=== PATIENT | female | born 1945 | race Caucasian/White ===

== ENCOUNTER 2017-08-12 14:27 | Emergency (ER) | payer MEDICARE ==
--- OUTSIDE RECORDS SUMMARY | 2017-08-12 14:29 | XMS REPORT | Clinical Summary ---
:1945 Author Organization [facility] Address [address] [place] [address] Phone Care Team Providers Name Role Phone Unavailable Primary Care Provider Unavailable Allergies Active Allergy Reactions Severity Noted Date Comments Helio Carranza 09/29/2015 Current Medications Prescription Sig. Disp. Refills Start Date End Date Status ferrous sulfate 325 Take 650 mg by mouth Active (65 FE) MG tablet daily with breakfast. nitroglycerin Place 0.4 mg under Active (NITROSTAT) 0.4 MG the tongue every 5 SL tablet (five) minutes as needed for Chest pain Put 1 pill under tongue every 5min as needed for chest pain.No more than 3 doses in 15min.Call 911 if pain is unrelieved 5min after 1st dose . pantoprazole Take 40 mg by mouth Active (PROTONIX) 40 MG daily Once a day tablet before a meal . simvastatin (ZOCOR) Take 40 mg by mouth Active 40 MG tablet nightly. anastrozole Take 1 mg by mouth Active (ARIMIDEX) 1 mg daily. tablet latanoprost Place 1 drop into Active (XALATAN) 0.005 % both eyes nightly. ophthalmic solution brimonidine-timolol Place 1 drop into Active (COMBIGAN) 0.2-0.5 the right eye every % ophthalmic 12 (twelve) hours. solution brinzolamide Place 1 drop into Active (AZOPT) 1 % both eyes 2 (two) ophthalmic times daily. suspension insulin aspart Inject 2-16 Units Active (NOVOLOG) 100 subcutaneously 3 unit/mL injection (three) times daily as needed for High Blood Sugar before meals . metoprolol Take 1 tablet (25 mg 0 10/12/2015 Active (LOPRESSOR) 25 MG total) by mouth 3 tablet (three) times daily. insulin detemir Inject 10 Units 10 mL 0 10/12/2015 Active (LEVEMIR) 100 subcutaneously every unit/mL injection morning. insulin detemir Inject 10 Units 10 mL 0 10/12/2015 Active (LEVEMIR) 100 subcutaneously unit/mL injection nightly. aspirin 81 MG Take 1 tablet (81 mg 30 tablet 11 10/12/2015 chewable tablet total) by mouth 7 daily. furosemide (LASIX) Take 1 tablet (20 mg 30 tablet 10/12/2015 20 MG tablet total) by mouth 7 daily. 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) Anemia 09/30/2015 CAD (coronary artery disease), koi coronary artery 09/29/2015 Diabetes mellitus with diabetic retinopathy 09/29/2015 Hypercholesterolemia 09/29/2015 Colon cancer (HCC) 09/29/2015 Left breast mass 09/29/2015 Social History Tobacco Use Types Packs/Day Years Used Date Never Smoker Sex Assigned at Date Recorded Not on file Last Filed Vital Signs Not on file Plan of Treatment Not on file Implants Implanted Type Area Nursing Home Assistant Administrator Device Expiration Model / Identifier Date Serial / Lot [facility]ternal [facility]501.001.20[facility] - [id number] Cardiovascular N/A: SYNTHES:SYNTHES 01/25/2020 [id number] / Implanted: Qty: 1 on 10/01/2015 by Trevor Guerrero MD Chest [facility] / [place] [id number] Results Not on fileafter 08/11/2016
[2017-08-12 15:22] LABS: Absolute Lymphocytes (CBC) 4.2 K/uL (0.7-4.9); Absolute Monocytes 0.8 K/uL (0.1-1.3); Basophils % 0.4 % (0-1.3); Eosinophils % 1.2 % (0-4.4); Hematocrit 41.5 % (36.0-45.0); Lymphocytes % 41.2 % (15.3-44.8); MCH 30.1 pg (27.0-35.0); MCV 91.1 fL (80-100); MPV 9.2 fL (7.6-11.3); Monocytes % 7.7 % (3.3-12.3); RBC Red Blood Cell Count 4.56 M/uL (3.86-4.86)
[2017-08-12 15:33] LABS: Urine Blood NEGATIVE (NEG); Urine Glucose NEGATIVE (NEG); Urine Protein NEGATIVE (NEG); Urine pH 5.5 (5.0-7.0)
[2017-08-12 15:34] LABS: Potassium 3.9 mEq/L (3.6-5.0)
--- NOTE | 2017-08-12 15:53 | ER ---
Nurse's Notes [facility] Name: Caro Garner Age: 71 yrs Sex: Female : 1945 Arrival Date: 08/12/2017 Time: 14:30 Bed 5 Private MD: Diagnosis: Cellulitis of right toe Presentation: 08/12 14:33 Presenting complaint: Patient states: I have swelling to my right great toe, just la1 noticed it today, pt is diabetic. Transition of care: patient was not received from another setting of care. Onset of symptoms was August 12, 2017. Initial Sepsis Screen: Does the patient meet any 2 criteria? No. Patient's initial sepsis screen is negative. Does the patient have a suspected source of infection? No. Patient's initial sepsis screen is negative. Care prior to arrival: None. 14:33 Method Of Arrival: Ambulatory la1 14:33 Acuity: YOUSIF 3 la1 14:33 Acuity: YOUSIF 3 la1 Historical: - Allergies: 14:34 Codeine; la1 - PMHx: 14:34 Cancer; Diabetes - IDDM; Myocardial infarction; retinopathy; la1 - Immunization history:: Adult Immunizations up to date. - Social history:: Smoking status: Patient/guardian denies using tobacco. Screenin:03 Abuse screen: Denies threats or abuse. Denies injuries from another. Nutritional jl7 screening: No deficits noted. Tuberculosis screening: No symptoms or risk factors identified. Fall Risk None identified. Total [place] Fall Scale indicates No Risk (0-24 pts). Assessment: 15:00 General: Appears in no apparent distress. uncomfortable, Behavior is calm, cooperative, jl7 appropriate for age. Pain: Denies pain. Neuro: Level of Consciousness is awake, alert, obeys commands, Oriented to person, place, time, situation. Cardiovascular: Patient's skin is warm and dry. Respiratory: Airway is patent Respiratory effort is even, unlabored, Respiratory pattern is regular, symmetrical. Derm: Skin is pink, warm \T\ dry. Musculoskeletal: Swelling present in right first toe. Vital Signs: 14:34 BP 134 / 60; Pulse 85; Resp 16; Temp 97.6; Pulse Ox 100% on R/A; Weight 68.04 kg; la1 Height 5 ft. 7 in. (170.18 cm); 16:03 BP 162 / 75; Pulse 80; Resp 18; Pulse Ox 99% ; Pain 0/10; jl7 14:34 Body Mass Index 23.49 (68.04 kg, 170.18 cm) la1 ED Course: 14:30 Patient arrived in ED. sb2 14:34 Triage completed. la1 14:35 Arm band placed on left wrist. la1 14:36 Myles Abebe RN is Primary Nurse. jl7 14:42 Danielle Walsh FNP-C [facility]. kb 14:42 Darwin Avalos MD is Attending Physician. kb 15:00 Patient has correct armband on for positive identification. Bed in low position. Call jl7 light in reach. Side rails up X 1. Pulse ox on. NIBP on. 15:03 Initial lab(s) drawn, by me, sent to lab. First set of blood cultures drawn by me. jl7 15:16 Second set of blood cultures drawn Urine collected: clean catch specimen, clear. jl7 15:34 X-ray completed. Portable x-ray completed in exam room. Patient tolerated procedure bb2 well. 15:41 Foot Right 3 View XRAY In Process Unspecified. EDMS 15:52 Urine Dipstick--Ancillary (enter results) Sent. jl7 15:52 Blood Culture Adult (2) Sent. jl7 15:52 Basic Metabolic Panel Sent. jl7 15:52 CBC with Diff Sent. jl7 16:04 No provider procedures requiring assistance completed. Patient did not have IV access jl7 during this emergency room visit. Administered Medications: 16:01 Drug: Clindamycin 300 mg Route: PO; jl7 16:01 Follow up: Response: Medication administered at discharge. jl7 Outcome: 15:16 Discharged to home ambulatory. jl7 15:16 Condition: stable 15:16 Discharge instructions given to patient, Instructed on discharge instructions, follow up and referral plans. medication usage, Demonstrated understanding of instructions, follow-up care, medications, Prescriptions given X 1. 15:52 Discharge ordered by . kb 16:05 Patient left the ED. jl7 Signatures: Dispatcher [employer] EDMS Danielle Walsh FNP-C FNP-Ckb Attema, Lee, RN RN la1 Myles Abebe RN RN jl7 Unique Napoles bb2 Billeau, Mere sb2
--- NOTE | 2017-08-12 15:53 | EDPHYS ---
Physician Documentation [facility] Name: Caro Garner Age: 71 yrs Sex: Female : 1945 Arrival Date: 08/12/2017 Time: 14:30 Bed 5 Private MD: ED Physician Darwin Avalos HPI: 08/12 15:08 This 71 yrs old Female presents to ER via Ambulatory with complaints of Toe kb Injury. 15:08 The patient presents with pain, that is acute, swelling. The complaints affect the kb right foot. Context: The problem was sustained at an unknown location, resulted from an unknown cause, Mechanism of Injury: Unknown the patient can fully bear weight, the patient is able to ambulate. Onset: The symptoms/episode began/occurred "I don't know, but I just noticed it today". Modifying factors: The symptoms are alleviated by nothing, the symptoms are aggravated by nothing. Associated signs and symptoms: Pertinent positives: swelling, Pertinent negatives: calf tenderness, fever, nausea, numbness, rash, tingling, vomiting, warmth, weakness. Severity of symptoms: At their worst the symptoms were mild, moderate, in the emergency department the symptoms are unchanged. The patient has not experienced similar symptoms in the past. The patient has not recently seen a physician. Historical: - Allergies: 14:34 Codeine; la1 - PMHx: 14:34 Cancer; Diabetes - IDDM; Myocardial infarction; retinopathy; la1 - Immunization history:: Adult Immunizations up to date. - Social history:: Smoking status: Patient/guardian denies using tobacco. ROS: 15:06 Constitutional: Negative for fever, chills, and weight loss, Cardiovascular: Negative kb for chest pain, palpitations, and edema, Respiratory: Negative for shortness of breath, cough, wheezing, and pleuritic chest pain, Abdomen/GI: Negative for abdominal pain, nausea, vomiting, diarrhea, and constipation, Back: Negative for injury and pain, : Negative for injury, bleeding, discharge, and swelling, Neuro: Negative for headache, weakness, numbness, tingling, and seizure. 15:06 MS/extremity: Positive for erythema, swelling, of the right first toe. Exam: 15:06 Constitutional: This is a well developed, well nourished patient who is awake, alert, kb and in no acute distress. Head/Face: Normocephalic, atraumatic. Chest/axilla: Normal chest wall appearance and motion. Nontender with no deformity. No lesions are appreciated. Cardiovascular: Regular rate and rhythm with a normal S1 and S2. No gallops, murmurs, or rubs. Normal PMI, no JVD. No pulse deficits. Respiratory: Lungs have equal breath sounds bilaterally, clear to auscultation and percussion. No rales, rhonchi or wheezes noted. No increased work of breathing, no retractions or nasal flaring. Abdomen/GI: Soft, non-tender, with normal bowel sounds. No distension or tympany. No guarding or rebound. No evidence of tenderness throughout. MS/ Extremity: Pulses equal, no cyanosis. Neurovascular intact. Full, normal range of motion. Neuro: Awake and alert, GCS 15, oriented to person, place, time, and situation. Cranial nerves II-XII grossly intact. Motor strength 5/5 in all extremities. Sensory grossly intact. Cerebellar exam normal. Normal gait. 15:06 Skin: Appearance: normal except for affected area, Color: erythematous, swelling, noted on the right first toe, that are mild, that are moderate. Vital Signs: 14:34 BP 134 / 60; Pulse 85; Resp 16; Temp 97.6; Pulse Ox 100% on R/A; Weight 68.04 kg; la1 Height 5 ft. 7 in. (170.18 cm); 16:03 BP 162 / 75; Pulse 80; Resp 18; Pulse Ox 99% ; Pain 0/10; jl7 14:34 Body Mass Index 23.49 (68.04 kg, 170.18 cm) la1 MDM: 14:43 Patient medically screened. kb 15:07 Data reviewed: vital signs, nurses notes. Data interpreted: Pulse oximetry: on room air kb is 100 %. Interpretation: normal. Counseling: I had a detailed discussion with the patient and/or guardian regarding: the historical points, exam findings, and any diagnostic results supporting the discharge/admit diagnosis, lab results, radiology results, the need for outpatient follow up, a family practitioner, to return to the emergency department if symptoms worsen or persist or if there are any questions or concerns that arise at home. 08/12 14:50 Order name: CBC with Diff kb 08/12 14:50 Order name: Basic Metabolic Panel kb 08/12 14:50 Order name: Blood Culture Adult (2) kb 08/12 14:50 Order name: CBC with Automated Diff; Complete Time: 15:24 EDMS 08/12 14:50 Order name: Basic Metabolic Panel; Complete Time: 15:36 EDMS 08/12 14:50 Order name: Blood Culture EDMS 08/12 14:50 Order name: Foot Right 3 View XRAY kb 08/12 15:23 Order name: Urine Dipstick--Ancillary (enter results) ag 08/12 15:23 Order name: Urine Dipstick-Ancillary; Complete Time: 15:35 EDMS Administered Medications: 16:01 Drug: Clindamycin 300 mg Route: PO; jl7 16:01 Follow up: Response: Medication administered at discharge. jl7 Disposition: 18:54 Co-signature as Attending Physician, Darwin Avalos MD. Disposition: 08/12/17 15:52 Discharged to Home. Impression: Cellulitis of right toe. - Condition is Stable. - Discharge Instructions: Cellulitis, [id number]. - Prescriptions for Clindamycin HCl 300 mg Oral Capsule - take 1 capsule by ORAL route every 8 hours for 10 days; 30 capsule. - Medication Reconciliation Form, Thank You Letter, Antibiotic Education, Prescription Opioid Use form. - Follow up: Emergency Department; When: As needed; Reason: Worsening of condition. Follow up: Private Physician; When: 2 - 3 days; Reason: Recheck today's complaints, Continuance of care, Re-evaluation by your physician. Signatures: Dispatcher [employer] [facility] Danielle Walsh, BECKI-C PHYSICIAN CODING SPECIALIST-Ckb Eduardo Stein RN RN la1 Myles Abebe RN RN jl7 Darwin Avalos MD MD Corrections: (The following items were deleted from the chart) 16:05 15:52 08/12/2017 15:52 Discharged to Home. Impression: Cellulitis of right toe. jl7 Condition is Stable. Forms are Medication Reconciliation Form, Thank You Letter, Antibiotic Education, Prescription Opioid Use. Follow up: Emergency Department; When: As needed; Reason: Worsening of condition. Follow up: Private Physician; When: 2 - 3 days; Reason: Recheck today's complaints, Continuance of care, Re-evaluation by your physician. kb
[2017-08-12] MEDS ORDERED: CLINDAMYCIN HCL 150 MG CAP ONE (15:54)
[2017-08-12 16:09] VITALS: TEMP 97.6
[2017-08-12 16:10] VITALS: BP 162/75; O2SAT 99
--- NOTE | 2017-08-12 17:11 | RAD REPORT ---
EXAM DESCRIPTION: RAD - Foot Right 3 View - 08/12/2017 3:41 pm CLINICAL HISTORY: Diabetes, soft tissue swelling first toe COMPARISON: None. FINDINGS: No fractures identified and no bone destructive process identifiable. Osteomyelitis can be present prior to radiographic bone destruction. A small linear metallic foreign body is present in t he soft tissues along the dorsal margin of the fifth MTP joint. This is probably not acutely clinical ly significant. Patient has IP joint degenerative changes well as tarsal bones and tarsal- metatarsal articulation degenerative change. No pathologic bone process. No air or foreign body in the soft tissues. IMPRESSION: No acute or destructive bone process seen. Osteomyelitis can exist prior to radiographic bone destruction. Small metallic foreign body dorsal margin fifth MTP joint not believed to be acute.
== END 2017-08-12 16:05 | disposition home or self-care (01) ==
LOC: ER 14:27
DX: L03.031 Cellulitis of right toe (principal); Z88.5 Allergy status to narcotic agent
CPT/HCPCS: 36415; 80048; 81003; 85025; 87040; 99284

== ENCOUNTER 2017-08-18 14:31 | Emergency (ER) | payer MEDICARE ==
--- OUTSIDE RECORDS SUMMARY | 2017-08-18 14:33 | XMS REPORT | Clinical Summary ---
:1945 Author Organization [facility] Address [address] [place] [address] Phone Care Team Providers Name Role Phone [...] Take 1 tablet (81 mg 30 tablet 10/12/2015 chewable tablet total) by mouth 7 daily. furosemide (LASIX) Take 1 tablet (20 mg 30 tablet 10/12/2015 20 MG tablet total) by mouth 7 daily. 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 .501.001.20s - [id number] Cardiovascular N/A: SYNTHES:SYNTHES 01/25/2020 [id number] / Implanted: Qty: 1 on 10/01/2015 by Trevor Guerrero MD Chest [facility] / [place] [id number] Results Not on fileafter 08/17/2016
[2017-08-18 15:25] LABS: Absolute Lymphocytes (CBC) 4.2 K/uL (0.7-4.9); Absolute Monocytes 0.7 K/uL (0.1-1.3); Absolute Neutrophil 4.5 K/uL (1.8-8.0); Basophils % 0.5 % (0-1.3); Eosinophils % 1.3 % (0-4.4); Hematocrit 40.4 % (36.0-45.0); Lymphocytes % 44.1 % (15.3-44.8); MCH 29.6 pg (27.0-35.0); MCV 92.3 fL (80-100); MPV 9.1 fL (7.6-11.3); Monocytes % 7.1 % (3.3-12.3); RBC Red Blood Cell Count 4.38 M/uL (3.86-4.86)
[2017-08-18 15:43] LABS: Potassium 4.4 mEq/L (3.6-5.0)
--- NOTE | 2017-08-18 15:56 | RAD REPORT ---
EXAM DESCRIPTION: RAD - Foot Right 3 View - 08/18/2017 3:49 pm CLINICAL HISTORY: Great toe pain. COMPARISON: None. FINDINGS: Soft tissue swelling is seen about the great toe. Cortical irregularity an oblique lucency involving the distal aspect of the proximal phalanx of the great toe is noted, compatible with fract ure. Mild vascular calcification. IMPRESSION: Proximal phalanx great toe fracture as detailed.
--- NOTE | 2017-08-18 16:07 | ER ---
Nurse's Notes [facility] Name: Caro Garner Age: 71 yrs Sex: Female : 1945 Arrival Date: 08/18/2017 Time: 14:33 Bed 28 Private MD: Augustus Abebe Diagnosis: Displaced fracture of proximal phalanx of right great toe Presentation: 08/18 14:58 Presenting complaint: Patient states: " I was seen here for my toe on Monday and put on ph clindamycin, then I went to the foot doctor on Monday and he put me on Bactrim so I'm taking both and it's not getting any better." Swelling and redness noted to R great toe, pt denies fever N/V/D, hx of diabetes. Transition of care: patient was not received from another setting of care. Onset of symptoms was August 18, 2017. Risk Assessment: Do you want to hurt yourself or someone else? Patient reports no desire to harm self or others. Initial Sepsis Screen: Does the patient meet any 2 criteria? No. Patient's initial sepsis screen is negative. Does the patient have a suspected source of infection? Yes: Other: infected toe. Care prior to arrival: None. 14:58 Method Of Arrival: Ambulatory 14:58 Acuity: YOUSIF 3 ph Triage Assessment: 15:05 General: Appears in no apparent distress. comfortable, well groomed, well developed, kr2 well nourished, Behavior is calm, cooperative, appropriate for age. Pain: Complains of pain in right first toe Pain radiates to right foot Pain currently is 5 out of 10 on a pain scale. Quality of pain is described as tender, throbbing, Is continuous, Alleviated by rest, Aggravated by increased activity. Historical: - Allergies: 15:03 Codeine; ph - Home Meds: 15:03 Levemir 15 units subcutaneous twice a day [Active]; Levemir 12 units subcutaneous ph nightly [Active]; Humalog Sub-Q [Active]; - PMHx: 15:03 Cancer; Diabetes - IDDM; Myocardial infarction; retinopathy; ph - PSHx: 15:03 Appendectomy; cardiac bypass; ph - Immunization history:: Adult Immunizations unknown. - Social history:: Smoking status: Patient/guardian denies using tobacco. - Ebola Screening: : No symptoms or risks identified at this time. Screenin:05 Abuse screen: Denies threats or abuse. Denies injuries from another. Nutritional kr2 screening: No deficits noted. Tuberculosis screening: No symptoms or risk factors identified. Fall Risk None identified. Assessment: 15:08 General: Appears in no apparent distress. comfortable, well groomed, well developed, kr2 well nourished, Behavior is calm, cooperative, appropriate for age. Neuro: Level of Consciousness is awake, alert, obeys commands, Oriented to person, place, time, situation, Appropriate for age. Cardiovascular: Capillary refill < 3 seconds in bilateral fingers Patient's skin is warm and dry. Respiratory: Airway is patent Respiratory effort is even, unlabored, Respiratory pattern is regular, symmetrical. Derm: Skin is intact, is healthy with good turgor. Musculoskeletal: Circulation, motion, and sensation intact. Swelling present in right first toe. Vital Signs: 15:00 BP 119 / 73; Pulse 70; Resp 18; Temp 97.7; Pulse Ox 98% on R/A; Weight 70.31 kg; Height ph 5 ft. 7 in. (170.18 cm); Pain 5/10; 16:00 BP 120 / 78; Pulse 72; Resp 17; Pulse Ox 99% on R/A; kr2 15:00 Body Mass Index 24.28 (70.31 kg, 170.18 cm) ph ED Course: 14:33 Patient arrived in ED. mr 14:34 Augustus Abebe MD is Private Physician. mr 15:00 Triage completed. ph 15:04 Danielle Walsh FNP-C [facility]. kb 15:04 John Yepez MD is Attending Physician. kb 15:04 Arm band placed on. ph 15:05 Patient has correct armband on for positive identification. Bed in low position. Call kr2 light in reach. Side rails up X 1. Adult w/ patient. Pulse ox on. NIBP on. Door closed. Warm blanket given. Head of bed elevated. 15:10 Pita Abrams, MARGOT is Primary Nurse. kr2 15:47 X-ray completed. Portable x-ray completed in exam room. Patient tolerated procedure bb2 well. 15:49 Foot Right 3 View XRAY In Process Unspecified. EDMS 16:20 No provider procedures requiring assistance completed. Patient did not have IV access kr2 during this emergency room visit. 16:28 Ortho shoe applied to right foot. aj1 Administered Medications: No medications were administered Outcome: 16:07 Discharge ordered by . howie 16:29 Discharged to home via wheelchair. aj1 16:29 Condition: good 16:29 Discharge instructions given to patient, family, Instructed on discharge instructions, follow up and referral plans. Demonstrated understanding of instructions, follow-up care. 16:29 Patient left the ED. aj1 Signatures: Dispatcher [employer] EDMS Danielle Walsh, VENDING ENTERPRISES SUPERVISOR-C VENDING ENTERPRISES SUPERVISOR-CkPortia Barakat RN RN aj1 Analia Riggins mr Rosibel Case RN RN ph Pita Abrams RN RN kr2 Unique Napoles2 Corrections: (The following items were deleted from the chart) 15:09 14:58 Initial Sepsis Screen: Does the patient meet any 2 criteria? No. Patient's ph initial sepsis screen is negative. Does the patient have a suspected source of infection? No. Patient's initial sepsis screen is negative. ph
--- NOTE | 2017-08-18 16:07 | EDPHYS ---
Physician Documentation [facility] Name: Caro Garner Age: 71 yrs Sex: Female : 1945 Arrival Date: 08/18/2017 Time: 14:33 Bed 28 Private MD: Augustus Abebe ED Physician John Yepez HPI: 08/18 15:52 This 71 yrs old Female presents to ER via Ambulatory with complaints of kb Infected Toe. 15:52 the patient presents with a swollen area of the right first toe. Description: kb erythematous, swollen. Onset: The symptoms/episode began/occurred 1.5 week(s) ago. Possible cause(s): unknown. Associated signs and symptoms: Pertinent positives: erythema, swelling, Pertinent negatives: discharge, drainage, foreign body sensation, fever, headache, nausea, shortness of breath, vomiting. Modifying factors: the symptoms are alleviated by nothing, the symptoms are aggravated by nothing. Severity of symptoms: At their worst the symptoms were moderate, in the emergency department the symptoms are unchanged. The patient has not experienced similar symptoms in the past. The patient has been recently seen by a physician: the patient's primary care provider, with similar presenting complaints, The patient has been recently seen at the [facility] Emergency Department, last week, for similar complaints. 15:56 Pt noticed redness to right great toe last week, unknown cause. Came to ER and was kb started on Clindamycin. 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 Was given Bactrim by her ventilating equipment installer and told to continue Clindamycin. States she has a follow up appt with ventilating equipment installer on Monday (08/22/17). Came today because the redness had seemed to be clearing up, but today it looks like it is coming back. Denies fever, chills. . Historical: - Allergies: 15:03 Codeine; ph - Home Meds: 15:03 Levemir 15 units subcutaneous twice a day [Active]; Levemir 12 units subcutaneous ph nightly [Active]; Humalog Sub-Q [Active]; - PMHx: 15:03 Cancer; Diabetes - IDDM; Myocardial infarction; retinopathy; ph - PSHx: 15:03 Appendectomy; cardiac bypass; ph - Immunization history:: Adult Immunizations unknown. - Social history:: Smoking status: Patient/guardian denies using tobacco. - Ebola Screening: : No symptoms or risks identified at this time. ROS: 15:49 Constitutional: Negative for fever, chills, and weight loss, Neck: Negative for injury, kb pain, and swelling, Cardiovascular: Negative for chest pain, palpitations, and edema, Respiratory: Negative for shortness of breath, cough, wheezing, and pleuritic chest pain, Abdomen/GI: Negative for abdominal pain, nausea, vomiting, diarrhea, and constipation, Back: Negative for injury and pain, Neuro: Negative for headache, weakness, numbness, tingling, and seizure. 15:49 MS/extremity: Positive for erythema, swelling, tenderness, of the right first toe. Exam: 15:49 Constitutional: This is a well developed, well nourished patient who is awake, alert, kb and in no acute distress. Head/Face: Normocephalic, atraumatic. Chest/axilla: Normal chest wall appearance and motion. Nontender with no deformity. No lesions are appreciated. Cardiovascular: Regular rate and rhythm with a normal S1 and S2. No gallops, murmurs, or rubs. Normal PMI, no JVD. No pulse deficits. Respiratory: Lungs have equal breath sounds bilaterally, clear to auscultation and percussion. No rales, rhonchi or wheezes noted. No increased work of breathing, no retractions or nasal flaring. Abdomen/GI: Soft, non-tender, with normal bowel sounds. No distension or tympany. No guarding or rebound. No evidence of tenderness throughout. MS/ Extremity: Pulses equal, no cyanosis. Neurovascular intact. Full, normal range of motion. Neuro: Awake and alert, GCS 15, oriented to person, place, time, and situation. Cranial nerves II-XII grossly intact. Motor strength 5/5 in all extremities. Sensory grossly intact. Cerebellar exam normal. Normal gait. 15:49 Skin: Appearance: normal except for affected area, Color: normal in color, pink, Temperature: normal temperature, warm, swelling, noted on the right first toe, that are mild. Vital Signs: 15:00 BP 119 / 73; Pulse 70; Resp 18; Temp 97.7; Pulse Ox 98% on R/A; Weight 70.31 kg; Height ph 5 ft. 7 in. (170.18 cm); Pain 5/10; 16:00 BP 120 / 78; Pulse 72; Resp 17; Pulse Ox 99% on R/A; kr2 15:00 Body Mass Index 24.28 (70.31 kg, 170.18 cm) ph MDM: 15:04 Patient medically screened. kb 15:49 Data reviewed: vital signs, nurses notes. Data interpreted: Pulse oximetry: on room air kb is 98 %. Interpretation: normal. 16:06 Counseling: I had a detailed discussion with the patient and/or guardian regarding: the kb historical points, exam findings, and any diagnostic results supporting the discharge/admit diagnosis, lab results, radiology results, the need for outpatient follow up, a orthopedic surgeon, to return to the emergency department if symptoms worsen or persist or if there are any questions or concerns that arise at home. 08/18 15:09 Order name: CBC with Diff; Complete Time: 15:31 kb 08/18 15:09 Order name: Basic Metabolic Panel; Complete Time: 15:48 kb 08/18 15:09 Order name: Foot Right 3 View XRAY; Complete Time: 16:01 kb 08/18 16:08 Order name: Post-op shoe; Complete Time: 16:29 kb Administered Medications: No medications were administered Disposition: 08/18/17 16:07 Discharged to Home. Impression: Displaced fracture of proximal phalanx of right great toe. - Condition is Stable. - Discharge Instructions: Toe Fracture, [id number]. - Medication Reconciliation Form, Thank You Letter, Antibiotic Education, Prescription Opioid Use form. - Follow up: Emergency Department; When: As needed; Reason: Worsening of condition. Follow up: Private Physician; When: 2 - 3 days; Reason: Recheck today's complaints, Continuance of care, Re-evaluation by your physician. Addendum: 08/22/2017 09:03 Co-signature as Attending Physician, John Yepez MD I agree with the assessment and c sanches plan of care. Signatures: Dispatcher [employer] EDNY Danielle Walsh, APRIL CONNELL-Portia Vazquez RN RN aj1 John Yepez MD MD cha Hall, Patricia RN RN ph Corrections: (The following items were deleted from the chart) 08/18 16:29 16:07 08/18/2017 16:07 Discharged to Home. Impression: Displaced fracture of proximal aj1 phalanx of right great toe. Condition is Stable. Forms are Medication Reconciliation Form, Thank You Letter, Antibiotic Education, Prescription Opioid Use. Follow up: Emergency Department; When: As needed; Reason: Worsening of condition. Follow up: Private Physician; When: 2 - 3 days; Reason: Recheck today's complaints, Continuance of care, Re-evaluation by your physician. kb
[2017-08-18 16:40] VITALS: BP 119/73; TEMP 97.7; O2SAT 98
== END 2017-08-18 16:29 | disposition home or self-care (01) ==
LOC: ER 14:31
DX: S92.411A Displaced fracture of proximal phalanx of right great toe, initial encounter for closed fracture (principal); X58.XXXA Exposure to other specified factors, initial encounter; Y93.9 Activity, unspecified; Y92.9 Unspecified place or not applicable; Z79.4 Long term (current) use of insulin; Z88.5 Allergy status to narcotic agent; E11.9 Type 2 diabetes mellitus without complications; I25.2 Old myocardial infarction
CPT/HCPCS: 36415; 80048; 85025; 99284

== ENCOUNTER 2017-10-25 18:34 | Inpatient (IN) | payer MEDICARE ==
--- OUTSIDE RECORDS SUMMARY | 2017-10-25 18:36 | XMS REPORT | Clinical Summary ---
:1945 Author Organization [facility] Address [address] [place] [address] Phone Care Team Providers Name Role Phone Unavailable Primary Care Provider Unavailable Allergies Active Allergy Reactions Severity Noted Date Comments Helio Carranza 09/29/2015 Current Medications Prescription Sig. Disp. Refills Start Date End Date Status ferrous sulfate 325 Take 650 mg by mouth Active (65 FE) MG tablet daily with breakfast. nitroglycerin Place 0.4 mg under the Active (NITROSTAT) 0.4 MG SL tongue every 5 (five) tablet minutes as needed for Chest pain Put 1 pill under tongue every 5min as needed for chest pain.No more than 3 doses in 15min.Call 911 if pain is unrelieved 5min after 1st dose . pantoprazole Take 40 mg by mouth Active (PROTONIX) 40 MG daily Once a day tablet before a meal . simvastatin (ZOCOR) 40 Take 40 mg by mouth Active MG tablet nightly. anastrozole (ARIMIDEX) Take 1 mg by mouth Active 1 mg tablet daily. latanoprost (XALATAN) Place 1 drop into both Active 0.005 % ophthalmic eyes nightly. solution brimonidine-timolol Place 1 drop into the Active (COMBIGAN) 0.2-0.5 % right eye every 12 ophthalmic solution (twelve) hours. brinzolamide (AZOPT) 1 Place 1 drop into both Active % ophthalmic eyes 2 (two) times suspension daily. insulin aspart Inject 2-16 Units Active (NOVOLOG) 100 unit/mL subcutaneously 3 injection (three) times daily as needed for High Blood Sugar before meals . metoprolol (LOPRESSOR) Take 1 tablet (25 mg 0 10/12/2015 Active 25 MG tablet total) by mouth 3 (three) times daily. insulin detemir Inject 10 Units 10 mL 0 10/12/2015 Active (LEVEMIR) 100 unit/mL subcutaneously every injection morning. insulin detemir Inject 10 Units 10 mL 0 10/12/2015 Active (LEVEMIR) 100 unit/mL subcutaneously injection nightly. 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) Anemia 09/30/2015 CAD (coronary artery disease), [place] coronary artery 09/29/2015 Diabetes mellitus with diabetic retinopathy 09/29/2015 Hypercholesterolemia 09/29/2015 Colon cancer (HCC) 09/29/2015 Left breast mass 09/29/2015 Social History Tobacco Use Types Packs/Day Years Used Date Never Smoker Sex Assigned at Date Recorded Not on file Last Filed Vital Signs Not on file Plan of Treatment Not on file Implants Implanted Type Area Head 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
--- OUTSIDE RECORDS SUMMARY | 2017-10-25 18:37 | XMS REPORT | Continuity of Care Document ---
:1945 Author Organization Interface Problems Problem Status Onset Classification Date Comments Source Date Reported Pseudophakia<sup> Active 02/11/20 Problem 09/14/2017 Data migrated Medical 4</sup> 14 from [employer] on 08/23/14. Glaucoma primary, Active 08/01/19 Problem 09/14/2017 Data migrated Medical open 13 from [employer] angle<sup>3</sup> Centricity on 08/23/14. Diabetes Active Problem 09/14/2017 Data migrated Medical mellitus<sup>1</s from [employer] up> Centricity on 08/23/14. Myopia with Active Problem 09/14/2017 Medical astigmatism and Group presbyopia Other Active Problem 09/14/2017 hx of Medical non-diabetic Group proliferative retinopathy, unspecified eye<sup>2</sup> Medications Medication Details Route Status Patient Ordering Order Source Instructions Provider Date Allergies, Adverse Reactions, Alerts Substance Category Reaction Severity Reaction Status Date Comments Source type Reported codeine<sup Assertion Drug Active Data MH >1</sup> allergy migrated Medical from [employer] on 05/27/15. Originally documented as CODEINE. Immunizations Immunization Date Given Site Status Last Updated Comments Source Results Order Results Value Reference Date Interpretation Comments Source Name Range Vital Signs Vital Sign Value Date Comments Source Encounters Location Location Encounter Encounter Reason Attending ADM DC Status Source Details Type Number For Provider Date Date Visit Outpatient [id number] GEETHA 01/29 Active [facility] [place] [facility] [id number] GEETHA 02/02 Active [facility] [place] [id number] GEETHA 08/06 [facility] [place] [id number] GEETHA 02/10 Active [facility] [place] [id number] GEETHA 02/15 Active [facility] [place] [id number] GEETHA 03/08 [facility] [place] [id number] GEETHA 06/07 Active [facility] [place] [id number] GEETHA 12/06 [facility] Phone [phone] 06/07 06/09 Internal Message /2017 [facility] Phone [phone] 06/07 06/09 Internal Message /2017 [facility] Procedures Procedure Code Date Perfomer Comments Source Appendectomy [id number] Medical Group Hysterectomy [id number] Medical Group
[2017-10-25 19:48] LABS: Urine Blood 3+ (NEG); Urine Glucose NEGATIVE (NEG); Urine Protein 3+ (NEG); Urine Specific Gravity 1.015 (1.005-1.030)
[2017-10-25 19:54] LABS: Urine Bacteria <20 /HPF (<20); Urine Culture Reflex Order REFLEXED
--- NOTE | 2017-10-25 20:05 | RAD REPORT ---
EXAM DESCRIPTION: CT - Stone Protocol - 10/25/2017 7:42 pm CLINICAL HISTORY: Abdominal pain. Right lower quadrant pain with vomiting COMPARISON: September 2017 TECHNIQUE: Computed axial tomography of the abdomen pelvis was obtained without oral or IV contrast. Lack of IV and oral contrast limits evaluation of solid organs, bowel, and vessels. Coronal reformat mandeep images were obtained and reviewed. All CT scans are performed using dose optimization technique as appropriate and may include automated exposure control or mA/KV adjustment according to patient size. FINDINGS: Tiny bilateral renal calculi are present. Renal arterial calcifications are seen. Minimal right pyelocaliectasis is presence. Minimal stranding is seen adjacent to the proximal right ureter. A ureteral calculus is not seen. The liver, spleen, and adrenals appear grossly normal. The pancreas is atrophic. A right hemicolectomy has been performed. There is no evidence of diverticulitis. A bowel obstruction is not noted. IMPRESSION: Tiny nonobstructing renal calculi Minimal stranding adjacent to the proximal right ureter within minimal right pyelocaliectasis. This m ay indicate infection/inflammation
[2017-10-25 20:09] LABS: Absolute Lymphocytes (CBC) 2.7 K/uL (0.7-4.9); Absolute Monocytes 0.3 K/uL (0.1-1.3); Absolute Neutrophil 10.1 K/uL (1.8-8.0); Basophils % 0.2 % (0-1.3); Eosinophils % 0.1 % (0-4.4); Hematocrit 40.5 % (36.0-45.0); Lymphocytes % 20.7 % (15.3-44.8); MCV 90.6 fL (80-100); MPV 8.9 fL (7.6-11.3); Monocytes % 2.5 % (3.3-12.3); RBC Red Blood Cell Count 4.47 M/uL (3.86-4.86)
[2017-10-25] MEDS ORDERED: ONDANSETRON 4 MG/2 ML VIAL ONE (20:09)
[2017-10-25] MEDS ORDERED: CEFTRIAXONE 1000 MG/VIAL ONE (20:09)
[2017-10-25] MEDS ORDERED: MORPHINE 4 MG/ML SYR ONE (20:09)
[2017-10-25] MEDS ORDERED: NA CHLORIDE 0.9% 100 ML IV ONE (20:10)
[2017-10-25] MEDS ORDERED: NA CHLORIDE 0.9% 1,000 ML ONE (20:10)
[2017-10-25 20:28] LABS: Albumin 3.4 g/dL (3.4-5.0); Bilirubin Total 0.8 mg/dL (0.2-1.0); Potassium 3.5 mmol/L (3.5-5.1); Protein, Total 7.3 g/dL (6.4-8.2)
--- NOTE | 2017-10-25 20:33 | ER ---
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 Transition of care: patient was not received from another setting of care. Onset of symptoms was October 25, 2017. Risk Assessment: Do you want to hurt yourself or someone else? Patient reports no desire to harm self or others. Initial Sepsis Screen: Does the patient meet any 2 criteria? No. Patient's initial sepsis screen is negative. Does the patient have a suspected source of infection? No. Patient's initial sepsis screen is negative. Care prior to arrival: None. 18:56 Method Of Arrival: Ambulatory sg 18:56 Acuity: YOUSIF 3 sg Historical: - Allergies: 18:59 Codeine; sg - Home Meds: 18:59 Humalog Sub-Q [Active]; Levemir 15 units subcutaneous twice a day [Active]; Levemir 12 sg units subcutaneous nightly [Active]; Novolin R sliding scale Sub-Q before meals [Active]; - PMHx: 18:59 Cancer; Diabetes - IDDM; Myocardial infarction; retinopathy; sg - PSHx: 18:59 Appendectomy; cardiac bypass; sg 18:59 Mastectomy, Left; bp - Immunization history:: Adult Immunizations up to date. - Social history:: Smoking status: Patient/guardian denies using tobacco. - Ebola Screening: : Patient negative for fever greater than or equal to 101.5 degrees Fahrenheit, and additional compatible Ebola Virus Disease symptoms Patient denies exposure to infectious person Patient denies travel to an Ebola-affected area in the 21 days before illness onset No symptoms or risks identified at this time. Screenin:57 Abuse screen: Denies threats or abuse. Denies injuries from another. Nutritional bp screening: No deficits noted. Tuberculosis screening: No symptoms or risk factors identified. Fall Risk None identified. Assessment: 19:00 General: Appears in no apparent distress. comfortable, Behavior is calm, cooperative, bp appropriate for age. Pain: Complains of pain in R FLANK. Neuro: Level of Consciousness is awake, alert, obeys commands, Oriented to person, place, time, situation, Appropriate for age. Cardiovascular: No deficits noted. Respiratory: Airway is patent Respiratory effort is even, unlabored, Respiratory pattern is regular, symmetrical. GI: Reports nausea, vomiting. : No signs and/or symptoms were reported regarding the genitourinary system. EENT: No deficits noted. Derm: No deficits noted. Musculoskeletal: Circulation, motion, and sensation intact. Range of motion: intact in all extremities, AMBULATES WITH CANE AT BASELINE. 20:28 Reassessment: ALL CURRENT ORDERS COMPLETED, RESULTS PENDING. VS STABLE ON MONITOR. bp 21:00 Reassessment: ADMIT IN PROCESS, DX PYELONEPHRITIS. VS STABLE ON MONITOR. bp Vital Signs: 18:59 BP 122 / 97; Pulse 108; Resp 19 S; Temp 98.8(TE); Pulse Ox 100% on R/A; Weight 72.57 kg sg (R); Pain 10/10; 20:28 BP 98 / 38; Pulse 94; Resp 14; Pulse Ox 96% ; bp 21:00 BP 130 / 56; Pulse 97; Resp 16; Pulse Ox 98% ; bp ED Course: 18:36 Patient arrived in ED. sb2 18:36 Augustus Abebe MD is Private Physician. sb2 18:58 Triage completed. sg 19:00 Arm band placed on right wrist. sg 19:07 jA Desai MD is Attending Physician. ps1 19:28 Alex Lyle, MARGOT is Primary Nurse. bp 19:[address] via stretcher. vm2 19:41 CT completed. Patient tolerated procedure well. Patient moved back from CT. vm2 19:42 CT Stone Protocol In Process Unspecified. EDMS 19:57 Inserted saline lock: 20 gauge in right wrist, using aseptic technique. Blood collected.bp 19:58 Patient has correct armband on for positive identification. Bed in low position. Call bp light in reach. Side rails up X2. 20:33 Christiano Perez MD is Hospitalizing Provider. ps1 21:36 No provider procedures requiring assistance completed. Patient admitted, IV remains in bp place. Administered Medications: 19:45 Drug: NS 0.9% 1000 ml Route: IV; Rate: 1 bolus; Site: right wrist; bp 20:45 Follow up: IV Status: Completed infusion; IV Intake: 1000ml bp 19:45 Drug: morphine 4 mg Route: IVP; Site: right wrist; bp 20:19 Follow up: Response: Pain is decreased bp 19:45 Drug: Zofran 4 mg Route: IVP; Site: right wrist; bp 20:20 Follow up: Response: No adverse reaction; Nausea is decreased bp 19:45 Drug: Rocephin - (cefTRIAXone) 1 grams Route: IVPB; Infused Over: 30 mins; Site: right bp wrist; 20:15 Follow up: IV Status: Completed infusion; IV Intake: 100ml bp Intake: 20:15 IV: 100ml; Total: 100ml. bp 20:45 IV: 1000ml; Total: 1100ml. bp Outcome: 20:33 Decision to Hospitalize by Provider. ps1 21:36 Condition: stable bp 21:36 Instructed on the need for admit. 21:49 Admitted to Med/surg accompanied by nurse, family with patient, via wheelchair, room bp 416, with chart, Report called to LILLIAN FROST 22:04 Patient left the ED. bp Signatures: Dispatcher [employer] EDMS Shreyas Iverson, RN MARGOT Yvonne Mon 2 Alex Lyle RN RN bp Singer, Phillip, MD MD ps1 Mere [place] sb2
--- NOTE | 2017-10-25 20:33 | EDPHYS ---
Physician Documentation [facility] Name: Caro Garner Age: 72 yrs Sex: Female : 1945 Arrival Date: 10/25/2017 Time: 18:36 Bed 13 Private MD: Augustus Abebe ED Physician Aj Desai HPI: 10/25 19:27 This 72 yrs old Female presents to ER via Ambulatory with complaints of Back ps1 Pain, Vomiting. 19:27 hc of colon CA, anemia, CAD presenting with 2 day history of right flank pain. 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 Pain radiated to back. Rated moderate to severe. Associated with fatigue and vomiting. No hx of stones before in the past. 2 years in remission of colon CA. Patient of Adriane. Dr. Britt in [facility]. . Historical: - Allergies: 18:59 Codeine; sg - Home Meds: 18:59 Humalog Sub-Q [Active]; Levemir 15 units subcutaneous twice a day [Active]; Levemir 12 sg units subcutaneous nightly [Active]; Novolin R sliding scale Sub-Q before meals [Active]; - PMHx: 18:59 Cancer; Diabetes - IDDM; Myocardial infarction; retinopathy; sg - PSHx: 18:59 Appendectomy; cardiac bypass; sg 18:59 Mastectomy, Left; bp - Immunization history:: Adult Immunizations up to date. - Social history:: Smoking status: Patient/guardian denies using tobacco. - Ebola Screening: : Patient negative for fever greater than or equal to 101.5 degrees Fahrenheit, and additional compatible Ebola Virus Disease symptoms Patient denies exposure to infectious person Patient denies travel to an Ebola-affected area in the 21 days before illness onset No symptoms or risks identified at this time. ROS: 19:27 Constitutional: Negative for fever, chills, and weight loss, Eyes: Negative for injury, ps1 pain, redness, and discharge, ENT: Negative for injury, pain, and discharge, Cardiovascular: Negative for chest pain, palpitations, and edema, Respiratory: Negative for shortness of breath, cough, wheezing, and pleuritic chest pain, : Negative for injury, bleeding, discharge, and swelling, MS/Extremity: Negative for injury and deformity, Skin: Negative for injury, rash, and discoloration, Neuro: Negative for headache, weakness, numbness, tingling, and seizure. 19:27 Abdomen/GI: Positive for nausea and vomiting. 19:27 : Positive for flank pain. Exam: 19:27 Constitutional: This is a well developed, well nourished patient who is awake, alert, ps1 and in no acute distress. Head/Face: Normocephalic, atraumatic. Chest/axilla: Normal chest wall appearance and motion. Nontender with no deformity. No lesions are appreciated. Cardiovascular: Regular rate and rhythm. No gallops, murmurs, or rubs. Normal PMI, no JVD. No pulse deficits. Respiratory: Lungs have equal breath sounds bilaterally, clear to auscultation and percussion. No rales, rhonchi or wheezes noted. No increased work of breathing, no retractions or nasal flaring. Abdomen/GI: Soft, non-tender, with normal bowel sounds. No distension or tympany. No guarding or rebound. No evidence of tenderness throughout. 19:27 : CVA tenderness, on the right. 19:27 Skin: Appearance: Color: pale. Vital Signs: 18:59 BP 122 / 97; Pulse 108; Resp 19 S; Temp 98.8(TE); Pulse Ox 100% on R/A; Weight 72.57 kg sg (R); Pain 10/10; 20:28 BP 98 / 38; Pulse 94; Resp 14; Pulse Ox 96% ; bp 21:00 BP 130 / 56; Pulse 97; Resp 16; Pulse Ox 98% ; bp MDM: 19:45 Patient medically screened. ps1 20:46 Data reviewed: vital signs, nurses notes, old medical records, clean CT lab test ps1 result(s), radiologic studies, CT scan, and as a result, I will admit patient. Medication response: IVF and antibiotics. HR improved. . 20:47 Data reviewed: patient has ascending UTI/pyelonephritis/SIRS/possible infected stone. . ps1 10/25 19:27 Order name: CBC with Diff; Complete Time: 20:29 ps1 10/25 19:27 Order name: Creatinine for Radiology; Complete Time: 20:29 ps1 10/25 19:27 Order name: Lipase; Complete Time: 20:29 ps1 10/25 19:27 Order name: Urine Microscopic Only; Complete Time: 20:02 ps1 10/25 19:27 Order name: CMP; Complete Time: 20:29 ps1 10/25 19:31 Order name: Troponin (emerg Dept Use Only); Complete Time: 20:29 ps1 10/25 19:27 Order name: CT Stone Protocol; Complete Time: 20:29 ps1 10/25 19:31 Order name: EKG; Complete Time: 19:31 ps1 10/25 19:45 Order name: Urine Dipstick--Ancillary (enter results); Complete Time: 20:02 ms 10/25 19:56 Order name: Urine Culture EDMS 10/25 19:27 Order name: IV Saline Lock; Complete Time: 20:20 ps1 10/25 19:27 Order name: Labs collected and sent; Complete Time: 20:20 ps1 10/25 19:27 Order name: Urine Dipstick-Ancillary (obtain specimen); Complete Time: 20:20 ps1 EC:21 Rate is 94 beats/min. Rhythm is regular. QRS [place] is Normal. [place] interval is normal. QRS ps1 interval is normal. QT interval is normal. Q waves are Old. T waves are Inverted. No ST changes noted. Clinical impression: NSR w/ Non-specific ST/T Changes. Interpreted by me. Administered Medications: 19:45 Drug: NS 0.9% 1000 ml Route: IV; Rate: 1 bolus; Site: right wrist; bp 20:45 Follow up: IV Status: Completed infusion; IV Intake: 1000ml bp 19:45 Drug: morphine 4 mg Route: IVP; Site: right wrist; bp 20:19 Follow up: Response: Pain is decreased bp 19:45 Drug: Zofran 4 mg Route: IVP; Site: right wrist; bp 20:20 Follow up: Response: No adverse reaction; Nausea is decreased bp 19:45 Drug: Rocephin - (cefTRIAXone) 1 grams Route: IVPB; Infused Over: 30 mins; Site: right bp wrist; 20:15 Follow up: IV Status: Completed infusion; IV Intake: 100ml bp Disposition: 10/25/17 20:33 Hospitalization ordered by Christiano Perez for Inpatient Admission. Preliminary diagnosis are Pyelonephritis, Acute cystitis. - Bed requested for Telemetry/MedSurg (Inpatient). - Status is Inpatient Admission. bp - Condition is Stable. - Problem is new. - Symptoms have improved. UTI on Admission? Yes Signatures: Dispatcher [employer] EDCA Shreyas Iverson RN RN Analia Rueda ms Alex Lyle, MARGOT RN bp Aj Desai MD MD ps1 Corrections: (The following items were deleted from the chart) 21:13 20:33 Hospitalization Ordered by Christiano Perez MD for Inpatient Admission. Preliminary ms diagnosis is Pyelonephritis; Acute cystitis. Bed requested for Telemetry/MedSurg (Inpatient). Status is Inpatient Admission. Condition is Stable. Problem is new. Symptoms have improved. UTI on Admission? Yes. ps1 22:04 21:13 10/25/2017 20:33 Hospitalization Ordered by Christiano Perez MD for Inpatient bp Admission. Preliminary diagnosis is Pyelonephritis; Acute cystitis. Bed requested for Telemetry/MedSurg (Inpatient). Status is Inpatient Admission. Condition is Stable. Problem is new. Symptoms have improved. UTI on Admission? Yes. ms
[2017-10-25] MEDS ORDERED: MORPHINE 2 MG/ML SYR IV PRN (21:02)
[2017-10-25] MEDS ORDERED: ACETAMINOPHEN 500 MG TAB PO PRN (21:02)
--- NOTE | 2017-10-25 21:50 | EKG ---
Test Date: 2017-10-25 Test Time: 20:44:13 Senior Lead Project Manager: MEASUREMENT RESULTS: Intervals: Rate: 94 MT: 146 QRSD: 94 QT: 378 QTc: 472 [place]: P: 48 MT: 146 QRS: -18 T: -4 INTERPRETIVE STATEMENTS: Sinus rhythm with premature atrial complexes with aberrant conduction ST & T wave abnormality, consider inferior ischemia ST & T wave abnormality, consider anterolateral ischemia Prolonged QT Abnormal ECG Compared to ECG 12/31/2015 11:33:35 Atrial premature complex(es) now present Possible ischemia still present Electronically Signed On 10-25-17 21:49:40 CDT by Asher Alfaro
[2017-10-25] MEDS: NA CHLORIDE 0.9% 1,000 ML IV SCH (22:22)
[2017-10-26] MEDS: NA CHLORIDE 0.9% 1,000 ML IV SCH (05:21)
[2017-10-26 05:30] LABS: Absolute Lymphocytes (CBC) 2.2 K/uL (0.7-4.9); Absolute Monocytes 1.6 K/uL (0.1-1.3); Absolute Neutrophil 10.9 K/uL (1.8-8.0); Basophils % 0.2 % (0-1.3); Eosinophils % 0.1 % (0-4.4); Hematocrit 33.9 % (36.0-45.0); Lymphocytes % 15.2 % (15.3-44.8); MCV 91.6 fL (80-100); MPV 9.1 fL (7.6-11.3); Monocytes % 10.6 % (3.3-12.3)
[2017-10-26 05:50] LABS: Albumin 2.6 g/dL (3.4-5.0); Bilirubin Total 0.5 mg/dL (0.2-1.0); Potassium 3.7 mmol/L (3.5-5.1); Protein, Total 5.7 g/dL (6.4-8.2)
[2017-10-26] MEDS ORDERED: GLUCAGON 1 MG/VIAL IM PRN (07:45)
[2017-10-26] MEDS ORDERED: D50W 25 GM/50 ML SYRINGE IV PRN (07:45)
--- NOTE | 2017-10-26 08:56 | P.HP ---
Certification for Inpatient Patient admitted to: Inpatient With expected LOS: >2 Midnights Practitioner: I am a practitioner with admitting privileges, knowledge of patient current condition, hospital course, and medical plan of care. Services: Services provided to patient in accordance with Admission requirements found in Title 42 Section 412.3 of the Code of Federal Regulations Patient History Date of Service: 10/25/17 Reason for admission: Pyelonephritis/leukocytosis History of Present Illness: Patient is a 72-year-old female who came into the hospital with bilateral lower back pain. Her pain started yesterday and continued to slowly progress. She states she has been having dysuria and fevers. She has had a prior urinary tract infection and states they normally come on when she is not making a lot a urine. She came to the hospital for further evaluation. In the emergency room , CT scan revealed possible pyelonephritis. Patient also has some nephrolithiasis but there were nonobstructing. Patient had leukocytosis on diagnostic studies and will be admitted to the hospital for further evaluation. Allergies codeine Allergy (Intermediate, Verified 08/21/15 00:05) Hives/Rash Home Medications: Insulin Aspart [Novolog] See Protocol SQ TID 08/20/15 Insulin Detemir [Levemir] 10 units SQ BID 08/20/15 Brimonidine Tartrate/Timolol [Combigan 0.2%-0.5% Eye Drops] 1 drop OP BID Brinzolamide [Azopt] 1 drop OP BID 09/23/15 Latanoprost [Xalatan] 1 drop OP BEDTIME 09/23/15 Anastrozole [Arimidex] 1 mg PO DAILY 10/26/17 Aspirin 81 mg PO DAILY 10/26/17 Furosemide [Lasix] 20 mg PO DAILY 10/26/17 Pantoprazole [Protonix Tab*] 40 mg PO DAILY 10/26/17 Simvastatin 40 mg PO BEDTIME 10/26/17 Zolpidem Tartrate [Ambien] 10 mg PO BEDTIME 10/26/17 - Past Medical/Surgical History Has patient received pneumonia vaccine in the past: Yes Diabetic: Yes -: CAD -: IDDM -: NE -: Retinopathy -: Diabetic retinopathy -: Hyperlipidemia -: Left breast mass, post biopsy indicating infiltrating ductal carcinoma -: Anemia -: Sciatica -: Chronic constipation -: Hysterectomy -: Appendectomy -: L Mastectomy -: Cardiac Bypass -: Balloon Stents Psychosocial/ Personal History: She is and . She has 4 children. She does not work. - Family History Mother Medical History: Heart disease, Diabetes, Cancer Notes: Chronic lymphatic leukemia Father Medical History: Heart disease, Hypertension - Social History Smoking Status: Never smoker Alcohol use: No CD- Drugs: No Caffeine use: No Place of Residence: Home Review of Systems 10-point ROS is otherwise unremarkable Physical Examination - Vital Signs Temperature: 97.8 F Blood Pressure: 125/71 Pulse: 87 Respirations: 18 Pulse Ox (%): 95 - Physical Exam General: Alert, In no apparent distress, Oriented x3 HEENT: Atraumatic, PERRLA, Mucous membr. moist/pink, EOMI, Sclerae nonicteric Neck: Supple, 2+ carotid pulse no bruit, No LAD, Without JVD or thyroid abnormality Respiratory: Clear to auscultation bilaterally, Normal air movement Cardiovascular: Regular rate/rhythm, Normal S1 S2 Gastrointestinal: Normal bowel sounds, Soft and benign, Non-distended, No tenderness Musculoskeletal: No clubbing, No swelling, No tenderness Integumentary: No rashes Neurological: Normal gait, Normal speech, Normal strength at 5/5 x4 extr, Normal tone, Sensation intact, Cranial nerves 3-12 intact, Normal affect Lymphatics: No axilla or inguinal lymphadenopathy - Studies Laboratory Data (last 24 hrs) 10/25/17 19:45: Sodium 142, Potassium 3.5, BUN 23 H, Creatinine 1.20, Glucose 96 , Total Bilirubin 0.8, AST 24, ALT 20, Alkaline Phosphatase 162 H, Lipase 90 10/25/17 19:45: Creatinine 1.20 10/25/17 19:45: WBC 13.2 H, Hgb 13.4, Hct 40.5, Plt Count 248 Assessment & Plan - Problems (Diagnosis) (1) Pyelonephritis Current Visit: Yes Status: Acute (2) Nephrolithiasis Current Visit: Yes Status: Acute (3) Leukocytosis Current Visit: Yes Status: Acute (4) Coronary artery disease Current Visit: No Status: Acute Qualifiers: Coronary Disease-Associated Artery/Lesion type: unspecified vessel or lesion type [place] vs. transplanted heart: unspecified whether [place] or transplanted heart Associated angina: angina presence unspecified Qualified Code(s): I25.10 - Atherosclerotic heart disease of [place] coronary artery without angina pectoris (5) Diabetes mellitus Onset Date: 09/25/15 Current Visit: No Status: Acute Qualifiers: Diabetes mellitus type: type 2 Diabetes mellitus fpc insulin use: unspecified fpc insulin use status Diabetes mellitus complication detail : with diabetic retinopathy Diabetic retinopathy severity: with unspecified retinopathy severity Diabetes mellitus macular edema: macular edema presence unspecified (6) Hypertension Current Visit: No Status: Acute Qualifiers: Qualified Code(s): I10 - Essential (primary) hypertension - Plan Plan: 1. IV hydration 2. IV antibiotics 3. Pain control 4. Monitor renal function 5. Strain urine 6. Strict blood pressure blood sugar control 7. GI and DVT prophylaxis Discharge Plan: Home Plan to discharge in: Greater than 2 days - Advance Directives Does patient have a Living Will: No Does patient have a Durable POA for Healthcare: No - Code Status/Comfort Care Code Status Assessed: Yes Code Status: Full Code Critical Care: No Time Spent Managing PTS Care (In Minutes): 50
[2017-10-26] MEDS ORDERED: ASPIRIN 81 MG CHEWABLE TABLET PO SCH ×2 (09:00→21:00)
[2017-10-26] MEDS: ANASTROZOLE 1 MG TAB PO SCH (09:00)
[2017-10-26] MEDS ORDERED: CEFTRIAXONE 1 GM/NS 50 ML 1 GM/50 ML BAG IV SCH (09:00)
[2017-10-26] MEDS ORDERED: HOME MED 1 EA UNK (Brinzolamide [Azopt] 1 DROP) OP SCH (09:00)
[2017-10-26] MEDS: PANTOPRAZOLE 40MG TABLET PO SCH (09:00)
[2017-10-26] MEDS: FUROSEMIDE 20 MG TABLET PO SCH (09:00)
[2017-10-26] MEDS ORDERED: NACHLORIDE 0.45% 1,000 ML IV SCH (09:00)
[2017-10-26] MEDS ORDERED: HOME MED 1 EA UNK (Brimonidine Tartrate/Timolol [Combigan 0.2%-0.5% Eye Drops] 1 DROP) OP SCH (09:00)
[2017-10-26] MEDS: INSULIN DETEMIR 100 UNIT/1 ML INSULIN SQ SCH ×2 (09:00→20:44)
[2017-10-26] MEDS: ONDANSETRON 4 MG/2 ML VIAL IV PRN ×2 (09:13→20:48)
[2017-10-26] MEDS: CEFTRIAXONE/SWI 1gm 1 GM/10 ML SYR IV SCH ×2 (09:15→20:48)
[2017-10-26] MEDS: INSULIN -REGULAR HUMAN 50 UNIT/0.5 ML ML SQ SCH ×3 (11:56→20:43)
--- NOTE | 2017-10-26 14:47 | P.PN ---
Subjective Date of Service: 10/26/17 Chief Complaint: Pyelonephritis/leukocytosis Subjective: No C/O voiced, Tolerating diet, Improving, Doing well Review of Systems General: As per HPI Physical Examination - Vital Signs Temperature: 97.4 F Blood Pressure: 115/56 Pulse: 76 Respirations: 18 Pulse Ox (%): 98 - Physical Exam General: Alert, In no apparent distress HEENT: Atraumatic, PERRLA, EOMI Neck: Supple, JVD not distended Respiratory: Clear to auscultation bilaterally, Normal air movement Cardiovascular: Regular rate/rhythm, Normal S1 S2 Gastrointestinal: Normal bowel sounds, No tenderness Musculoskeletal: No tenderness Integumentary: No rashes Neurological: Normal speech, Normal tone, Normal affect Lymphatics: No axilla or inguinal lymphadenopathy - Studies Laboratory Data (last 24 hrs) 10/25/17 19:45: Sodium 142, Potassium 3.5, BUN 23 H, Creatinine 1.20, Glucose 96 , Total Bilirubin 0.8, AST 24, ALT 20, Alkaline Phosphatase 162 H, Lipase 90 10/25/17 19:45: Creatinine 1.20 10/25/17 19:45: WBC 13.2 H, Hgb 13.4, Hct 40.5, Plt Count 248 Medications List Reviewed: Yes Assessment & Plan - Problems (Diagnosis) (1) Pyelonephritis Current Visit: Yes Status: Acute Plan: Pyelonephritis with UTI -UA + for UTI, Culture + for 4+ gram - rods -Currently in IV rocephin -Awaiting Culture to switch Abx (2) Coronary artery disease Current Visit: No Status: Chronic Qualifiers: Coronary Disease-Associated Artery/Lesion type: unspecified vessel or lesion type [place] vs. 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
[2017-10-26] MEDS: BRINZOLAMIDE EYE OP SCH (20:49)
[2017-10-26] MEDS: Brimonidine Tartrate/Timolol (Combigan) 0.2%-0.5% Eye Drops OP SCH (20:49)
[2017-10-26] MEDS ORDERED: ATORVASTATIN 20 MG TAB PO SCH (21:00)
[2017-10-26] MEDS ORDERED: SIMVASTATIN 40 MG TABLET PO SCH ×2 (21:00)
[2017-10-26] MEDS ORDERED: ZOLPIDEM TARTRATE 10 MG TABLET PO SCH (21:00)
[2017-10-27] MEDS ORDERED: MORPHINE 4 MG/ML SYR IV PRN (01:03)
[2017-10-27] MEDS: INSULIN -REGULAR HUMAN 50 UNIT/0.5 ML ML SQ SCH ×2 (07:30→12:03)
[2017-10-27 08:01] VITALS: BMI 24.6
[2017-10-27] MEDS: CEFTRIAXONE/SWI 1gm 1 GM/10 ML SYR IV SCH (08:43)
[2017-10-27] MEDS: ANASTROZOLE 1 MG TAB PO SCH (08:44)
[2017-10-27] MEDS: PANTOPRAZOLE 40MG TABLET PO SCH (08:44)
[2017-10-27] MEDS: FUROSEMIDE 20 MG TABLET PO SCH (08:44)
[2017-10-27] MEDS: BRINZOLAMIDE EYE OP SCH (08:46)
[2017-10-27] MEDS: Brimonidine Tartrate/Timolol (Combigan) 0.2%-0.5% Eye Drops OP SCH (08:47)
[2017-10-27] MEDS: INSULIN DETEMIR 100 UNIT/1 ML INSULIN SQ SCH (09:04)
[2017-10-27 11:17] VITALS: O2SAT 100
[2017-10-27 12:36] VITALS: BP 155/69; TEMP 98.7
--- NOTE | 2017-10-27 16:15 | P.DS ---
Admission Date: 10/25/17 Discharge Date: 10/27/17 Disposition: ROUTINE DISCHARGE Discharge Condition: GOOD Reason for Admission: Pyelonephritis/leukocytosis - Problems (1) Pyelonephritis Status: Acute (2) Coronary artery disease Status: Chronic Qualifiers: Coronary Disease-Associated Artery/Lesion type: unspecified vessel or lesion type [place] vs. transplanted heart: unspecified whether [place] or transplanted heart Associated angina: angina presence unspecified Qualified Code(s): I25.10 - Atherosclerotic heart disease of [place] coronary artery without angina pectoris (3) Diabetes mellitus Onset Date: 09/25/15 Status: Chronic Qualifiers: Diabetes mellitus type: type 2 Diabetes mellitus senior care insulin use: unspecified senior care insulin use status Diabetes mellitus complication detail : with diabetic retinopathy Diabetic retinopathy severity: with unspecified retinopathy severity Diabetes mellitus macular edema: macular edema presence unspecified (4) Dyslipidemia Status: Chronic (5) Hypertension Status: Chronic Qualifiers: Hypertension type: essential hypertension Qualified Code(s): I10 - Essential (primary) hypertension Brief History of Present Illness: Patient is a 72-year-old female who came into the hospital with bilateral lower back pain. Her pain started yesterday and continued to slowly progress. She states she has been having dysuria and fevers. She has had a prior urinary tract infection and states they normally come on when she is not making a lot a urine. She came to the hospital for further evaluation. In the emergency room , CT scan revealed possible pyelonephritis. Patient also has some nephrolithiasis but there were nonobstructing. Patient had leukocytosis on diagnostic studies and will be admitted to the hospital for further evaluation. Hospital Course: Overall during the hospit stay patient remained stable Patient was admitted to the hospital for pyelonephritis. Was found to have urinary tract infection and pyelonephritis on abdominal CT. Urine culture is positive for E. coli. Initially patient was started on IV Rocephin this is which to over to p.o. Augmentin when she had resolution of symptoms. Patient then was discharged home under stable condition and was asked to follow up with PCP in about 2 days post discharge patient given a prescription for Augmentin 500 mg b.i.d. 14 days Vital Signs/Physical Exam: Temp Pulse Resp BP Pulse Ox 98.7 F 70 18 155/69 H 96 10/27/17 12:00 10/27/17 12:00 10/27/17 12:00 10/27/17 12:00 10/27/17 12:00 General: Alert, In no apparent distress HEENT: Atraumatic, PERRLA, EOMI Neck: Supple, JVD not distended Respiratory: Clear to auscultation bilaterally, Normal air movement Cardiovascular: Regular rate/rhythm, Normal S1 S2 Gastrointestinal: Normal bowel sounds, No tenderness Musculoskeletal: No tenderness Integumentary: No rashes Neurological: Normal speech, Normal tone, Normal affect Lymphatics: No axilla or inguinal lymphadenopathy Laboratory Data at Discharge: WBC 14.8 K/uL (4.3-10.9) H 10/26/17 05:07 Hgb 11.5 g/dL (12.0-15.0) L 10/26/17 05:07 Hct 33.9 % (36.0-45.0) L D 10/26/17 05:07 Plt Count 199 K/uL (152-406) 10/26/17 05:07 Sodium 146 mmol/L (136-145) H 10/26/17 05:07 Potassium 3.7 mmol/L (3.5-5.1) 10/26/17 05:07 BUN 23 mg/dL (7-18) H 10/26/17 05:07 Creatinine 1.20 mg/dL (0.55-1.3) 10/26/17 05:07 Glucose 173 mg/dL (74-106) H 10/26/17 05:07 Total Bilirubin 0.5 mg/dL (0.2-1.0) 10/26/17 05:07 AST 13 U/L (15-37) L 10/26/17 05:07 ALT 13 U/L (12-78) 10/26/17 05:07 Alkaline Phosphatase 113 U/L (45-117) 10/26/17 05:07 Lipase 90 U/L (73-393) 10/25/17 19:45 Home Medications: Insulin Aspart [Novolog] See Protocol SQ TID 08/20/15 Insulin Detemir [Levemir] 10 units SQ BID 08/20/15 Brimonidine Tartrate/Timolol [Combigan 0.2%-0.5% Eye Drops] 1 drop OP BID Brinzolamide [Azopt] 1 drop OP BID 09/23/15 Latanoprost [Xalatan] 1 drop OP BEDTIME 09/23/15 Anastrozole [Arimidex*] 1 mg PO DAILY 10/26/17 Aspirin 81 mg PO BEDTIME 10/26/17 Furosemide [Lasix] 20 mg PO DAILY 10/26/17 Pantoprazole [Protonix Tab*] 40 mg PO DAILY 10/26/17 Simvastatin 40 mg PO BEDTIME 10/26/17 Zolpidem Tartrate [Ambien] 10 mg PO BEDTIME 10/26/17 Amoxicillin/Potassium Clav [Augmentin 500-125 Tablet] 1 each PO BID #28 tablet 10/27/17 New Medications: Amoxicillin/Potassium Clav [Augmentin 500-125 Tablet] 1 each PO BID #28 tablet Patient Discharge Instructions: Please f.u with PCP in 1 to 2 week post discharge. New medication. Augmentin 500mg BID Daily for 14 days Diet: Regular Activity: Ad jared Followup: Augustus Abebe MD [Primary Care Provider] - (call to schedule an appointment)
== END 2017-10-27 13:50 | disposition home or self-care (01) | DRG 690 ==
LOC: ER 18:34 → ERHOLD 20:46 → 4TH 21:30
PROVIDERS: ADMIT Hospitalist; ATTEND Family Medicine
DX: N10 Acute pyelonephritis (principal); I25.10 Atherosclerotic heart disease of native coronary artery without angina pectoris; E11.311 Type 2 diabetes mellitus with unspecified diabetic retinopathy with macular edema; E78.5 Hyperlipidemia, unspecified; I10 Essential (primary) hypertension; N20.0 Calculus of kidney; B96.20 Unspecified Escherichia coli [E. coli] as the cause of diseases classified elsewhere; Z79.82 Long term (current) use of aspirin; Z79.4 Long term (current) use of insulin; Z95.1 Presence of aortocoronary bypass graft; Z95.5 Presence of coronary angioplasty implant and graft; I25.2 Old myocardial infarction; Z85.3 Personal history of malignant neoplasm of breast
CPT/HCPCS: 36415; 74176; 76377; 80053; 81003; 81015; 82962; 83690; 84484; 85025; 87077; 87086; 87088; 87186; 93005; 96365; 96375; 99285; J0696; J2270; J2405; J7030

== ENCOUNTER 2018-05-22 09:58 | Observation (INO) | payer MEDICARE ==
--- OUTSIDE RECORDS SUMMARY | 2018-05-22 10:13 | XMS REPORT | Clinical Summary ---
:1945 Author Organization [facility] Address [address] [place] [address] Care Team Providers Name Role Phone Augustus Abebe MD Primary Care Provider Allergies Active Allergy Reactions Severity Noted Date Comments Codeine 03/12/2018 Medications Medication Sig Dispensed Refills Start Date End Date Status anastrozole Take 1 mg by mouth 0 Active (ARIMIDEX) 1 mg chemo daily. tablet simvastatin (ZOCOR) Take 40 mg by mouth 0 Active 40 MG tablet nightly. pantoprazole Take 40 mg by mouth 0 Active (PROTONIX) 40 MG EC daily. tablet oxybutynin XL Take 2.5 mg by 0 Active (DITROPAN-XL) 5 MG 24 mouth daily. hr tablet zolpidem (AMBIEN) 10 Take 10 mg by mouth 0 Active mg tablet nightly as needed for sleep. aspirin (ECOTRIN) 81 Take 81 mg by mouth 0 Active MG enteric coated daily. tablet tamsulosin (FLOMAX) Take 0.4 mg by 0 Active 0.4 mg capsule mouth daily. insulin GLARGINE Inject 30 Units 0 Active (LANTUS) 100 unit/mL under the skin injection (vial) daily before breakfast. brinzolamide (AZOPT) Administer 1 drop 0 Active 1 % ophthalmic to both eyes 3 suspension (three) times a day. brimonidine-timolol Administer 1 drop 0 Active (COMBIGAN) 0.2-0.5 % to both eyes every ophthalmic solution 12 (twelve) hours. latanoprost (XALATAN) 1 drop nightly. 0 Active 0.005 % ophthalmic solution Active Problems Problem Noted Date Chest pain 03/12/2018 Encounters Date Type Specialty Care Team Description 03/12/2018 Emergency General Internal Rivenes, Asher Chest pain, unspecified type (Primary Dx); Leonard Castillo MD Uncontrolled hypertension; Shanda Morales History of coronary artery disease; MD Andrew History of gastroesophageal reflux (GERD) after 05/21/2017 Social History Tobacco Use Types Packs/Day Years Used Date Never Smoker Smokeless Tobacco: Never Used Alcohol Use Drinks/Week oz/Week Comments No Alcohol Habits Answer Date Recorded How often do you have a drink containing alcohol? Never 03/12/2018 How many drinks containing alcohol do you have on a typical Not asked day when you are drinking? How often do you have six or more drinks on one occasion? Not asked Sex Assigned at Date Recorded Not on file Job Start Date Occupation Industry Not on file Not on file Not on file Travel History Travel Start Travel End No recent travel history available. Last Filed Vital Signs Vital Sign Reading Time Taken Blood Pressure 155/57 03/12/2018 11:40 PM [facility] Pulse 76 03/12/2018 11:40 PM [facility] Temperature 36.1 C (97 F) 03/12/2018 11:40 PM [facility] Respiratory Rate 14 03/12/2018 11:40 PM [facility] Oxygen Saturation 99% 03/12/2018 11:40 PM [facility] Inhaled Oxygen Concentration - - Weight - - Height 170.2 cm (5' 7") 03/12/2018 8:20 AM [facility] Body Mass Index - - Plan of Treatment Health Maintenance Due Date Last Done Comments BREAST CANCER SCREENING 1996 COLON CANCER SCREENING 1996 SHINGLES VACCINES (#1) 1996 65+ PNEUMOCOCCAL VACCINE (1 of 2 - PCV13) 09/26/2011 PNEUMOCOCCAL POLYSACCHARIDE VACCINE AGE 65 AND OVER 09/26/2011 INFLUENZA VACCINE 10/25/2017 Procedures Procedure Name Priority Date/Time Associated Comments Diagnosis POC GLUCOSE Routine 03/12/2018 9:11 Results for this PM [facility] procedure are in the results section. TROPONIN Timed 03/12/2018 9:00 Results for this PM [facility] procedure are in the results section. POC GLUCOSE Routine 03/12/2018 8:41 Results for this PM [facility] procedure are in the results section. ECHOCARDIOGRAM 2D Routine 03/12/2018 8:39 Results for this COMPLETE W MMODE PM [facility] procedure are in SPECTRAL COLOR DOPPLER the results (37082) section. ECG 12-LEAD Routine 03/12/2018 4:18 Results for this PM [facility] procedure are in the results section. POC GLUCOSE Routine 03/12/2018 3:51 Results for this PM [facility] procedure are in the results section. ECG 12-LEAD Routine 03/12/2018 2:28 Results for this PM [facility] procedure are in the results section. TROPONIN Timed 03/12/2018 2:15 Results for this PM [facility] procedure are in the results section. POC GLUCOSE Routine 03/12/2018 12:08 Results for this PM [facility] procedure are in the results section. URINALYSIS SCREEN AND STAT 03/12/2018 9:45 Results for this MICROSCOPY, WITH REFLEX AM [facility] procedure are in TO CULTURE the results section. URINE CULTURE STAT 03/12/2018 9:45 Results for this AM [facility] procedure are in the results section. ESTIMATED GFR STAT 03/12/2018 8:50 Results for this AM [facility] procedure are in the results section. B NATRIURETIC PEPTIDE STAT 03/12/2018 8:50 Results for this AM [facility] procedure are in the results section. TROPONIN STAT 03/12/2018 8:50 Results for this AM [facility] procedure are in the results section. COMPREHENSIVE METABOLIC STAT 03/12/2018 8:50 Results for this PANEL AM [facility] procedure are in the results section. LIPASE LEVEL STAT 03/12/2018 8:50 Results for this AM [facility] procedure are in the results section. HC COMPLETE BLD COUNT STAT 03/12/2018 8:50 Results for this W/AUTO DIFF AM [facility] procedure are in the results section. XR CHEST 1 VW PORTABLE STAT 03/12/2018 8:43 Results for this AM [facility] procedure are in the results section. ECG ED PRELIMINARY Routine 03/12/2018 8:29 Results for this INTERPRETATION AM [facility] procedure are in the results section. MO CRITICAL CARE, E/M Routine 03/12/2018 8:29 Results for this 30-74 MINUTES AM [facility] procedure are in the results section. ECG 12-LEAD STAT 03/12/2018 8:22 Results for this AM [facility] procedure are in the results section. after 05/21/2017 Results POC glucose (03/12/2018 9:11 PM [facility])Only the most recent of4 resultswithin the time period is included. POC glucose 83 65 - 99 mg/dL [facility] Comment: HOSPITAL RN Notified Meter ID: [id number] Extracorporeal Technician: Molly Mccoy Performing Organization Address City/State/Zipcode Phone Number [facility] DEPARTMENT OF PATHOLOGY [address] [place] [address] [place] [address] HOSPITAL Troponin (03/12/2018 9:00 PM [facility])Only the most recent of3 resultswithin the time period is included. Troponin <0.30 0.00 - 0.30 ng/mL [facility] Comment: HOSPITAL 0.11 - 1.49 ng/mlMay indicate increased risk of acute coronary syndrome. >=1.5 ng/mlConsistent with acute myocardial infarction. The diagnostic value of a single normal or non-diagnostic result is questionable.Serial samples at 2-6 hour intervals are required to rule out acute myocardial injury. Specimen Plasma specimen Performing Organization Address City/State/Zipcode Phone Number [facility] DEPARTMENT OF PATHOLOGY [address] [place] [address] Echocardiogram complete w contrast and 3D if needed (03/12/2018 8:39 PM [facility]) Ao Root Diameter 2.63 cm [facility] AoV Area, Vmax 3.61 cm2 [facility] AoV Area, VTI 3.93 cm2 [facility] AoV Mean PG 1.83 mmHg [facility] AoV Peak PG 3.23 mmHg [facility] AoV Vmax 0.91 m/s [facility] AoV VTI 0.21 m [facility] BSA Valdez 0.00 m2 [facility] BSA 0.00 m2 [facility] IVS,d 1.10 cm [facility] IVS/LVPW,2D 0.99 [facility] Left Atrium Dimension Anterior 3.56 cm [facility] LA Area d A4C 15.85 cm2 [facility] LV,d 4.46 cm [facility] LV EF,2D 52.28 % [facility] LV,s 3.48 cm [facility] LVOT area 3.76 cm2 [facility] LVOT Diam,S 2.19 cm [facility] LVOT Vmax 0.86 m/s [facility] LVOT VTI 0.22 m [facility] LVPWD,d 1.11 cm [facility] PV Pk Grad 2.27 mmHg [facility] PV VMAX 0.75 m/s [facility] RVOT Vmax 0.51 m/s [facility] RVSP (TR) 16.70 mmHg [facility] TR Vpeak 1.29 mm/s [facility] MV E A ratio 0.87 [facility] TR pk grad 6.19 mmHg [facility] MR Vmax 1.66 m/s [facility] E wave decelartion time 323.01 msec [facility] MV Peak A Jeff 1.12 m/s [facility] MV valve area p 1/2 method 2.35 cm2 [facility] MV Peak E Jeff 0.97 m/s [facility] MV stenosis pressure 1/2 time 93.67 ms [facility] AV LVOT peak gradient 2.97 mmHg [facility] RVSP 16.70 mmHg [facility] Ao Root Diameter 2.63 cm [facility] MV mean gradient 1.78 mmHg [facility] LV SYS VOL 50.23 ml [facility] LV BERRY VOL 90.31 ml [facility] LV SV Teich 2D 40.08 ml [facility] LV Vol s Teich PSAX 50.23 ml [facility] MR peak grad 6.20 mmHg [facility] MV Vmax 1.24 m [facility] MV VTI Tips 0.35 m [facility] RVOT pk grad 1.03 mmHg [facility] BSA Haycock 0.00 m2 [facility] AoV Vmn 0.65 [facility] LV FS Teich 2D 21.86 [facility] MV AE ratio 1.16 [facility] LA Ao Ratio Mmode 1.77 [facility] LV FS Cube 2D 21.86 [facility] LVOT Vmn 0.65 [facility] LVPW d Mmode 1.05 [facility] Pt Size 0.00 [facility] Pt Wt 0.00 [facility] Ao root annulus 2.40 cm [facility] Aov area Vmn 3.77 cm2 [facility] LA Vol d MOD A4C 37.98 ml [facility] LVOT mean grad 1.78 mmHg [facility] MAX Pred HR 148.54 [facility] 85 of MPHR 126.26 [facility] Calc MPHR 148.54 bpm [facility] LV SV Cube 2D 46.24 ml [facility] LV vol d cube 2D 88.44 ml [facility] LV vol s cube 2D 42.21 ml [facility] MV Decel slope 3.01 m/s2 [facility] Pred Exer Dur R1 6.67 [facility] Pred METS R1 5.41 [facility] Velocity Ratio (V1/V2) 0.95 m/s [facility] EF 44.38 % [facility] E/A ratio 0.87 [facility] Narrative Performed At Left ventricular systolic function is moderately impaired. [facility] Left Ventricular ejection fraction is 40 - 45%. Performing Organization Address [facility] Phone Number [facility] [address] [place] [address] ECG 12 lead (03/12/2018 4:18 PM [facility])Only the most recent of3 resultswithin the time period is included. Ventricular rate 73 [facility] Atrial rate 73 [facility] MO interval 122 [facility] QRSD interval 92 [facility] QT interval 402 [facility] QTC interval 442 [facility] P axis 1 43 [facility] QRS axis 1 9 [facility] T wave axis 132 [facility] EKG impression Sinus rhythm with blocked premature atrial complexes-Left ventricular hypertrophy with repolarization abnormality-Abnormal ECG-In automated comparison with ECG of 12-MAR-2018 14:28,-premature ventricula H MUSE r complexes are no longer present-premature atrial complexes are now present-ST now depressed in Lateral leads-T wave inversion less evident in Anterior leads-T wave inversion now evident in Lateral leads- Narrative Performed At Performing Organization Address [facility] Phone Number [facility] MUSE [address] [place] [address] Urinalysis screen and microscopy, with reflex to culture (03/12/2018 9:45 AM [facility]) Specimen site Clean catch [facility] Color, UA Straw [facility] Appearance, UA Clear [facility] Specific gravity, UA 1.009 1.001 - 1.030 [facility] pH, UA 5.0 5.0 - 9.0 [facility] Protein, UA Negative Negative [facility] Glucose, UA 1+ (A) Negative [facility] Ketones, UA Negative Negative [facility] Bilirubin, UA Negative Negative [facility] Blood, UA Negative Negative [facility] Nitrite, UA Negative Negative [facility] Urobilinogen, UA <2.0 <2.0 E.U./dL [facility] Leukocyte esterase, UA Negative Negative [facility] WBC, UA 1 0 - 4 /HPF [facility] RBC, UA 1 0 - 5 /HPF [facility] Bacteria, UA Few None seen [facility] Yeast, UA None seen [facility] Yeast with pseudohyphae, UA None seen [facility] Hyaline casts, UA 0-2 /LPF [facility] Specimen Urine Performing Organization Address City/[facility] Phone Number [facility] DEPARTMENT OF PATHOLOGY [address] [place] [address] Urine culture (03/12/2018 9:45 AM [facility]) Urine culture SEE COMMENTComment: Bacteriuria [facility] screen negative. HOSPITAL Performing Organization Address City/[facility] Phone Number [facility] DEPARTMENT OF PATHOLOGY [address] [place] [address] Estimated GFR (03/12/2018 8:50 AM [facility]) Estimated GFR 63 mL/min/1.73 m2 [facility] Comment: [facility] CatergoryUnitsInterpretation G1 >=90 Normal or high G2 60-89Mildly decreased [id number] to moderately decreased [id number] to severely decreased G4 15-29Severely decreased G5 <15Kidney failure The eGFR was calculated using the Chronic Kidney Disease Epidemiology Collaboration (CKD-EPI) equation. Interpretation is based on recommendations of the National Kidney Foundation-Kidney Disease Outcomes Quality Initiative (NKF-KDOQI) published in 2014. Specimen Plasma specimen Performing Organization Address City/[facility]/Zipcode Phone Number [facility] DEPARTMENT OF PATHOLOGY [address] [place] [address] CBC with platelet and differential (03/12/2018 8:50 AM [facility]) WBC 9.2 4.5 - 11.0 k/uL [facility] RBC 4.30 4.20 - 5.50 m/uL [facility] HGB 12.9 12.0 - 16.0 g/dL [facility] HCT 40.6 37.0 - 47.0 % [facility] MCV 94.4 82.0 - 100.0 fL [facility] MCH 30.0 27.0 - 34.0 pg [facility] MCHC 31.8 31.0 - 37.0 g/dL [facility] RDW - SD 43.6 37.0 - 55.0 fL [facility] MPV 10.9 6.9 - 11.0 fL [facility] Platelet count 216 150 - 400 K/uL [facility] Nucleated RBC 0.00 /100 WBC [facility] Neutrophils 36.1 (L) 39.0 - 69.0 % [facility] Lymphocytes 54.8 (H) 25.0 - 45.0 % [facility] Monocytes 7.5 0.0 - 10.0 % [facility] Eosinophils 1.1 0.0 - 5.0 % [facility] Basophils 0.3 0.0 - 1.0 % [facility] Immature granulocytes 0.2 0.0 - 1.0 % [facility] Specimen Blood Performing Organization Address City/[facility]/Zipcode Phone Number [facility] DEPARTMENT OF PATHOLOGY [id number] [place] [address] [place] [address] HOSPITAL B natriuretic peptide (03/12/2018 8:50 AM [facility]) BNP 147 (H) 0 - 100 pg/mL [facility] Specimen Blood Performing Organization Address City/[facility]/Zipcode Phone Number [facility] DEPARTMENT OF PATHOLOGY [id number] [place] [address] [place] [address] HOSPITAL Lipase level (03/12/2018 8:50 AM [facility]) Lipase 19 13 - 60 U/L [facility] Specimen Plasma specimen Performing Organization Address [facility] Phone Number [facility] DEPARTMENT OF PATHOLOGY [address] [place] [address] Comprehensive metabolic panel (03/12/2018 8:50 AM [facility]MER) Sodium 145 135 - 148 mEq/L [facility] Potassium 4.2 3.5 - 5.0 mEq/L [facility] Chloride 110 98 - 112 mEq/L [facility] CO2 25 24 - 31 mEq/L [facility] Anion gap 10@ANIO 7 - 15 mEq/L [facility] BUN 17 8 - 23 mg/dL [facility] Creatinine 0.91 (H) 0.50 - 0.90 mg/dL [facility] Glucose 193 (H) 65 - 99 mg/dL [facility] Calcium 9.4 8.8 - 10.2 mg/dL [facility] Protein 6.8 6.3 - 8.3 g/dL [facility] Albumin 4.0 3.5 - 5.0 g/dL [facility] A/G ratio 1.4 0.7 - 3.8 [facility] Alkaline phosphatase 99 35 - 104 U/L [facility] AST 16 10 - 35 U/L [facility] ALT 15 5 - 50 U/L [facility] Total bilirubin 0.3 0.2 - 1.2 mg/dL [facility] Specimen Plasma specimen Performing Organization Address [facility] Phone Number [facility] DEPARTMENT OF PATHOLOGY [address] [place] [address] XR Chest 1 Vw Portable (03/12/2018 8:43 AM [facility]MER) Narrative Performed At EXAMINATION: XR CHEST 1 VW PORTABLE RADIANT INDICATION: Chest pain COMPARISON: None IMPRESSION: Heart size is within normal limits. Prior sternotomy. No focal infiltrate, effusion, or pneumothorax. [facility]-[id number] Procedure Note Hm Interface, Radiology Results Incoming - 03/12/2018 8:47 AM [facility] EXAMINATION: XR CHEST 1 VW PORTABLE INDICATION: Chest pain COMPARISON: None IMPRESSION: Heart size is within normal limits. Prior sternotomy. No focal infiltrate, effusion, or pneumothorax. [facility]-[id number] Performing Organization Address City/State/Zipcode Phone Number JAMARI LIZAMA [address] [place] [address] ECG ED Preliminary Interpretation - Not an Order (03/12/2018 8:29 AM [facility] TR[facility]MER) Narrative Performed At Asher Manriquez MD 03/12/20181:23 PM ECG ED Preliminary Interpretation - Not an Order Performed by: Asher Manriquez MD Authorized by: Asher Manriquez MD ECG reviewed by ED Physician in the absence of a inside barrel polisher: yes Interpretation: Interpretation: non-specific Rate: ECG rate:73 ECG rate assessment: normal Rhythm: Rhythm: sinus rhythm Ectopy: Ectopy: PVCs ST segments: ST segments:Non-specific T waves: T waves: non-specific CRITICAL CARE (03/12/2018 8:29 AM [facility]MER) Narrative Performed At Asher Manriquez MD 03/12/20181:23 PM Critical Care Performed by: Asher Manriquez MD Authorized by: Asher Manriquez MD Critical care provider statement: Critical care time (minutes):73 Critical care was necessary to treat or prevent imminent or life-threatening deterioration of the following conditions:Cardiac failure Critical care was time spent personally by me on the following activities:Development of treatment plan with patient or surrogate, discussions with consultants, evaluation of patient's response to treatment, examination of patient, ordering and review of laboratory studies, ordering and review of radiographic studies, pulse oximetry and re-evaluation of patient's condition after 05/21/2017 Insurance Payer Benefit Plan / Group Subscriber ID Type Phone Address [facility] MEDICARE AARP MEDICARE COMPLETE MCR xxxxxxxxx [address] (Home) [address] [place] [address] Advance Directives Patient has advance care planning documents on file. For more information, please contact:[place] [address]
--- OUTSIDE RECORDS SUMMARY | 2018-05-22 10:13 | XMS REPORT | Continuity of Care Document ---
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 Glaucoma primary, Active 08/01/19 Problem 04/22/2018 Data migrated Medical open 13 from [employer] angle<sup>3</sup> Centricity on 08/23/14. Diabetes Active Problem 04/22/2018 Data migrated Medical mellitus<sup>1</s from [employer] up> Centricity on 08/23/14. Myopia with Active Problem 04/22/2018 Medical astigmatism and Group presbyopia Other Active Problem 04/22/2018 hx of Medical non-diabetic Group proliferative retinopathy, [...] Number For Provider Date Date Visit Outpatient [id number] GEETHA 01/29 Active [facility] [place] [id number] GEETHA 02/02 Active [facility] [place] [id number] GEETHA 08/06 [facility] [place] [id number] GEETHA 02/10 Active [facility] [place] [id number] GEETHA 02/15 Active [facility] [place] [id number] GEETHA 03/08 [facility] [place] [id number] GEETHA 06/07 Active [facility] [place] [id number] GEETHA 12/06 Active [facility] Phone [phone] 06/07 06/09 Internal Message /2017 [facility] Phone [phone] 06/07 06/09 Internal Message /2017 [facility] Phone [phone] 04/16 04/18 Ophthalmolo Message /2018 Medical [facility] [employer] [place] [facility] Phone [phone] 04/18 04/20 Ophthalmolo Message /2018 Medical gy [employer] [facility] Procedures Procedure Code Date Perfomer Comments Source Appendectomy [id number] Medical Group Hysterectomy [id number] [facility] Group
--- OUTSIDE RECORDS SUMMARY | 2018-05-22 10:13 | XMS REPORT | Clinical Summary ---
:1945 Author Organization [facility] Address [address] [place] [address] Care Team Providers Name Role Phone Sharpkelsi Primary Care Provider Allergies Active Allergy Reactions Severity Noted Date Comments Helio Carranza 09/29/2015 Medications Medication Sig Dispensed Refills Start Date End Date Status ferrous sulfate 325 Take 650 mg by mouth 0 Active (65 FE) MG tablet daily with breakfast. nitroglycerin Place 0.4 mg under 0 Active (NITROSTAT) 0.4 MG the tongue every 5 SL tablet (five) minutes as needed for Chest pain Put 1 pill under tongue every 5min as needed for chest pain.No more than 3 doses in 15min.Call 911 if pain is unrelieved 5min after 1st dose . pantoprazole Take 40 mg by mouth 0 Active (PROTONIX) 40 MG daily Once a day tablet before a meal . simvastatin (ZOCOR) Take 40 mg by mouth 0 Active 40 MG tablet nightly. anastrozole Take 1 mg by mouth 0 Active (ARIMIDEX) 1 mg daily. tablet latanoprost Place 1 drop into 0 Active (XALATAN) 0.005 % both eyes nightly. ophthalmic solution brimonidine-timolol Place 1 drop into 0 Active (COMBIGAN) 0.2-0.5 % the right eye every ophthalmic solution 12 (twelve) hours. brinzolamide (AZOPT) Place 1 drop into 0 Active 1 % ophthalmic both eyes 2 (two) suspension times daily. insulin aspart Inject 2-16 Units 0 Active (NOVOLOG) 100 subcutaneously 3 unit/mL injection [...] Active (LEVEMIR) 100 subcutaneously unit/mL injection nightly. Active Problems Problem Noted Date Leucocytosis 10/04/2015 Coronary artery disease involving [place] coronary artery of [place] heart 09/30 with angina pectoris Anemia 09/30/2015 CAD (coronary artery disease), [place] coronary artery 09/29/2015 Diabetes mellitus with diabetic retinopathy 09/29/2015 Hypercholesterolemia 09/29/2015 Colon cancer 09/29/2015 Left breast mass 09/29/2015 Social History Tobacco Use Types Packs/Day Years Used Date Never Smoker Sex Assigned at Date Recorded Not on file Job Start Date Occupation Industry Not on file Not on file Not on file Travel History Travel Start Travel End No recent travel history available. Last Filed Vital Signs Not on file Plan of Treatment Not on file Implants Implanted Type Area Crystal Report Developer Device Shelf Model / Identifier Expiration Serial / Date Lot Sternal Zipfix Ndl Strl [id number] - [id number] Cardiovascular N/A: SYNTHES:SYNTHES 01/25/[id number] / Implanted: Qty: 1 on 10/01/2015 by Trevor Guerrero Jr., MD [employer] / Wall [id number] Results Not on fileafter 05/21/2017 Insurance Payer Benefit Plan / Group Subscriber ID Type Phone Address [employer] [facility] xxxxxxxxx (Home) [address] [place] [address] Advance Directives For more information, please contact:[address] [phone] Code Status Date Activated Date Inactivated Comments Full Code 10/01/2015 11:04 AM 10/12/2015 3:08 PM This code status was determined by: Patient Full Code 09/29/2015 6:11 PM 10/01/2015 11:04 AM This code status was determined by: Patient
[2018-05-22 10:32] LABS: Absolute Lymphocytes (CBC) 4.3 K/uL (0.7-4.9); Absolute Monocytes 0.5 K/uL (0.1-1.3); Absolute Neutrophil 2.7 K/uL (1.8-8.0); Basophils % 0.5 % (0-1.3); Eosinophils % 1.6 % (0-4.4); Hematocrit 40.1 % (36.0-45.0); Lymphocytes % 56.6 % (15.3-44.8); MPV 8.9 fL (7.6-11.3); Monocytes % 6.5 % (3.3-12.3); Protime INR 0.93; RBC Red Blood Cell Count 4.36 M/uL (3.86-4.86)
[2018-05-22] MEDS ORDERED: ASPIRIN 81 MG CHEWABLE TABLET ONE (10:50)
[2018-05-22 10:53] LABS: ALT/SGPT 22 U/L (12-78); AST/SGOT 15 U/L (15-37); Albumin 3.5 g/dL (3.4-5.0); Alkaline Phosphatase 117 U/L (45-117); BUN Blood Urea Nitrogen 22 mg/dL (7-18); Bicarbonate 25 mmol/L (21-32); Bilirubin Direct 0.1 mg/dL (0-0.2); Bilirubin Total 0.3 mg/dL (0.2-1.0); Glucose Level 260 mg/dL (74-106); Magnesium 2.1 mg/dL (1.8-2.4); NT PRO-BNP 827 pg/mL (<125); Potassium 4.1 mmol/L (3.5-5.1); Protein, Total 6.9 g/dL (6.4-8.2); Sodium Level 143 mmol/L (136-145); Troponin (Emerg Dept Use Only) < 0.02 ng/mL (0.0-0.045)
--- NOTE | 2018-05-22 11:00 | EDPHYS ---
Physician Documentation [facility] Name: Caro Garner Age: 72 yrs Sex: Female : 1945 Arrival Date: 05/22/2018 Time: 10:02 Bed 23 Private MD: ED Physician Reynaldo Can HPI: 05/22 10:26 This 72 yrs old Female presents to ER via Ambulatory with complaints of Chest rn Pain. 10:26 The patient or guardian reports chest pain that is located primarily in the substernal rn area. Onset: last night. The pain does not radiate. Associated signs and symptoms: Pertinent positives: nausea, Pertinent negatives: abdominal pain, cough, diaphoresis, shortness of breath, syncope, vomiting. The chest pain is described as a heaviness, a pressure. Duration: The patient or guardian reports multiple episodes, that are intermittent. Modifying factors: The symptoms are alleviated by NTG, X3. the symptoms are aggravated by nothing. Severity of pain: At its worst the pain was moderate in the emergency department the pain has resolved. The patient has experienced similar episodes in the past. Reports 3 years s/p cardiac bypass, has been ok, had normal stress test 2 years ago, had 3 episodes of chest pressure last night, all resolved with 3 nitro, no current pain, no fever/cough/sob/abd pain. . Historical: - Allergies: 13:26 Codeine; ls4 - Home Meds: 13:26 pantoprazole 40 mg oral TbEC 1 tab once daily [Active]; Oxybutynin Chloride Oral .5 tab ls4 once daily [Active]; ranitidine Oral [Active]; 13:29 Vitamin D Oral 50,000 unit [Active]; tamsulosin 0.4 mg oral cp24 1 cap once daily ls4 [Active]; simvastatin 40 mg Oral tab 1 tab once daily [Active]; anastrozole 1 mg oral tab 1 tab once daily [Active]; aspirin 81 mg Oral chew 1 tab once daily [Active]; latanoprost ophthalmic ophthalmic [Active]; 13:31 Levemir subcutaneous subcutaneous twice a day [Active]; Humalog Sub-Q [Active]; ls4 - PMHx: 13:26 Cancer; Diabetes - IDDM; Myocardial infarction; retinopathy; ls4 - Immunization history:: Adult Immunizations up to date. - Social history:: Smoking status: Patient/guardian denies using tobacco. - Ebola Screening: : Patient denies exposure to infectious person Patient denies travel to an Ebola-affected area in the 21 days before illness onset. - Family history:: not pertinent. - Hospitalizations: : No recent hospitalization is reported. ROS: 10:26 Constitutional: Negative for fever, chills, and weight loss, Eyes: Negative for injury, rn pain, redness, and discharge, Neck: Negative for injury, pain, and swelling, Cardiovascular: Negative for palpitations, and edema, Respiratory: Negative for shortness of breath, cough, wheezing, and pleuritic chest pain, Abdomen/GI: Negative for abdominal pain, vomiting, diarrhea, and constipation, MS/Extremity: Negative for injury and deformity, Skin: Negative for injury, rash, and discoloration, Neuro: Negative for headache, weakness, numbness, tingling, and seizure. Exam: 10:26 Constitutional: This is a well developed, well nourished patient who is awake, alert, rn and in no acute distress. Head/Face: Normocephalic, atraumatic. Eyes: Pupils equal round and reactive to light, extra-ocular motions intact. Lids and lashes normal. Conjunctiva and sclera are non-icteric and not injected. Cornea within normal limits. Periorbital areas with no swelling, redness, or edema. ENT: MMM Cardiovascular: Regular rate and rhythm, No pulse deficits. Respiratory: Lungs have equal breath sounds bilaterally, clear to auscultation. No increased work of breathing, no retractions or nasal flaring. Abdomen/GI: soft, non-tender MS/ Extremity: Pulses equal, no cyanosis. Neurovascular intact. Full, normal range of motion. Equal circumference. Neuro: Awake and alert, GCS 15, oriented to person, place, time, and situation. Cranial nerves II-XII grossly intact. Motor strength 5/5 in all extremities. Sensory grossly intact. Vital Signs: 10:09 Pulse 91; Resp 17; Pulse Ox 97% on R/A; Weight 68.04 kg; Height 5 ft. 7 in. (170.18 ss cm); Pain 7/10; 11:01 BP 173 / 76; Pulse 65; Resp 16; Pulse Ox 100% on R/A; Pain 0/10; ls4 12:18 BP 164 / 69; Pulse 72; Resp 16; Pulse Ox 98% on R/A; Pain 0/10; ls4 13:31 BP 167 / 83; Pulse 72; Resp 16; Pulse Ox 100% on R/A; Pain 0/10; ls4 10:09 Body Mass Index 23.49 (68.04 kg, 170.18 cm) ss MDM: 10:19 Patient medically screened. rn 10:58 Differential diagnosis: acute myocardial infarction, acute pericarditis, coronary rn artery disease chest wall pain, costochondritis, pleurisy, pneumothorax. Data reviewed: vital signs, nurses notes, lab test result(s), EKG, radiologic studies, plain films, and as a result, I will admit patient. Counseling: I had a detailed discussion with the patient and/or guardian regarding: the historical points, exam findings, and any diagnostic results supporting the discharge/admit diagnosis, lab results, radiology results, the need for further work-up and treatment in the hospital. Admission orders: after a detailed discussion of the patient's condition and case, the admit orders are written by me. ED course: . 05/22 10:08 Order name: Basic Metabolic Panel; Complete Time: 10: [facility] 05/22 10:08 Order name: CBC with Diff; Complete Time: 11:49 [facility] 05/22 10:08 Order name: LFT's; Complete Time: 10: [facility] 05/22 10:08 Order name: Magnesium; Complete Time: 10: [facility] 05/22 10:08 Order name: NT PRO-BNP; Complete Time: 10:56 [facility] 05/22 10:08 Order name: PT-INR; Complete Time: 10: [facility] 05/22 10:08 Order name: Troponin (emerg Dept Use Only); Complete Time: 10:56 [facility] 05/22 10:08 Order name: XRAY Chest (1 view); Complete Time: 11:49 [facility] 05/22 10:08 Order name: EKG; Complete Time: 10: [facility] 05/22 10:08 Order name: Cardiac monitoring; Complete Time: 10: [facility] 05/22 10:08 Order name: EKG - Nurse/Tech; Complete Time: 10:08 [facility] 05/22 10:08 Order name: IV Saline Lock; Complete Time: 10: [facility] 05/22 10:34 Order name: Manual Differential; Complete Time: 11:49 [facility] 05/22 10:08 Order name: Labs collected and sent; Complete Time: 10:08 ls4 05/22 10:08 Order name: O2 Per Protocol; Complete Time: 10:08 ls4 05/22 10:08 Order name: O2 Sat Monitoring; Complete Time: 10:08 ls4 Administered Medications: 10:40 Drug: Aspirin Chewable Tablet 324 mg Route: PO; ls4 11:01 Follow up: Response: No adverse reaction ls4 Disposition: 05/22/18 10:59 Hospitalization ordered by Sharona Noriega for Observation. Preliminary diagnosis is Chest pain, unspecified. - Bed requested for Telemetry/MedSurg (observation). - Status is Observation. ls4 - Condition is Stable. - Problem is new. - Symptoms have improved. UTI on Admission? No Signatures: Dispatcher [employer] EDHI Reynaldo Can MD MD rn Smirch, Shelby, RN RN ss Fitzgerald, Diane, RN RN df Stewart, Lisa, RN RN ls4 Corrections: (The following items were deleted from the chart) 13:05 10:59 Hospitalization Ordered by Sharona Noriega MD for Observation. Preliminary diagnosis df is Chest pain, unspecified. Bed requested for Telemetry/MedSurg (observation). Status is Observation. Condition is Stable. Problem is new. Symptoms have improved. UTI on Admission? No. rn 13:31 10:06 Allergies: Codeine; ls4 14:43 13:05 05/22/2018 10:59 Hospitalization Ordered by Sharona Noriega MD for Observation. ls4 Preliminary diagnosis is Chest pain, unspecified. Bed requested for Telemetry/MedSurg (observation). Status is Observation. Condition is Stable. Problem is new. Symptoms have improved. UTI on Admission? No. df
--- NOTE | 2018-05-22 11:00 | ER ---
Nurse's Notes [facility] Name: Caro Garner Age: 72 yrs Sex: Female : 1945 Arrival Date: 05/22/2018 Time: 10:02 Bed 23 Private MD: Diagnosis: Chest pain, unspecified Presentation: 05/22 10:02 Presenting complaint: Patient states: episodic chest pain that began yesterday. Pt ss reports she took nitro last night and this morning, but her chest pain keeps coming back. Transition of care: patient was not received from another setting of care. Onset of symptoms was May 21, 2018. Risk Assessment: Do you want to hurt yourself or someone else? Patient reports no desire to harm self or others. Initial Sepsis Screen: Does the patient meet any 2 criteria? No. Patient's initial sepsis screen is negative. Does the patient have a suspected source of infection? No. Patient's initial sepsis screen is negative. Care prior to arrival: None. 10:02 Method Of Arrival: Ambulatory ss 10:02 Acuity: OYUSIF 3 ss Triage Assessment: 10:28 General: Appears in no apparent distress. Behavior is calm, cooperative. Pain: ls4 Complains of pain in chest and right scapular area Pain currently is 0 out of 10 on a pain scale. Historical: - Allergies: 13:26 Codeine; ls4 - Home Meds: 13:26 pantoprazole 40 mg oral TbEC 1 tab once daily [Active]; Oxybutynin Chloride Oral .5 tab ls4 once daily [Active]; ranitidine Oral [Active]; 13:29 Vitamin D Oral 50,000 unit [Active]; tamsulosin 0.4 mg oral cp24 1 cap once daily ls4 [Active]; simvastatin 40 mg Oral tab 1 tab once daily [Active]; anastrozole 1 mg oral tab 1 tab once daily [Active]; aspirin 81 mg Oral chew 1 tab once daily [Active]; latanoprost ophthalmic ophthalmic [Active]; 13:31 Levemir subcutaneous subcutaneous twice a day [Active]; Humalog Sub-Q [Active]; ls4 - PMHx: 13:26 Cancer; Diabetes - IDDM; Myocardial infarction; retinopathy; ls4 - Immunization history:: Adult Immunizations up to date. - Social history:: Smoking status: Patient/guardian denies using tobacco. - Ebola Screening: : Patient denies exposure to infectious person Patient denies travel to an Ebola-affected area in the 21 days before illness onset. - Family history:: not pertinent. - Hospitalizations: : No recent hospitalization is reported. Screenin:25 Abuse screen: Denies threats or abuse. Denies injuries from another. Nutritional ls4 screening: No deficits noted. Tuberculosis screening: No symptoms or risk factors identified. Fall Risk None identified. Assessment: 10:26 Pain: Complains of pain in right scapular area and chest intermittent right scapular ls4 pain Pain began 3 hours ago. Neuro: Level of Consciousness is awake, alert, obeys commands, Oriented to person, place, time, situation. Cardiovascular: Reports chest pain, Denies diaphoresis, fatigue, lightheadedness, nausea, palpitations, shortness of breath, syncope, vomiting. Respiratory: Airway is patent Respiratory effort is even, unlabored, Respiratory pattern is regular. 11:30 Reassessment: Patient appears in no apparent distress at this time. Patient and/or ls4 family updated on plan of care and expected duration. Pain level reassessed. Patient is alert, oriented x 3, equal unlabored respirations, skin warm/dry/pink. 12:24 Reassessment: Patient appears in no apparent distress at this time. Patient and/or ls4 family updated on plan of care and expected duration. Pain level reassessed. Patient is alert, oriented x 3, equal unlabored respirations, skin warm/dry/pink. 13:30 Reassessment: Patient appears in no apparent distress at this time. Patient and/or ls4 family updated on plan of care and expected duration. Pain level reassessed. Patient is alert, oriented x 3, equal unlabored respirations, skin warm/dry/pink. 14:15 Reassessment: Patient appears in no apparent distress at this time. Patient and/or ls4 family updated on plan of care and expected duration. Pain level reassessed. Patient is alert, oriented x 3, equal unlabored respirations, skin warm/dry/pink. Vital Signs: 10:09 Pulse 91; Resp 17; Pulse Ox 97% on R/A; Weight 68.04 kg; Height 5 ft. 7 in. (170.18 ss cm); Pain 7/10; 11:01 BP 173 / 76; Pulse 65; Resp 16; Pulse Ox 100% on R/A; Pain 0/10; ls4 12:18 BP 164 / 69; Pulse 72; Resp 16; Pulse Ox 98% on R/A; Pain 0/10; ls4 13:31 BP 167 / 83; Pulse 72; Resp 16; Pulse Ox 100% on R/A; Pain 0/10; ls4 10:09 Body Mass Index 23.49 (68.04 kg, 170.18 cm) ED Course: 10:02 Patient arrived in ED. ss 10:04 Triage completed. ss 10:06 Jagruti Ann, RN is Primary Nurse. ls4 10:09 Arm band placed on right wrist. ss 10:13 Reynaldo Can MD is Attending Physician. rn 10:25 Patient has correct armband on for positive identification. Placed in gown. Bed in low ls4 position. Call light in reach. Side rails up X 1. print cutter on. Pulse ox on. NIBP on. Warm blanket given. Diet: Patient is NPO. 10:25 No provider procedures requiring assistance completed. Initial lab(s) drawn, by az, ls4 sent to lab. X-ray(s) taken. Inserted saline lock: 20 gauge in right forearm, using aseptic technique. Patient maintains SpO2 saturation greater than 95% on room air. 10:28 EKG completed in triage. Results shown to MD. ls4 10:29 XRAY Chest (1 view) Sent. ls4 10:33 X-ray completed. Portable x-ray completed in exam room. Patient tolerated procedure jb2 well. 10:41 XRAY Chest (1 view) In Process Unspecified. EDMS 10:45 EKG done, by crime scene technician. reviewed by Reynaldo Can MD. at1 10:59 Sharona Noriega MD is Hospitalizing Provider. rn 14:43 Patient admitted, IV remains in place. ls4 Administered Medications: 10:40 Drug: Aspirin Chewable Tablet 324 mg Route: PO; ls4 11:01 Follow up: Response: No adverse reaction ls4 Outcome: 10:59 Decision to Hospitalize by Provider. rn 13:48 Admitted to Med/surg Report called to REZA Orosco RN 2ND FLOOR ls4 14:42 Admitted to Med/surg accompanied by tech, via stretcher, room 207, with chart. ls4 14:42 Condition: stable 14:43 Patient left the ED. ls4 Signatures: Dispatcher [employer] EDMS Mcintosh Madi jb2 Reynaldo Can MD MD rn Smirch, Shelby, RN RN ss Nadine Pruett, strainer cleaner EKG Tat1 Jagruti Ann RN RN ls4 Corrections: (The following items were deleted from the chart) 13:31 10:06 Allergies: Codeine; ls4
[2018-05-22 11:33] LABS: Blood Morphology Comment NOT SEEN (NOT SEEN); Platelet Estimate ADEQ
--- NOTE | 2018-05-22 11:40 | RAD REPORT ---
EXAM DESCRIPTION: RAD - Chest Single View - 05/22/2018 10:41 am CLINICAL HISTORY: Chest pain COMPARISON: December 2015 TECHNIQUE: AP portable chest image was obtained . FINDINGS: No peripheral mass consolidation. Interstitial markings are prominent but not substantiall y different. Baseline pattern can mask interstitial edema or infiltrate. Heart size is upper normal. Vasculature within normal limits. Sternotomy wires are in place. Left hemidiaphragm elevation is stab le from comparison. No measurable pleural effusion and no pneumothorax. No acute bony abnormality see n. No acute aortic findings suspected. IMPRESSION: Mild chronic interstitial lung disease not substantially different from comparison. Mild interstitial edema or infiltrate can be masked by the chronic pattern. There is no focal mass or consolidation.
[2018-05-22] MEDS ORDERED: ONDANSETRON 4 MG/2 ML VIAL IV PRN (14:37)
--- NOTE | 2018-05-22 14:46 | EKG ---
Test Date: 2018-05-22 Test Time: 10:03:07 Back End Engineer: BARB MEASUREMENT RESULTS: Intervals: Rate: 88 MN: 148 QRSD: 86 QT: 376 QTc: 454 [place]: P: 55 MN: 148 QRS: -20 T: 77 INTERPRETIVE STATEMENTS: Normal sinus rhythm Right atrial enlargement Moderate voltage criteria for LVH, may be normal variant Borderline ECG Compared to ECG 10/25/2017 20:44:13 Atrial abnormality now present Left ventricular hypertrophy now present Atrial premature complex(es) no longer present Aberrant conduction of supraventricular beat(s) no longer present ST (T wave) deviation no longer present Possible ischemia no longer present Prolonged QT interval no longer present Electronically Signed On 05-22-18 14:44:25 DRAW OPERATOR by Michael Gonzales
[2018-05-22 14:56] VITALS: BMI 23.0
[2018-05-22 16:58] LABS: Urine Appearance CLEAR; Urine Bilirubin NEGATIVE (NEG); Urine Blood 1+ (NEG); Urine Color YELLOW; Urine Glucose 1+ (NEG); Urine Protein NEGATIVE (NEG); Urine Urobilinogen 0.2 mg/dL (0.2-1.0); Urine pH 7.5 (5.0-7.0)
[2018-05-22 17:34] LABS: Urine Microscopic Reflex ORDER UMIC
[2018-05-22 17:49] LABS: Urine Bacteria >50 /HPF (<20)
[2018-05-22 17:50] LABS: Urine Culture Reflex Order REFLEXED
--- NOTE | 2018-05-22 19:01 | P.HP ---
Certification for Inpatient Patient admitted to: Observation Practitioner: I am a practitioner with admitting privileges, knowledge of patient current condition, hospital course, and medical plan of care. Services: Services provided to patient in accordance with Admission requirements found in Title 42 Section 412.3 of the Code of Federal Regulations Patient History Date of Service: 05/22/18 Reason for admission: Chest pain History of Present Illness: This is a 72-year-old female with a history of coronary artery disease, a 2 vessel bypass surgery in 2016, diabetes, dyslipidemia if, gastroesophageal reflux, breast cancer, colon cancer and carcinoid tumor admitted for her chest pain. Per patient, chest pressure that occurred overnight,. States that she had 3 episodes that woke her from sleep, pain was relieved with nitroglycerin. During the last episode, pain did not resolve and radiated to right shoulder/ back and stated that it fell like a prior [place] which is why she came into the ER. Denies any PND, orthopnea, pedal edema, palpitations or syncope. In the ER, troponin was negative x1, EKG was normal. She was found to be hypertensive at 176/76, otherwise normal. She was admitted for observation for further evaluation. At the time of my exam, patient is alert oriented x3, sitting up in no acute discomfort, hemodynamically stable. She stated that her chest pain had resolved. Allergies codeine Allergy (Intermediate, Verified 08/21/15 00:05) Hives/Rash Home Medications: Insulin Detemir [Levemir] 16 units SQ BID 08/20/15 Latanoprost [Xalatan] 1 drop OP BEDTIME 09/23/15 Anastrozole [Arimidex*] 1 mg PO DAILY 10/26/17 Aspirin 81 mg PO BEDTIME 10/26/17 Pantoprazole [Protonix Tab*] 40 mg PO DAILY 10/26/17 Simvastatin 40 mg PO BEDTIME 10/26/17 Zolpidem Tartrate [Ambien] 10 mg PO BEDTIME 10/26/17 Brimonidine Tartrate/Timolol [Combigan 0.2%-0.5% Eye Drops] 1 drop EACH EYE BID 05/22/18 Brinzolamide [Azopt] 1 drop EACH EYE BID 05/22/18 Calcium Carbonate/Vitamin D3 [Calcium 600-Vit D3 400 Caplet] 1 each PO BID 05/22 Cholecalciferol (Vitamin D3) [Vitamin D] 50,000 unit PO SEECOM 05/22/18 Coconut Oil 2,000 mg PO DAILY 05/22/18 Insulin Lispro [Humalog] See Protocol SQ TID 05/22/18 Melatonin 10 mg PO BEDTIME 05/22/18 Oxybutynin Chloride [Oxybutynin Chloride ER] 2.5 mg PO DAILY 05/22/18 Ranitidine [Zantac] 150 mg PO DAILY 05/22/18 Tamsulosin [Flomax] 0.4 mg PO BEDTIME 05/22/18 - Past Medical/Surgical History Has patient received pneumonia vaccine in the past: Yes Diabetic: Yes -: CAD -: IDDM -: DC -: Chronic Constipation -: Diabetic retinopathy -: Hyperlipidemia -: Left breast mass, post biopsy indicating infiltrating ductal carcinoma -: Anemia -: Sciatica -: Chronic constipation -: Hysterectomy -: Appendectomy -: L Mastectomy -: Cardiac Bypass -: Balloon Stents Psychosocial/ Personal History: She is and . She has 4 children. She does not work. - Family History Mother -: Heart disease, Diabetes, Cancer Notes: Chronic lymphatic leukemia Father -: Heart disease, Hypertension - Social History Smoking Status: Never smoker Alcohol use: No CD- Drugs: No Caffeine use: Yes Place of Residence: Home Review of Systems 10-point ROS is otherwise unremarkable Physical Examination - Vital Signs Temperature: 97.8 F Blood Pressure: 176/76 Pulse: 73 Respirations: 16 Pulse Ox (%): 98 - Physical Exam General: Alert, In no apparent distress, Oriented x3 HEENT: Atraumatic, PERRLA, Mucous membr. moist/pink, EOMI, Sclerae nonicteric Neck: Supple, 2+ carotid pulse no bruit, No LAD, Without JVD or thyroid abnormality Respiratory: Clear to auscultation bilaterally, Normal air movement Cardiovascular: Regular rate/rhythm, Normal S1 S2 Gastrointestinal: Normal bowel sounds, No tenderness Musculoskeletal: No tenderness Integumentary: No rashes Neurological: Normal gait, Normal speech, Normal strength at 5/5 x4 extr, Normal tone, Normal affect Lymphatics: No axilla or inguinal lymphadenopathy - Studies Laboratory Data (last 24 hrs) 05/22/18 10:08: PT 11.0, INR 0.93 05/22/18 10:08: WBC 7.7, Hgb 13.3, Hct 40.1, Plt Count 273 05/22/18 10:08: Sodium 143, Potassium 4.1, BUN 22 H, Creatinine 1.03, Glucose 260 H, Magnesium 2.1, Total Bilirubin 0.3, AST 15, ALT 22, Alkaline Phosphatase 117 Assessment and Plan - Problems (Diagnosis) (1) Chest pain Onset Date: 09/25/15 Current Visit: No Status: Acute Qualifiers: Chest pain type: unspecified Qualified Code(s): R07.9 - Chest pain, unspecified (2) Coronary artery disease Current Visit: No Status: Chronic Qualifiers: Coronary Disease-Associated Artery/Lesion type: unspecified vessel or lesion type [place] vs. transplanted heart: unspecified whether [place] or transplanted heart Associated angina: angina presence unspecified Qualified Code(s): I25.10 - Atherosclerotic heart disease of [place] coronary artery without angina pectoris (3) Diabetes mellitus Onset Date: 09/25/15 Current Visit: No Status: Chronic Qualifiers: Diabetes mellitus type: type 2 Diabetes mellitus prison insulin use: unspecified prison insulin use status Diabetes mellitus complication detail : with diabetic retinopathy Diabetic retinopathy severity: with unspecified retinopathy severity Diabetes mellitus macular edema: macular edema presence unspecified (4) Dyslipidemia Current Visit: No Status: Chronic (5) Hypertension Current Visit: No Status: Chronic Qualifiers: Hypertension type: essential hypertension Qualified Code(s): I10 - Essential (primary) hypertension - Plan Chest pain, rule out History of CABG Hyperlipidemia Hypertension Diabetes mellitus type 2, [id number] Chest pain is now resolved. Cardiology consult, patient sees Dr. Alfaro as an outpatient. Trend troponins, serial EKG Chest pain guidelines Morphine p.r.n. pain Nitro as needed for pain. DVT prophylaxis: Lovenox GI prophylaxis: None Diet: Heart healthy, NPO after midnight Disposition: Pending cardiology evaluation/workup. - Advance Directives Does patient have a Living Will: No Does patient have a Durable POA for Healthcare: Yes
[2018-05-22] MEDS ORDERED: D50W 25 GM/50 ML SYRINGE IV PRN (20:25)
[2018-05-22] MEDS ORDERED: GLUCAGON 1 MG/VIAL IM PRN (20:25)
[2018-05-22] MEDS ORDERED: ZOLPIDEM TARTRATE 10 MG TABLET PO SCH (21:00)
[2018-05-22] MEDS ORDERED: INSULIN DETEMIR 16 UNIT SQ SCH (21:00)
[2018-05-22] MEDS ORDERED: TAMSULOSIN 0.4 MG SR CAP PO SCH (21:00)
[2018-05-22] MEDS ORDERED: ASPIRIN 81 MG CHEWABLE TABLET PO SCH (21:00)
[2018-05-22] MEDS ORDERED: HOME MED 1 EA UNK (Melatonin [Melatonin] 10 MG) PO SCH (21:00)
[2018-05-22] MEDS ORDERED: ATORVASTATIN 20 MG TAB PO SCH (21:00)
[2018-05-22] MEDS: INSULIN -REGULAR HUMAN 50 UNIT/0.5 ML ML SQ SCH (21:53)
[2018-05-22 21:56] VITALS: O2SAT 97
[2018-05-23 02:24] LABS: Absolute Lymphocytes (CBC) 4.1 K/uL (0.7-4.9); Absolute Monocytes 0.5 K/uL (0.1-1.3); Basophils % 0.9 % (0-1.3); Eosinophils % 1.5 % (0-4.4); Hematocrit 38.4 % (36.0-45.0); MPV 8.8 fL (7.6-11.3); Monocytes % 6.6 % (3.3-12.3); RBC Red Blood Cell Count 4.19 M/uL (3.86-4.86)
[2018-05-23 02:34] LABS: Albumin 3.2 g/dL (3.4-5.0); Bilirubin Total 0.3 mg/dL (0.2-1.0); Protein, Total 6.3 g/dL (6.4-8.2)
[2018-05-23] MEDS ORDERED: METOPROLOL TAR 25 MG TAB PO SCH (06:00)
[2018-05-23] MEDS: INSULIN -REGULAR HUMAN 50 UNIT/0.5 ML ML SQ SCH ×3 (07:30→16:30)
[2018-05-23] MEDS ORDERED: CLOPIDOGREL 75 MG TABLET PO SCH (09:00)
[2018-05-23] MEDS ORDERED: INSULIN GLARGINE 100 UNITS/ML SQ SCH (09:00)
[2018-05-23] MEDS ORDERED: OXYBUTYNIN CHLORIDE 5 MG TAB PO SCH (09:00)
[2018-05-23] MEDS ORDERED: PANTOPRAZOLE 40MG TABLET PO SCH (09:00)
[2018-05-23] MEDS ORDERED: ANASTROZOLE 1 MG TAB PO SCH (09:00)
[2018-05-23] MEDS ORDERED: REGADENOSON 0.4 MG/5 ML SYR IV ONE (09:58)
--- NOTE | 2018-05-23 13:09 | CON ---
Date of Consultation: 05/23/2018 Reason For Consultation: Chest pain. History Of Present Illness: The patient is a 72-year-old woman, has had a history of coronary artery disease. She had a 2-vessel bypass surgery by in 2015. Recently had an echocardiogr am in February 2018 that was normal. Has had a history of breast cancer, colon cancer, an d carcinoid tumor, all of those have resolved. She also has a history of diabetes, dyslipidemia, and gastroesophageal reflux disease. She normally sees for her primary care. Came in wi th substernal chest pressure radiating to the back, relieved with nitroglycerin, but comes back every 30 minutes to an hour. No nausea, vomiting, or diaphoresis. Denied PND, orthopnea, pedal edema, pa lpitation, or syncope. Had a negative troponin. EKG was unremarkable. BNP was 827. Her glucose wa s 253. She was hypertensive at 176/76. Past Medical History: As stated above. Allergies: SHE IS ALLERGIC TO CODEINE. Review of Systems: Negative. Social History: Negative for tobacco or alcohol. Family History: Negative. Medications: At home include Arimidex, Zocor, aspirin, insulin, Protonix, Zantac and Flomax. Physical Examination: VITAL SIGNS: Her blood pressure is 176/76. She was in sinus rhythm, afebrile. HEENT: Negative. Neck: Supple without any bruit, lymphadenopathy, JVD, or thyromegaly. Chest: Clear to auscultation and percussion. Cardiac: Revealed a regular rhythm and rate with an S4 gallops. No murmurs or rub. Abdomen: Benign. Extremities: Revealed no clubbing, cyanosis, or edema. Pulses were present distally bilaterally. Skin: Dry and intact. Neurological: She was nonfocal. Diagnostic Data: Stated earlier. Impression And Plan: 1.Chest pain, substernal, radiating to the back in a patient with history of coronary artery bypass grafting, diabetes, and dyslipidemia. Negative troponin, positive BNP. I think she needs an echocar diogram and a pharmacological stress test to rule out recurrent ischemia from coronary artery disease . 2.Chronic interstitial lung disease on chest x-ray. 3.History of breast cancer, colon cancer and carcinoid, cured on Arimidex, care for Dr. Todd. 4.Diabetes. 5.Dyslipidemia. 6.Gastroesophageal reflux disease. 7.We will see what the echocardiogram and the stress test show prior to making any final decisions. SUSIE/ALF Voice ID: [id number] Report ID: [id number]
[2018-05-23 13:33] VITALS: BP 176/76; TEMP 97.8
--- NOTE | 2018-05-23 15:34 | RAD REPORT ---
EXAM DESCRIPTION: NM - Rest Stress Cardiac Imaging - 05/23/2018 3:19 pm CLINICAL HISTORY: Chest pain. COMPARISON: 2015 TECHNIQUE: The patient was administered approximately 10mCi of Tc 99m Sestamibi prior to resting SPE CT imaging of the heart. The patient was then administered approximately 30 mCi of Tc 99m Sestamibi f ollowing exercise or pharmacologic stress. Multiplanar SPECT images were reviewed. FINDINGS: Large area of diminished radiotracer uptake involves the septal and inferior apical left ventricular myocardium on rest and stress images. Small to moderate air diminished radiotracer uptake involves the anterior left ventricular myocardium on stress images. There is partial reaccumulation of radiotracer within the anterior wall on rest im ages. The left ventricular ejection fraction equals 39% IMPRESSION: Large fixed perfusion defect involving the septal and inferior apical left ventricular myocardium consistent with infarct Small to moderate partially reversible perfusion defect involving the anterior left ventricular myoca rdium may indicate an infarct with sherif-infarct ischemia
--- NOTE | 2018-05-23 16:02 | TREADPHA ---
DX: CHEST PAIN Date of Study: 05/23/18 Ht: 5 7 Wt: 147 lb 1.6 oz Consulting Physician: KACI MEDICATIONS: ARIMIDEX, ASPIRIN, LIPITOR, PLAVIX, DEXTROSE, GLUCAGEN, LANTUS, NOVOLIN-R. HISTORY: 72 YEAR OLD FEMALE WITH COMPLAINTS OF CHEST PAIN, HISTORY: CORONARY ARTERY DISEASE, DIABETES, MYOCARDIAL INFARCTION, HYPERLIPIDEMIA, LEFT BREAST MASS (CARCINOMA) CARDIAC BYPASS, BALLOON STENTS, MYOCARDIAL INFARCTION PHYSICIAL EXAMINATION: RESTING B.P.: 160/87 RESTING H.R.: 101 RESTING EKG: SINUS TACHYCARDIA, LEFT VENTRICULAR HYPERTROPHY WITH REPOLARIZATION, LEFT AXIS. PROTOCOL: LEXISCAN EXERCISE TIME: 3:30 B.P. AT PEAK STRESS: 101/68 IMPRESSION: LEXISCAN INJECTED, FOLLOWED BY CARDIOLITE PER PROTOCOL, SEE NUCLEAR MEDICINE REPORT. NO SUPRA VENTRICULAR TACHYCARDIA, NO VENTRICULAR TACHYCARDIA, TWO PREMATURE ATRIAL COMPLEXES, NO PREMATURE VENTRICULAR COMPLEXES. PATIENT REPORTED NO CHEST PAIN, OR TIGHTNESS THROUGHOUT THE PROCEDURE, OR IN RECOVERY.
--- NOTE | 2018-05-23 16:41 | P.SSS ---
Patient History Date of Service: 05/23/18 Reason for admission: Chest pain History of Present Illness: This is a 72-year-old female with a history of coronary artery disease, a 2 vessel bypass surgery in 2016, diabetes, dyslipidemia if, gastroesophageal reflux, breast cancer, colon cancer and carcinoid tumor admitted for her chest pain. Per patient, chest pressure that occurred overnight,. States that she had 3 episodes that woke her from sleep, pain was relieved with nitroglycerin. During the last episode, pain did not resolve and radiated to right shoulder/ back and stated that it fell like a prior [place] which is why she came into the ER. Denies any PND, orthopnea, pedal edema, palpitations or syncope. In the ER, troponin was negative x1, EKG was normal. She was found to be hypertensive at 176/76, otherwise normal. She was admitted for observation for further evaluation. At the time of my exam, patient is alert oriented x3, sitting up in no acute discomfort, hemodynamically stable. She stated that her chest pain had resolved. Allergies codeine Allergy (Intermediate, Verified 08/21/15 00:05) Hives/Rash Home Medications: RX: Insulin Detemir [Levemir] 16 units SQ BID 08/20/15 RX: Latanoprost [Xalatan] 1 drop OP BEDTIME 09/23/15 RX: Anastrozole [Arimidex*] 1 mg PO DAILY 10/26/17 RX: Aspirin 81 mg PO BEDTIME 10/26/17 RX: Pantoprazole [Protonix Tab*] 40 mg PO DAILY 10/26/17 RX: Simvastatin 40 mg PO BEDTIME 10/26/17 RX: Zolpidem Tartrate [Ambien] 10 mg PO BEDTIME 10/26/17 RX: Brimonidine Tartrate/Timolol [Combigan 0.2%-0.5% Eye Drops] 1 drop EACH EYE BID 05/22/18 RX: Brinzolamide [Azopt] 1 drop EACH EYE BID 05/22/18 RX: Calcium Carbonate/Vitamin D3 [Calcium 600-Vit D3 400 Caplet] 1 each PO BID 05/22/18 RX: Cholecalciferol (Vitamin D3) [Vitamin D3] 50,000 unit PO SEECOM 05/22/18 RX: Coconut Oil 2,000 mg PO DAILY 05/22/18 RX: Insulin Lispro [Humalog] See Protocol SQ TID 05/22/18 RX: Melatonin 10 mg PO BEDTIME 05/22/18 RX: Oxybutynin Chloride [Oxybutynin Chloride ER] 2.5 mg PO DAILY 05/22/18 RX: Ranitidine [Zantac*] 150 mg PO DAILY 05/22/18 RX: Tamsulosin [Flomax*] 0.4 mg PO BEDTIME 05/22/18 - Past Medical/Surgical History Has patient received pneumonia vaccine in the past: Yes Diabetic: Yes -: CAD -: IDDM -: [place] -: Chronic Constipation -: Diabetic retinopathy -: Hyperlipidemia -: Left breast mass, post biopsy indicating infiltrating ductal carcinoma -: Anemia -: Sciatica -: Chronic constipation -: Hysterectomy -: Appendectomy -: L Mastectomy -: Cardiac Bypass -: Balloon Stents Psychosocial/ Personal History: She is and . She has 4 children. She does not work. - Family History Mother -: Heart disease, Diabetes, Cancer Notes: Chronic lymphatic leukemia Father -: Heart disease, Hypertension - Social History Smoking Status: Never smoker Alcohol use: No CD- Drugs: No Caffeine use: Yes Place of Residence: Home Review of Systems 10-point ROS is otherwise unremarkable Physical Examination - Vital Signs Temperature: 97.8 F Blood Pressure: 176/76 Pulse: 73 Respirations: 16 Pulse Ox (%): 98 - Physical Exam General: Alert, In no apparent distress, Oriented x3 HEENT: Atraumatic, PERRLA, Mucous membr. moist/pink, EOMI, Sclerae nonicteric Neck: Supple, 2+ carotid pulse no bruit, No LAD, Without JVD or thyroid abnormality Respiratory: Clear to auscultation bilaterally, Normal air movement Cardiovascular: Regular rate/rhythm, Normal S1 S2 Gastrointestinal: Normal bowel sounds, No tenderness Musculoskeletal: No tenderness Integumentary: No rashes Neurological: Normal gait, Normal speech, Normal strength at 5/5 x4 extr, Normal tone, Normal affect Lymphatics: No axilla or inguinal lymphadenopathy - Diagnosis (Problem(s)) (1) Chest pain Onset Date: 09/25/15 Current Visit: No Status: Acute Qualifiers: Chest pain type: unspecified Qualified Code(s): R07.9 - Chest pain, unspecified (2) Coronary artery disease Current Visit: No Status: Chronic Qualifiers: Coronary Disease-Associated Artery/Lesion type: unspecified vessel or lesion type [place] vs. transplanted heart: unspecified whether [place] or transplanted heart Associated angina: angina presence unspecified Qualified Code(s): I25.10 - Atherosclerotic heart disease of [place] coronary artery without angina pectoris (3) Diabetes mellitus Onset Date: 09/25/15 Current Visit: No Status: Chronic Qualifiers: Diabetes mellitus type: type 2 Diabetes mellitus manager intermediate insulin use: unspecified manager intermediate insulin use status Diabetes mellitus complication detail : with diabetic retinopathy Diabetic retinopathy severity: with unspecified retinopathy severity Diabetes mellitus macular edema: macular edema presence unspecified (4) Dyslipidemia Current Visit: No Status: Chronic (5) Hypertension Current Visit: No Status: Chronic Qualifiers: Hypertension type: essential hypertension Qualified Code(s): I10 - Essential (primary) hypertension Treatment Summary: Patient was admitted for chest pain due to her history of previous stent placement. Cardiology was consulted, an echocardiogram and stress test were done, Which did not show any new findings. She was then cleared for discharge from cardiology point of view. She was instructed to follow up with cardiology in a couple of weeks. At the time of discharge, patient was alert oriented x3, in no acute distress, symptom-free. She was tolerating a diet, ambulating without any concerns. - Disposition Discharge Date: 05/23/18 Disposition: ROUTINE DISCHARGE Condition: GOOD Consultations: Cardiology Patient Discharge Instructions: Please follow up with a project management consultant in 2-3 weeks. Diet: ADA Activity: Ad jared Time Spent Managing Pts Care (In Minutes): 55
[2018-05-23] MEDS ORDERED: MELATONIN 5 MG TABLET PO SCH (21:00)
== END 2018-05-23 17:04 | disposition home or self-care (01) ==
LOC: ER 09:58 → ERHOLD 12:11 → 2ND 13:59
PROVIDERS: ADMIT Family Medicine; ATTEND Family Medicine
DX: R07.9 Chest pain, unspecified (principal); I25.10 Atherosclerotic heart disease of native coronary artery without angina pectoris; E11.9 Type 2 diabetes mellitus without complications; E78.5 Hyperlipidemia, unspecified; I10 Essential (primary) hypertension; K21.9 Gastro-esophageal reflux disease without esophagitis; Z85.3 Personal history of malignant neoplasm of breast; Z95.1 Presence of aortocoronary bypass graft; Z85.030 Personal history of malignant carcinoid tumor of large intestine
CPT/HCPCS: 93005; 93017; 87088; 85025 ×2; 87086; 80048; 36415; 83735; 85610; 82962 ×4; 80076; 87077; 87186; 84484 ×3; 80053; 83880; 71045; 94760 ×3; 78452; 99285; J2785; A9500; G0378 ×2; 81003; 81015

== ENCOUNTER 2019-02-12 10:56 | Inpatient (IN) | payer MEDICARE ==
[~2019-02-12 10:56] MED LIST: MAGNESIUM SULF 1GM/2ML VIAL ONE
--- OUTSIDE RECORDS SUMMARY | 2019-02-12 10:59 | XMS REPORT | Encounter Summary ---
:1945 Author Care Team Providers Name Role Phone Augustus Abebe MD Primary Care Provider [phone] Reason for Visit diabetic eye exam; Bilateral eye problem Instructions 1. Diabetes mellitus 2. Diabetic retinopathy screening offered 3. Bilateral pseudophakia 4. Myopia glasses 5. Regular astigmatism 6. Presbyopia 7. Bilateral primary open angle glaucoma 8. Cystoid macular edema ketorolac 0.5 % eye drops Discussion Note: None recorded.Patient educational handouts: No information available. Plan of Care Reminders Provider Appointments None recorded. Lab None recorded. Referral None recorded. Procedures None recorded. Surgeries None recorded. Imaging None recorded. Medications Name Start Date anastrozole 1 mg tablet Azopt 1 % eye drops,suspension Combigan 0.2 %-0.5 % eye drops fluconazole 200 mg tablet gabapentin 100 mg capsule Humalog KwikPen (U-100) Insulin 100 unit/mL subcutaneous ketorolac 0.5 % eye drops INSTILL 1 DROP (0.25 MG) INTO AFFECTED EYE(S) BY OPHTHALMIC ROUTE 4 TIMES PER DAY OU latanoprost 0.005 % eye drops oxybutynin chloride ER 5 mg tablet,extended release 24 hr pantoprazole 40 mg tablet,delayed release ranitidine 300 mg tablet simvastatin 40 mg tablet sulfamethoxazole 800 mg-trimethoprim 160 mg tablet tamsulosin 0.4 mg capsule tramadol 50 mg tablet zolpidem 10 mg tablet Medications Administered None recorded. Vitals Height Weight BMI Blood Pressure 5 ft 6 in 160 lbs 25.8 kg/m2 Lab Results None recorded. Allergies Code Code System Name Reaction Severity Status Onset 2670 RxNorm Codeine Active Problems Name Status Onset Date Source Diabetes Mellitus Active 12/04/2018 Hyperlipidemia Active 12/04/2018 Cystoid Macular Edema Active 12/04/2018 Glaucoma Active 12/04/2018 Myopia Active 12/04/2018 Regular Astigmatism Active 12/04/2018 Presbyopia Active 12/04/2018 Presbyopia Active 12/04/2018 Heart Disease Active 12/04/2018 Bilateral Pseudophakia Active 12/04/2018 Bilateral Primary Open Angle Glaucoma Active 12/04/2018 Diabetic Retinopathy Screening Offered Active 12/04/2018 Procedures Date Name Performed by Partial Resection of Colon Information not available Hysterectomy Information not available Bilateral Extraction of Cataracts Information not available Appendectomy Information not available Cabg Vein Two Information not available Vaccine List None recorded. Social History Tobacco Smoking Status Never Smoker Past Encounters 12/04/2018 Diabetes Mellitus; Diabetic Retinopathy Screening Offered; Bilateral Pseudophakia; Myopia; Regular Astigmatism; Presbyopia; Bilateral Primary Open Angle Glaucoma; Cystoid Macular Edema Lynda Olivera MD: [address] [place] [address], Ph. History of Present Illness Comprehensive Eye Exam Reported By: Patient Note: <p>Pt here with c/o blurry vision and double vision
< /p><p> - diabetic - states BS run from 50 to 300 WAS 160 THIS AM<br& gt;</p><p>- saw Dr. Shepard last March
</p><p&gt ; - last saw Dr. Olivera last February
</p><p> - pt states she is using Azopt, Combigan and Latanaprost</p><p>HX OF IOL OU--AC IOL OS</p> Review of Systems Comprehensive General Adult ROS Reported By: Patient Notes: <p>No acute c/o BP IS GOOD</p><p>BS ARE ALL OVER THE PLACE DESPITE HER TRYING SHE SAYS</p><p>
</p> Physical Exam Notes: <p>WDWM ALERT {{W*|B|HS}}{{MALE|FEMALE*|CHILD}} IN NAD/ORIENTATED/GOOD MOOD

EOM:FULL/ORHTO
PUPIL : ROUND AND RX OU
EXT;WNL
VF: NORMAL BY CONFRONTATION

VA: 20/60 OD 20/400 OS IN PHOROPTER</p><p>(20/50 OD 20/40 OS)
SLE:
K: {{CLEAR*|ARCUS|EDEMA}}
AC: {{2|3|4+DEEP*}} {{CLEAR*|FLARE|CELLS}}
IRIS: {{ BLUE|BROWN*|BROOKS|GREEN}}
LENS: PC IOL OD</p><p>AC IOL OS
VIT: PVD

TA=14 OD 16 0S @ 10"10 AM

DIL FUNDUS:
C/D : {{0.9 OD 0.8-9 OS#|0.3|0.2|0.4}} FLAT SHARP AND PALE OU
MACULA: {{RPE CHANGES-? EDEMA#|WNL|RPE CHANGES|EDEMA}} {{ OU|OD|OS}}
VESSEL: ATROPHIC
PERIPHERY EXTENSIVE PRP TO MACULAR AREA OU</p>
[2019-02-12] MEDS ORDERED: NA CHLORIDE 0.9% 2,000 ML ONE (11:17)
[2019-02-12 11:39] LABS: Arterial Blood Carboxyhemoglob 1.2 % (0-1.5); Blood Gas Oxyhemoglobin 94.4 % (94-97); Blood O2 Saturation 96.3 % (92-98.5)
[2019-02-12 11:41] LABS: Absolute Lymphocytes (CBC) 3.6 K/uL (0.7-4.9); Basophils % 0.3 % (0-1.3); Hematocrit 41.6 % (36.0-45.0); MPV 8.8 fL (7.6-11.3); RBC Red Blood Cell Count 4.33 M/uL (3.86-4.86)
[2019-02-12 12:04] LABS: Bilirubin Total 0.9 mg/dL (0.2-1.0); Potassium 4.6 mmol/L (3.5-5.1); Protein, Total 7.7 g/dL (6.4-8.2)
[2019-02-12 12:04] LABS: Barbiturates NEGATIVE (NEGATIVE); Benzodiazepines NEGATIVE (NEGATIVE); Cocaine NEGATIVE (NEGATIVE); METHAMPHETAM NEGATIVE (NEGATIVE); Methadone NEGATIVE (NEGATIVE); Opiates NEGATIVE (NEGATIVE); Phencyclidine NEGATIVE (NEGATIVE); THC Cannibis NEGATIVE (NEGATIVE)
[2019-02-12 12:26] LABS: Urine Blood NEGATIVE (NEG); Urine Glucose 2+ (NEG); Urine Protein NEGATIVE (NEG)
[2019-02-12] MEDS ORDERED: INSULIN -REGULAR HUMAN 50 UNIT/0.5 ML ML ONE (12:47)
[2019-02-12] MEDS ORDERED: KETOROLAC 30 MG/ML INJ ONE (12:50)
--- NOTE | 2019-02-12 13:44 | RAD REPORT ---
EXAM DESCRIPTION: RAD - Chest Single View - 02/12/2019 1:22 pm CLINICAL HISTORY: right rib pain Chest pain. COMPARISON: Chest Single View dated 05/22/2018; Chest Pa And Lat (2 Views) dated 12/31/2015; Chest Pa And Lat (2 Views) dated 10/22/2015; Chest Single View dated 09/29/2015 FINDINGS: Portable technique limits examination quality. Mild interstitial pulmonary edema seen. The heart is mildly to moderately enlarged with sternotomy wi res present. No displaced fractures. IMPRESSION: Mild CHF.
[2019-02-12] MEDS ORDERED: CEFTRIAXONE/SWI 1gm 1 GM/10 ML SYR ONE (13:52)
--- NOTE | 2019-02-12 14:13 | ER ---
Nurse's Notes [facility] Name: Caro Garner Age: 73 yrs Sex: Female : 1945 Arrival Date: 02/12/2019 Time: 10:57 Bed 5 Private MD: Augustus Abebe Diagnosis: Complicated UTI;Hyperglycemia Presentation: 02/12 10:58 Presenting complaint: Friend states: Shes just been really weak this morning and unable sg to stand and on her own and do her normal routine, pt has hx of diabetes, checked sugar and it was reading 500's on her monitor, shes just been acting a little confused as well, complaining of pain all over that began today. Transition of care: patient was not received from another setting of care. Onset of symptoms was February 12, 2019. Risk Assessment: Do you want to hurt yourself or someone else? Patient reports no desire to harm self or others. Initial Sepsis Screen: Does the patient meet any 2 criteria? Altered Mental Status. HR > 90 bpm. Yes Does the patient have a suspected source of infection? No. Patient's initial sepsis screen is negative. Care prior to arrival: None. 10:58 Method Of Arrival: Wheelchair sg 10:58 Acuity: YOUSIF 2 sg Historical: - Allergies: 11:00 Codeine; sg - PMHx: 11:00 Cancer; Diabetes - IDDM; Myocardial infarction; retinopathy; sg - Immunization history:: Adult Immunizations unknown. - Social history:: Smoking status: unknown. - Ebola Screening: : No symptoms or risks identified at this time. Screenin:03 Abuse screen: Denies threats or abuse. Denies injuries from another. Nutritional sg screening: No deficits noted. Tuberculosis screening: No symptoms or risk factors identified. Never had TB. Fall Risk None identified. Assessment: 11:02 General: Appears in no apparent distress. ill, well groomed, well developed, well sg nourished, Behavior is calm, cooperative, appropriate for age. Pain: Complains of pain in all over, right leg/thigh area Quality of pain is described as aching. Neuro: Level of Consciousness is awake, obeys commands, confused, Oriented to person, situation, Head Librarian are equal bilaterally Moves all extremities. Speech is normal, Facial symmetry appears normal. Cardiovascular: Capillary refill is brisk in bilateral fingers Patient's skin is warm and dry. Chest pain is denied. Respiratory: Airway is patent Respiratory effort is even, unlabored, Respiratory pattern is regular, symmetrical. GI: Abdomen is round non-distended. :. EENT: Nares are clear bilaterally Oral mucosa is moist. Throat is pink. Derm: Skin is pink, warm \T\ dry. Musculoskeletal: Circulation, motion, and sensation intact. Range of motion: intact in all extremities. 11:33 Reassessment: Patient appears in no apparent distress at this time. pt family at sg bedside reports decreased appetite and drinking for 1-2 days, decreased urine output that began this morning. 12:17 Reassessment: pt reports urinary retention,bladder scanner shows 503 mL post void sg residual in bed oliveros with output of less than 100 mL, notified and orders have been received for a mckinney catheter due to results of post void residula. 12:54 Reassessment: pt family at bedside at this time. sg 15:29 Reassessment: Patient appears in no apparent distress at this time. pt and pt daughter sg updated on bed assignment, awaiting a call back from receiving nurse at this time, will continue to monitor Patient states feeling better. Vital Signs: 11:00 BP 176 / 74; Pulse 103; Resp 18; Temp 97.7; Pulse Ox 100% on R/A; Weight 64.41 kg; sg Height 5 ft. 6 in. (167.64 cm); Pain 7/10; 12:10 BP 168 / 70; Pulse 110; Resp 17; Pulse Ox 99% on R/A; tw2 14:00 BP 177 / 72; Pulse 120; Resp 17; Pulse Ox 100% on R/A; tw2 14:00 Temp 97.7; tw2 14:49 BP 142 / 66; Pulse 106; Resp 18; Pulse Ox 98% on R/A; sg 15:52 BP 144 / 60; Pulse 102; Resp 17; Temp 97.7; Pulse Ox 100% on R/A; Pain 2/10; sg 11:00 Body Mass Index 22.92 (64.41 kg, 167.64 cm) sg ED Course: 10:57 Patient arrived in ED. sg 10:58 Augustus Abebe MD is Private Physician. sg 10:58 Aj Desai MD is Attending Physician. ps1 10:59 Triage completed. sg 11:00 Patient has correct armband on for positive identification. Placed in gown. Bed in low jl7 position. Call light in reach. Side rails up X 1. quality assurance monitor on. Pulse ox on. NIBP on. 11:01 Arm band placed on. sg 11:23 Urine collected: clean catch specimen, clear, marissa colored. jb1 11:23 UDS obtained and sent to lab as ordered. sg 11:25 Missed attempt(s): 20 gauge in left upper arm. Bleeding controlled, band aid applied, ph catheter tip intact. 11:30 Initial lab(s) drawn, by me, sent to lab. Missed attempt(s): 22 gauge in left wrist. sg Bleeding controlled, band aid applied, catheter tip intact. 11:32 Shreyas Iverson, RN is Primary Nurse. sg 12:00 Bladder scan completed. 506 mL. sg 12:06 Notified ED physician of a critical lab result(s). [id number]. iw 12:20 Urine collected: clamped for 20 mins. sg 12:20 Mciknney cath inserted, using sterile technique, 16 Fr., by me, balloon inflated, to sg gravity drainage, urine specimen collected. returned clear yellow urine. Patient tolerated well. 13:22 CXR XRAY In Process Unspecified. EDMS 14:12 Veronica Issa MD is Hospitalizing Provider. ps1 15:07 pts daughter Kristina, , call if needed. bd 16:02 No provider procedures requiring assistance completed. Patient admitted, IV remains in jl7 place. intact, No redness/swelling at site. Administered Medications: 12:07 Drug: NS 0.9% (20 ml/kg) 30 ml/kg Route: IV; Rate: 1 bolus; Site: right antecubital; sg 14:00 Follow up: Response: No adverse reaction; IV Status: Completed infusion; IV Intake: sg 2000ml 12:48 Drug: Insulin Aspart 10 units Route: Sub-Q; Site: right upper arm; sg 14:26 Follow up: Response: No adverse reaction; Blood sugar is lowered iw 12:49 Drug: TORadol - Ketorolac 15 mg Route: IVP; Site: right jugular; sg 13:10 Follow up: Response: No adverse reaction sg 13:50 Drug: Rocephin 1 grams Route: IV; Rate: bolus; Site: right jugular; tw2 Point of Care Testing: Blood Glucose: 11:20 Blood Glucose: High (>450 mg/dL); iw Ranges: Intake: 14:00 IV: 2000ml; Total: 2000ml. sg Outcome: 14:12 Decision to Hospitalize by Provider. ps1 16:02 Admitted to Tele accompanied by tech, via stretcher, room 410, with chart, Report jl7 called to MARGOT Freed 16:02 Condition: stable 16:02 Discharge instructions given to patient, Instructed on the need for admit, Demonstrated understanding of instructions. 16:54 Patient left the ED. jl7 Signatures: Dispatcher [employer] EDTrevor Frost jbJennifer Sandoval Steven, RN RN sg Bethany Jacinto RN MARGOT iw Rosibel Case, RN RN Eva Neil RN RN tw2 Myles Abebe RN RN jl7 Aj Desai MD MD ps1 Corrections: (The following items were deleted from the chart) 11:42 10:58 Initial Sepsis Screen: Does the patient meet any 2 criteria? No. Patient's sg initial sepsis screen is negative. Does the patient have a suspected source of infection? No. Patient's initial sepsis screen is negative. sg
--- NOTE | 2019-02-12 14:14 | EDPHYS ---
Physician Documentation [facility] Name: Caro Garner Age: 73 yrs Sex: Female : 1945 Arrival Date: 02/12/2019 Time: 10:57 Bed 5 Private MD: Augustus Abebe ED Physician Aj Desai HPI: 02/12 11:13 This 73 yrs old Female presents to ER via Wheelchair with complaints of ps1 General Weakness, High Blood Sugar, Pain All Over. 11:13 Patient has had flu like symptoms for the last couple of days. She has had body aches ps1 and pain all over. She has complained about right rib pain that has been going on for several weeks that she went to a chiropractor for. She was accompanied by family member that was providing history and patient was providing non-reliable history and appeared listless. She is normally a well controlled diabetic per family.. Historical: - Allergies: 11:00 Codeine; sg - PMHx: 11:00 Cancer; Diabetes - IDDM; Myocardial infarction; retinopathy; sg - Immunization history:: Adult Immunizations unknown. - Social history:: Smoking status: unknown. - Ebola Screening: : No symptoms or risks identified at this time. ROS: 11:13 Unable to obtain ROS due to altered mental status. ps1 Exam: 11:13 Head/Face: Normocephalic, atraumatic. Eyes: Pupils equal round and reactive to light, ps1 extra-ocular motions intact. Lids and lashes normal. Conjunctiva and sclera are non-icteric and not injected. Abdomen/GI: Soft, non-tender, with normal bowel sounds. No distension or tympany. No guarding or rebound. No evidence of tenderness throughout. Skin: Warm, dry with normal turgor. Normal color with no rashes, no lesions, and no evidence of cellulitis. MS/ Extremity: Pulses equal, no cyanosis. Neurovascular intact. Full, normal range of motion. 11:13 Constitutional: The patient appears alert, listless. 11:13 Chest/axilla: Inspection: normal, Palpation: tenderness, that is mild, of the right lateral posterior chest. 11:13 Cardiovascular: Rate: tachycardic, Rhythm: regular, Pulses: no pulse deficits are appreciated, Heart sounds: normal. Vital Signs: 11:00 BP 176 / 74; Pulse 103; Resp 18; Temp 97.7; Pulse Ox 100% on R/A; Weight 64.41 kg; sg Height 5 ft. 6 in. (167.64 cm); Pain 7/10; 12:10 BP 168 / 70; Pulse 110; Resp 17; Pulse Ox 99% on R/A; tw2 14:00 BP 177 / 72; Pulse 120; Resp 17; Pulse Ox 100% on R/A; tw2 14:00 Temp 97.7; tw2 14:49 BP 142 / 66; Pulse 106; Resp 18; Pulse Ox 98% on R/A; sg 15:52 BP 144 / 60; Pulse 102; Resp 17; Temp 97.7; Pulse Ox 100% on R/A; Pain 2/10; sg 11:00 Body Mass Index 22.92 (64.41 kg, 167.64 cm) sg MDM: 11:30 Patient medically screened. [facility] 02/12 11:10 Order name: ABG; Complete Time: 12:35 ps1 02/12 11:10 Order name: CBC with Diff; Complete Time: 12:35 ps1 02/12 11:10 Order name: CMP; Complete Time: 12:35 ps1 02/12 11:10 Order name: UDS; Complete Time: 12:35 ps1 02/12 11:10 Order name: Lactate; Complete Time: 12:35 ps1 02/12 11:10 Order name: Hemoglobin A1c ps1 02/12 11:32 Order name: Glucose, Ancillary Testing; Complete Time: 11:35 EDMS 02/12 11:54 Order name: Urine Dipstick--Ancillary (enter results); Complete Time: 12:35 bd 02/12 14:24 Order name: Glucose, Ancillary Testing; Complete Time: 14:26 EDMS 02/12 14:52 Order name: Urinalysis EDMS 02/12 14:52 Order name: CBC with Automated Diff EDMS 02/12 14:52 Order name: CBC with Automated Diff EDMS 02/12 14:52 Order name: CBC with Automated Diff EDMS 02/12 14:52 Order name: CBC with Automated Diff EDMS 02/12 11:10 Order name: Urine Dipstick-Ancillary (obtain specimen); Complete Time: 11:23 ps1 02/12 11:10 Order name: CXR XRAY; Complete Time: 14:07 ps1 02/12 12:39 Order name: Linda; Complete Time: 12:39 sg 02/12 14:52 Order name: Heart Healthy EDWV 02/12 14:52 Order name: CBC with Automated Diff EDWV 02/12 14:52 Order name: Comprehensive Metabolic Panel EDMS 02/12 14:52 Order name: Comprehensive Metabolic Panel EDMS 02/12 14:52 Order name: Comprehensive Metabolic Panel EDWV 02/12 14:52 Order name: Comprehensive Metabolic Panel EDWV 02/12 14:52 Order name: Comprehensive Metabolic Panel EDWV 02/12 14:52 Order name: Blood Culture EDMS Administered Medications: 12:07 Drug: NS 0.9% (20 ml/kg) 30 ml/kg Route: IV; Rate: 1 bolus; Site: right antecubital; sg 14:00 Follow up: Response: No adverse reaction; IV Status: Completed infusion; IV Intake: sg 2000ml 12:48 Drug: Insulin Aspart 10 units Route: Sub-Q; Site: right upper arm; sg 14:26 Follow up: Response: No adverse reaction; Blood sugar is lowered iw 12:49 Drug: TORadol - Ketorolac 15 mg Route: IVP; Site: right jugular; sg 13:10 Follow up: Response: No adverse reaction sg 13:50 Drug: Rocephin 1 grams Route: IV; Rate: bolus; Site: right jugular; tw2 Point of Care Testing: Blood Glucose: 11:20 Blood Glucose: High (>450 mg/dL); iw Ranges: Critical Glucose Levels:Adult <50 mg/dl or >400 mg/dl <40 mg/dl or >180 mg/dl Disposition: 02/12/19 14:12 Hospitalization ordered by Veronica Issa for Inpatient Admission. Preliminary diagnosis are Complicated UTI, Hyperglycemia. - Bed requested for Telemetry/MedSurg (Inpatient). - Status is Inpatient Admission. jl7 - Condition is Stable. - Problem is new. - Symptoms have improved. UTI on Admission? Yes Signatures: Dispatcher [employer] EDMS Jennifer Whatley Steven, RN RN sg Eva Neil RN RN tw2 Myles Abebe RN RN jl7 Aj Desai MD MD ps1 Williams, Irene RN iw Corrections: (The following items were deleted from the chart) 15:07 14:12 Hospitalization Ordered by Veronica Issa MD for Inpatient Admission. Preliminary bd diagnosis is Complicated UTI; Hyperglycemia. Bed requested for Telemetry/MedSurg (Inpatient). Status is Inpatient Admission. Condition is Stable. Problem is new. Symptoms have improved. UTI on Admission? Yes. ps1 16:54 15:07 02/12/2019 14:12 Hospitalization Ordered by Veronica Issa MD for Inpatient jl7 Admission. Preliminary diagnosis is Complicated UTI; Hyperglycemia. Bed requested for Telemetry/MedSurg (Inpatient). Status is Inpatient Admission. Condition is Stable. Problem is new. Symptoms have improved. UTI on Admission? Yes. bd
[2019-02-12] MEDS: NA CHLORIDE 0.9% 1,000 ML IV SCH (17:18)
[2019-02-12] MEDS: INSULIN -REGULAR HUMAN 50 UNIT/0.5 ML ML SQ SCH ×2 (17:27→21:00)
--- NOTE | 2019-02-12 17:30 | P.HP ---
Certification for Inpatient Patient admitted to: Inpatient With expected LOS: >2 Midnights Patient will require the following post-hospital care: None Practitioner: I am a practitioner with admitting privileges, knowledge of patient current condition, hospital course, and medical plan of care. Services: Services provided to patient in accordance with Admission requirements found in Title 42 Section 412.3 of the Code of Federal Regulations Patient History Date of Service: 02/12/19 Primary Care Provider: Kar Reason for admission: AMS History of Present Illness: This is a 73-year-old female with significant past medical history of diabetes and recurrent UTI who was brought over to the ER by EMS for altered mental status. Last unknown time is not known at this time. Most of the history was collected by the EMS and the ER physician and was related to the hospitalist. I was unable to get any information from the patient and she continues to be altered and family members were at bedside. Patient has been having altered mental status for couple of days according to EMS and has got progressively worse and thus she was brought over to the ER. The family member at home stated that patient does get like this every time she has hyperglycemia episode and also has recurrent UTI. Patient has been complaining of having some fever and chills lately no other associated symptoms noted. Allergies codeine Allergy (Intermediate, Verified 08/21/15 00:05) Hives/Rash Home Medications: Insulin Detemir [Levemir] 16 units SQ BID 08/20/15 Latanoprost [Xalatan] 1 drop OP BEDTIME 09/23/15 Anastrozole [Arimidex*] 1 mg PO DAILY 10/26/17 Aspirin 81 mg PO BEDTIME 10/26/17 Pantoprazole [Protonix Tab*] 40 mg PO DAILY 10/26/17 Simvastatin 40 mg PO BEDTIME 10/26/17 Zolpidem Tartrate [Ambien] 10 mg PO BEDTIME 10/26/17 Brimonidine Tartrate/Timolol [Combigan 0.2%-0.5% Eye Drops] 1 drop EACH EYE BID 05/22/18 Brinzolamide [Azopt] 1 drop EACH EYE BID 05/22/18 Calcium Carbonate/Vitamin D3 [Calcium 600-Vit D3 400 Caplet] 1 each PO BID 05/22 Cholecalciferol (Vitamin D3) [Vitamin D3] 50,000 unit PO SEECOM 05/22/18 Coconut Oil 2,000 mg PO DAILY 05/22/18 Insulin Lispro [Humalog] See Protocol SQ TID 05/22/18 Melatonin 10 mg PO BEDTIME 05/22/18 Oxybutynin Chloride [Oxybutynin Chloride ER] 2.5 mg PO DAILY 05/22/18 Ranitidine [Zantac*] 150 mg PO DAILY 05/22/18 Tamsulosin [Flomax*] 0.4 mg PO BEDTIME 05/22/18 - Past Medical/Surgical History Diabetic: Yes -: CAD -: IDDM -: ME -: Chronic Constipation -: Diabetic retinopathy -: Hyperlipidemia -: Left breast mass, post biopsy indicating infiltrating ductal carcinoma -: Anemia -: Sciatica -: Chronic constipation -: Hysterectomy -: Appendectomy -: L Mastectomy -: Cardiac Bypass -: Balloon Stents Psychosocial/ Personal History: She is and . She has 4 children. She does not work. - Family History Mother -: Heart disease, Diabetes, Cancer Notes: Chronic lymphatic leukemia Father -: Heart disease, Hypertension - Social History Alcohol use: No CD- Drugs: No Caffeine use: Yes Review of Systems 10-point ROS is otherwise unremarkable Physical Examination - Vital Signs Blood Pressure: 168/70 Pulse: 110 Respirations: 17 - Physical Exam General: In no apparent distress, Oriented x1, Confused HEENT: Atraumatic Neck: Supple, 2+ carotid pulse no bruit Respiratory: Clear to auscultation bilaterally, Normal air movement Cardiovascular: Regular rate/rhythm, Normal S1 S2 Gastrointestinal: Normal bowel sounds, No tenderness Musculoskeletal: No tenderness Integumentary: No rashes Neurological: Normal strength at 5/5 x4 extr, Abnormal tone, Abnormal affect Lymphatics: No axilla or inguinal lymphadenopathy - Studies Laboratory Data (last 24 hrs) 02/12/19 11:30: Sodium 139, Potassium 4.6, BUN 29 H, Creatinine 1.24, Glucose 587 H*, Total Bilirubin 0.9, AST 15, ALT 19, Alkaline Phosphatase 150 H 02/12/19 11:30: WBC 11.8 H, Hgb 13.5, Hct 41.6, Plt Count 275 Assessment and Plan - Problems (Diagnosis) (1) Toxic encephalopathy Current Visit: Yes Status: Acute Plan: Patient with altered mental status most likely secondary to toxic encephalopathy -patient currently alert and oriented times 0 -head CT is pending at this time -stroke protocol MRI is pending at this time -will monitor patient closely here in the hospital and treat underlying condition (2) Urinary tract infection Current Visit: Yes Status: Acute Plan: Complicating urinary tract infection at this time causing altered mental status -UA consistent with UTI urine cultures pending at this time -started on Rocephin at this time Qualifiers: Urinary tract infection type: acute cystitis Hematuria presence: without hematuria Qualified Code(s): N30.00 - Acute cystitis without hematuria (3) Coronary artery disease Current Visit: No Status: Chronic Plan: Stable Qualifiers: Coronary Disease-Associated Artery/Lesion type: [place] artery [place] vs. transplanted heart: [place] heart Associated angina: without angina Qualified Code(s): I25.10 - Atherosclerotic heart disease of [place] coronary artery without angina pectoris (4) Diabetes mellitus Onset Date: 09/25/15 Current Visit: No Status: Chronic Plan: Patient initially with hyperglycemia. -repeat blood sugar now 272 -insulin sliding scale and Accu-Chek Qualifiers: Diabetes mellitus type: type 2 Diabetes mellitus jail insulin use: without jail use Diabetes mellitus complication status: without complication Qualified Code(s): E11.9 - Type 2 diabetes mellitus without complications (5) Dyslipidemia Current Visit: No Status: Chronic Plan: Stable will restart home medication (6) Hypertension Current Visit: No Status: Chronic Plan: Stable will restart home medication Qualifiers: Hypertension type: essential hypertension Discharge Plan: Other Plan to discharge in: 48 Hours - Advance Directives Does patient have a Living Will: No Does patient have a Durable POA for Healthcare: Yes - Code Status/Comfort Care Code Status Assessed: Yes Critical Care: No
--- NOTE | 2019-02-12 18:16 | RAD REPORT ---
EXAM DESCRIPTION: CT - Head Brain Wo Cont - 02/12/2019 6:11 pm CLINICAL HISTORY: Transient alteration of awareness COMPARISON: None. TECHNIQUE: Axial 5 mm thick images of the head were obtained without IV contrast. All CT scans are performed using dose optimization technique as appropriate and may include automated exposure control or mA/KV adjustment according to patient size. FINDINGS: No intracranial hemorrhage, mass, edema or shift of mid-line structures. No acute cortical based infarction identified. No cortical edema or sulcal effacement. Atrophy is minimal and chronic ischemic changes minimal. No abnormal extra-axial fluid collections. Ventricles are normal. Mastoid air cells and visualized portions of the paranasal sinuses are clear. No acute bony findings. IMPRESSION: No acute intracranial finding identifiable. The patient has minimal chronic ischemic change could potentially mask nonhemorrhagic acute CVA. Followup MR imaging could be performed if acute CVA is suspected.
[2019-02-13] MEDS ORDERED: HYDROMORPHONE HCL 1 MG/ML INJ IV ONE (00:59)
[2019-02-13] MEDS: NA CHLORIDE 0.9% 1,000 ML IV SCH ×4 (01:00→21:00)
[2019-02-13 02:59] LABS: Urine Appearance CLEAR; Urine Bilirubin NEGATIVE (NEG); Urine Blood 1+ (NEG); Urine Color YELLOW; Urine Glucose 2+ (NEG); Urine Protein 1+ (NEG); Urine Specific Gravity 1.025 (1.005-1.030); Urine Urobilinogen 0.2 mg/dL (0.2-1.0); Urine pH 5.5 (5.0-7.0)
[2019-02-13 03:00] LABS: Urine Microscopic Reflex ORDER UMIC
[2019-02-13 03:52] LABS: Urine Bacteria <20 /HPF (<20); Urine Culture Reflex Order REFLEXED
[2019-02-13 06:04] LABS: Absolute Lymphocytes (CBC) 4.1 K/uL (0.7-4.9); Basophils % 0.3 % (0-1.3); Lymphocytes % 32.7 % (15.3-44.8); MPV 8.6 fL (7.6-11.3); RBC Red Blood Cell Count 3.88 M/uL (3.86-4.86)
[2019-02-13 06:17] LABS: Albumin 3.2 g/dL (3.4-5.0); Bilirubin Total 0.7 mg/dL (0.2-1.0); Potassium 4.3 mmol/L (3.5-5.1); Protein, Total 6.4 g/dL (6.4-8.2)
[2019-02-13] MEDS: INSULIN -REGULAR HUMAN 50 UNIT/0.5 ML ML SQ SCH ×4 (08:47→21:00)
[2019-02-13] MEDS ORDERED: ASPIRIN EC 81 MG TAB PO SCH (09:00)
[2019-02-13] MEDS ORDERED: CEFTRIAXONE/SWI 1gm 1 GM/10 ML SYR IVP SCH (09:00)
--- NOTE | 2019-02-13 10:53 | RAD REPORT ---
EXAM DESCRIPTION: MRA Head Wo Cont CLINICAL HISTORY: Stroke. COMPARISON: CT head dated 02/11/2019 TECHNIQUE: 1) Multisequence, multiplanar MR imaging of the brain was performed without and with the administration of intravenous gadolinium. 2) MR angiography of the head and neck was performed without the administration of intravenous gadoli nium. FINDINGS: Motion artifact limits evaluation. MRI: The ventricles and sulci are normal in size. No abnormal parenchymal or dural enhancement is identifi ed. Scattered areas of T2/FLAIR hyperintense foci are seen in the supratentorial white matter, likely representing chronic microvascular ischemia. There is no acute infarction, intracranial hemorrhage, extra-axial fluid collection, or mass. The brainstem, posterior fossa, and cervicomedullary junction are preserved. The intravascular flow voids are preserved. The orbits are unremarkable. No abnormalit y of the skull base or calvarium is seen. MRA: The anterior and posterior cerebral circulations are patent. No hemodynamically significant stenosis, aneurysmal dilatation or dissection is seen. No focal aneurysm is identified. No hemodynamically significant stenosis of the common carotid, carotid bifurcation, or internal carot id arteries is seen. The extracranial portions of the vertebral basilar system are preserved without stenosis. No aneurysmal dilatation or dissection is seen. IMPRESSION: 1. No acute infarction. 2. Unremarkable MR angiogram of the head and neck. Electronically signed by: Rd Andersen MD 02/12/2019 10:38 PM ELEMENTARY SCHOOL LIBRARIAN Due to temporary technical issues with the PACS/Fluency reporting system, reports are being signed by the in house radiologist as a courtesy to ensure prompt reporting. The interpreting radiologist is f ully responsible for the content of the report.
--- NOTE | 2019-02-13 11:03 | RAD REPORT ---
EXAM DESCRIPTION: MR BRAIN WITHOUT AND WITH IV CONTRAST CLINICAL HISTORY: Stroke. COMPARISON: CT head dated 02/11/2019 TECHNIQUE: 1) Multisequence, multiplanar MR imaging of the brain was performed without and with the administration of intravenous gadolinium. 2) MR angiography of the head and neck was performed without the administration of intravenous gadoli nium. FINDINGS: Motion artifact limits evaluation. MRI: The ventricles and sulci are normal in size. No abnormal parenchymal or dural enhancement is identifi ed. Scattered areas of T2/FLAIR hyperintense foci are seen in the supratentorial white matter, likely representing chronic microvascular ischemia. There is no acute infarction, intracranial hemorrhage, extra-axial fluid collection, or mass. The brainstem, posterior fossa, and cervicomedullary junction are preserved. The intravascular flow voids are preserved. The orbits are unremarkable. No abnormalit y of the skull base or calvarium is seen. MRA: The anterior and posterior cerebral circulations are patent. No hemodynamically significant stenosis, aneurysmal dilatation or dissection is seen. No focal aneurysm is identified. No hemodynamically significant stenosis of the common carotid, carotid bifurcation, or internal carot id arteries is seen. The extracranial portions of the vertebral basilar system are preserved without stenosis. No aneurysmal dilatation or dissection is seen. IMPRESSION: 1. No acute infarction. 2. Unremarkable MR angiogram of the head and neck. Electronically signed by: Rd Andersen MD 02/12/2019 10:38 PM BRIDAL [employer]YLIST SALES CONSULTANT Due to temporary technical issues with the PACS/Fluency reporting system, reports are being signed by the in house radiologist as a courtesy to ensure prompt reporting. The interpreting radiologist is f ully responsible for the content of the report.
--- NOTE | 2019-02-13 11:05 | RAD REPORT ---
EXAM DESCRIPTION: MR ANGIOGRAPHY OF THE HEAD AND NECK CLINICAL HISTORY: Stroke. COMPARISON: CT head dated 02/11/2019 TECHNIQUE: 1) Multisequence, multiplanar MR imaging of the brain was performed without and with the administration of intravenous gadolinium. 2) MR angiography of the head and neck was performed without the administration of intravenous gadoli nium. FINDINGS: Motion artifact limits evaluation. MRI: The ventricles and sulci are normal in size. No abnormal parenchymal or dural enhancement is identifi ed. Scattered areas of T2/FLAIR hyperintense foci are seen in the supratentorial white matter, likely representing chronic microvascular ischemia. There is no acute infarction, intracranial hemorrhage, extra-axial fluid collection, or mass. The brainstem, posterior fossa, and cervicomedullary junction are preserved. The intravascular flow voids are preserved. The orbits are unremarkable. No abnormalit y of the skull base or calvarium is seen. MRA: The anterior and posterior cerebral circulations are patent. No hemodynamically significant stenosis, aneurysmal dilatation or dissection is seen. No focal aneurysm is identified. No hemodynamically significant stenosis of the common carotid, carotid bifurcation, or internal carot id arteries is seen. The extracranial portions of the vertebral basilar system are preserved without stenosis. No aneurysmal dilatation or dissection is seen. IMPRESSION: 1. No acute infarction. 2. Unremarkable MR angiogram of the head and neck. Electronically signed by: Rd Andersen MD 02/12/2019 10:38 PM FIREFIGHTING EQUIPMENT SPECIALIST Due to temporary technical issues with the PACS/Fluency reporting system, reports are being signed by the in house radiologist as a courtesy to ensure prompt reporting. The interpreting radiologist is f ully responsible for the content of the report.
[2019-02-13] MEDS: HOME MED 1 EA UNK (Brimonidine Tartrate/Timolol [Combigan 0.2%-0.5% Eye Drops] 1 DROP) EACH EYE SCH (21:00)
[2019-02-13] MEDS ORDERED: TAMSULOSIN 0.4 MG SR CAP PO SCH (21:00)
[2019-02-13] MEDS ORDERED: HOME MED 1 EA UNK (Brinzolamide [Azopt] 1 DROP) EACH EYE SCH (21:00)
[2019-02-13] MEDS ORDERED: ATORVASTATIN 20 MG TAB PO SCH (21:00)
--- NOTE | 2019-02-14 00:19 | CON ---
Reason For Consultation: Consultation was called because of altered mental status. History Of Present Illness: Ms. Garner is a 73-year-old patient with multiple medical problems includi ng prior history of urinary tract infection and controlled diabetes mellitus, who was admitted 2 days ago with more confusion. The patient's daughter provided information. She was doing fairly well un til about a week ago when she fell and actually injured her ribs, but did not require surgery. Over that time, she had become bed bound mostly because of pain and did refuse to mobilize and became dehy drated and had elevated blood sugars. Within the 2 days prior to hospitalization, confusion became m ore acute, not able to appropriately answer her daughter, and was disoriented, so was brought to [facility]. Her evaluation including urinalysis, which suggested urinary tract infection. Her blood work did show slightly elevated white blood cell count, but was otherwise normal. She did have acidosis with pH of 7.31 and her chemistries did include blood sugars that were greater than 500, at least 587. The patient's daughter said she had a 600 blood sugar prior to that. She was treated fo r DKA, diabetic ketoacidosis and given IV fluid with hydration and urinary tract infection with Rocep hin. Since her hospitalization, she has improved her cognitive functioning significantly and is retu rning back to baseline per her daughter, although she still has some slowness in response and mild di fficulty with complex tasks. She did have a brain MRI showing a small vessel ischemic disease, but n o acute ischemic or hemorrhagic change and MRA of the brain showed no significant findings. Head CT scan showed no acute abnormalities, but minimal small-vessel ischemic disease. Past Medical History: Insulin-dependent diabetes mellitus, coronary artery disease with myocardial i nfarction, chronic constipation, diabetic retinopathy, dyslipidemia. She does have a left breast mas s that shows infiltrating ductal carcinoma, chronic anemia, sciatica, chronic constipation. Past Surgical History: Hysterectomy, appendectomy, left breast mastectomy, cardiac bypass surgery wi th balloon and stenting procedures. Social History: The patient lives alone. and has 3 children. Not working. Family History: Positive for coronary artery disease, diabetes, cancer, and lymphocytic leukemia in mother and heart disease, hypertension in father. Social History: No recent alcohol, tobacco, or IV drug use, although in the past, she did drink alco hol heavily. Medications: Levemir 16 units twice daily, Xalatan 1 drop both eyes at bedtime, Arimidex 1 mg daily, aspirin 81 mg daily, Protonix 40 mg daily, simvastatin 40 mg at bedtime, Ambien 10 mg at bedtime, Co mbigan 1 drop in each eye twice daily, vitamin D and calcium daily, vitamin D3 50,000 international u nits per week, coconut oil 2000 mg daily, melatonin 10 mg at bedtime, oxybutynin 2.5 mg daily, Zantac 150 mg daily, Flomax 0.4 mg at bedtime. Review of Systems: Other than mentioned above, 10-point review of systems was negative. Physical Examination: Vital Signs: Blood pressure 134/64, pulse 109, respiratory rate 16, temperature 97.4, oxygen saturat ion 96% on room air. Weight 142 pounds, height 5 feet 6 inches. General: Ms. Garner is resting in bed. No acute distress. HEENT: She is normocephalic, atraumatic. Sclerae anicteric. Oropharynx is pink and moist. Neck: Supple. Chest: Clear. Heart: Regular. Extremities: Show no significant clubbing, cyanosis, or edema. Neurological: She is alert and oriented to person, place, situation. She follows simple commands pr operly. She has some difficulty, but is able to eventually follow complex commands. Cranial nerves reveal no focal deficits. Motor examination of upper and lower extremities, she has normal bulk and tone with mild diffuse weakness in upper and lower extremities, but symmetric. Sensory exam, mild st ocking-glove loss, light touch, temperature. Reflexes, depressed in upper and lower extremities agai n. Coordination intact in upper and lower extremities. Gait, she is actually about to be ambulated by Physical Therapy later. She otherwise has no reported gait deficits. Assessment And Plan: Ms. Garner is a 73-year-old patient with a toxic encephalopathy related to urinar y tract infection and metabolic encephalopathy related to her diabetic ketoacidosis, which she is imp roving from. The patient and her daughter were instructed that she should work on her pain with pain management and she should hydrate with 6 to 8 glasses daily. In addition, to work on aggressive man agement of her blood sugars by taking medicines appropriately and she may be discharged home once blo od sugars are in control and she has completed antibiotics. She may follow up with Dr. Shepherd's cl inic 1 month later and may do EEG if needed. ADAM/ALF Voice ID: [id number] Report ID: [id number]
--- NOTE | 2019-02-14 00:25 | PN ---
Subjective: This patient was checked at bedside with nurse in the morning and afternoon. Patient ap peared to be confused in the morning. She is more oriented in the afternoon. She does not complain of nausea, vomiting, fevers, or chills. Objective: Vital signs: Temperature 97.4, heart rate 109, respiratory rate 19, blood pressure 129/6 4, oxygen saturation 96% on room air. HEENT: Unremarkable. PERRLA. Chest: No labored breathing. No wheezing. Heart: Normal S1, S2. Regular rhythm and rate. Tachycardia. Abdomen: Soft, nontender. Bowel sounds are present. Extremities: No edema, no cyanosis. Neuro: Patient is oriented to time, place, and people. She remains mildly confused regarding 2 deta ils. Psych: Mildly agitated. No pressured speech. Laboratory Data: WBC 12.5, hemoglobin 12.1, platelets 281. Sodium 146, potassium 4.3, creatinine is 0.88. Assessment And Plan: 1.Acute metabolic encephalopathy. This patient experienced a mental status change on arrival. Like ly this is due to underlying urinary tract infection. Head CT unremarkable. Brain MRI is unremarkab le. This is improving after treating urinary tract infection. 2.Urinary tract infection. UA demonstrate urinary tract infection. Urine culture pending. Continu e IV Rocephin. 3.Generalized weakness. This patient appears to be weak. PT was ordered. Case Management was cons ulted for possible home health versus SNF placement. 4.History of coronary artery disease, this is stable. No chest pain or shortness of breath. Will r esume home medications. 5.Diabetes, sliding-scale. Continue diabetic diet. 6.Hypertension. Blood pressure is relatively stable. Will resume home BP medications. This patien t appeared to be improving. She is eager to go home. We will evaluate the patient in the morning. She probably can be discharged in 1 or 2 days. QT/MODL Voice ID: [id number] Report ID: [id number]
[2019-02-14] MEDS ORDERED: Magnesium Sulfate 2gm IVPB 2 G/50 ML BAG IV ONE (02:20)
[2019-02-14 03:03] LABS: Absolute Lymphocytes (CBC) 4.6 K/uL (0.7-4.9); Basophils % 0.3 % (0-1.3); Hematocrit 35.9 % (36.0-45.0); Lymphocytes % 35.4 % (15.3-44.8); MPV 8.7 fL (7.6-11.3); RBC Red Blood Cell Count 3.76 M/uL (3.86-4.86)
[2019-02-14] MEDS ORDERED: Magnesium Sulfate 2gm IVPB 0 G/0 ML BAG IV ONE (03:09)
[2019-02-14 03:40] LABS: Albumin 2.8 g/dL (3.4-5.0); Magnesium 2.1 mg/dL (1.8-2.4); Potassium 3.7 mmol/L (3.5-5.1); Protein, Total 5.8 g/dL (6.4-8.2)
[2019-02-14 03:41] LABS: CKMB Creatine Kinase MB 11.8 ng/mL (0.3-3.6); Troponin I 3.6 ng/mL (0.0-0.045)
[2019-02-14] MEDS ORDERED: MAGNESIUM 50% 3 GM in NA CHLORIDE 0.9% 100 ML IV ONE (04:00)
--- NOTE | 2019-02-14 08:08 | P.PN ---
Date of Service: 02/14/19 Patient is a 73-year-old female who presents with altered mental status. Her mentation had improved. However around 0230 she went into torsades. We gave her IV magnesium and she responded appropriately. However, 10 min later she went into another episode of torsades. This time she would not come out. We cardioverted her with 200 joules. She went in to a sinus rhythm. Wegave 2g of magnesium x 2 at this time. Blood pressure was 170/100. Heart rate was 90s. We decided to move the patient to the ICU. However she did go back into torsades again and had to be cardioverted once again with 200 joules. We Consulted Cardiology and they recommended patient get additional IV magnesium. This was around 0330. Since that time patient has remained stable. Patient is awake and following commands. Troponins are also elevated and Cardiology was notified. Further recommendations to follow after cardiology evaluation. Continue with pacer leads in case we need to cardiovert. Hold all meds until we can further evaluate.
[2019-02-14] MEDS: INSULIN -REGULAR HUMAN 50 UNIT/0.5 ML ML SQ SCH ×4 (08:11→21:00)
[2019-02-14] MEDS: ASPIRIN EC 81 MG TAB PO SCH (08:46)
[2019-02-14] MEDS: SMZ./TMP. 800/160 MG TABLET PO SCH (08:46)
[2019-02-14] MEDS ORDERED: ANASTROZOLE 1 MG TAB PO SCH (09:00)
[2019-02-14] MEDS: HOME MED 1 EA UNK (Brimonidine Tartrate/Timolol [Combigan 0.2%-0.5% Eye Drops] 1 DROP) EACH EYE SCH (09:00)
[2019-02-14] MEDS ORDERED: GABAPENTIN 100 MG CAP PO SCH (09:00)
[2019-02-14] MEDS ORDERED: OXYBUTYNIN CHLORIDE PO SCH (09:00)
[2019-02-14] MEDS ORDERED: D50W 25 GM/50 ML SYRINGE/VIAL IV PRN (11:46)
[2019-02-14] MEDS ORDERED: GLUCAGON 1 MG/VIAL IM PRN (11:46)
--- NOTE | 2019-02-14 14:09 | ECHO ---
HEIGHT: 5 ft 6 in WEIGHT: 155 lb 7 oz DATE OF STUDY: 02/14/[address]: Christiano Perez MD 2-DIMENSIONAL: YES M.MODE: YES DOPPLER: YES COLOR FLOW: YES TDS: NO PORTABLE: NO DEFINITY: NO BUBBLE STUDY: NO DIAGNOSIS: TORSADES/ VENTRICULAR TACHYCARDIA CARDIAC HISTORY: CATHERIZATION: YES SURGERY: YES PROSTHETIC VALVE: NO PACEMAKER: NO MEASUREMENTS (cm) DIASTOLIC (NORMALS) SYSTOLIC (NORMALS) IVSd (0.6-1.2) LA Diam (1.9-4.0) LVEF 50-55% LVIDd (3.5-5.7) LVIDs (2.0-3.5) %FS % LVPWd (0.6-1.2) Ao Diam 2.7 (2.0-3.7) 2 DIMENSIONAL ASSESSMENT: RIGHT ATRIUM: NORMAL LEFT ATRIUM: NORMAL RIGHT VENTRICLE: NORMAL LEFT VENTRICLE: NORMAL TRICUSPID VALVE: NORMAL MITRAL VALVE: MITRAL ANNULAR CALCIFICATION PULMONIC VALVE: NORMAL AORTIC VALVE: NORMAL PERICARDIAL EFFUSION: NONE AORTIC ROOT: NORMAL LEFT VENTRICULAR WALL MOTION: ANTEROAPICAL AKINESIS. DOPPLER/COLOR FLOW: NORMAL. COMMENTS: ANTEROAPICAL AKINESIS. NORMAL OVERALL EJECTION FRACTION 50-55%. MITRAL ANNULAR CALCIFICATION. NO EFFUSION. NO THROMBOSIS. TECHNOLOGIST: ADINA SOLIS
--- NOTE | 2019-02-14 14:13 | EKG ---
Test Date: 2019-02-14 Test Time: 03:15:44 Rn Progressive Care: 33 MEASUREMENT RESULTS: Intervals: Rate: 94 WA: 158 QRSD: 94 QT: 402 QTc: 502 Carver: P: 56 WA: 158 QRS: -44 T: 173 INTERPRETIVE STATEMENTS: Sinus rhythm with premature atrial complexes with aberrant conduction Left axis deviation Possible Lateral infarct, age undetermined ST & T wave abnormality, consider inferior ischemia ST & T wave abnormality, consider anterior ischemia Abnormal ECG Compared to ECG 05/22/2018 10:03:07 Atrial premature complex(es) now present Aberrant conduction of supraventricular beat(s) now present Left-axis deviation now present Myocardial infarct finding now present ST (T wave) deviation now present Possible ischemia now present Atrial abnormality no longer present Left ventricular hypertrophy no longer present Electronically Signed On 02-14-19 14:11:49 FENCE BUILDER by Michael Gonzales
--- NOTE | 2019-02-14 17:26 | PN ---
Subjective: This patient was seen and examined at the bedside. This patient experienced 3 episodes of torsades, for which she received multiple IV magnesium and shock. Patient experienced mild chest hurting from compression and shock. No shortness of breath. No fever or chills. Physical Examination: Vital Signs: Temperature 97.3, heart rate 83, respiratory rate 19, blood pressure 119/44, oxygen sat uration 99% on NC 2 L. HEENT: Atraumatic. PERRLA. EOMI. Neck: Supple. Chest: Clear to auscultation. No labored breathing. Heart: Normal S1, S2. Regular rhythm and rate. No murmur. Abdomen: Soft, nontender. Bowel sounds present. Extremities: No edema. No cyanosis. Neurologic: Patient is awake and alert, oriented x4. Skin: No rashes. Laboratory Data: WBC 12.9, hemoglobin 12, platelets 286. Sodium 140, potassium 3.7, bicarb 16, crea tinine 0.92, blood sugar 372. Troponin 3.6 on first set, 2.7 after 4 hours. BNP 8650. Assessment And Plan: 1.Torsades de pointes. Patient experienced 3 episodes of torsades she was given multiple IV magnesium. She was cardiac converted with 200 joules. She finally went into the sinus rhythm. She was then transferred to the ICU for closer monitoring. Cardiology was consulted. I discussed th e case with coal digger, who thinks this is probably due to antibiotic and other medication in the s etting of coronary artery disease. Echo was ordered. Delivery And Installation Subcontractor has been following this patient. 2.Non-ST segment elevation myocardial infarction. Troponin was up to 3.6, which has been trended do wn to 2.7. This is likely due to arrhythmia and cardiac conversion. No more chest pain. She is on aspirin and Lipitor. We discontinued per coal digger. 3.Acute metabolic encephalopathy. Her mental status has been improved. She is awake and alert, alejandro ented x4. Likely this is due to underlying urinary tract infection. Head CT unremarkable. Brain MR I is unremarkable. Neurology is on board. He thought this is related to her diabetic ketoacidosis. We will closely monitor her blood sugar. Patient can follow Dr. Shepherd in 1 month and consider EE G if needed. 4.Urinary tract infection. Patient was put on IV Rocephin, which was discontinued due to the concer n of QT prolongation. Currently, she is on the Bactrim. 5.Generalized weakness. This is improving. PT. Patient may need home health versus SNF. Case man ager was consulted. 6.Coronary artery disease. Patient is on aspirin and statin. . 7.Diabetes with hyperglycemia. Continue sliding scale. Resumed home Levemir. 8.Hypertension. Blood pressure is stable. We are closely monitoring. This patient is stable. She needed to stay at the ICU for close monitor due to arrhythmia. She probably can be discharged in 1 or 2 days. QT/MODL Voice ID: [id number] Report ID: [id number]
--- NOTE | 2019-02-14 18:11 | CON ---
Date of Consultation: 02/13/2019 Reason For Consultation: Torsade de pointes with ventricular tachycardia. History Of Present Illness: The patient is 72, has history of CABG in 2016, has a history of breast and colon cancer, carcinoid syndrome, diabetes, and dyslipidemia. She was admitted for a complicated UTI and has been treated with multiple antibiotics. She was also taking Neurontin, Arimidex, timolo l, oxybutynin, Zocor, and Flomax. While she was being treated for those, she went into torsade de po intes, now requiring multiple doses of magnesium and shock. She was hemodynamically stable. She is in sinus rhythm now. I held most of the medications except for aspirin, Lipitor, and her insulin and her timolol prescription for now. We will see how she does. They look for another antibiotics. I would definitely hold Arimidex for now until her antibiotic course is complete. The treatment of cho ice is to make sure medication with prolonged QT . Magnesium is mainstay of therapy. Othe r options include isoproterenol injection, atropine if she becomes bradycardic and pacing the torsade de pointes. For now, we will check magnesium and stopping some of her medicines. Past Medical History: As stated earlier. Allergies: CODEINE. Medications: As stated earlier. Review of Systems: Noncontributory. Social History: Noncontributory. Family History: Noncontributory. Physical Examination: Vital Signs: Stable, afebrile. HEENT: Negative. Neck: Supple with no bruit. Chest: Clear to auscultation and percussion. Cardiac: Regular rhythm and rate. No murmurs, gallops, or rubs. Abdomen: Benign. Extremities: No clubbing, cyanosis, or edema. Diagnostic Data: Blood glucose of 587. Troponin 11.1. BNP 8650. A Lexiscan in April of 2018 sh owed anteroapical scar. CT angiogram and MRA of neck were negative of the neck. Chest x-ray showed mild CHF. She has UTI. Impression And Plan: 1.Torsade de pointes. Please refer to the HPI for recommendation. I would like her to get an echoc ardiogram today. 2.Coronary artery disease, status post coronary artery bypass graft. Recent test negative for ische lacy. 3.Breast and colon cancer Arimidex, but I would like to hold . Her cholesterol is controlled. Her diabetes is poorly controlled. She is on insulin. Her elevated troponin and BN P are definitely secondary to her torsade. I will continue to follow her. SUSIE/MODL Voice ID: [id number] Report ID: [id number]
[2019-02-14] MEDS: LATANOPROST 0.005% OPTH SCH (20:33)
[2019-02-14] MEDS: ATORVASTATIN 20 MG TAB PO SCH (20:33)
[2019-02-14] MEDS: Brimonidine Tartrate/Timolol (Combigan) 0.2%-0.5% Eye Drops EACH EYE SCH (20:33)
[2019-02-14] MEDS ORDERED: BRINZOLAMIDE EYE EACH EYE SCH (21:00)
[2019-02-14] MEDS ORDERED: INSULIN GLARGINE 100 UNITS/ML SQ SCH (21:00)
[2019-02-15 05:10] LABS: Absolute Lymphocytes (CBC) 5.2 K/uL (0.7-4.9); Basophils % 0.2 % (0-1.3); Hematocrit 38.6 % (36.0-45.0); MPV 8.4 fL (7.6-11.3); RBC Red Blood Cell Count 4.09 M/uL (3.86-4.86)
[2019-02-15 05:43] LABS: Albumin 2.7 g/dL (3.4-5.0); Bilirubin Total 0.7 mg/dL (0.2-1.0); Magnesium 2.5 mg/dL (1.8-2.4); Potassium 4.3 mmol/L (3.5-5.1); Protein, Total 5.8 g/dL (6.4-8.2); Thyroid Stimulating Hormone 0.639 uIU/mL (0.360-3.740)
[2019-02-15 05:58] LABS: Troponin I 3.5 ng/mL (0.0-0.045)
[2019-02-15] MEDS: Brimonidine Tartrate/Timolol (Combigan) 0.2%-0.5% Eye Drops EACH EYE SCH ×2 (08:03→21:50)
[2019-02-15] MEDS: ASPIRIN EC 81 MG TAB PO SCH (08:03)
[2019-02-15] MEDS: INSULIN -REGULAR HUMAN 50 UNIT/0.5 ML ML SQ SCH ×4 (08:04→21:00)
[2019-02-15] MEDS: SMZ./TMP. 800/160 MG TABLET PO SCH (08:04)
[2019-02-15] MEDS: LEVEMIR INSULIN SQ SCH (09:23)
--- NOTE | 2019-02-15 15:02 | P.PN ---
Subjective Date of Service: 02/15/19 Primary Care Provider: Kar Chief Complaint: AMS Subjective: Improving (Patient improved. Patient back to normal baseline.) Physical Examination - Vital Signs Temperature: 98 F Blood Pressure: 95/39 Pulse: 86 Respirations: 17 Pulse Ox (%): 98 - Physical Exam General: Alert, In no apparent distress, Oriented x3, Cooperative HEENT: Atraumatic Neck: Supple Respiratory: Clear to auscultation bilaterally, Normal air movement Cardiovascular: Normal pulses, Regular rate/rhythm Gastrointestinal: Normal bowel sounds, Soft and benign, Non-distended Musculoskeletal: No erythema, No tenderness, No warmth Integumentary: No erythema, No warmth, No cyanosis Neurological: Normal speech, Normal strength at 5/5 x4 extr, Normal tone, Normal affect - Studies Medications List Reviewed: Yes Assessment & Plan Discharge Plan: Home Plan to discharge in: 24 Hours Physician Review Additional Text: Impression: Sinus tachycardia with torsades de pointes status post cardioversion Elevated troponin likely related to arrhythmia and cardioversion Acute metabolic encephalopathy likely underlying UTI Diabetes mellitus type 2 insulin dependent CAD Hypertension Plan: Sinus tachycardia with torsades de pointes status post cardioversion: Patient has improved. Continue known to monitor telemetry. Will transition patient to the floor. Pharmacy consulted to evaluate all medications. Will eliminate any medications that will prolonged QT interval. Case discussed with cardiology. Will continue monitor closely. Will discontinue Cmkeon catheter. Will physical therapy assess ambulation. Likely discharge in the next 24-48 Elevated troponin likely related to arrhythmia and cardioversion: Case discussed with cardiology. Continue to monitor closely. No intervention needed at this time. Acute metabolic encephalopathy likely underlying UTI: Continue with antibiotic at this time. Pro calcitonin was elevated. So far urine culture negative. Continue monitor closely. Diabetes mellitus type 2 insulin dependent: Restart insulin but at a lower dose. Will monitor closely. Will adjust appropriately CAD: Continue with medication Hypertension: Will monitor and review home medication. Time Spent Managing Pts Care (In Minutes): 55
[2019-02-15] MEDS: ATORVASTATIN 20 MG TAB PO SCH (21:50)
[2019-02-15] MEDS: LATANOPROST 0.005% OPTH SCH (21:50)
[2019-02-16 05:49] LABS: Absolute Lymphocytes (CBC) 4.1 K/uL (0.7-4.9); Basophils % 0.3 % (0-1.3); Hematocrit 38.9 % (36.0-45.0); MPV 8.7 fL (7.6-11.3); RBC Red Blood Cell Count 4.12 M/uL (3.86-4.86)
[2019-02-16 05:50] VITALS: BMI 24.3
[2019-02-16 06:56] LABS: Albumin 2.7 g/dL (3.4-5.0); Bilirubin Total 0.8 mg/dL (0.2-1.0); Magnesium 2.3 mg/dL (1.8-2.4); Potassium 4.1 mmol/L (3.5-5.1); Protein, Total 5.8 g/dL (6.4-8.2)
[2019-02-16 08:48] VITALS: O2SAT 99
[2019-02-16] MEDS: ASPIRIN EC 81 MG TAB PO SCH (08:48)
[2019-02-16] MEDS: INSULIN -REGULAR HUMAN 50 UNIT/0.5 ML ML SQ SCH ×2 (08:48→13:07)
[2019-02-16] MEDS: SMZ./TMP. 800/160 MG TABLET PO SCH (08:48)
[2019-02-16] MEDS: Brimonidine Tartrate/Timolol (Combigan) 0.2%-0.5% Eye Drops EACH EYE SCH (08:49)
[2019-02-16] MEDS: LEVEMIR INSULIN SQ SCH (08:50)
--- NOTE | 2019-02-16 09:39 | P.DS ---
Admission Date: 02/12/19 Discharge Date: 02/16/19 Primary Care Provider: Dr. Abebe; Cardiology-Dr. Gonzales Disposition: ROUTINE DISCHARGE Discharge Condition: GOOD Reason for Admission: AMS Consultations: Cardiology-Dr. Gonzales Neurology-Dr. Shepherd Procedures: CT Head: FINDINGS: No intracranial hemorrhage, mass, edema or shift of mid-line structures. No acute cortical based infarction identified. No cortical edema or sulcal effacement. Atrophy is minimal and chronic ischemic changes minimal. No abnormal extra-axial fluid collections. Ventricles are normal. Mastoid air cells and visualized portions of the paranasal sinuses are clear. No acute bony findings. IMPRESSION: No acute intracranial finding identifiable. The patient has minimal chronic ischemic change could potentially mask nonhemorrhagic acute CVA. MRI Brain: FINDINGS: Motion artifact limits evaluation. MRI: The ventricles and sulci are normal in size. No abnormal parenchymal or dural enhancement is identified. Scattered areas of T2/FLAIR hyperintense foci are seen in the supratentorial white matter, likely representing chronic microvascular ischemia. There is no acute infarction, intracranial hemorrhage, extra-axial fluid collection, or mass. The brainstem, posterior fossa, and cervicomedullary junction are preserved. The intravascular flow voids are preserved. The orbits are unremarkable. No abnormality of the skull base or calvarium is seen. MRA: The anterior and posterior cerebral circulations are patent. No hemodynamically significant stenosis, aneurysmal dilatation or dissection is seen. No focal aneurysm is identified. No hemodynamically significant stenosis of the common carotid, carotid bifurcation, or internal carotid arteries is seen. The extracranial portions of the vertebral basilar system are preserved without stenosis. No aneurysmal dilatation or dissection is seen. IMPRESSION: 1. No acute infarction. 2. Unremarkable MR angiogram of the head and neck. MRA Brain: FINDINGS: Motion artifact limits evaluation. MRI: The ventricles and sulci are normal in size. No abnormal parenchymal or dural enhancement is identified. Scattered areas of T2/FLAIR hyperintense foci are seen in the supratentorial white matter, likely representing chronic microvascular ischemia. There is no acute infarction, intracranial hemorrhage, extra-axial fluid collection, or mass. The brainstem, posterior fossa, and cervicomedullary junction are preserved. The intravascular flow voids are preserved. The orbits are unremarkable. No abnormality of the skull base or calvarium is seen. MRA: The anterior and posterior cerebral circulations are patent. No hemodynamically significant stenosis, aneurysmal dilatation or dissection is seen. No focal aneurysm is identified. No hemodynamically significant stenosis of the common carotid, carotid bifurcation, or internal carotid arteries is seen. The extracranial portions of the vertebral basilar system are preserved without stenosis. No aneurysmal dilatation or dissection is seen. IMPRESSION: 1. No acute infarction. 2. Unremarkable MR angiogram of the head and neck. MRA Neck: FINDINGS: Motion artifact limits evaluation. MRI: The ventricles and sulci are normal in size. No abnormal parenchymal or dural enhancement is identified. Scattered areas of T2/FLAIR hyperintense foci are seen in the supratentorial white matter, likely representing chronic microvascular ischemia. There is no acute infarction, intracranial hemorrhage, extra-axial fluid collection, or mass. The brainstem, posterior fossa, and cervicomedullary junction are preserved. The intravascular flow voids are preserved. The orbits are unremarkable. No abnormality of the skull base or calvarium is seen. MRA: The anterior and posterior cerebral circulations are patent. No hemodynamically significant stenosis, aneurysmal dilatation or dissection is seen. No focal aneurysm is identified. No hemodynamically significant stenosis of the common carotid, carotid bifurcation, or internal carotid arteries is seen. The extracranial portions of the vertebral basilar system are preserved without stenosis. No aneurysmal dilatation or dissection is seen. IMPRESSION: 1. No acute infarction. 2. Unremarkable MR angiogram of the head and neck. Echocardiogram: EF 50% LEFT VENTRICULAR WALL MOTION: ANTEROAPICAL AKINESIS. DOPPLER/COLOR FLOW: NORMAL. COMMENTS: ANTEROAPICAL AKINESIS. NORMAL OVERALL EJECTION FRACTION 50-55%. MITRAL ANNULAR CALCIFICATION. NO EFFUSION. NO THROMBOSIS. 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 Patient presented to the ER with confusion. This all started about a week ago after a fall. She started be come very weak and refused to mobilize. She became very dehydrated at that time. In the ER she was evaluated. Patient had elevated white count with elevated blood sugars. Patient found to have UTI. Patient was admitted for further treatment. Hospital Course: Patient presented with confusion. Patient found to have elevated blood sugar with UTI. Patient was treated with IV antibiotic therapy. Patient with history of recurrent UTI and urinary incontinence. CT head, MRI head, MRA head/ neck unremarkable and showed no evidence of CVA. Patient seen and evaluated by neurology. No further intervention was required. During her stay and while the patient was being treated she was found to have sinus tachycardia. Cardiology was consulted. Torsades de pointes was identified. Patient was given IV magnesium. Patient required cardioversion. After cardioversion patient return back to normal sinus rhythm. IV Rocephin was discontinued as this was the likely cause of the arrhythmia along with her UTI and dehydration. Thereafter patient has improved. Patient remains in normal sinus rhythm. Troponin was elevated but likely related to the arrhythmia and cardioversion. No cardiac intervention was required. Echocardiogram shows normal ejection fraction. Pharmacy reviewed medications and medications that increased QT interval were discontinued during her stay. At discharge patient will continue with Bactrim DS 1 pill daily for more days to finish her course of antibiotics. UTI prevention will be provided. Patient may continue with her other medications including oxybutynin 2.5 mg daily and Flomax 0.4 mg daily. Recommend urology evaluation as an outpatient to further address her recurrent UTIs. Patient will also go home with magnesium 400 mg twice daily. Recommend to recheck magnesium level and BMP in 1 week to monitor progress. Cardiology mentioned that she may continue with her other home medications. Recommend follow up with cardiology in 1-2 weeks to follow up this hospitalization. Patient may follow up with neurology as needed an outpatient. As mentioned above patient found to have hyperglycemia upon admission. Patient with diabetes mellitus type 2 insulin dependent. A1c 7.8. Blood sugar now better controlled. At discharge she will continue with her insulin regimen- Levemir 20 units subcu at bedtime. Recommend to maintain blood sugars less 140 fasting and less than 200 after meals. Further adjustment can be done by her PCP. Patient with acute renal injury likely from dehydration. This has improved. Recommend no further use of nonsteroidal anti-inflammatories. Future medications will need to be renally dosed. Recommend to recheck lab-BMP in 1 week to monitor her progress. Patient with CAD, hyperlipidemia. At discharge she will continue with her medications including aspirin 162 mg daily, fish oil once daily, and Zocor 40 mg daily. Recommend follow up with cardiology as directed above. Patient with diabetic neuropathy. Patient may continue with gabapentin 200 mg daily. Patient with history of breast cancer. Patient may continue with her medication Arimidex 1 mg daily. Recommend follow up with her oncologist. Vital Signs/Physical Exam: Temp Pulse Resp BP Pulse Ox 97.2 F 75 14 117/35 L 98 02/16/19 04:00 02/16/19 07:00 02/16/19 07:00 02/16/19 07:00 02/16/19 07:00 General: Alert, In no apparent distress, Oriented x3, Cooperative HEENT: Atraumatic Neck: Supple Respiratory: Clear to auscultation bilaterally, Normal air movement Cardiovascular: Normal pulses, Regular rate/rhythm Gastrointestinal: Normal bowel sounds, Soft and benign, Non-distended, No tenderness, No masses, No rebound, No guarding Musculoskeletal: No erythema, No tenderness, No warmth Integumentary: No tenderness/swelling, No erythema, No warmth, No cyanosis Neurological: Normal speech, Normal strength at 5/5 x4 extr, Normal tone, Normal affect Laboratory Data at Discharge: WBC 9.9 K/uL (4.3-10.9) D 02/16/19 05:23 Hgb 12.8 g/dL (12.0-15.0) 02/16/19 05:23 Hct 38.9 % (36.0-45.0) 02/16/19 05:23 Plt Count 262 K/uL (152-406) 02/16/19 05:23 Sodium 143 mmol/L (136-145) 02/16/19 06:24 Potassium 4.1 mmol/L (3.5-5.1) 02/16/19 06:24 BUN 25 mg/dL (7-18) H 02/16/19 06:24 Creatinine 0.86 mg/dL (0.55-1.3) 02/16/19 06:24 Glucose 231 mg/dL (74-106) H 02/16/19 06:24 Phosphorus Cancelled 02/14/19 05:52 Magnesium 2.3 mg/dL (1.8-2.4) 02/16/19 06:24 Total Bilirubin 0.8 mg/dL (0.2-1.0) 02/16/19 06:24 AST 32 U/L (15-37) 02/16/19 06:24 ALT 21 U/L (12-78) 02/16/19 06:24 Alkaline Phosphatase 116 U/L (45-117) 02/16/19 06:24 Troponin I 3.50 ng/mL (0.0-0.045) H* 02/15/19 04:51 Home Medications: Anastrozole [Arimidex*] 1 mg PO DAILY 10/26/17 Simvastatin 40 mg PO BEDTIME 10/26/17 Brimonidine Tartrate/Timolol [Combigan 0.2%-0.5% Eye Drops] 1 drop EACH EYE BID 05/22/18 Brinzolamide [Azopt] 1 drop EACH EYE BID 05/22/18 Oxybutynin Chloride [Oxybutynin Chloride ER] 2.5 mg PO DAILY 05/22/18 Tamsulosin [Flomax*] 0.4 mg PO BEDTIME 05/22/18 Gabapentin 200 mg PO DAILY 02/13/19 Aspirin Chewable [Aspirin Chewable*] 162 mg PO DAILY 02/14/19 Cholecalciferol (Vitamin D3) [Vitamin D3] 5,000 unit PO DAILY 02/14/19 Chromium Nahomy/Manganese/Zinc [Corporate Administrator-Man-Zin Tablet] 1 each PO DAILY 02/14/19 Insulin Detemir [Levemir] 20 unit SQ BEDTIME 02/14/19 Lactobacillus Combination No.8 [Adult Probiotic] 1 each PO DAILY 02/14/19 Latanoprost/Pf [Latanoprost 0.005% Eye Drop] 1 gtt OP BEDTIME 02/14/19 Phytosterol/Vit D3/Fish Oil [Cholesterol Relief Softgel] 1 tab PO DAILY Pumpkin Seed Extract/Soy Germ [Azo Bladder Control Capsule] 1 tab PO DAILY 02/14 Ubidecarenone [Coenzyme Q10*] 1 tab PO DAILY 02/14/19 Zolpidem Tartrate [Ambien*] 10 mg PO BEDTIME PRN 02/14/19 l Gasseri/B Bifidum/B Longum [Kro Probiotic Colon Suppt Cap] 1 each PO DAILY Magnesium Oxide 400 mg PO BID #60 tablet 02/16/19 Smz./Tmp. [Bactrim Ds 800 MG/160 MG*] 1 tab PO DAILY #3 tab 02/16/19 New Medications: Magnesium Oxide 400 mg PO BID #60 tablet Smz./Tmp. [Bactrim Ds 800 MG/160 MG*] 1 tab PO DAILY #3 tab Patient Discharge Instructions: 1. Recommend follow up with her PCP in 1 week to follow up this hospitalization. 2. Patient presented with confusion. Patient found to have elevated blood sugar with UTI. Patient was treated with IV antibiotic therapy. Patient with history of recurrent UTI and urinary incontinence. CT head, MRI head, MRA head/neck unremarkable and showed no evidence of CVA. Patient seen and evaluated by neurology. No further intervention was required. During her stay and while the patient was being treated she was found to have sinus tachycardia. Cardiology was consulted. Torsades de pointes was identified. Patient was given IV magnesium. Patient required cardioversion. After cardioversion patient return back to normal sinus rhythm. IV Rocephin was discontinued as this was the likely cause of the arrhythmia along with her UTI and dehydration. Thereafter patient has improved. Patient remains in normal sinus rhythm. Troponin was elevated but likely related to the arrhythmia and cardioversion. No cardiac intervention was required. Echocardiogram shows normal ejection fraction. Pharmacy reviewed medications and medications that increased QT interval were discontinued during her stay. At discharge patient will continue with Bactrim DS 1 pill daily for more days to finish her course of antibiotics. UTI prevention will be provided. Patient may continue with her other medications including oxybutynin 2.5 mg daily and Flomax 0.4 mg daily. Recommend urology evaluation as an outpatient to further address her recurrent UTIs. Patient will also go home with magnesium 400 mg twice daily. Recommend to recheck magnesium level and BMP in 1 week to monitor progress. Cardiology mentioned that she may continue with her other home medications. Recommend follow up with cardiology in 1-2 weeks to follow up this hospitalization. Patient may follow up with neurology as needed an outpatient. 3. As mentioned above patient found to have hyperglycemia upon admission. Patient with diabetes mellitus type 2 insulin dependent. A1c 7.8. Blood sugar now better controlled. At discharge she will continue with her insulin regimen-Levemir 20 units subcu at bedtime. Recommend to maintain blood sugars less 140 fasting and less than 200 after meals. Further adjustment can be done by her PCP. 4. Patient with acute renal injury likely from dehydration. This has improved. Recommend no further use of nonsteroidal anti-inflammatories. Future medications will need to be renally dosed. Recommend to recheck lab-BMP in 1 week to monitor her progress. 5. Patient with CAD, hyperlipidemia. At discharge she will continue with her medications including aspirin 162 mg daily , fish oil once daily, and Zocor 40 mg daily. Recommend follow up with cardiology as directed above. 6. Patient with diabetic neuropathy. Patient may continue with gabapentin 200 mg daily. 7. Patient with history of breast cancer. Patient may continue with her medication Arimidex 1 mg daily. Recommend follow up with her oncologist. Diet: ADA Activity: Fall precautions Time spent managing pt's care (in minutes): 55
[2019-02-16 14:48] VITALS: BP 129/64; TEMP 98.4
--- NOTE | 2019-02-17 00:07 | PN ---
Date of Progress Note: 02/15/2019 The patient was seen on 02/14/2019 because of torsade de pointes, which I thought were secondary to t he combination of antibiotics along with her other medication including her eyedrops, her Arimidex. Her QT was prolonged. She was having torsade. I held pretty much most of her medications except for her Lasix, timolol, and insulin. She has not had any further torsade. Her QT appears to have short ened. Antibiotics have been changed. I am comfortable with her getting back on her normal medicatio ns at this point and hopefully if she has not had any more torsade, she can go home in the next day o r so. Her echocardiogram, which was done on 02/15/2019, is perfectly normal. SUSIE/ALF Voice ID: [id number] Report ID: [id number]
== END 2019-02-16 13:45 | disposition home or self-care (01) | DRG 689 ==
LOC: ER 10:56 → ERHOLD 14:41 → 4TH 15:59 → 3RD-ICU 02-14 03:30
PROVIDERS: ADMIT Family Medicine; ATTEND Family Medicine
PROC: 5A2204Z Restoration of Cardiac Rhythm, Single (ICD-10-PCS; principal; 2019-02-14)
DX: N39.0 Urinary tract infection, site not specified (principal); G93.41 Metabolic encephalopathy; N17.9 Acute kidney failure, unspecified; R00.0 Tachycardia, unspecified; I45.81 Long QT syndrome; Z95.1 Presence of aortocoronary bypass graft; Z85.038 Personal history of other malignant neoplasm of large intestine; Z85.3 Personal history of malignant neoplasm of breast; E78.5 Hyperlipidemia, unspecified; I25.10 Atherosclerotic heart disease of native coronary artery without angina pectoris; I25.2 Old myocardial infarction; I10 Essential (primary) hypertension; E11.65 Type 2 diabetes mellitus with hyperglycemia; E86.0 Dehydration; E11.40 Type 2 diabetes mellitus with diabetic neuropathy, unspecified; R79.89 Other specified abnormal findings of blood chemistry
CPT/HCPCS: 36415; 51702; 70450; 70544; 70547; 70553; 71045; 80053; 80307; 81003; 81015; 82550; 82553; 82805; 82947; 83036; 83605; 83735; 83880; 84145; 84439; 84443; 84484; 85025; 87040; 87086; 87088; 93005; 93306; 96361; 96372; 96374; 96375; 97112; 97116; 97161; 97164; 97530; 99285; A9577; J0696; J1170; J3475; J7030

== ENCOUNTER 2020-12-14 18:40 | Emergency (ER) | payer OTHER ==
--- NOTE | 2020-12-14 21:36 | RAD REPORT ---
EXAM DESCRIPTION: RAD - Chest Single View - 12/14/2020 9:28 pm CLINICAL HISTORY: COUGH COMPARISON: Chest Single View dated 02/12/2019; Chest Single View dated 05/22/2018; Chest Pa And Lat (2 Views) dated 12/31/2015; Chest Pa And Lat (2 Views) dated 10/22/2015 FINDINGS: Lines: None. Lungs: No evidence of edema or pneumonia. Scarring in the left mid lung. Pleural: No significant pleural effusions or pneumothorax. Cardiac: Cardiomegaly. Sternotomy. Bones: No acute fractures. Other: IMPRESSION: No acute cardiopulmonary disease.
[2020-12-14] MEDS ORDERED: NA CHLORIDE 0.9% 1,000 ML ONE (22:46)
[2020-12-14] MEDS ORDERED: FAMOTIDINE 20 MG/2 ML VIAL IV ONE (22:46)
[2020-12-14 22:49] LABS: ALT/SGPT 260 U/L (12-78); Albumin 2.8 g/dL (3.4-5.0); Alkaline Phosphatase 972 U/L (45-117); BUN Blood Urea Nitrogen 28 mg/dL (7-18); Bicarbonate 22 mmol/L (21-32); Bilirubin Direct 10.1 mg/dL (0-0.2); Glucose Level 94 mg/dL (74-106); Magnesium 2.4 mg/dL (1.8-2.4); NT PRO-BNP 698 pg/mL (<125); Potassium 4.3 mmol/L (3.5-5.1); Protein, Total 7.6 g/dL (6.4-8.2); Sodium Level 141 mmol/L (136-145); Troponin (Emerg Dept Use Only) < 0.02 ng/mL (0.0-0.045)
[2020-12-14 22:51] LABS: AST/SGOT 381 U/L (15-37); Bilirubin Total 12.3 mg/dL (0.2-1.0)
[2020-12-14 22:54] LABS: Absolute Lymphocytes (CBC) 3.7 K/uL (0.7-4.9); Basophils % 0.4 % (0-1.3); Hematocrit 38.1 % (36.0-45.0); RBC Red Blood Cell Count 3.91 M/uL (3.86-4.86)
[2020-12-14 23:28] LABS: Urine Blood Negative (Negative); Urine Glucose Trace (Negative); Urine Protein Negative (Negative); Urine pH 5.5 (5.0-7.0)
[2020-12-14 23:52] LABS: Barbiturates NEGATIVE (NEGATIVE); Benzodiazepines NEGATIVE (NEGATIVE); Cocaine NEGATIVE (NEGATIVE); METHAMPHETAM NEGATIVE (NEGATIVE); Methadone NEGATIVE (NEGATIVE); Opiates NEGATIVE (NEGATIVE); Phencyclidine NEGATIVE (NEGATIVE); THC Cannibis NEGATIVE (NEGATIVE)
--- NOTE | 2020-12-15 00:01 | ER ---
Nurse's Notes [facility] Name: Caro Garner Age: 75 yrs Sex: Female : 1945 Arrival Date: 12/14/2020 Time: 18:49 Bed 23 Private MD: Diagnosis: Unspecified jaundice-painless;Other cholelithiasis with obstruction Presentation: 12/14 19:20 Chief complaint: Patient states: Pt states she fell last and injured her left wg hand and right foot. Pt states she has been taking 2000mg of Tylenol every four hours and has noticed a darkening of her urine. 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 Pt states she went to her PCP today and received treatment for her injuries and is here for follow-up of the jaundice. Coronavirus screen: Vaccine status: Patient reports receiving the 2nd dose of the covid vaccine. Date July 10, 2020 Client denies travel out of the [place] in the last 14 days. At this time, the client does not indicate any symptoms associated with coronavirus-19. Ebola Screen: Patient negative for fever greater than or equal to 101.5 degrees Fahrenheit, and additional compatible Ebola Virus Disease symptoms Patient denies exposure to infectious person. Patient denies travel to an Ebola-affected area in the 21 days before illness onset. No symptoms or risks identified at this time. Initial Sepsis Screen: Does the patient meet any 2 criteria? No. Patient's initial sepsis screen is negative. Does the patient have a suspected source of infection? No. Patient's initial sepsis screen is negative. Risk Assessment: Do you want to hurt yourself or someone else? Patient reports no desire to harm self or others. Onset of symptoms was December 11, 2020. 19:20 Method Of Arrival: Ambulatory 19:20 Acuity: YOUSIF 3 wg Triage Assessment: 19:26 General: Appears in no apparent distress. comfortable, Behavior is calm, cooperative, wg appropriate for age. Pain: Denies pain. Derm: Skin is pink, warm \T\ dry. jaundiced. Historical: - Allergies: 19:26 Levaquin; wg - Home Meds: 19:26 aspirin Oral [Active]; simvastatin Oral [Active]; Levemir subcutaneous [Active]; wg Humalog Sub-Q [Active]; Macrobid Oral [Active]; - PMHx: 19:26 Diabetes - IDDM; retinopathy; Myocardial infarction; Cancer; wg - Immunization history:: Adult Immunizations up to date. - Social history:: Smoking status: Patient denies any tobacco usage or history of. Patient uses alcohol. - Family history:: not pertinent. Screenin/21 01:05 Abuse screen: Denies. Nutritional screening: No deficits noted. wr 01:06 Tuberculosis screening: No symptoms or risk factors identified. wr 01:06 Fall Risk None identified. wr Assessment: 01:03 General: Appears well developed. Pain: Denies pain. Respiratory: No deficits noted. wr Vital Signs: 12/14 19:20 BP 116 / 63; Pulse 77; Resp 18; Temp 98.8; Pulse Ox 99% on R/A; Weight 65.77 kg; Height 5 ft. 4 in. (162.56 cm); Pain 0/10; 20:30 BP 127 / 104; Pulse 73; Resp 14; Temp 98.6; Pulse Ox 98% ; Weight 66.77 kg; Height 5 wr ft. 1 in. (154.94 cm); 20:30 BP 149 / 84; Pulse 76; Resp 19; Temp 97.9; Pulse Ox 99% ; wr 12/15 00:00 BP 127 / 104; Pulse 76; Resp 19; Temp 97.7; Pulse Ox 99% ; wr 02:50 BP 111 / 79; Pulse 76; Resp 19; Temp 97.8; Pulse Ox 99% ; wr 12/14 20:30 Body Mass Index 27.81 (66.77 kg, 154.94 cm) wr ED Course: 12/14 18:49 Patient arrived in ED. mr 19:26 Triage completed. wg 19:26 Arm band placed on right wrist. wg 20:59 John Yepez MD is Attending Physician. meghana 21:28 XRAY Chest (1 view) In Process Unspecified. EDMS 22:09 Ammonia Sent. wr 22:09 AMMONIA Sent. wr 22:11 ETOH Level Sent. wr 22:11 Basic Metabolic Panel Sent. wr 22:34 Basic Metabolic Panel Sent. wr 22:35 US Abdomen Limited In Process Unspecified. EDMS 22:35 Liver (Hepatic) Function Sent. wr 23:28 CT Abd/Pelvis - IV Contrast Only In Process Unspecified. EDMS 12/15 00:00 initiated a transfer with Beatriz Joseph from [facility]. mw2 00:[address] Yepez with the doctor from [facility]. mw2 00:[address] Yepez with Dr. Cevallos from [facility]. mw2 01:00 Lipase Sent. 02:06 administrative approval given by Beatrizlincoln Joseph/ patient has been accepted to [address] 1223/ Dr. Cevallos accepted the patient in transfer/report to be called [phone]. Administered Medications: 12/14 22:33 Drug: NS 0.9% 1000 ml Route: IV; Rate: 125 ml/hr; Site: left antecubital; :34 Drug: NS 0.9% 500 ml Route: IV; Rate: bolus; Site: left antecubital; wr 22:34 Drug: Pepcid (famotidine) 20 mg Route: IVP; Site: left antecubital; 12/15 01:00 Drug: Zosyn (piperacillin-tazobactam) 3.375 grams Route: IVPB; Infused Over: 60 mins; wr Site: left antecubital; 01:01 Drug: MucoMYST 140 mg/kg Route: PO; 03:08 Drug: Zofran (Ondansetron) 4 mg Route: IVP; Site: right antecubital; wr Outcome: 00:00 ER care complete, transfer ordered by . meghana 03:12 Patient left the ED. Signatures: Dispatcher [employer] EDJohn Bradley MD MD cha Rivera, Shanda mr Gould, Andria 2 Stu Boyle RN wg Robinson, Willena Corrections: (The following items were deleted from the chart) 12/14 22:10 22:10 MAGNESIUM+C.LAB.BRZ drawn and sent. EDNE 22:10 Acetaminophen Level drawn and sent. EDNE 22:11 HEPATIC FUNCTION+C.LAB.BRZ drawn and sent. EDNE 12/15 00:59 00:52 BP 127 / 104; Pulse 73bpm; Resp 14bpm; Pulse Ox 98%; Temp 98.6F; 66.77 kg; Height wr 5 ft. 1 in.; BMI: 27.8; wr 01:05 01:02 General: Appears wr wr
--- NOTE | 2020-12-15 00:01 | EDPHYS ---
Physician Documentation [facility] Name: Caro Garner Age: 75 yrs Sex: Female : 1945 Arrival Date: 12/14/2020 Time: 18:49 Bed 23 Private MD: ED Physician John Yepez HPI: 12/14 21:09 This 75 yrs old Female presents to ER via Ambulatory with complaints of meghana Jaundice, Urinary Problem. 21:09 The patient presents with abdominal pain in the epigastric area. Onset: The meghana symptoms/episode began/occurred 2 day(s) ago. jaundice , takes tylenol 2 gm po 4 x day x 2 days. Onset: The symptoms/episode began/occurred 2 day(s) ago. The symptoms do not radiate. Associated signs and symptoms: none. The symptoms are described as vague. Severity of pain: At its worst the pain was moderate in the emergency department the pain is unchanged. Severity of symptoms: At their worst the symptoms were moderate in the emergency department the symptoms are unchanged. Historical: - Allergies: 19:26 Levaquin; wg - Home Meds: 19:26 aspirin Oral [Active]; simvastatin Oral [Active]; Levemir subcutaneous [Active]; wg Humalog Sub-Q [Active]; Macrobid Oral [Active]; - PMHx: 19:26 Diabetes - IDDM; retinopathy; Myocardial infarction; Cancer; wg - Immunization history:: Adult Immunizations up to date. - Social history:: Smoking status: Patient denies any tobacco usage or history of. Patient uses alcohol. - Family history:: not pertinent. ROS: 21:09 Constitutional: Negative for fever, chills, and weight loss, Eyes: Negative for injury, meghana pain, redness, and discharge, ENT: Negative for injury, pain, and discharge, Neck: Negative for injury, pain, and swelling, Cardiovascular: Negative for chest pain, palpitations, and edema, Respiratory: Negative for shortness of breath, cough, wheezing, and pleuritic chest pain, Back: Negative for injury and pain, : Negative for injury, bleeding, discharge, and swelling, MS/Extremity: Negative for injury and deformity, Neuro: Negative for headache, weakness, numbness, tingling, and seizure, Psych: Negative for depression, anxiety, suicide ideation, homicidal ideation, and hallucinations, Allergy/Immunology: Negative for hives, rash, and allergies, Endocrine: Negative for neck swelling, polydipsia, polyuria, polyphagia, and marked weight changes. 21:09 Abdomen/GI: Positive for abdominal pain. 21:09 Skin: Positive for jaundice. Exam: 21:09 Constitutional: This is a well developed, well nourished patient who is awake, alert, meghana and in no acute distress. Head/Face: Normocephalic, atraumatic. Eyes: Pupils equal round and reactive to light, extra-ocular motions intact. Lids and lashes normal. Conjunctiva and sclera are non-icteric and not injected. Cornea within normal limits. Periorbital areas with no swelling, redness, or edema. ENT: Nares patent. No nasal discharge, no septal abnormalities noted. Tympanic membranes are normal and external auditory canals are clear. Oropharynx with no redness, swelling, or masses, exudates, or evidence of obstruction, uvula midline. Mucous membranes moist. Neck: Trachea midline, no thyromegaly or masses palpated, and no cervical lymphadenopathy. Supple, full range of motion without nuchal rigidity, or vertebral point tenderness. No Meningismus. Chest/axilla: Normal chest wall appearance and motion. Nontender with no deformity. No lesions are appreciated. Cardiovascular: Regular rate and rhythm with a normal S1 and S2. No gallops, murmurs, or rubs. Normal PMI, no JVD. No pulse deficits. Respiratory: Lungs have equal breath sounds bilaterally, clear to auscultation and percussion. No rales, rhonchi or wheezes noted. No increased work of breathing, no retractions or nasal flaring. Back: No spinal tenderness. No costovertebral tenderness. Full range of motion. Female : Normal external genitalia. MS/ Extremity: Pulses equal, no cyanosis. Neurovascular intact. Full, normal range of motion. Neuro: Awake and alert, GCS 15, oriented to person, place, time, and situation. Cranial nerves II-XII grossly intact. Motor strength 5/5 in all extremities. Sensory grossly intact. Cerebellar exam normal. Normal gait. Psych: Awake, alert, with orientation to person, place and time. Behavior, mood, and affect are within normal limits. 21:09 Abdomen/GI: Inspection: abdomen appears normal, Bowel sounds: normal, Palpation: abdomen is soft and non-tender, Indicators: Liver: no appreciated palpable abnormalities, Hernia: not appreciated. 23:54 ECG was reviewed by the Attending Physician. [facility] Vital Signs: 19:20 BP 116 / 63; Pulse 77; Resp 18; Temp 98.8; Pulse Ox 99% on R/A; Weight 65.77 kg; Height wg 5 ft. 4 in. (162.56 cm); Pain 0/10; 20:30 BP 127 / 104; Pulse 73; Resp 14; Temp 98.6; Pulse Ox 98% ; Weight 66.77 kg; Height 5 wr ft. 1 in. (154.94 cm); 20:30 BP 149 / 84; Pulse 76; Resp 19; Temp 97.9; Pulse Ox 99% ; wr 12/15 00:00 BP 127 / 104; Pulse 76; Resp 19; Temp 97.7; Pulse Ox 99% ; wr 02:50 BP 111 / 79; Pulse 76; Resp 19; Temp 97.8; Pulse Ox 99% ; wr 12/14 20:30 Body Mass Index 27.81 (66.77 kg, 154.94 cm) wr MDM: 12/14 20:59 Patient medically screened. meghana 21:11 Differential Diagnosis altered mental status. Differential diagnosis: cholecystitis, meghana Cholelithiasis, diverticulitis, non-specific abd pain, pancreatitis, Peptic Ulcer Disease, Pyelonephritis, urinary tract infection. Data reviewed: vital signs, nurses notes, lab test result(s), EKG, radiologic studies, CT scan, plain films, ultrasound. Data interpreted: nuclear monitoring technician: rate is 77 beats/min, rhythm is normal sinus rhythm, Pulse oximetry: on room air is 77 %. Test interpretation: by ED physician or midlevel provider: ECG, plain radiologic studies. Counseling: I had a detailed discussion with the patient and/or guardian regarding: the historical points, exam findings, and any diagnostic results supporting the discharge/admit diagnosis, lab results, radiology results. 12/14 19: Order name: Acetaminophen 12/14 Order name: Basic Metabolic Panel 12/14 Order name: CBC with Diff; Complete Time: 00:32 12/14 18: Order name: ETOH Level; Complete Time: 23:20 09/20 19:30 Order name: Urine Drug Screen; Complete Time: 23:55 12/14 21:08 Order name: Magnesium; Complete Time: 01:55 [facility] 12/14 21:08 Order name: NT PRO-BNP; Complete Time: 01:55 [facility] 12/14 21:08 Order name: Troponin (emerg Dept Use Only); Complete Time: 01:55 [facility] 12/14 21:08 Order name: XRAY Chest (1 view); Complete Time: 22:40 [facility] 12/14 21:08 Order name: US Abdomen Limited [facility] 12/14 21:08 Order name: CT Abd/Pelvis - IV Contrast Only [facility] 12/14 21:12 Order name: AMMONIA [facility] 12/14 21:13 Order name: Ammonia; Complete Time: 23:55 [facility] 12/14 22:26 Order name: Basic Metabolic Panel; Complete Time: 01:55 [facility] 12/14 22:26 Order name: Liver (Hepatic) Function; Complete Time: 01:55 [facility] 12/14 22:26 Order name: Acetaminophen Level; Complete Time: 01:55 [facility] 12/14 23:01 Order name: Manual Differential; Complete Time: 00:32 [facility] 12/14 23:28 Order name: Urine Dipstick-Ancillary; Complete Time: 23:55 [facility] 12/15 00:47 Order name: Lipase; Complete Time: 01:55 [facility] 12/15 01:47 Order name: SARS-COV-2 RT PCR; Complete Time: 01:55 [facility] 12/14 19:30 Order name: EKG - Nurse/Tech 12/14 19:30 Order name: IV Saline Lock; Complete Time: 22:10 12/14 19:30 Order name: Labs collected and sent; Complete Time: 02:28 12/14 19:30 Order name: Suicide Screening ([place]) 12/14 19:30 Order name: Urine Dipstick-Ancillary (obtain specimen) 12/14 19:30 Order name: Urine Dipstick-Ancillary (obtain specimen) 12/14 21:08 Order name: Cardiac monitoring; Complete Time: 22:09 [facility] 12/14 21:08 Order name: O2 Per Protocol; Complete Time: 22:09 [facility] 12/14 21:08 Order name: O2 Sat Monitoring; Complete Time: 22:09 [facility] EC:54 Rate is 72 beats/min. Rhythm is regular. QRS [place] is Normal. [place] interval is normal. QRS meghana interval is normal. QT interval is normal. No Q waves. T waves are Normal. No ST changes noted. Clinical impression: NSR w/ Non-specific ST/T Changes and No evidence of ischemia. Interpreted by me. Reviewed by me. Administered Medications: 22:33 Drug: NS 0.9% 1000 ml Route: IV; Rate: 125 ml/hr; Site: left antecubital; wr 22:34 Drug: NS 0.9% 500 ml Route: IV; Rate: bolus; Site: left antecubital; wr 22:34 Drug: Pepcid (famotidine) 20 mg Route: IVP; Site: left antecubital; wr 12/15 01:00 Drug: Zosyn (piperacillin-tazobactam) 3.375 grams Route: IVPB; Infused Over: 60 mins; wr Site: left antecubital; 01:01 Drug: MucoMYST 140 mg/kg Route: PO; wr 03:08 Drug: Zofran (Ondansetron) 4 mg Route: IVP; Site: right antecubital; wr Disposition Summary: 12/15/20 00:00 Transfer Ordered Transfer Location: [facility] meghana Reason: Higher level of care meghana Condition: Fair meghana Problem: new meghana Symptoms: have improved meghana Accepting Physician: to [facility] [place](12/15/20 03:12) wr Diagnosis - Unspecified jaundice - painless meghana - Other cholelithiasis with obstruction meghana Forms: - Medication Reconciliation Form meghana - SBAR form meghana Signatures: Dispatcher [employer] EDJohn Bradley MD MD cha Gamba, Liam, RN wg Robinson, Willena Corrections: (The following items were deleted from the chart) 12/14 22:10 21:09 MAGNESIUM+C.LAB.BRZ ordered. EDMS EDMS 22:26 19:30 Acetaminophen Level ordered. EDMS EDMS 22:26 19:30 Basic Metabolic Panel ordered. EDMS EDMS 22:26 19:31 HEPATIC FUNCTION+C.LAB.BRZ ordered. EDIN EDMS 12/15 00:08 00:00 to [facility] meghana meghana 00:47 00:45 LIPASE+C.LAB.BRZ ordered. EDMS EDMS 00:53 00:03 CORONAVIRUS+MR.LAB.BRZ ordered. EDMS EDMS 03:12 00:08 to manny more cha
[2020-12-15 00:12] LABS: Blood Morphology Comment NOT SEEN (NOT SEEN); Platelet Estimate ADEQ
[2020-12-15] MEDS ORDERED: ACETYLCYST 6,000 MG/30 ML VIAL ONE (00:31)
[2020-12-15] MEDS ORDERED: PIPER/TAZO/NS 3.375gm 3.375 GM/100 ML BAG ONE (00:33)
[2020-12-15 01:00] LABS: Lipase 180 U/L (73-393)
[2020-12-15] MEDS ORDERED: ONDANSETRON 4 MG/2 ML VIAL ONE (03:21)
[2020-12-15 03:33] VITALS: O2SAT 99
[2020-12-15 03:38] VITALS: BP 111/79; TEMP 97.8
--- NOTE | 2020-12-15 07:36 | RAD REPORT ---
EXAM DESCRIPTION: US - Abdomen Exam Limited - 12/14/2020 10:36 pm CLINICAL HISTORY: Abdominal pain. COMPARISON: None. FINDINGS: Gallbladder wall is thickened measuring 6 millimeters. Small amount of gallbladder sludge. A gallstone is not seen. The biliary tree is normal caliber. IMPRESSION: Thickened gallbladder wall may be secondary to hypoalbuminemia or cholecystitis
--- NOTE | 2020-12-15 10:23 | EKG ---
Test Date: 2020-12-14 Test Time: 22:32:34 Book Agent: DOMINIC MEASUREMENT RESULTS: Intervals: Rate: 73 OR: 118 QRSD: 96 QT: 412 QTc: 453 [place]: P: -8 OR: 118 QRS: -32 T: 58 INTERPRETIVE STATEMENTS: Sinus rhythm with premature atrial complexes Left axis deviation Voltage criteria for left ventricular hypertrophy Nonspecific T wave abnormality Abnormal ECG Compared to ECG 02/14/2019 03:15:44 Left ventricular hypertrophy now present T-wave abnormality now present Aberrant conduction of supraventricular beat(s) no longer present Myocardial infarct finding no longer present ST (T wave) deviation no longer present Possible ischemia no longer present Electronically Signed On 12-15-20 10:21:48 CDT by Michael Gonzales
--- NOTE | 2020-12-15 10:45 | RAD REPORT ---
EXAM DESCRIPTION: CT - Abdomen Pelvis W Contrast - 12/15/2020 6:53 am CLINICAL HISTORY: The patient is 75 years old and is Female; ABD PAIN TECHNIQUE: Axial computed tomography images of the abdomen and pelvis with intravenous contrast. S agittal and coronal reformatted images were created and reviewed. This CT exam was performed using one or more of the following dose reduction techniques: automated exposure control, adjustment of t he mA and/or kV according to patient size, and/or use of iterative reconstruction technique. COMPARISON: CT abdomen and pelvis November 29, 2019. FINDINGS: Lung bases: Stable calcified granuloma in the left lung base. Heart: Mitral calcification. Mediastinum: Small hiatal hernia. ABDOMEN: Liver: There is a focal irregularity to the contour of the right posterior liver which is new co mpared to the prior exam. There is heterogeneous enhancement to the right posterior liver which may represent transien t hepatic attenuation differences, but an underlying lesion is not excluded. Gallbladder and bile ducts: Suggestion of possible gallbladder wall thickening. No calcified stones. No ductal dilation. Pancreas: Unremarkable. No mass. No ductal dilation. Spleen: Unremarkable. No splenomegaly. Adrenals: Unremarkable. No mass. Kidneys and ureters: Mild right hydroureteronephrosis. No clear evidence of an obstructing stone . Scattered calcifications in the kidneys bilaterally. Stomach and bowel: Unremarkable. No obstruction. No mucosal thickening. PELVIS: Appendix: No findings to suggest acute appendicitis. Bladder: Unremarkable. No mass. Reproductive: The uterus is not seen. ABDOMEN and PELVIS: Intraperitoneal space: Scattered surgical clips in the abdomen and pelvis. No free air. No significant fluid collection. Bones/joints: Disc space narrowing with degenerative endplate changes in the spine most prominen t at L5-S1. No acute fracture. No dislocation. Soft tissues: Subcutaneous fat stranding in the anterior abdominal wall with coarse calcificatio ns on the left. Vasculature: Scattered atherosclerotic vascular calcifications including at the origins of the m esenteric and renal arteries. No abdominal aortic aneurysm. Lymph nodes: Unremarkable. No enlarged lymph nodes. IMPRESSION: 1. Small hiatal hernia. 2. There is a focal irregularity to the contour of the right posterior liver which is new compared to the prior exam. Finding is nonspecific but can be associated with capsular retraction, fibrosis, and/or underlying lesions. 3. There is heterogeneous enhancement to the right posterior liver which may represent transient he patic attenuation differences, but an underlying lesion is not excluded. 4. Suggestion of possible gallbladder wall thickening. Correlate with right upper quadrant ultras ound if clinically indicated. 5. Mild right hydroureteronephrosis. No clear evidence of an obstructing stone. 6. Scattered surgical clips in the abdomen and pelvis. Correlate with surgical history. 7. Scattered atherosclerotic vascular calcifications including at the origins of the mesenteric and renal arteries. Electronically signed by: Bruno Alvarez MD 12/15/2020 12:01 AM CDT Due to temporary technical issues with the PACS/Fluency reporting system, reports are being signed by the in house radiologist without review as a courtesy to ensure prompt reporting. The interpreting r adiologist is fully responsible for the content of the report.
== END 2020-12-15 03:12 | disposition short-term general hospital (02) ==
LOC: ER 18:40
DX: K80.21 Calculus of gallbladder without cholecystitis with obstruction (principal); E11.9 Type 2 diabetes mellitus without complications; I25.2 Old myocardial infarction; Z20.822 Contact with and (suspected) exposure to COVID-19; Z79.82 Long term (current) use of aspirin; Z79.4 Long term (current) use of insulin; Z88.1 Allergy status to other antibiotic agents
CPT/HCPCS: 93005; 85025; 80048; 36415; 80320; 82140; 83735; 80329; 80076; 81003; 84484; 83690; 83880; 80307; 74177; 71045; 76705; 99284; U0003; Q9967; J2543; J7030; J2405

== ENCOUNTER 2022-02-15 15:17 | Emergency (ER) | payer OTHER ==
--- OUTSIDE RECORDS SUMMARY | 2022-02-15 15:24 | XMS REPORT | Continuity of Care Document ---
:1945 Author Organization [facility] t Address [address] [place] [address] Care Team Providers Name Role Phone Augustus Abebe Primary Care Physician BRANDON TSANG Attending Clinician Unavailable EZEKIEL MITTAL Attending Clinician Unavailable EZEKIEL MITTAL Attending Clinician Unavailable EWA CHAVEZ Attending Clinician Unavailable MATTHEW Attending Clinician Unavailable Ewa Lawton Attending Clinician Doctor Unassigned, [place] Attending Clinician Unavailable Brigitte Cortez Attending Clinician BRIGITTE SALCIDO Attending Clinician Unavailable GRACY WILSON Attending Clinician Unavailable Gracy Wilson MD Attending Clinician Zaira, Ang - Bobby Attending Clinician Unavailable Mukesh Manzanares MD Attending Clinician MUKESH MANZANARES Attending Clinician Unavailable Akash Martinez MD Attending Clinician AKASH MARTINEZ Attending Clinician Unavailable BRANDON TSANG Admitting Clinician Unavailable MATTHEW Admitting Clinician Unavailable GATITO PAN Admitting Clinician Unavailable Payers Payer Name Policy Type Policy Number Effective Date Expiration Date Davon SHAFER [id number] 2015 MEDICARE 00:00:00 [place] [id number] 2020 00:00:00 [place]ICAID OF [place] [id number] 2020 00:00:00 [facility] [id number] 2020 [facility] [place] 00:00:00 DUAL ELIGIBLE (MEDICARE REPLACEMENT/ADVANTAG E - HMO) [facility] [id number] (MEDICARE REPLACEMENT/ADVANTAG E - PPO) Problems Condition Condition Condition Status Onset Resolution Last Treating Co mments Source Name Details Category Date Date Treatment Clinician Date Abdominal Abdominal Disease Active [facility]15 [facility] 00 [place] Hepatocell Hepatocell Disease Active [facility] ular ular 12-15 [facility] injury injury [facility] Diabetes Diabetes Problem Active [place] mellitus Mellitus 9-10 [facility] Hyperlipid Hyperlipid Problem Active M [facility] emia emia 9-10 da 00:[facility] 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 9-10 da edema Edema 00:00[facility] Myopia Myopia Problem Active [place] 9[facility]10 [facility] Regular Regular Problem Active [place] astigmatis Astigmatis 9-10 da m m 00:00[facility] Presbyopia Presbyopia Problem Active 2018- M [facility] 9-10 da [facility] Heart Heart Problem Active [place] disease Disease 9-10 da 00:[facility] Bilateral Bilateral Problem Active [facility] [place] pseudophak Pseudophak 9-10 da ia ia 00:00: [facility] Bilateral Bilateral Problem Active [facility] [place] primary Primary 9-10 da open angle Open Angle 00:00: [facility] glaucoma Glaucoma 00 al [facility] Diabetic Diabetic Problem Active [place] retinopath Retinopath 9-10 da y y 00:00: [facility] screening Screening 00 al offered Offered [facility] Chest pain Chest pain Disease Active 2017-03 M ethodi 2-17 st 00:00: Hospita 00 l Leucocytos Leucocytos Disease Active [facility] is is 7-10 [facility] Coronary Coronary Disease [facility] artery artery 7[facility]07 [facility] disease disease 00:00: Medical involving involving 00 Cent [place] coronary coronary artery of artery of [place] heart with heart with angina angina pectoris pectoris Anemia Anemia Disease Active [facility] 7[facility]06 [facility] CAD CAD Disease Active [facility] (coronary (coronary 7-05 [facility] artery artery 00:00: Medical disease), disease), 00 Cent [place] coronary coronary artery artery Diabetes Diabetes Disease Active [facility] mellitus mellitus 7-05 [facility] with with 00:00: Medical diabetic diabetic 00 Center retinopath retinopath y y Hyperchole Hyperchole Disease Active [facility] sterolemia sterolemia 7-05 Alexia kes 00:00: Medical 00 Center Colon Colon Disease Active [facility] cancer cancer 7-05 [facility] 00:[facility] 00 Center Left Left Disease Active [facility] breast breast 7-05 [facility] mass mass 00:00: Medical 00 Center Elevated Elevated Disease Active Unive rs blood blood 5-16 ity of pressure pressure 00:00: [place] (not (not 00 Medical hypertensi hypertensi Br anch on) on) Vitamin D Vitamin D Disease Active Uni vers deficiency deficiency 8-18 it y of 00:00: [place] 00 Medical Branch Elevated Elevated Disease Active Unive rs alkaline alkaline 8-18 ity of phosphat[place] phosphatas [place] e level 00 Medical Branch HLD HLD Disease Active Univers (hyperlipi (hyperlipi 8-18 it y of demia) demia) 00:00: [place] 00 Medical Branch Hypoglycem Hypoglycem Disease Active U nivers ia ia 5-13 ity of 00:00: [place] 00 Medical Branch Callus of Callus of Disease Active Uni vers foot foot 5-13 ity of 00:00: [place] 00 Medical Branch Type 1 Type 1 Disease Active Univers diabetes diabetes 5-12 ity of mellitus mellitus 00:00: [place] with with 00 Medical hypoglycem hypoglycem Br anch ia and ia and without without coma coma Open wound Open wound Disease Active Overview : Univers of finger of finger 06-02 Formattin i ty of without without 00:00: g of this [place] damage to damage to 00 note Medi latrice nail nail might be Branch different from the original. 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 Nailbed Nailbed Disease Active Univers laceration laceration 3 it y of , finger, , finger, 00:00[place] initial initial 00 Medical encounter encounter Bran ch Pain in Pain in Disease Active Univers finger of finger of 3 ity of right hand right hand 00:00[place] Fracture Fracture Disease Active Unive rs of phalanx of phalanx 06-02 it y of of right of right 00:00: [place] ring ring 00 Medical finger, finger, Branch open, open, initial initial encounter encounter Diabetes Diabetes Disease Active Unive rs mellitus mellitus 3-09 ity of type 1, type 1, 00:00: [place] uncontroll uncontroll 00 Me dical ed, ed, Branch insulin insulin dependent dependent Finger Finger Disease Active Univers avulsion, avulsion, 3-08 ity of initial initial 00:00: [place] encounter encounter 00 [facility] Branch Pseudophak Problem Active 2013-032019-02-18 M emoria ia Pseudophak 04-12 23:41:25 l (disorder) ia 00:00: Geoff hyatt (disorder) 00 Active 02/10/2014 Problem 02/18/2019 Data migrated from [employer] on 08/23/14. Medical Group Primary Primary Problem Active 2019-02-18 Me moria open angle open angle 07-31 23:41:25 l glaucoma glaucoma 00:00: Geoff hyatt (disorder) (disorder) 00 Active 07/31/2012 Problem 02/18/2019 Data migrated from [employer] on 08/23/14. Medical Group Nondiabeti Nondiabet Problem Active 2019-02-18 Memoria c ic 23:41:25 l proliferat proliferat He kimberlyn barrera retinopath retinopath y y (disorder) (disorder) Active Problem 02/18/2019 hx of Medical Group Allergies, Adverse Reactions, Alerts Allergy Allergy Status Severity Reaction(s) Onset Inactive Treating Comm ents Source Name Type Date Date Clinician LEVOFLOX Allergy Active High [facility] ACIN 9-24 [facility] 00 Center Levoflox Propensi Active Severe Interacte [facility] acin ty to 9-24 d with [facility] adverse 00:00: neye Medical reaction 00 drops and Cente r s stopped heart Codeine Propensi Active 2017-03 Methodi ty to 05-13 st adverse 00:00: Hospita reaction 00 l s to drug CODEINE Allergy Active Hives [facility] 09-28 00:00: 00 Codeine Drug Active Hives [facility] Allergy 09-28 [facility] 00:[facility] Center CODEINE DRUG Active Unknown-Cmnt Uni vers INGREDI 3-08 ity of 00:00: [place] 00 Medical Branch Codeine Propensi Active Unknown - Univ ers ty to See comments 308 ity of adverse 00:00: [place] reaction 00 Medical s Branch Azopt Allergy Active Moderate Bradycardia Adalid lake[place] to da substanc [facility] codeine< codeine< Active Memori a sup>1</s sup>1</s l up> up> [place] Family History Family Member Diagnosis Comments Start Date Stop Date Source Maternal grandmother Diabetes [facility] Natural mother Diabetes type II [facility] Natural mother Leukemia [facility] Natural brother Alcohol abuse [facility] Natural father Alcohol abuse [facility] Maternal grandfather Prostate cancer [facility] Social History Social Habit Start Date Stop Date Quantity Comments Source History SDME [facility] Drinks History SDME [facility] Exposure to 2022-01-21 2022-01-31 Not sure University of SARS-CoV-2 00:00:00 14:41:00 [facility] (event) Branch Alcohol intake 2020-12-18 2020[facility]12[facility] History SDOH 2018-03-12 2018-03-12 1 [facility] Frequency 00:00:00 00:00:00 Hospita l Tobacco use and 2014-06-01 2014-06-01 Smokeless tobacco Un iversity of exposure 00:00:00 00:00:00 non-user [place] [facility] [place] Sex [birth year] NENA Tam 00:00:00 00:00:00 Medical Center Smoking Status Start Date Stop Date Source Never smoker [facility] Medications Ordered Filled Start Stop Current Ordering Indication Dosage Frequency Signature Comments Components Source Medication Medication Date Date Medication? Clinician (SIG) Name Name brinzolamid 2021-03 Yes 1[drp] 1 Drop 2 Univers e 1 % 1-07 (two) ity of ophthalmic 14:59: times [place] suspension 32 daily. Medical drops Branch Brimonidine 2021-[address] Un ameena -Timolol 1-07 each eye. ity of 0.2-0.5 % 14:59: [place] [address] Medical drops Branch brinzolamid 2021-03 Yes 1[drp] 1 Drop 2 Univers e 1 % 1-07 (two) ity of ophthalmic 14:59: times [place] suspension 32 daily. Medical drops Branch Brimonidine 2021-[address] in Un ameena -Timolol 1-07 each eye. ity of 0.2-0.5 % 14:59: [place] [address] Medical drops Branch brinzolamid 2021-03 Yes 1[drp] 1 Drop 2 Univers e 1 % 1-07 (two) ity of ophthalmic 14:59: times [place] suspension 32 daily. Medical drops Branch Brimonidine 2021-[address] in Un ameena -Timolol 1-07 each eye. ity of 0.2-0.5 % 14:59: [place] [address] Medical drops Branch Insulin Yes [id number] 16 units Univers Detemir 12-22 9101 twice ity of (LEVEMIR 00:00: daily. Max Al as FLEXTOUCH 00 daily dose Medi latrice U-100 of 40 Branch INSULN) 100 units unit/mL (3 mL) injection Insulin Yes [id number] 16 units Univers Detemir 12-22 9101 twice ity of (LEVEMIR 00:00: daily. Max Al as FLEXTOUCH 00 daily dose Medi latrice U-100 of 40 Branch INSULN) 100 units unit/mL (3 mL) injection Insulin Yes [id number] 16 units Univers Detemir 9 9101 twice ity of (LEVEMIR 00:00: daily. Max Al as FLEXTOUCH 00 daily dose Medi latrice U-100 of 40 Branch INSULN) 100 units unit/mL (3 mL) injection Insulin Yes [id number] 16 units Univers Detemir 12-22 9101 twice ity of (LEVEMIR 00:00: daily. Max Al as FLEXTOUCH 00 daily dose Medi latrice U-100 of 40 Branch INSULN) 100 units unit/mL (3 mL) injection Insulin Yes [id number] 16 units Univers Detemir 12-22 9101 twice ity of (LEVEMIR 00:00: daily. Max Al as FLEXTOUCH daily dose Medi latrice U-100 of 40 Branch INSULN) 100 units unit/mL (3 mL) injection Insulin Yes [id number] 16 units Univers Detemir 12-22 9101 twice ity of (LEVEMIR 00:00: daily. Max Al as FLEXTOUCH 00 daily dose Medi latrice U-100 of 40 Branch INSULN) 100 units unit/mL (3 mL) injection Insulin Yes [id number] 16 units Univers Detemir 12-22 9101 twice ity of (LEVEMIR 00:00: daily. Max Al as FLEXTOUCH 00 daily dose Medi latrice U-100 of 40 Branch INSULN) 100 units unit/mL (3 mL) injection Insulin Yes [id number] 16 units Univers Detemir 12-10 9101 twice ity of (LEVEMIR 00:00: daily. Max Al as FLEXTOUCH 00 daily dose Medi latrice U-100 of 40 Branch INSULN) 100 units unit/mL (3 mL) injection insulin Yes [id number] 5-10 units Univers lispro 12-10 9101 with meals ity of (HUMALOG 00:00: and SS. [place] KWIKPEN 00 Max daily Medical INSULIN) dose of 50 Branc h 100 unit/mL pen injector Insulin 0 Yes [id number] 16 units Univers Detemir 9-16 9101 twice ity of (LEVEMIR 00:00: daily. Max Al as FLEXTOUCH 00 daily dose Medi latrice U-100 of 40 Branch INSULN) 100 units unit/mL (3 mL) injection insulin Yes [id number] 5-10 units Univers lispro 9-16 9101 with meals ity of (HUMALOG 00:00: and SS. [place] KWIKPEN 00 Max daily Medical INSULIN) dose of 50 Branc h 100 unit/mL pen injector insulin Yes [id number] 5-10 units Univers lispro 9-16 91 with meals ity of (HUMALOG 00:00: and SS. [place] KWIKPEN 00 Max daily Medical INSULIN) dose of 50 Branc h 100 unit/mL pen injector insulin Yes [id number] 5-10 units Univers lispro 9-16 91 with meals ity of (HUMALOG 00:00: and SS. [place] KWIKPEN 00 Max daily Medical INSULIN) dose of 50 Branc h 100 unit/mL pen injector insulin Yes [id number] 5-10 units Univers lispro 9-16 91 with meals ity of (HUMALOG 00:00: and SS. [place] KWIKPEN 00 Max daily Medical INSULIN) dose of 50 Branc h 100 unit/mL pen injector insulin Yes [id number] 5-10 units Univers lispro 9-16 91 with meals ity of (HUMALOG 00:00: and SS. [place] KWIKPEN 00 Max daily Medical INSULIN) dose of 50 Branc h 100 unit/mL pen injector insulin Yes [id number] 5-10 units Univers lispro 9-16 91 with meals ity of (HUMALOG 00:00: and SS. [place] KWIKPEN 00 Max daily Medical INSULIN) dose of 50 Branc h 100 unit/mL pen injector insulin Yes [id number] 5-10 units Univers lispro 9-16 9101 with meals ity of (HUMALOG 00:00: and SS. [place] KWIKPEN 00 Max daily Medical INSULIN) dose of 50 Branc h 100 unit/mL pen injector insulin Yes [id number] 5-10 units Univers lispro 9-16 9101 with meals ity of (HUMALOG 00:00: and SS. [place] KWIKPEN 00 Max daily Medical INSULIN) dose of 50 Branc h 100 unit/mL pen injector insulin Yes [id number] 5-10 units [facility] lispro 12-10 with meals ity of (HUMALOG 00:00: and SS. [place] KWIKPEN 00 Max daily Medical INSULIN) dose of 50 Branc h 100 unit/mL pen injector Insulin 2021- No [id number] 16 units [facility] Detemir 12-10 twice ity of (LEVEMIR 00:00: 00:00 [place]. [place] FLEXTOUCH 00 :00 daily dose Medi latrice U-100 of 40 Branch INSULN) 100 units unit/mL (3 mL) injection blood sugar Yes [id number] Use as Univers diagnostic 08-0901 directed ity o f (ACCU-CHEK 00:00: as to [place] GUIDE TEST 00 check Medical STRIPS) blood Branch strip sugars 6 times daily for E10.65 blood sugar 0 Yes [id number] Use as Univers diagnostic 08-09 directed ity o f (ACCU-CHEK 00:00: as to [place] GUIDE TEST 00 check Medical STRIPS) blood Branch strip sugars 6 times daily for E10.65 blood sugar 2021-0 Yes [id number] Use as Univers diagnostic 08-0901 directed ity o f (ACCU-CHEK 00:00: as to [place] GUIDE TEST 00 check Medical STRIPS) blood Branch strip sugars 6 times daily for E10.65 blood sugar 2021-0 Yes [id number] Use as Univers diagnostic 08-0901 directed ity o f (ACCU-CHEK 00:00: as to [place] GUIDE TEST 00 check Medical STRIPS) blood Branch strip sugars 6 times daily for E10.65 blood sugar 2021-0 Yes [id number] Use as Univers diagnostic 08-0901 directed ity o f (ACCU-CHEK 00:00: as to [place] GUIDE TEST 00 check Medical STRIPS) blood Branch strip sugars 6 times daily for E10.65 blood sugar 2021-0 Yes [id number] Use as Univers diagnostic 08-0901 directed ity o f (ACCU-CHEK 00:00: as to [place] GUIDE TEST 00 check Medical STRIPS) blood Branch strip sugars 6 times daily for E10.65 blood sugar Yes [id number] Use as Univers diagnostic 5-16 9101 directed ity o f (ACCU-CHEK 00:00: as to [place] GUIDE TEST 00 check Medical STRIPS) blood Branch strip sugars 6 times daily for E10.65 blood sugar Yes [id number] Use as Univers diagnostic 5-16 9101 directed ity o f (ACCU-CHEK 00:00: as to [place] GUIDE TEST 00 check Medical STRIPS) blood Branch strip sugars 6 times daily for E10.65 blood sugar Yes [id number] Use as Univers diagnostic 5-16 9101 directed ity o f (ACCU-CHEK 00:00: as to [place] GUIDE TEST 00 check Medical STRIPS) blood Branch strip sugars 6 times daily for E10.65 blood sugar Yes [id number] Use as Univers diagnostic 516 9101 directed ity o f (ACCU-CHEK 00:00: as to [place] GUIDE TEST 00 check Medical STRIPS) blood Branch strip sugars 6 times daily for E10.65 Insulin 2021- No 18U inject 18 Univ ers Detemir 2-14 -14 Units ity of (LEVEMIR 14:59: 00:00 under the Al as FLEXTOUCH) 40 :00 skin 2 Medical 100 unit/mL (two) Branch (3 mL) InPn times daily. Insulin 2021- No 18U inject 18 Univ ers Detemir 2-14 -14 Units ity of (LEVEMIR 14:59: 00:00 under the Al as FLEXTOUCH) 40 :00 skin 2 Medical 100 unit/mL (two) Branch (3 mL) InPn times daily. insulin 2021- No inject Univers aspart -10 05-14 under the ity of (NOVOLOG 14:56: 00:00 skin 3 [place] FLEXPEN) 36 :00 (three) Medical 100 unit/mL times Branch injection daily before meals. insulin 2021- No inject Univers aspart 2-14 -14 under the ity of (NOVOLOG 14:56: 00:00 skin 3 [place] FLEXPEN) 36 :00 (three) Medical 100 unit/mL times Branch injection daily before meals. insulin 2021- No [id number] 5-10 units Univers lispro 2-14 09-16 91 with meals ity of (HUMALOG 00:00: 00:00 and SS. [place] KWIKPEN 00 :00 Max daily Medical INSULIN) dose of 50 Branc h 100 unit/mL pen injector Insulin 2021- No [id number] 14 units Univers Detemir 05-10 9101 twice ity of (LEVEMIR 00:00: 00:00 daily. Max [place] FLEXTOUCH 00 :00 daily dose Medi latrice U-100 of 35 Branch INSULN) 100 units unit/mL (3 mL) injection insulin 2021- No [id number] 5-10 units Univers lispro 05-10 with meals ity of (HUMALOG 00:00: 00:00 and SS. [place] KWIKPEN 00 :00 Max daily Medical INSULIN) dose of 50 Branc h 100 unit/mL pen injector Insulin 2021- No [id number] 14 units Univers Detemir 05-10 91 twice ity of (LEVEMIR 00:00: 00:00 daily. Max [place] FLEXTOUCH 00 :00 daily dose Medi latrice U-100 of 35 Branch INSULN) 100 units unit/mL (3 mL) injection traMADoL 50 2020-03- No 4647 50mg Take 1 Uni vers mg tablet 03-29 tablet by ity of 00:00: 05:59 mouth [place] 00 :00 every 6 Medical (six) Branch hours for 7 days. Indication s: acute pain traMADoL 50 2020-03- No 4647 50mg Take 1 Uni vers mg tablet 03-29 tablet by ity of 00:00: 05:59 mouth [place] 00 :00 every 6 Medical (six) Branch hours for 7 days. Indication s: acute pain aspirin 81 Yes 162mg Take [address] MG EC 9-28 mg by [facility] tablet 15:38: mouth . Medical 02 Center ferrous Yes 650mg Take 650 [facility] sulfate 325 9-27 mg by [facility] (65 FE) MG 15:38: mouth Medica l tablet 54 daily with Center breakfast. nitroglycer Yes .4mg Place 0.[address] in 9-27 mg under [facility] (NITROSTAT) 15:38: the tongue Medical 0.4 MG SL 54 every 5 Center tablet (five) minutes as needed for Chest pain Put 1 pill under tongue every 5min as needed for chest pain.No more than 3 doses in 15min.Call 911 if pain is unrelieved 5min after 1st dose . pantoprazol Yes 40mg QD Take [address] e 12-21 by mouth [facility] (PROTONIX) 15:38: daily Once M edical 40 MG 54 a day Center tablet before a meal . simvastatin Yes 40mg QD Take [address] (ZOCOR) 40 - by mouth [facility] MG tablet 15:38: nightly. [facility] 54 Center anastrozole Yes 1mg QD Take [address] (ARIMIDEX) 12-21 by mouth [facility] 1 mg tablet 15:38: daily. [facility] 54 Center latanoprost Yes 1[drp] QD Place [address] (XALATAN) 12-21 drop into [facility] 0.005 % 15:38: both eyes Medic al ophthalmic 54 nightly. Cente r solution brimonidine Yes 1[drp] Q.[id number] Place [address] -timolol 12-21 [id number] drop into [facility] (COMBIGAN) 15:38: 3D the right Me dical 0.2-0.5 % 54 eye 3 Center ophthalmic (three) solution times daily . brinzolamid Yes 1[drp] Q.5D Place [address] e (AZOPT) 1 12-21 drop into Lillie es % 15:38: both eyes Medical ophthalmic 54 2 (two) Center suspension times daily. insulin Yes 2U Inject [facility] aspart 12-21 2-16 Units [facility] (NOVOLOG) 15:38: subcutaneo Me dical 100 unit/mL 54 usly 3 Center injection (three) times daily as needed for High Blood Sugar before meals . gabapentin Yes 400mg [address] (NEURONTIN) -17 every [facility] 100 MG 00:00: night as Medical capsule 00 needed . Center Lumigan Yes [facility] 0.01 % Drop -15 [facility] ophthalmic 00:00: Medical solution 00 Center HumaLOG Yes INJECT [address] KwikPen 9-08 UNITS [facility] Insulin 100 00:00: UNDER THE M edical unit/mL 00 SKIN THREE Center InPn TIMES DAILY USE SLIDING SCALE DIRECTED BY CHANTE MAX OF 30 UNITS A DAY anastrozole 2017-03 Yes 1mg QD Take 1 mg M ethodi (ARIMIDEX) 2-[address] 1 mg chemo 00:27: daily. Hospi ta tablet 43 l simvastatin 2017-03 Yes 40mg QD Take 40 mg Methodi (ZOCOR) 40 2-[address] MG tablet 00:27: nightly. Hosp rhoda 43 l pantoprazol 2017-03 Yes 40mg QD Take 40 mg Methodi e 2-[address] (PROTONIX) 00:27: daily. Hospi ta 40 MG EC 43 l tablet oxybutynin 2017-03 Yes 2.5mg QD Take 2.5 Me thodi XL 2-[address] (DITROPAN-X 00:27: mouth Hospi ta L) 5 MG 24 43 daily. l hr tablet zolpidem 2017-03 Yes 10mg QD Take 10 mg Met hodi (AMBIEN) 10 2-[address] mg tablet 00:27: nightly as Ho spita 43 needed for l sleep. aspirin 2017-03 Yes 81mg QD Take 81 mg Meth tianna (ECOTRIN) 2-[address] 81 MG 00:27: daily. Hospita enteric 43 l coated tablet tamsulosin 2017-03 Yes .4mg QD Take 0.4 Met hodi (FLOMAX) 2-[address] 0.4 mg 00:27: mouth Hospita capsule 43 daily. l insulin 2017-03 Yes 30U QD Inject 30 Metho di GLARGINE 2-[address] (LANTUS) 00:27: under the Hosp rhoda 100 unit/mL 43 skin daily l injection before (vial) breakfast. brinzolamid 2017-03 Yes 1[drp] Q.[id number] Administer Methodi e (AZOPT) 1 2-18 [id number] % 00:27: 3D both eyes Hospita ophthalmic 43 3 (three) l suspension times a day. brimonidine 2017-03 Yes 1[drp] Q12H Administer Methodi -timolol 2-[address] (COMBIGAN) 00:27: both eyes Ho spita 0.2-0.5 % 43 every 12 l ophthalmic (twelve) solution hours. latanoprost 2017-03 Yes 1[drp] QD 1 drop Me thodi (XALATAN) 2-[address] 0.005 % 00:27: Hospita ophthalmic 43 l solution anastrozole 2017-03 Yes 1mg QD Take 1 mg M ethodi (ARIMIDEX) 2-[address] 1 mg chemo 00:27: daily. Hospi ta tablet 43 l simvastatin 2017-03 Yes 40mg QD Take 40 mg Methodi (ZOCOR) 40 2-[address] MG tablet 00:27: nightly. Hosp rhoda 43 l pantoprazol 2017-03 Yes 40mg QD Take 40 mg Methodi e 2-[address] (PROTONIX) 00:27: daily. Hospi ta 40 MG EC 43 l tablet oxybutynin 2017-03 Yes 2.5mg QD Take 2.5 Me thodi XL 2-[address] (DITROPAN-X 00:27: mouth Hospi ta L) 5 MG 24 43 daily. l hr tablet zolpidem 2017-03 Yes 10mg QD Take 10 mg Met hodi (AMBIEN) 10 2-[address] mg tablet 00:27: nightly as Ho spita 43 needed for l sleep. aspirin 2017-03 Yes 81mg QD Take 81 mg Meth tianna (ECOTRIN) 2-[address] 81 MG 00:27: daily. Hospita enteric 43 l coated tablet tamsulosin 2017-03 Yes .4mg QD Take 0.4 Met hodi (FLOMAX) 2-[address] 0.4 mg 00:27: mouth Hospita capsule 43 daily. l insulin 2017-03 Yes 30U QD Inject 30 Metho di GLARGINE 2-[address] (LANTUS) 00:27: under the Hosp rhoda 100 unit/mL 43 skin daily l injection before (vial) breakfast. brinzolamid 2017-03 Yes 1[drp] Q.[id number] Administer Methodi e (AZOPT) 1 2-18 [id number] % 00:27: 3D both eyes Hospita ophthalmic 43 3 (three) l suspension times a day. brimonidine 2017-03 Yes 1[drp] Q12H Administer Methodi -timolol 2-[address] (COMBIGAN) 00:27: both eyes Ho spita 0.2-0.5 % 43 every 12 l ophthalmic (twelve) solution hours. latanoprost 2017-03 Yes 1[drp] QD 1 drop Me thodi (XALATAN) 2-[address] 0.005 % 00:27: Hospita ophthalmic 43 l solution blood sugar 2016-03- No Test as Un [place] diagnostic 005-10 directed ity of (ACCU-CHEK 00:00: 00:00 [place] LUIS ENRIQUE PLUS 00 :00 per day, Medic al TEST STRP) DX:E10.9 Branc h strip blood sugar 2016-03- No Test as Un ameena diagnostic 005-10 directed ity of (ACCU-CHEK 00:00: 00:00 [place] LUIS ENRIQUE PLUS 00 :00 per day, Medic al TEST STRP) DX:E10.9 Branc h strip insulin Yes 10U QD Inject 10 [facility] detemir 7-18 Units [facility] (LEVEMIR) 00:00: subcutaneo Me dical 100 unit/mL 00 usly every Ce nter injection morning. insulin Yes 10U QD Inject 10 [facility] detemir 7-18 Units [facility] (LEVEMIR) 00:00: subcutaneo Me dical 100 unit/mL 00 [facility] injection nightly. brinzolamid Yes 1[drp] 1 Drop 2 [facility] e (AZOPT) 1 5-16 (two) ity of % 14:44: times [place] [facility] 07 daily. Medical suspension Branch drops Brimonidine Yes Place in [place] -Timolol 5-16 each eye. ity of (COMBIGAN) 14:44: [place] 0.2-0.5 % 07 Medical Drop Branch brinzolamid Yes 1[drp] 1 Drop 2 [facility] (AZOPT) 1 5-16 (two) ity of % 14:44: times [place] [facility] 07 daily. Medical suspension Branch drops Brimonidine Yes Place in [place] -Timolol 5-16 each eye. ity of (COMBIGAN) 14:44: [place] 0.2-0.5 % 07 Medical Drop Branch brinzolamid 2016-0 Yes 1[drp] 1 Drop 2 [facility] e (AZOPT) 1 5-16 (two) ity of % 14:44: times [place] [facility] 07 daily. Medical suspension Branch drops Brimonidine 2016-[address] in [place] -Timolol 5-16 each eye. ity of (COMBIGAN) 14:44: [place] 0.2-0.5 % 07 Medical Drop Branch brinzolamid 2016-0 Yes 1[drp] 1 Drop 2 [facility] e (AZOPT) 1 5-16 (two) ity of % 14:44: times [place] [facility] 07 daily. Medical suspension Branch drops Brimonidine 2016-[address] in [place] -Timolol 5-16 each eye. ity of (COMBIGAN) 14:44: [place] 0.2-0.5 % 07 Medical Drop Branch brinzolamid 2016-0 Yes 1[drp] 1 Drop 2 [facility] e (AZOPT) 1 5-16 (two) ity of % 14:44: times [place] [facility] 07 daily. Medical suspension Branch drops Brimonidine 2016-[address] in [place] -Timolol 5-16 each eye. ity of (COMBIGAN) 14:44: [place] 0.2-0.5 % 07 Medical Drop Branch brinzolamid 2016-0 Yes 1[drp] 1 Drop 2 [facility] (AZOPT) 1 5-16 (two) ity of % 14:44: times [place] [facility] 07 daily. Medical suspension Branch drops Brimonidine 2016-[address] in [place] -Timolol 5-16 each eye. ity of (COMBIGAN) 14:44: [place] 0.2-0.5 % 07 Medical Drop Branch brinzolamid 2016-0 Yes 1[drp] 1 Drop 2 [facility] e (AZOPT) 1 5-16 (two) ity of % 14:44: times [place] [facility] 07 daily. Medical suspension Branch drops Brimonidine 2016-[address] in [place] -Timolol 5-16 each eye. ity of (COMBIGAN) 14:44: [place] 0.2-0.5 % 07 Medical Drop Branch brinzolamid Yes 1[drp] 1 Drop 2 [facility] e (AZOPT) 1 5-16 (two) ity of % 14:44: times [place] [facility] 07 daily. Medical suspension Branch drops Brimonidine Yes Place in [place] -Timolol 5-16 each eye. ity of (COMBIGAN) 14:44: [place] 0.2-0.5 % 07 Medical Drop Branch brinzolamid Yes 1[drp] 1 Drop 2 [facility] (AZOPT) 1 5-16 (two) ity of % 14:44: times [place] [facility] 07 daily. Medical suspension Branch drops Brimonidine Yes Place in [place] -Timolol 5-16 each eye. ity of (COMBIGAN) 14:44: [place] 0.2-0.5 % 07 Medical Drop Branch simvastatin Yes [id number] 40mg Take 1 Tab Univers (ZOCOR) 40 8-18 by mouth ity o f mg tablet 00:00: at [place] 00 bedtime. Medical Branch simvastatin Yes [id number] 40mg Take 1 Tab [facility] (ZOCOR) 40 8-18 by mouth ity o f mg tablet 00:00: at [place] 00 bedtime. Medical Branch simvastatin 2021- No [id number] 40mg Take 1 Tab [facility] (ZOCOR) 40 8-18 09-16 by mouth ity of mg tablet 00:00: 00:00 at [place] 00 :00 bedtime. Medical Branch simvastatin 2021- No [id number] 40mg Take 1 Tab [facility] (ZOCOR) 40 8-18 09-16 by mouth ity of mg tablet 00:00: 00:00 at [place] 00 :00 bedtime. Medical Branch Lancing Yes [id number] Check 6 Uni vers Device with 5-12 times per ity of Lancets 00:00: day [place] (ACCU-CHEK 00 Medical FASTCLIX) Branch Kit Lancing Yes [id number] Check 6 Uni vers Device with 5-12 times per ity of Lancets 00:00: day [place] (ACCU-CHEK 00 Medical FASTCLIX) Branch Kit Lancing Yes [id number] Check 6 Uni vers Device with 5-12 times per ity of Lancets 00:00: day [place] (ACCU-CHEK 00 Medical FASTCLIX) Branch Kit Lancing Yes [id number] Check 6 Uni vers Device with 5-12 times per ity of Lancets 00:00: day [place] (ACCU-CHEK 00 Medical FASTCLIX) Branch Kit Lancing Yes [id number] Check 6 Uni vers Device with 5-12 times per ity of Lancets 00:00: [place] (ACCU-CHEK 00 Medical FASTCLIX) Branch Kit Lancing Yes [id number] Check 6 Uni vers Device with 5-12 times per ity of Lancets 00:00: [place] (ACCU-CHEK 00 Medical FASTCLIX) Branch Kit Lancing Yes [id number] Check 6 Uni vers Device with 5-12 times per ity of Lancets 00:00: [place] (ACCU-CHEK 00 Medical FASTCLIX) Branch Kit Lancing Yes [id number] Check 6 Uni vers Device with 5-12 times per ity of Lancets 00:00: [place] (ACCU-CHEK 00 Medical FASTCLIX) Branch Kit Lancing Yes [id number] Check 6 Uni vers Device with 5-12 times per ity of Lancets 00:00: [place] (ACCU-CHEK 00 Medical FASTCLIX) Branch Kit Lancing Yes [id number] Check 6 Uni vers Device with 5-12 times per ity of Lancets 00:00: [place] (ACCU-CHEK 00 Medical FASTCLIX) Branch Kit Lancing 0 Yes [id number] Check 6 Uni vers Device with 5-12 times per ity of Lancets 00:00: day [place] (ACCU-CHEK 00 Medical FASTCLIX) Branch Kit Lancing Yes [id number] Check 6 Uni vers Device with 5-12 times per ity of Lancets 00:00: [place] (ACCU-CHEK 00 Medical FASTCLIX) Branch Kit latanoprost Yes Univer s (XALATAN) 3-20 ity of 0.005 % 00:00: [place] [facility] 00 Medical drops Branch latanoprost Yes Univer s (XALATAN) 3-20 ity of 0.005 % 00:00: [place] [facility] 00 Medical drops Branch latanoprost Yes Univer s (XALATAN) 3-20 ity of 0.005 % 00:00: [place] [facility] 00 Medical drops Branch latanoprost 0 Yes Univer s (XALATAN) 3-20 ity of 0.005 % 00:00: [place] [facility] 00 Medical drops Branch latanoprost Yes Univer s (XALATAN) 3-20 ity of 0.005 % 00:00: [place] [facility] Medical drops Branch latanoprost Yes Univer s (XALATAN) 3-20 ity of 0.005 % 00:00: [place] [facility] Medical drops Branch latanoprost Yes Univer s (XALATAN) 3-20 ity of 0.005 % 00:00: [place] [facility] Medical drops Branch latanoprost Yes Univer s (XALATAN) 3-20 ity of 0.005 % 00:00: [place] [facility] Medical drops Branch latanoprost Yes Univer s (XALATAN) 3-20 ity of 0.005 % 00:00: [place] [facility] Medical drops Branch latanoprost Yes Univer s (XALATAN) 3-20 ity of 0.005 % 00:00: [place] [facility] Medical drops Branch latanoprost 0 Yes Univer s (XALATAN) 3-20 ity of 0.005 % 00:00: [place] [facility] Medical drops Branch latanoprost 0 Yes Univer s (XALATAN) 3-20 ity of 0.005 % 00:00: [place] [facility] 00 Medical drops Branch HYDROcodone Yes 1{tbl} Take 1 Tab [facility] -acetaminop 3-09 by mouth [place] [place] ([place] 00:00: [place] 4 [place] 5-325 mg 00 (four) Medica l tablet hours as Branch needed (pain). HYDROcodone Yes 1{tbl} Take 1 Tab [facility] -acetaminop 3-09 by mouth [facility]y of [place] ([place] 00:00: [place] 4 [place] 5-325 mg 00 (four) Medica l tablet hours as Branch needed (pain). HYDROcodone Yes 1{tbl} Take 1 Tab [facility] -acetaminop 3-09 by mouth [facility]y of [place] ([place] 00:00: [place] 4 [place] 5-325 mg 00 (four) Medica l tablet hours as Branch needed (pain). HYDROcodone Yes 1{tbl} Take 1 Tab [facility] -acetaminop 3-09 by mouth [facility]y of [place] ([place] 00:00: [place] 4 [place]) 5-325 mg 00 (four) Medica l tablet hours as Branch needed (pain). HYDROcodone Yes 1{tbl} Take 1 Tab [facility] -acetaminop 3-09 by mouth [facility]y of [place] ([place] 00:00: [place] 4 [place] 5-325 mg 00 (four) Medica l tablet hours as Branch needed (pain). HYDROcodone Yes 1{tbl} Take 1 Tab [facility] -acetaminop 3-09 by mouth [facility]y of [place] ([place] 00:00: every 4 [place] 5-325 mg 00 (four) Medica l tablet hours as Branch needed (pain). HYDROcodone Yes 1{tbl} Take 1 Tab [facility] -acetaminop 3-09 by mouth ity of [place] ([place] 00:00: every 4 [place] 5-325 mg 00 (four) Medica l tablet hours as Branch needed (pain). HYDROcodone Yes 1{tbl} Take 1 Tab [facility] -acetaminop 3-09 by mouth ity of [place] ([place] 00:00: every 4 [place]) 5-325 mg 00 (four) Medica l tablet hours as Branch needed (pain). HYDROcodone Yes 1{tbl} Take 1 Tab [facility] -acetaminop 3-09 by mouth [facility]y of [place] ([place] 00:00: every 4 [place] 5-325 mg 00 (four) Medica l tablet hours as Branch needed (pain). HYDROcodone Yes 1{tbl} Take 1 Tab [facility] -acetaminop 3-09 by mouth ity of [place] ([place] 00:00: every 4 [place] 5-325 mg 00 (four) Medica l tablet hours as Branch needed (pain). HYDROcodone Yes 1{tbl} Take 1 Tab [facility] -acetaminop 3-09 by mouth ity of [place] ([place] 00:00: every 4 [place] 5-325 mg 00 (four) Medica l tablet hours as Branch needed (pain). HYDROcodone 2015-0 Yes 1{tbl} Take 1 Tab [facility] -acetaminop 3-09 by mouth ity of [place] ([place] 00:00: every 4 [place]) 5-325 mg 00 (four) Medica l tablet hours as Branch needed (pain). Accu-Chek Accu-Chek No Accu-Chek [place] Guide test Guide test Guide test da strips USE strips USE strips USE [facility] DIRECTED DIRECTED a l SIX TIMES SIX TIMES DIRECTED H ealth EVERY DAY EVERY DAY SIX TIMES Outreac EVERY DAY h Program anastrozole anastrozole No anastrozol [place] 1 mg tablet 1 mg tablet e 1 mg da TAKE 1 TAKE 1 tablet [facility] TABLET BY TABLET BY TAKE 1 al MOUTH DAILY MOUTH DAILY TABLET BY Health MOUTH Outre[facility] DAILY h Program insulin insulin No insulin [place] [facility] lispro lispro lispro da (U-100) 100 (U-100) 100 (U-100) [facility] unit/mL unit/mL 100 al subcutaneou subcutaneou unit/mL Health s pen s pen subcutaneo Outreac INJECT 5 TO INJECT 5 TO us pen h 10 UNITS 10 UNITS INJECT 5 Pro gram UNDER THE UNDER THE TO 10 SKIN WITH SKIN WITH UNITS MEALS AND MEALS AND UNDER THE SLIDING SLIDING SKIN WITH SCALE . MAX SCALE . MAX MEALS AND DAILY DOSE DAILY DOSE SLIDING OF 50 UNITS OF 50 UNITS SCALE . MAX DAILY DOSE OF 50 UNITS latanoprost latanoprost No latanopros [place] 0.005 % eye 0.005 % eye t 0.005 % da drops drops eye drops [facility] INSTILL 1 INSTILL 1 INSTILL 1 al DROP INTO DROP INTO DROP INTO Health BOTH EYES BOTH EYES BOTH EYES Outreac EVERY NIGHT EVERY NIGHT EVERY h AT BEDTIME AT BEDTIME NIGHT AT Program BEDTIME Levemir Levemir No Levemir [place] [facility] FlexTouch FlexTouch FlexTouch da U-100 U-100 U-100 [facility] Insulin 100 Insulin 100 Insulin al unit/mL (3 unit/mL (3 100 Hea lth mL) mL) unit/mL (3 Outreac subcutaneou subcutaneou mL) h s pen s pen subcutaneo Program INJECT 14 INJECT 14 us pen UNITS UNDER UNITS UNDER INJECT 14 THE SKIN THE SKIN UNITS TWICE TWICE UNDER THE DAILY. DAILY. SKIN TWICE MAXIMUM MAXIMUM DAILY. 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 SMALL ointment al AMOUNT TO AMOUNT TO APPLY Heal th AFFECTED AFFECTED SMALL Outrea c AREA TWICE AREA TWICE AMOUNT TO h DAILY FOR 2 DAILY FOR 2 AFFECTED Program WEEKS WEEKS AREA TWICE DAILY FOR 2 WEEKS nitrofurant nitrofurant No nitrofuran [place] oin oin toin da macrocrysta macrocrysta macrocryst [facility] l 100 mg l 100 mg al 100 mg al capsule capsule capsule Health TAKE ONE TAKE ONE TAKE ONE Out reac CAPSULE BY CAPSULE BY CAPSULE BY h MOUTH EVERY MOUTH EVERY MOUTH Program DAY DAY EVERY DAY nitrofurant nitrofurant No nitrofuran [place] oin oin toin da monohydrate monohydrate monohydrat [facility] /macrocryst /macrocryst e/macrocry al als 100 mg als 100 mg stals 100 Health capsule capsule mg capsule Out reac h Program oxybutynin oxybutynin No oxybutynin [place] chloride ER chloride ER chloride da 5 mg 5 mg ER 5 mg [facility] tablet,exte tablet,exte tablet,ext al nded nded ended Health release 24 release 24 release 24 Outreac hr hr hr h Program Paxlovid Paxlovid No Paxlovid [place] 300 mg (150 300 mg (150 300 mg da mg x 2)-100 mg x 2)-100 (150 mg x [facility] mg tablets mg tablets 2)-100 mg al in a dose in a dose tablets in Health pack (EUA) pack (EUA) a dose O utreac TK 2 TK 2 pack (EUA) h NIRMATRELVI NIRMATRELVI TK 2 P rogram R TS AND 1 R TS AND 1 NIRMATRELV RITONAVIR T RITONAVIR T IR TS AND TOGETHER PO TOGETHER PO 1 BID FOR 5 BID FOR 5 RITONAVIR DAYS BID DAYS BID T TOGETHER FOR 5 DAYS FOR 5 DAYS PO BID FOR 5 DAYS BID FOR 5 DAYS Simbrinza 1 Simbrinza 1 No Simbrinza [place] %-0.2 % eye %-0.2 % eye 1 %-0.2 % da drops,suspe drops,suspe eye E [facility] nsion nsion drops,susp al INSTILL 1 INSTILL 1 ension Hea lth DROP INTO DROP INTO INSTILL 1 Outreac AFFECTED AFFECTED DROP INTO h EYE(S) BY EYE(S) BY AFFECTED P rogram OPHTHALMIC OPHTHALMIC EYE(S) BY ROUTE ROUTE OPHTHALMIC 2TIMES PER 2TIMES PER ROUTE DAY DAY 2TIMES PER DAY simvastatin simvastatin No simvastati [place] 40 mg 40 mg n 40 mg da tablet tablet tablet [facility] Program Accu-Chek Accu-Chek No Accu-Chek [place] Guide test Guide test Guide test da strips USE strips USE strips USE [facility] DIRECTED DIRECTED a l SIX TIMES SIX TIMES DIRECTED H ealth EVERY DAY EVERY DAY SIX TIMES Outreac EVERY DAY h Program anastrozole anastrozole No anastrozol [place] 1 mg tablet 1 mg tablet e 1 mg da TAKE 1 TAKE 1 tablet [facility] TABLET BY TABLET BY TAKE 1 al MOUTH DAILY MOUTH DAILY TABLET BY Health MOUTH Outreac DAILY h Program dorzolamide dorzolamide No dorzolamid [place] 2 % eye 2 % eye e 2 % eye da drops drops drops [facility] INSTILL 1 INSTILL 1 INSTILL 1 al DROP BOTH DROP BOTH DROP BOTH Health EYES TWICE EYES TWICE EYES TWICE Outreac DAILY DAILY DAILY h Program Humalog Humalog No Humalog [place] [facility] KwikPen KwikPen KwikPen da (U-100) (U-100) (U-100) [facility] p Insulin 100 Insulin 100 Insulin al unit/mL unit/mL 100 Health subcutaneou subcutaneou unit/mL Outreac s INJECT 5 s INJECT 5 subcutaneo h TO 10 UNITS TO 10 UNITS us INJECT Program UNDER THE UNDER THE 5 TO 10 SKIN WITH SKIN WITH UNITS MEALS AND MEALS AND UNDER THE SLIDING SLIDING SKIN WITH SCALE . MAX SCALE . MAX MEALS AND DAILY DOSE DAILY DOSE SLIDING OF 50 UNITS OF 50 UNITS SCALE . MAX DAILY DOSE OF 50 UNITS latanoprost latanoprost No latanopros [place] 0.005 % eye 0.005 % eye t 0.005 % da drops drops eye drops [facility] INSTILL 1 INSTILL 1 INSTILL 1 al DROP INTO DROP INTO DROP INTO Health BOTH EYES BOTH EYES BOTH EYES Outreac EVERY NIGHT EVERY NIGHT EVERY h AT BEDTIME AT BEDTIME NIGHT AT Program BEDTIME Levemir Levemir No Levemir [place] FlexTouch FlexTouch FlexTouch da U-100 U-100 U-100 [facility] Insulin 100 Insulin 100 Insulin al unit/mL (3 unit/mL (3 100 Hea lth mL) mL) unit/mL (3 Outreac subcutaneou subcutaneou mL) h s pen s pen subcutaneo Program INJECT 14 INJECT 14 us pen UNITS UNDER UNITS UNDER INJECT 14 THE SKIN THE SKIN UNITS TWICE TWICE UNDER THE DAILY. DAILY. SKIN TWICE MAXIMUM MAXIMUM DAILY. 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 SMALL ointment al AMOUNT TO AMOUNT TO APPLY Heal th AFFECTED AFFECTED SMALL Outrea c AREA TWICE AREA TWICE AMOUNT TO h DAILY FOR 2 DAILY FOR 2 AFFECTED Program WEEKS WEEKS AREA TWICE DAILY FOR 2 WEEKS nitrofurant nitrofurant No nitrofuran [place] oin oin toin da macrocrysta macrocrysta macrocryst [facility] l 100 mg l 100 mg al 100 mg al capsule capsule capsule Health TAKE ONE TAKE ONE TAKE ONE Out reac CAPSULE BY CAPSULE BY CAPSULE BY h MOUTH EVERY MOUTH EVERY MOUTH Program DAY DAY EVERY DAY nitrofurant nitrofurant No nitrofuran [place] oin oin toin da monohydrate monohydrate monohydrat [facility] /macrocryst /macrocryst e/macrocry al als 100 mg als 100 mg stals 100 Health capsule capsule mg capsule Out reac TAKE ONE TAKE ONE TAKE ONE h CAPSULE BY CAPSULE BY CAPSULE BY Program MOUTH EVERY MOUTH EVERY MOUTH DAY DAY EVERY DAY oxybutynin oxybutynin No oxybutynin [place] chloride ER chloride ER chloride da 5 mg 5 mg ER 5 mg [facility] tablet,exte tablet,exte tablet,ext al nded nded ended Health release 24 release 24 release 24 Outreac hr hr hr h Program Paxlovid Paxlovid No Paxlovid [place] 300 mg (150 300 mg (150 300 mg da mg x 2)-100 mg x 2)-100 (150 mg x [facility] mg tablets mg tablets 2)-100 mg al in a dose in a dose tablets in Health pack (EUA) pack (EUA) a dose O utrea TK 2 TK 2 pack (EUA) h NIRMATRELVI NIRMATRELVI TK 2 P rogram R TS AND 1 R TS AND 1 NIRMATRELV RITONAVIR T RITONAVIR T IR TS AND TOGETHER PO TOGETHER PO 1 BID FOR 5 BID FOR 5 RITONAVIR DAYS BID DAYS BID T TOGETHER FOR 5 DAYS FOR 5 DAYS PO BID FOR 5 DAYS BID FOR 5 DAYS Simbrinza 1 Simbrinza 1 No Simbrinza [place] %-0.2 % eye %-0.2 % eye 1 %-0.2 % da drops,suspe drops,suspe eye [facility] nsion nsion drops,susp al INSTILL 1 INSTILL 1 ension Hea lth DROP BOTH DROP BOTH INSTILL 1 Outreac EYES TWICE EYES TWICE DROP BOTH h DAILY DAILY EYES TWICE Program DAILY simvastatin simvastatin No simvastati [place] 40 mg 40 mg n 40 mg da tablet tablet tablet [facility] Program Accu-Chek Accu-Chek No Accu-Chek [place] Guide test Guide test Guide test da strips USE strips USE strips USE [facility] DIRECTED DIRECTED a l SIX TIMES SIX TIMES DIRECTED H ealth EVERY DAY EVERY DAY SIX TIMES Outreac EVERY DAY h Program anastrozole anastrozole No anastrozol [place] 1 mg tablet 1 mg tablet e 1 mg da TAKE 1 TAKE 1 tablet [facility] TABLET BY TABLET BY TAKE 1 al MOUTH DAILY MOUTH DAILY TABLET BY Health MOUTH Outreac DAILY h Program dorzolamide dorzolamide No dorzolamid [place] 2 % eye 2 % eye e 2 % eye da drops drops drops [facility] INSTILL 1 INSTILL 1 INSTILL 1 al DROP BOTH DROP BOTH DROP BOTH Health EYES TWICE EYES TWICE EYES TWICE Outreac DAILY DAILY DAILY h Program Humalog Humalog No Humalog [place] [facility] KwikPen KwikPen KwikPen da (U-100) (U-100) (U-100) [facility] p Insulin 100 Insulin 100 Insulin al unit/mL unit/mL 100 Health subcutaneou subcutaneou unit/mL Outreac s INJECT 5 s INJECT 5 subcutaneo h TO 10 UNITS TO 10 UNITS us INJECT Program UNDER THE UNDER THE 5 TO 10 SKIN WITH SKIN WITH UNITS MEALS AND MEALS AND UNDER THE SLIDING SLIDING SKIN WITH SCALE . MAX SCALE . MAX MEALS AND DAILY DOSE DAILY DOSE SLIDING OF 50 UNITS OF 50 UNITS SCALE . MAX DAILY DOSE OF 50 UNITS latanoprost latanoprost No latanopros [place] 0.005 % eye 0.005 % eye t 0.005 % da drops drops eye drops [facility] INSTILL 1 INSTILL 1 INSTILL 1 al DROP INTO DROP INTO DROP INTO Health BOTH EYES BOTH EYES BOTH EYES Outreac EVERY NIGHT EVERY NIGHT EVERY h AT BEDTIME AT BEDTIME NIGHT AT Program BEDTIME Levemir Levemir No Levemir [place] [facility] FlexTouch FlexTouch FlexTouch da U-100 U-100 U-100 [facility] Insulin 100 Insulin 100 Insulin al unit/mL (3 unit/mL (3 100 Hea lth mL) mL) unit/mL (3 Outreac subcutaneou subcutaneou mL) h s pen s pen subcutaneo Program INJECT 14 INJECT 14 us pen UNITS UNDER UNITS UNDER INJECT 14 THE SKIN THE SKIN UNITS TWICE TWICE UNDER THE DAILY. DAILY. SKIN TWICE MAXIMUM MAXIMUM DAILY. 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 SMALL ointment al AMOUNT TO AMOUNT TO APPLY Heal th AFFECTED AFFECTED SMALL Outrea c AREA TWICE AREA TWICE AMOUNT TO h DAILY FOR 2 DAILY FOR 2 AFFECTED Program WEEKS WEEKS AREA TWICE DAILY FOR 2 WEEKS nitrofurant nitrofurant No nitrofuran [place] oin oin toin da macrocrysta macrocrysta macrocryst [facility] l 100 mg l 100 mg al 100 mg al capsule capsule capsule Health TAKE ONE TAKE ONE TAKE ONE Out reac CAPSULE BY CAPSULE BY CAPSULE BY h MOUTH EVERY MOUTH EVERY MOUTH Program DAY DAY EVERY DAY nitrofurant nitrofurant No nitrofuran [place] oin oin toin da monohydrate monohydrate monohydrat [facility] /macrocryst /macrocryst e/macrocry al als 100 mg als 100 mg stals 100 Health capsule capsule mg capsule Out reac TAKE ONE TAKE ONE TAKE ONE h CAPSULE BY CAPSULE BY CAPSULE BY Program MOUTH EVERY MOUTH EVERY MOUTH DAY DAY EVERY DAY ondansetron ondansetron No ondansetro [place] HCl 4 mg HCl 4 mg n HCl 4 mg d a tablet tablet tablet [facility] Out[facility] Program oxybutynin oxybutynin No oxybutynin [place] chloride ER chloride ER chloride da 5 mg 5 mg ER 5 mg [facility] tablet,exte tablet,exte tablet,ext al nded nded ended Health release 24 release 24 release 24 Outreac hr hr hr h Program Paxlovid Paxlovid No Paxlovid [place] 300 mg (150 300 mg (150 300 mg da mg x 2)-100 mg x 2)-100 (150 mg x [facility] mg tablets mg tablets 2)-100 mg al in a dose in a dose tablets in Health pack (EUA) pack (EUA) a dose O utrea TK 2 TK 2 pack (EUA) h NIRMATRELVI NIRMATRELVI TK 2 P rogram R TS AND 1 R TS AND 1 NIRMATRELV RITONAVIR T RITONAVIR T IR TS AND TOGETHER PO TOGETHER PO 1 BID FOR 5 BID FOR 5 RITONAVIR DAYS BID DAYS BID T TOGETHER FOR 5 DAYS FOR 5 DAYS PO BID FOR 5 DAYS BID FOR 5 DAYS Simbrinza 1 Simbrinza 1 No Simbrinza [place] %-0.2 % eye %-0.2 % eye 1 %-0.2 % da drops,suspe drops,suspe eye [facility] nsion nsion drops,susp al INSTILL 1 INSTILL 1 ension Hea lth DROP BOTH DROP BOTH INSTILL 1 Outreac EYES TWICE EYES TWICE DROP BOTH h DAILY DAILY EYES TWICE Program DAILY simvastatin simvastatin No simvastati [place] 40 mg 40 mg n 40 mg da tablet tablet tablet [facility] Program Vital Signs Vital Name Observation Time Observation Value Comments Source WEIGHT 2020-12-21 05:01:00 64.501 kg WEIGHT 2020-12-18 05:19:00 64.683 kg WEIGHT 2020-12-15 08:00:00 62.914 kg HEIGHT 2020-12-15 05:04:00 160 cm WEIGHT 2020-12-15 05:04:00 65.318 kg Height 2022-02-01 00:00:00 66 [in_i] [facility] [facility] Systolic blood 2022-01-31 20:58:00 110 mm[Hg] Univer sity [facility] Diastolic blood 2022-01-31 20:58:00 62 mm[Hg] Unive [facility] Heart rate 2022-01-31 20:58:00 80 /min [facility] Body temperature 2022-01-31 20:58:00 36.22 [facility] Respiratory rate 2022-01-31 20:58:00 16 /min [facility] Body height 2022-01-31 20:58:00 162.6 cm [facility] Body weight 2022-01-31 20:58:00 63.594 kg [facility] BMI 2022-01-31 20:58:00 24.07 kg/m2 [facility] Oxygen saturation in 2022-01-31 20:58:00 98 /min [facility] Arterial blood by [facility] Pulse oximetry Branch Height 2021-12-21 00:00:00 66 [in_i] [place] [facility] Systolic blood 2021-12-10 20:33:00 127 mm[Hg] Univer sity of pressure [facility] Diastolic blood 2021-12-10 20:33:00 79 mm[Hg] Unive rsity of pressure [facility] Heart rate 2021-12-10 20:33:00 77 /min [facility] Body weight 2021-12-10 20:33:[facility] 2021-12-10 20:33:00 24.25 kg/m2 [facility] Oxygen saturation in 2021-12-10 20:33:00 99 /min [facility] Arterial blood by [facility] Pulse oximetry Branch Height 2021-11-02 00:00:00 66 [in_i] [place] [facility] BMI (Body Mass 2021-11-02 00:00:00 25 kg/m2 [place] 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) [facility] Body Weight 2021-11-02 00:00:00 155 [lb_av] [place] [facility] Systolic blood 2021-01-27 19:42:00 86 mm[Hg] [facility]iver [facility] Diastolic blood 2021-01-27 19:42:00 52 mm[Hg] Unive rsity of [facility] Heart rate 2021-01-27 19:42:00 90 /min [facility] Body height 2021-01-27 19:42:00 [facility] 2021-01-27 19:42:00 65.318 kg [facility] BMI 2021-01-27 19:42:00 23.24 kg/m2 [facility] WEIGHT 2020-12-21 05:01:00 64.501 kg WEIGHT 2020-12-18 05:19:00 64.683 kg WEIGHT 2020-12-15 08:00:00 62.914 kg HEIGHT 2020-12-15 05:04:00 160 cm WEIGHT 2020-12-15 05:04:00 65.318 kg Height 2019-05-21 00:00:00 66 [in_i] [place] [facility] BMI (Body Mass 2019-05-21 00:00:00 25.8 kg/m2 [place] [employer] 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) [facility] h [facility]reach [facility] m Body Weight 2019-05-21 00:00:00 160 [lb_av] [facility] [facility] Height 2019-02-26 00:00:00 66 [in_i] [place] [facility] BMI (Body Mass 2019-02-26 00:00:00 25.8 kg/m2 [place] trim[employer] 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) [facility] Body Weight 2019-02-26 00:00:00 160 [lb_av] [place] [facility] Height 2018-12-04 00:00:00 66 [in_i] [place] [facility] BMI (Body Mass 2018-12-04 00:00:00 25.8 kg/m2 [place] 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) [facility] Body Weight 2018-12-04 00:00:00 160 [lb_av] [place] [facility] Procedures Procedure Date / Time Performing Clinician Source Performed POCT URINALYSIS AUTO 2022-01-31 21:54:00 Ewa Chavez [facility] CONSENT/REFUSAL FOR 2022-01-31 20:42:11 [facility], [facility] Name Medical Branch ASSIGNMENT OF BENEFITS 2022-01-31 20:41:55 Doctor Unassigned, No [facility] Name Medical Branch REFERRAL- 2022-01-20 05:01:00 Doctor Unassigned, No [facility] REQUEST/RESPONSE Name [facility] POCT HEMOGLOBIN A1C 2021-12-10 20:44:00 Brigitte Salcido [facility] TEST [facility] DIABETES TESTING 2021-12-10 05:01:00 Doctor Unassigned, No [facility] REPORTS Name Medical Branch Partial Resection of [facility] Hysterectomy [facility] Bilateral Extraction of [place] [facility] Appendectomy [facility] Cabg Vein Two [facility] Plan of Care Planned Activity Planned Date Details Comments Source Future Scheduled 2028-09-12 DTAP/TDAP/TD VACCINES [facility] Test 00:00:00 (2 - Td or Tdap) [code Medic al Center = DTAP/TDAP/TD VACCINES (2 - Td or Tdap)] Future Scheduled 2022-01-30 HEPATITIS B VACCINES Met [facility] Test 08:59:00 (1 of 3 - 3-dose series) [code = HEPATITIS B VACCINES (1 of 3 - 3-dose series)] Future Scheduled 2022-01-30 COVID-19 VACCINE (#1) [facility] Test 08:59:00 [code = COVID-19 VACCINE (#1)] Future Scheduled 2022-01-[address] [facility] Test 08:59:00 SCREENING [code = BREAST CANCER SCREENING] Future Scheduled 2022-01-30 COLONOSCOPY SCREENING [facility] Test 08:59:00 [code = COLONOSCOPY SCREENING] Future Scheduled 2022-01-30 SHINGLES VACCINES (1 Met [facility] Test 08:59:00 of 2) [code = SHINGLES VACCINES (1 of 2)] Future Scheduled 2022-01-30 65+ [facility] 08:59:00 VACCINE (1 - PCV) [code = 65+ PNEUMOCOCCAL VACCINE (1 - PCV)] Future Scheduled 2022-01-30 INFLUENZA VACCINE Method [facility] Test 08:59:00 [code = INFLUENZA VACCINE] Future Scheduled 2021-11-26 HEPATITIS B VACCINES Met [facility] Test 03:36:33 (1 of 3 - 3-dose series) [code = HEPATITIS B VACCINES (1 of 3 - 3-dose series)] Future Scheduled 2021-11-26 COVID-19 VACCINE (#1) [facility] Test 03:36:33 [code = COVID-19 VACCINE (#1)] Future Scheduled 2021-11-[address] [facility] Test 03:36:33 SCREENING [code = BREAST CANCER SCREENING] Future Scheduled 2021-11-26 COLONOSCOPY SCREENING [facility] Test 03:36:33 [code = COLONOSCOPY SCREENING] Future Scheduled 2021-11-26 SHINGLES VACCINES ([facility] 03:36:33 of 2) [code = SHINGLES VACCINES (1 of 2)] Future Scheduled 2021-11-26 65+ [facility]OCOCCAL [facility] Test 03:36:33 VACCINE (1 - PCV) [code = 65+ PNEUMOCOCCAL VACCINE (1 - PCV)] Future Scheduled 2021-11-26 INFLUENZA VACCINE Method [facility] Hospital Test 03:36:33 [code = INFLUENZA VACCINE] Future Scheduled 2021-11-25 INFLUENZA VACCINE (#1) [facility] Test 00:00:00 [code = INFLUENZA Medical Ce nter VACCINE (#1)] Future Scheduled 2021-06-[address] [facility] Test 00:[facility]00 measurement Medical Center (procedure) [code = 68208815] Future Scheduled 2021-03-[address] [facility] Test 00:00:00 (12+) [code = Medical Center DEPRESSION SCREENING (12+)] Future Scheduled 2021-03-27 FALLS RISK SCREENING [facility] Test 00:00:00 [code = FALLS RISK Medical C enter SCREENING] Future Scheduled 2020-04-08 SHINGLES VACCINES ([address] [facility] Test 00:00:00 of 3) [code = SHINGLES Medic al Center VACCINES (2 of 3)] Future Scheduled 2018-12-15 PNEUMOCOCCAL 65+ [address] [facility] Test 00:00:00 (2 - PCV) [code = Medical Ce nter PNEUMOCOCCAL 65+ YRS (2 - PCV)] Future Scheduled 2016-03-[address] [facility] [address] [facility] Test 00:00:00 WELLNESS (YEAR 2 or Medical Center FIRST YEAR if no IPPE) [code = MEDICARE ANNUAL WELLNESS (YEAR 2 or FIRST YEAR if no IPPE)] Future Scheduled [address] [facility] Test 00:00:00 Counseling and Medical Cente r Screening (12+) [code = Tobacco Cessation Counseling and Screening (12+)] Future Scheduled [address] DIABET[address] EYE EXAM [facility] Test 00:00:00 [code = DIABETIC EYE Medical Center EXAM] Future Scheduled [address] [facility] Test 00:00:00 examination Medical Center (regime/therapy) [code = 392250307] Future Scheduled 1956 Urine screening for [facility] Test 00:00:00 protein (procedure) [facility] [code = 092390025] Future Scheduled 1947-03-28 COVID-19 VACCINE (#1) [facility] Test 00:00:00 [code = COVID-[address] VACCINE (#1)] Future Scheduled [address] [facility] Test 00:00:00 (combo) [code = CT Medical C enter Colonography (combo)] Future Scheduled [address] [facility] [facility] Test 00:00:00 malignant neoplasm of Medica l Center colon (procedure) [code = 181756604] Future Scheduled [address] [facility] [facility] Test 00:00:00 malignant neoplasm of Medica l Center colon (procedure) [code = 883356871] Future Scheduled 1946 DXA SCAN [code = DXA [facility] Test 00:00:00 SCAN] [facility] Future Scheduled [address] [facility] Test 00:00:00 malignant neoplasm of Medica l Center colon (procedure) [code = 301983057] Future Scheduled [address] [facility] Test 00:00:00 malignant neoplasm of Medica l Center colon (procedure) [code = 598925514] Future Scheduled 1946 Sigmoidoscopy [code = [facility] Test 00:00:00 Sigmoidoscopy] Medical Cente r Encounters Start End Encounter Admission Attending Care Care Encounter Source Date/Time Date/Time Type Type Clinicians Facility Department ID 2022-01-13 Outpatient [facility] [id number] DE 15:38:57 [id number] [facility] 2020-12-15 Inpatient ER [facility] General Med [id number] [facility] 04:20:00 BRANDON 2022-02-07 2022-02-07 Outpatient METCALF_PRI RANDY PADILLA [id number] [place] 00:00:00 00:00:00 BESS [id number] da [facility] Program 2022-02-04 2022-02-04 Telephone MARY Chavez [id number] [facility] 00:00:00 00:00:00 Ewa GONSALES [id number] ity of [facility] [place] [phone] Dc dical NAL 188 [facility] 2022-02-01 2022-02-01 Outpatient METCALF_ABBY [facility] [id number] [place] 00:00:00 00:00:00 SCILLA [id number] [facility] 2022-02-01 2022-02-01 Lynda [facility] [place] - [id number] [place] 00:00:00 00:00:00 Thiago Dennis MD: [address], [facility] - [facility] a l [place], [place] [facility] [address] [facility] ac , Ph. h (979) Program 2022-01-31 2022-01-31 [facility] [id number] Univers 14:45:00 16:03:48 EWA anne o f [facility] 2022-01-31 2022-01-31 Office [facility] 1.2.840.114 [id number] Univers 14:45:00 16:03:48 Visit Ewa GONSALES 350.1.13.10 ity of [facility] [place] [phone] Dc dical NAL 204 [facility] 2022-01-31 2022-01-31 Orders Doctor BRADFORD 1.2.840.114 [id number] Univers 00:00:00 00:00:00 Only Unassigned, MAIRA 350.1.13.10 ity of [place] [facility] 4.2.7.2.686 Al as [phone] [address] 2022-01-20 2022-01-20 Orders Doctor BRADFORD 1.2.840.114 [id number] Univers 00:00:00 00:00:00 Only Unassigned, MAIRA 350.1.13.10 ity of [place] [facility] 4.2.7.2.686 Al as [id number] [address] 2022-01-11 2022-01-11 Telephone [facility] [id number] Univers 00:00:00 00:00:00 Brigitte HEALTH 350.1.13.10 it y of [facility] 4.2.7.2.686 Al as GEMA?BLEA [phone] [address] MEDICAL OFFICE [facility] 2021-12-22 2021-12-22 Refill [facility] 1.2.840.114 [id number] Univers 00:00:00 00:00:00 Brigitte HEALTH 350.1.13.10 it y of [facility] 4.2.7.2.686 Al as GEMA?BLEA [phone] [address] OFFICE [facility] 2021-12-21 2021-12-21 Outpatient METCALF[facility]ERLY [facility] 106 [place] 00:00:00 00:00:00 BESS [id number] [facility] Program 2021-12-21 2021-12-21 Lynda [facility] [id number] [place] 00:00:00 00:00:00 Thiago Dennis MD: [address], [facility] a l [place] [place] [facility] [address] [facility] ac , Ph. h (979) Program 2021-12-10 2021-12-10 Outpatient R [facility] [id number] Univers 15:30:00 16:14:47 BRIGITTE ity of [facility] 2021-12-10 2021-12-10 Office [facility] 1.2.840.114 [id number] Univers 15:30:00 16:14:47 Visit Brigitte HEALTH 350.1.13.10 it y of [place] 4.2.7.2.686 [place] GEMA?BLEA [phone] [address] MEDICAL OFFICE [facility] 2021-12-10 2021-12-10 Orders Doctor FELDER 1.2.840.114 [id number] Univers 00:00:00 00:00:00 Only Unassigned, MAIRA 350.1.13.10 ity of [place] 4.2.7.2.686 Al as [id number] [address] 2021-11-02 2021-11-02 Outpatient METCALF_PRI [facility] [id number] [place] 00:00:00 00:00:00 SCILLA [id number] [facility] 2021-11-02 2021-11-02 Lynda [facility] [place] - [id number] [place] 00:00:00 00:00:00 Thiago Dennis MD: [address], [facility] [place] [place] [facility] [address] [facility] ac , Ph. h (979) Program 2021-11-01 2021-11-01 Outpatient METCALF_PRI [facility] 106 [place] 00:00:00 00:00:00 SCILLA 33746 [facility] 2021-10-25 2021-10-25 Outpatient METCALF_PRI [facility] 106 [place] 00:00:00 00:00:00 SCILLA 30738 [facility] 2021-08-09 2021-08-09 Outpatient Eliza WILSON [facility] [id number] Univers 15:00:00 15:41:11 [facility] 2021-08-09 2021-08-09 Office [facility] 1.2.840.114 [id number] Univers 15:00:00 15:30:[address] [facility] 350.1.13.10 [facility] 4.2.7.2.686 Al as GEMA?BLEA [phone] [address] MEDICAL OFFICE BUILDING 2021-08-09 2021-08-09 Outpatient Eliza WILSON [facility] [id number] Univers 15:00:00 15:00:00 [facility] 2021-08-06 2021-08-06 [facility], Ang [facility] 1.2.840.1 [id number] Univers 09:30:00 09:45:00 Visit Mukesh Manzanares [facility] 350.1.13.10 ity of [facility] 4.2.7.2.686 Al as GEMA?BLEA [phone] Dc andres BRENNAN [address] [facility] 2021-08-06 2021-08-06 [facility] [id number] Univers 09:30:00 09:30:00 MUKESH ity [facility] 2021-08-04 2021-08-04 Outpatient R [facility] [id number] Univers 15:00:00 15:00:00 ity [facility] 2021-08-04 2021-08-04 Outpatient R [facility] [id number] Univers 15:00:00 15:00:00 [facility] 2021-08-02 2021-08-02 Outpatient R [facility] [id number] Univers 11:00:00 11:00:00 ity [facility] 2021-07-19 2021-07-19 Telephone [facility] 1.2.840.114 [id number] Univers 00:00:00 00:00:00 CYP Design HEALTH 350.1.13.10 it y of [facility] 4.2.7.2.686 Al as GEMA?BLEA [phone] Dc andres BRENNAN [address] [facility] 2021-07-14 2021-07-14 Telephone [facility] 1.2.840.114 [id number] Univers 00:00:00 00:00:00 Gracy [facility] 350.1.13.10 i ty of [place] [phone] Dc andres HAMM 220 [facility] 2021-07-06 2021-07-06 Telephone [facility] 1.2.840.114 [id number] Univers 00:00:00 00:00:00 Gracy HEALTH 350.1.13.10 it y of [place] 4.2.7.2.686 Al as GEMA?BLEA [phone] Dc andres BRENNAN [address] [place] [address] 2021-07-01 2021-07-01 Telephone [facility] 1.2.840.114 [id number] Univers 00:00:00 00:00:00 Gracy HEALTH 350.1.13.10 it y of [place] 4.2.7.2.686 Al as GEMA?BLEA [phone] [address] MEDICAL OFFICE [facility] 2021-06-23 2021-06-23 Telephone [facility] 1.2.840.114 [id number] Univers 00:00:00 00:00:00 Gracy HEALTH 350.1.13.10 it y of [place] 4.2.7.2.686 Al as GEMA?BLEA [phone] [address] OFFICE [facility] 2021-06-22 2021-06-22 Telephone [facility] 1.2.840.114 [id number] Univers 00:00:00 00:00:00 Gracy HEALTH 350.1.13.10 it y of [place] 4.2.7.2.686 Al as GEMA?BLEA [id number] [address] MEDICAL OFFICE [facility] 2021-06-21 2021-06-21 Telephone [facility] 1.2.840.114 [id number] Univers 00:00:00 00:00:00 Gracy HEALTH 350.1.13.10 it y of [place] 4.2.7.2.686 Al as GEMA?BLEA [phone] [address] OFFICE [facility] 2021-06-18 2021-06-18 Telephone [facility] 1.2.840.114 [id number] Univers 00:00:00 00:00:00 Gracy HEALTH 350.1.13.10 it y of [place] 4.2.7.2.686 Al as GEMA?BLEA [phone] [address] MEDICAL OFFICE [facility] 2021-06-17 2021-06-17 Telephone [facility] 1.2.840.114 [id number] Univers 00:00:00 00:00:00 Gracy HEALTH 350.1.13.10 it y of [place] 4.2.7.2.686 Al as GEMA?BLEA [phone] Me andres BRENNAN [address] MEDICAL OFFICE [facility] 2021-05-24 2021-05-24 Orders Doctor BRADFORD 1.2.840.114 [id number] Univers 00:00:00 00:00:00 Only Unassigned, MAIRA 350.1.13.10 ity of [place] [facility] 4.2.7.2.686 Al as [phone] [address] 2021-05-10 2021-05-10 [facility] [id number] Univers 14:00:00 15:03:24 GRACY ity [facility] 2021-01-27 2021-01-27 Hospital [facility] 1.2.840.114 [id number] Univers 14:42:52 23:59:00 Encounter Akash Santacruz [facility] 350.1.13.10 ity of [place] 4.2.7.2.686 Al as GEMA?BLEA [phone] Dc andres BRENNAN 809 [facility] OFFICE [facility] 2021-01-27 2021-01-27 [facility] [id number] Univers 14:42:52 23:59:00 AKASH itthiago [facility] 2021-01-27 2021-01-27 Office [facility] [id number] Univers 14:15:00 15:11:57 Visit [facility] 350.1.13.10 it y of [facility] 4.2.7.2.686 Al as GEMA?BLEA [phone] Dc cristinaluma BRENNAN [address] MEDICAL OFFICE [facility] 2021-01-27 2021-01-27 [facility] [id number] Univers 14:15:00 15:11:57 AKASH ity [facility] 2021-01-27 2021-01-27 Orders Doctor FELDER 1.2.840.114 [id number] Univers 00:00:00 00:00:00 Only Unassigned, MAIRA 350.1.13.10 ity of [place] [facility] 4.2.7.2.686 Al as [phone] [address] 2020-12-18 2020-12-18 Outpatient [facility] [id number] [facility] 00:00:00 23:59:00 Mile Mediclarry e 2019-05-21 2019-05-21 Outpatient ARNOLDO_ABBY [facility] [id number] [place] 04:04:00 04:04:00 SCILLA 43105 [facility] 2019-05-21 2019-05-21 Lynda [facility] [place] - [id number] [place] 00:00:00 00:00:00 Thiago Dennis MD: [address], [place], [place] [facility] [address] Outre ac , Ph. h (979) Program 2019-02-26 2019-02-26 Lynda [facility] - [id number] [place] 00:00:00 00:00:00 Thiago Dennis MD: [address], [place], [place] [facility] [address] Outre ac , Ph. h (979) Program 2019-02-15 2019-02-17 Phone nullFlavo [facility] [id number] Memoria 17:26:54 05:59:59 Message r Ophthalmolo 08 l andreas Kitchena 2019-02-15 2019-02-17 Phone nullFlavo [facility] [id number] Memoria 17:26:54 05:59:59 Message r Ophthalmolo 08 l andreas Kitchena 2019-02-15 2019-02-16 Outpatient [facility] [id number] 11:26:54 23:59:59 2019-02-12 2019-02-14 Phone nullFlavo MG [id number] Memoria 14:07:39 05:59:59 Message r Ophthalmolo 07 l andreas Kitchena 2019-02-12 2019-02-14 Phone nullFlavo MG [id number] Memoria 14:07:39 05:59:59 Message r Ophthalmolo 07 l andreas Kitchena 2019-02-12 2019-02-13 Outpatient [facility] [id number] 08:07:39 23:59:59 07 2018-12-04 2018-12-04 [facility] - [id number] [place] 00:00:00 00:00:00 Thiago Dennis MD: [address], [facility] [place] [place] [facility] [address] [facility] , Ph. h (979) Program 2018-09-17 2018-09-19 Phone nullFlavo [facility] [id number] Memoria 15:00:33 04:59:59 Message r Ophthalmolo 06 cassidy Kitchena 2018-09-17 2018-09-19 Phone nullFlavo [facility] [id number] Memoria 15:00:33 04:59:59 Message r Ophthalmolo 06 cassidy Kitchena 2018-09-17 2018-09-18 Outpatient MG MG [id number] 10:00:33 23:59:59 06 2018-08-07 2018-08-08 Between nullFlavo [facility] [id number] Memoria 15:46:21 15:46:21 Visit r Medicine 08 cassidy Walters 2018-08-07 2018-08-08 Between nullFlavo [facility] 4023 [id number] Memoria 15:46:21 15:46:21 Visit r Medicine 08 cassidy Walters 2018-08-07 2018-08-08 Outpatient MG MG [id number] 10:46:21 10:46:21 08 2018-07-02 2018-07-04 Phone nullFlavo [facility] 4023 [id number] Memoria 15:09:00 04:59:59 Message r Medicine 00 cassidy Walters 2018-07-02 2018-07-04 Phone nullFlavo [facility] 4023 [id number] Memoria 15:09:00 04:59:59 Message r Medicine 00 cassidy Walters 2018-07-02 2018-07-03 Outpatient MG MG [id number] 10:09:00 23:59:59 2018-04-18 2018-04-20 Phone nullFlavo MG [id number] Memoria 15:04:00 05:59:59 Message r Ophthalmolo 05 cassidy Franklin nn 2018-04-18 2018-04-20 Phone nullFlavo MG [id number] Memoria 15:04:00 05:59:59 Message r Ophthalmolo 05 cassidy Franklin nn 2018-04-18 2018-04-19 Outpatient [facility] [id number] 09:04:00 23:59:59 05 2018-04-18 2018-04-19 Outpatient MHMG MG [id number] 09:04:00 23:59:59 05 2018-04-16 2018-04-18 Phone nullFlavo MG [id number] Memoria 16:07:00 05:59:59 Message r Ophthalmolo 04 cassidy Franklin nn 2018-04-16 2018-04-18 Phone nullFlavo MG [id number] Memoria 16:07:00 05:59:59 Message r Ophthalmolo 04 cassidy Franklin nn 2018-04-16 2018-04-17 Outpatient MH[facility] MG [id number] 10:07:00 23:59:59 04 2018-04-16 2018-04-17 Outpatient [facility] MG [id number] 10:07:00 23:59:59 04 2018-01-01 2018-01-03 Phone nullFlavo MG [id number] Memoria 18:25:00 04:59:59 Message r Ophthalmolo 03 cassidy Franklin nn 2018-01-01 2018-01-03 Phone nullFlavo MG [id number] Memoria 18:25:00 04:59:59 Message r Ophthalmolo 03 cassidy Franklin nn 2018-01-01 2018-01-02 Outpatient MH[facility] MG [id number] 13:25:00 23:59:59 03 2017-06-07 2017-06-09 Phone nullFlavo MG [id number] Memoria 17:48:00 04:59:59 Message r Internal 02 l Leonard Lemoore Scott 2017-06-07 2017-06-09 Phone nullFlavo MG [id number] Memoria 17:48:00 04:59:59 Message r Internal 02 l [facility] 2017-06-07 2017-06-09 Phone nullFlavo MG [id number] Memoria 15:56:00 04:59:59 Message r Internal 01 cassidy Walters Scott 2017-06-07 2017-06-09 Phone nullFlavo [facility] [id number] Memoria 15:56:00 04:59:59 Message r Internal 01 cassidy Chavarria 2017-06-07 2017-06-08 Outpatient [facility] [id number] 12:48:00 23:59:59 02 2017-06-07 2017-06-08 Outpatient MHMG [facility] [id number] 10:56:00 23:59:59 2016-12-06 2016-12-06 Outpatient MHIE MHIE [id number] Memoria 10:00:00 10:00:00 07 cassidy Romeo 2016-12-06 2016-12-06 Outpatient MHIE MHIE [id number] Memoria 10:00:00 10:00:00 07 cassidy Romeo 2016-06-07 2016-06-07 Outpatient MHIE MHIE [id number] Memoria 10:45:00 10:45:00 06 cassidy Romeo 2016-06-07 2016-06-07 Outpatient MHIE MHIE [id number] Memoria 10:45:00 10:45:00 06 cassidy Walters 2016-03-08 2016-03-08 Outpatient MHIE MHIE [id number] Memoria 13:30:00 13:30:00 05 cassidy Walters 2016-03-08 2016-03-08 Outpatient MHIE MHIE [id number] Memoria 13:30:00 13:30:00 05 cassidy Walters 2016-02-16 2016-02-16 Outpatient MHIE MHIE [id number] Memoria 13:45:00 13:45:00 04 cassidy Walters 2016-02-16 2016-02-16 Outpatient MHIE MHIE [id number] Memoria 13:45:00 13:45:00 04 cassidy Walters 2016-02-11 2016-02-11 Outpatient MHIE MHIE [id number] Memoria 10:45:00 10:45:00 03 cassidy Walters 2016-02-11 2016-02-11 Outpatient MHIE MHIE [id number] Memoria 10:45:00 10:45:00 03 cassidy Walters 2015-08-07 2015-08-07 Outpatient MHIE MHIE [id number] Memoria 11:45:00 11:45:00 02 cassidy Walters 2015-08-07 2015-08-07 Outpatient MANUEL COLLINS [id number] Memoria 11:45:00 11:45:00 02 cassidy Walters 2015-02-02 2015-02-02 Outpatient MANUEL COLLINS [id number] Memoria 13:00:00 13:00:00 01 cassidy Walters 2015-02-02 2015-02-02 Outpatient MANUEL COLLINS [id number] Memoria 13:00:00 13:00:00 01 cassidy Walters 2015-01-29 2015-01-29 Outpatient MANUEL OCLLINS [id number] Memoria 13:30:00 13:30:00 00 cassidy Walters 2015-01-29 2015-01-29 Outpatient MANUEL COLLINS [id number] Memoria 13:30:00 13:30:00 00 cassidy Walters Results Test Description Test Time Test Comments Results Result Comments Source POCT URINALYSIS, INSTRUMENT 2022-01-31 21:55:00 Test Item Value Reference Range Interpretation Comme nts POCT U SP GRAV (test code = 3255) 1.030 mg/dl 1.005-1.025 A POCT PH U (test code = 3254) 6 mg/dl 5-8 POCT U LEUK EST (test code = 3263) negative Negative - Negative POCT U NIT (test code = 3262) negative Negative - Negative POCT U PROT (test code = 3259) trace Negative - Negative POCT U GLU (test code = 3256) negative Negative - Negative POCT U KETONE (test code = 3258) negative Negative - Negative POCT U UROBILI (test code = 3260) 2 mg/dl 0.2-1 A POCT U BILI (test code = 3261) moderate Negative - Negative POCT U BLD (test code = 3257) negative Negative - Negative POCT U COLOR (test code = 3266) marissa POCT U APPEAR (test code = 3267) clear Lab Interpretation (test code = 28952-5) Abnormal [facility] URINALYSIS, [id number] 21:55:00 Test Item Value Reference Range Interpretation Comments POCT U SP GRAV (test code = 1.030 mg/dl 1.005-1.025 A 3255) POCT PH U (test code = 3254) 6 mg/dl 5-8 POCT U LEUK EST (test code = negative Negative - Negative 3263) POCT U NIT (test code = 3262) negative Negative - Negative POCT U PROT (test code = trace Negative - Negative 3259) POCT U GLU (test code = 3256) negative Negative - Negative POCT U KETONE (test code = negative Negative - Negative 3258) POCT U UROBILI (test code = 2 mg/dl 0.2-1 A 3260) POCT U BILI (test code = moderate Negative - Negative 3261) POCT U BLD (test code = 3257) negative Negative - Negative POCT U COLOR (test code = marissa 3266) POCT U APPEAR (test code = clear 3267) Lab Interpretation (test code Abnormal = 47594-3) [facility] HEMOGLOBIN A1C [id number] 20:46:00 Test Item Value Reference Range Interpretation Comments POCT HBA1C (test code = 4548-4) 6.3 % 4-6 A Lab Interpretation (test code = Abnormal 80546-8) [facility] HEMOGLOBIN A1C [id number] 20:46:00 Test Item Value Reference Range Interpretation Comments POCT HBA1C (test code = 4548-4) 6.3 % 4-6 A Lab Interpretation (test code = Abnormal 80242-3) [facility] TITER 2020-12-25 11:17:50 Test Item Value Reference Range Interpretation Comments SCAN RESULT (test code = 7911448) POCT-GLUCOSE [id number] 12:34:10 Test Item Value Reference Range Interpretation Comments POC-GLUCOSE METER 180 mg/dL 70-110 H : Notified RN/MD: (JJ) (test code = TESTED AT [facility] 7925 5624) [facility], [address]: County Attorney/Techni samira ID = [id number] for Regis bhatt (contract)Anirudh nicko TISSUE [id number] 11:56:17Surgical Pathology Report Case: [id number] Authorizing Provider: Ilana Urbina MD Collected: 12/18/2020 11:59 AM Ordering Location: [address] Received: 12/18/2020 01:39 PM Service Pathologist: Freddie Wilson MD Specimen: Biopsy, Liver A. LIVER, BIOPSY:- CHOLESTATIC HEPATITIS WITHBALLOONING DEGENERATION, MODERATE- MIXED PORTAL INFLAMMATION AND INTERFACE HEPATITIS, MODERATE - MILD PORTAL FIBROSIS- SEE MICROSCOPIC DESCRIPTION Signing Pathologist Direct Phone Line: [phone] tronically signed by Freddie iWlson MD on 12/21/2020 at 11:56 AMPreliminary result electronicallysigned by Andrew Son MD for KushKamryn MD on 12/19/2020 at 10:18 [id number], [id number] LFTsLiverA. Received in formalin labeled with the patient's name, medical record number and "liver biopsy" are 3 brown-potter, mottled soft tissue cores ranging 1.2-1.4 cm which are submitted in totoin A1.JONATHON Orozco, PA ([facility])cmThe liver biopsy is remarkable for acute cholestasis with canalicular cholestasis, few cholestatic rosettes, and ballooning degeneration. In the portal tracts, bileducts have moderate to severe mixed portal inflammation (lymphocytes, plasma cells and eosinophils) including clusters of plasma cells that are present at interface. There are frequent acidophil bodiesas well. The bile ducts have mildly irregular contours without lymphocytic injury or loss. There is mild ductular reaction with neutrophilic inflammation. The trichrome and reticulin stains show mild portal fibrosis, mainly due to expansion by portal inflammation. The PASD stain is negative for yillm-6-ysfztqldgyo globules and shows several macrophages around central veins and in portal tracts. 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 Clinical history of using trimethoprim & sulfamethoxazole as well as arnica herbal supplements and macrolide antibiotic are noted, and the above-mentioned features have been reported in DILI by these drugs, in particular arnica herbal supplement and trimethoprim & sulfamethoxazole. In addition, there is significant portal inflammation and interface hepatitis with frequent plasma cells which also could be seen in DILI, however these features can also be seen in autoimmune hepatitis (AIH). Serological correlation to rule out AIH are recommended. The interpretation of this case included the use of immunohistochemistry or special stains.BLOCK A1- TRICHROME, PAS, PERLS IRON, RETICULINControl Slides Examined: In-house known positive controls were evaluated along with the test tissue. These control slides run alongside of the patients sample show appropriate staining. Internal positive and negative controls when available are evaluated Immunohistochemistry technical testing was performed at [facility], Pathology Laboratory where it was developed and its performance characteristics were determined. It has not been cleared or approved by the U.S. Food and Drug Administration. The FDA has deter mined that such clearance or approval is not necessary. The test is used for clinical purposes. It should not be regarded as investigational or for research. This laboratory is certified under the Clinical Laboratory Improvement Amendments of 1988 (CLIA-88) as qualified to perform high complexity clinical laboratory testing.[facility], Department of Pathology, [address] [place] [address], [facility], [facility] of [facility], [address] [place] [address], RbmyzpKindred Hospital [facility], Department of Pathology, [address] [place] [address], ang, TRANSCATHETER BIOPSY 2020-12-21 09:23:00Reason for exam:->Worsening LFTs; please assess pressures [facility] : 1945 Sex: FFINALREPORT Transjugular liver biopsy. History: Elevated liver enzymes. Modality: Fluoroscopy. Sedation: Versed 1 mg and fentanyl 50 mcg was given intravenously for conscious sedation. Vital signs were monitored throughout the procedure by a nurse, and remained stable. Physician intra-service time was 40 min. Helpdesk Specialist: Javier Estrada MD. Clinical Medical Transcriptionist: Marcella Arango M.D. Approac h: Right internal jugular vein Estimated blood loss: < 5 cc. Specimen: 4 19- gauge core specimens placed within formalin and sent to pathology. Fluoroscopy Time: 11.2 min.Reference Air Kerma (Ka, r):128 mGy. Technique: {IR Prep} Ultrasound evaluation showed a patent and compressible right internal jugular vein, which was punctured under direct real-time ultrasound guidance with a micropuncture needle. An ultrasound image was saved to PACS. A 0.018 inch wire was placed through the needle into the right atrium. A 4 Cuban micropuncture sheath was placed. A 0.035 inch J-wire was placed through the micropuncture sheath and the sheath was exchanged for a 9 Cuban sheath. A 5 Cuban angled tip catheter was used to select the right hepatic vein. Venogram was performed. Pressures were obtained throughthe catheter with measurements as follows: wedged hepatic - 7 mmHg, and right atrium - 3. A long metal reinforced 7 Cuban sheath was placed through the 9 Cuban sheath into the right hepatic vein. A long 19- gauge core biopsy needle was then placed through sheath with 4 core samples obtained within the liver. The needle and sheath were removed. Hemostasis was obtained with manual compression. The patient tolerated the procedure well and left the department in the same condition. 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 Impression: Successful, uncomplicated transjugular liver biopsy, using fluoroscopic guidance and conscious sedation. HVPG 3 mmHg. Signed: Javier Estrada MDReport Verified Date/Time: 12/21/2020 09:23:10 Reading Location: [place] [address] Angio Body Reading Room HSV 1/2 PCR, [id number] 09:14:00 Test Item Value Reference Range Interpretation Comments HSV BY PCR (BEAKER) (test code = 334) See scanned reportPOCT-GLUCOSE [id number] 08:01:14 Test Item Value Reference Range Interpretation Comments POC-GLUCOSE METER 197 mg/dL 70-110 H : Notified RN/MD: (BEAKER) (test code = TESTED AT [facility] 9851 4017) [place], [address]: County Attorney/Techni samira ID = [id number] for Regis bhatt (contract)Anirudh COMPREHENSIVE METABOLIC [id number] 06:04:45 Test Item Value Reference Range Interpretation Comments TOTAL PROTEIN 6.6 gm/dL 6.0-8.3 (BEAKER) (test code = 770) ALBUMIN (BEAKER) 2.9 g/dL 3.5-5.0 L (test code = 1145) ALKALINE PHOSPHATASE 691 U/L 40-150 H (BEAKER) (test code = 346) BILIRUBIN TOTAL 8.1 mg/dL 0.2-1.2 H (BEAKER) (test code = 377) SODIUM (BEAKER) (test 139 meq/L 136-145 code = 381) POTASSIUM (BEAKER) 4.2 meq/L 3.5-5.1 (test code = 379) CHLORIDE (BEAKER) 105 meq/L 98-107 (test code = 382) CO2 (BEAKER) (test 25 meq/L 22-29 code = 355) BLOOD UREA NITROGEN 21 mg/dL 7-21 (BEAKER) (test code = 354) CREATININE (BEAKER) 0.84 mg/dL 0.57-1.25 (test code = 358) GLUCOSE RANDOM 202 mg/dL 70-105 H (BEAKER) (test code = 652) CALCIUM (BEAKER) 9.4 mg/dL 8.4-10.2 (test code = 697) AST (SGOT) (BEAKER) 282 U/L 5-34 H (test code = 353) ALT (SGPT) (BEAKER) 219 U/L 6-55 H (test code = 347) EGFR (BEAKER) (test 66 mL/min/1.73 ESTIMA MANDEEP GFR IS code = 1092) sq m NOT ACCURATE CREATININE CLEARANCE IN PREDICTING GLOMERULAR FILTRATION RATE . ESTIMATED GFR I S NOT APPLICABLE FOR DIALYSIS PATIEN TS. County Attorney ID - SAHRA MSpecimen moderately ictericPOCT-GLUCOSE [id number] 20:05:11 Test Item Value Reference Range Interpretation Comments POC-GLUCOSE METER 219 mg/dL 70-110 H : TESTED A T [facility] 6720 ([facility]) (test code = [facility], 153) [address]: County Attorney/Techni samira ID = [id number] for PRISCILLA BEAUCHAMP, ADA POCT-GLUCOSE [id number] 18:19:43 Test Item Value Reference Range Interpretation Comments POC-GLUCOSE METER 99 mg/dL 70-110 : TESTED A T [facility] 6720 ([facility]) (test code = [facility], 153) [address]: County Attorney/Techni samira ID = [id number] for Lazaro kayden Gerald POCT-GLUCOSE [id number] 15:35:42 Test Item Value Reference Range Interpretation Comments POC-GLUCOSE METER 77 mg/dL 70-110 : TESTED A T [facility] 6720 ([facility]) (test code = [facility], 153) [address]: County Attorney/Techni samira ID = [id number] for Binta alberto (contract)Doreen th POCT-GLUCOSE [id number] 11:37:19 Test Item Value Reference Range Interpretation Comments POC-GLUCOSE METER 312 mg/dL 70-110 H : TESTED A T [facility] 6720 (BEAKER) (test code = [facility], 153) [address]: County Attorney/Techni samira ID = [id number] for Gerald Harris POCT-GLUCOSE [id number] 07:50:36 Test Item Value Reference Range Interpretation Comments POC-GLUCOSE METER 314 mg/dL 70-110 H : TESTED A T [facility] 6720 ([facility]) (test code = [facility], 153) [address]: County Attorney/Techni samira ID = [id number] for kory Gerald POCT-GLUCOSE [id number] 21:41:49 Test Item Value Reference Range Interpretation Comments POC-GLUCOSE METER 210 mg/dL 70-110 H : TESTED A T [facility] 6720 ([facility]) (test code = [facility], [facility]) [address]: County Attorney/Techni samira ID = [id number] for DARCY ANTOINENATOEARNEST POCT-GLUCOSE [id number] 17:45:51 Test Item Value Reference Range Interpretation Comments POC-GLUCOSE METER 171 mg/dL 70-110 H : Notified RN/MD: ([facility]) (test code = TESTED AT [place] [address] 1538) [facility], [address]: County Attorney/Techni samira ID = [id number] for Toro rris (contract), Robby garcia POCT-GLUCOSE [id number] 12:18:34 Test Item Value Reference Range Interpretation Comments POC-GLUCOSE METER 165 mg/dL 70-110 H : Notified RN/MD: (BEAKER) (test code = TESTED AT [place] [address]38) [facility], [address]: County Attorney/Techni samira ID = [id number] for Toro rris (contract), Robby garcia POCT-GLUCOSE [id number] 09:05:33 Test Item Value Reference Range Interpretation Comments POC-GLUCOSE METER 332 mg/dL 70-110 H : TESTED A T [place] [address] ([facility]) (test code = [facility] Kay [facility], 1538) [address]: County Attorney/Techni samira ID = [id number] for Toro rris (contract), Robby garcia COMPREHENSIVE METABOLIC [id number] 03:29:53 Test Item Value Reference Range Interpretation Comments TOTAL PROTEIN 6.0 gm/dL 6.0-8.3 Specimen sligh tly (BEAKER) (test code = hemoly zed 770) ALBUMIN (BEAKER) 2.5 g/dL 3.5-5.0 L Specimen sl ightly (test code = 1145) hemolyzed ALKALINE PHOSPHATASE 717 U/L 40-150 H (BEAKER) (test code = 346) BILIRUBIN TOTAL 8.6 mg/dL 0.2-1.2 H Specimen sli ghtly (BEAKER) (test code = hemoly zed 377) SODIUM (BEAKER) (test 136 meq/L 136-145 code = 381) POTASSIUM (BEAKER) 4.3 meq/L 3.5-5.1 Specimen slightly (test code = 379) hemolyzed CHLORIDE (BEAKER) 105 meq/L 98-107 (test code = 382) CO2 (BEAKER) (test 23 meq/L 22-29 code = 355) BLOOD UREA NITROGEN 22 mg/dL 7-21 H (BEAKER) (test code = 354) CREATININE (BEAKER) 0.88 mg/dL 0.57-1.25 Specimen slightly (test code = 358) hemolyzed GLUCOSE RANDOM 287 mg/dL 70-105 H (BEAKER) (test code = 652) CALCIUM (BEAKER) 8.6 mg/dL 8.4-10.2 (test code = 697) AST (SGOT) (BEAKER) 299 U/L 5-34 H Specimen slightly (test code = 353) hemolyzed ALT (SGPT) (BEAKER) 215 U/L 6-55 H Specimen slightly (test code = 347) hemolyzed EGFR (BEAKER) (test 63 mL/min/1.73 ESTIMA MANDEEP GFR IS code = 1092) sq m NOT ACCURATE CREATININE CLEARANCE IN PREDICTING GLOMERULAR FILTRATION RATE . ESTIMATED GFR I S NOT APPLICABLE FOR DIALYSIS PATIEN TS. County Attorney ID - SAHRA Stephanyecimen moderately ictericLACTIC ACID, [id number] 03:03:46 Test Item Value Reference Range Interpretation Comments LACTATE BLOOD VENOUS 1.30 mmol/L 0.50-2.20 Specime n slightly (2) (BEAKER) (test hemolyzed code = 1894) County Attorney ID - SAHRA MSpecimen moderately ictericCBC (HEMOGRAM ONLY)2020-12-19 02:32:22 Test Item Value Reference Range Interpretation Comments WHITE BLOOD CELL COUNT (BEAKER) 6.8 K/ L 3.5-10.5 (test code = 775) RED BLOOD CELL COUNT (BEAKER) 3.17 M/ L 3.93-5.22 L (test code = 761) HEMOGLOBIN (BEAKER) (test code = 10.3 GM/DL 11.2-15.7 L 410) HEMATOCRIT (BEAKER) (test code = 31.8 % 34.1-44.9 L 411) MEAN CORPUSCULAR VOLUME (BEAKER) 100.3 fL 79.4-94.8 H (test code = 753) MEAN CORPUSCULAR HEMOGLOBIN 32.5 pg 25.6-32.2 H (BEAKER) (test code = 751) MEAN CORPUSCULAR HEMOGLOBIN CONC 32.4 GM/DL 32.2-35.5 (BEAKER) (test code = 752) RED CELL DISTRIBUTION WIDTH 16.8 % 11.7-14.4 H (BEAKER) (test code = 412) PLATELET COUNT (BEAKER) (test 248 K/CU MM 150-450 code = 756) MEAN PLATELET VOLUME ([facility]) 10.8 fL 9.4-12.3 (test code = 754) NUCLEATED RED BLOOD CELLS 0 /100 WBC 0-0 ([facility]) (test code = 413) POCT-GLUCOSE [id number] 00:58:11 Test Item Value Reference Range Interpretation Comments POC-GLUCOSE METER 233 mg/dL 70-110 H : [facility]) (test code = [facility], 153) [address]: County Attorney/Techni samira ID = [id number] for Elizabet jazzy (contract)Gio inne POCT-GLUCOSE [id number] 21:59:17 Test Item Value Reference Range Interpretation Comments POC-GLUCOSE METER 246 mg/dL 70-110 H : [facility] ([facility]) (test code = [facility], 153) [address]: County Attorney/Techni samira ID = [id number] for Chester tenorio (contract)Shonna iecassidy POCT-GLUCOSE [id number] 16:56:53 Test Item Value Reference Range Interpretation Comments POC-GLUCOSE METER 201 mg/dL 70-110 H : Notified RN/MD: ([facility]) (test code = TESTED AT [facility] 6720 1537) [facility], [address]: County Attorney/Techni samira ID = [id number] for Cortez mendez (contract)Robby POCT-GLUCOSE [id number] 13:33:21 Test Item Value Reference Range Interpretation Comments POC-GLUCOSE METER 231 mg/dL 70-110 H : [facility] ([facility]) (test code = [facility], 1537) [address]: County Attorney/Techni samira ID = [id number] for Elizabet peña (contract)Arnaldoa LASHA TITER AND [id number] 09:28:41 Test Item Value Reference Range Interpretation Comments LASHA TITER ([facility]) (test code = >=:2560 1541) LASHA PATTERN ([facility]) (test code = Homogeneous 1781) ANTI-NUCLEAR ANTIBODY (LASHA)2020-12-18 09:28:35 Test Item Value Reference Range Interpretation Comments ANTI-NUCLEAR ANTIBODY (LASHA) ([facility]) Positive Negative A (test code = 418) Test performed by IFA method.POCT-GLUCOSE [id number] 06:21:43 Test Item Value Reference Range Interpretation Comments POC-GLUCOSE METER > mg/dL 70-110 HH : Notified RN/MD: TESTED (BEAKER) (test code = AT [facility] 67[address] [facility] 4693) [place], [address]: County Attorney/Techni samira ID = [id number] for KAYLI HERRERA, WARREN COMPREHENSIVE METABOLIC [id number] 06:01:07 Test Item Value Reference Range Interpretation Comments TOTAL PROTEIN 6.0 gm/dL 6.0-8.3 (BEAKER) (test code = 770) ALBUMIN (BEAKER) 2.6 g/dL 3.5-5.0 L (test code = 1145) ALKALINE PHOSPHATASE 825 U/L 40-150 H (BEAKER) (test code = 346) BILIRUBIN TOTAL 10.3 mg/dL 0.2-1.2 H (BEAKER) (test code = 377) SODIUM (BEAKER) (test 133 meq/L 136-145 L code = 381) POTASSIUM (BEAKER) 4.1 meq/L 3.5-5.1 (test code = 379) CHLORIDE (BEAKER) 102 meq/L 98-107 (test code = 382) CO2 (BEAKER) (test 23 meq/L 22-29 code = 355) BLOOD UREA NITROGEN 23 mg/dL 7-21 H (BEAKER) (test code = 354) CREATININE (BEAKER) 1.02 mg/dL 0.57-1.25 (test code = 358) GLUCOSE RANDOM 550 mg/dL 70-105 HH (BEAKER) (test code = 652) CALCIUM (BEAKER) 9.1 mg/dL 8.4-10.2 (test code = 697) AST (SGOT) (BEAKER) 330 U/L 5-34 H (test code = 353) ALT (SGPT) (BEAKER) 229 U/L 6-55 H (test code = 347) EGFR (BEAKER) (test 53 mL/min/1.73 ESTIMA MANDEEP GFR IS code = 1092) sq m NOT ACCURATE CREATININE CLEARANCE IN PREDICTING GLOMERULAR FILTRATION RATE . ESTIMATED GFR I S NOT APPLICABLE FOR DIALYSIS PATIEN TS. County Attorney ID - JRLSpecimen moderately ictericCBC (HEMOGRAM ONLY)2020-12-18 05:49:19 Test Item Value Reference Range Interpretation Comments WHITE BLOOD CELL COUNT (BEAKER) 5.6 K/ L 3.5-10.5 (test code = 775) RED BLOOD CELL COUNT (BEAKER) 3.43 M/ L 3.93-5.22 L (test code = 761) HEMOGLOBIN (BEAKER) (test code = 11.2 GM/DL 11.2-15.7 410) HEMATOCRIT (BEAKER) (test code = 34.4 % 34.1-44.9 411) MEAN CORPUSCULAR VOLUME (BEAKER) 100.3 fL 79.4-94.8 H (test code = 753) MEAN CORPUSCULAR HEMOGLOBIN 32.7 pg 25.6-32.2 H (BEAKER) (test code = 751) MEAN CORPUSCULAR HEMOGLOBIN CONC 32.6 GM/DL 32.2-35.5 (BEAKER) (test code = 752) RED CELL DISTRIBUTION WIDTH 16.5 % 11.7-14.4 H (BEAKER) (test code = 412) PLATELET COUNT (BEAKER) (test 243 K/CU MM 150-450 code = 756) MEAN PLATELET VOLUME (BEAKER) 10.9 fL 9.4-12.3 (test code = 754) NUCLEATED RED BLOOD CELLS 0 /100 WBC 0-0 (BEAKER) (test code = 413) POCT-GLUCOSE [id number] 20:20:07 Test Item Value Reference Range Interpretation Comments POC-GLUCOSE METER 161 mg/dL 70-110 H : TESTED A T [facility] 6720 (BEAKER) (test code = ADAMARIS Kay [facility], 1538) [address]: County Attorney/Techni samira ID = [id number] for PRISCILLA BEAUCHAMPWARREN HIGH SENSITIVITY TROPONIN [id number] 18:31:16 Test Item Value Reference Range Interpretation Comments HIGH SENSITIVITY 6 pg/ml See_Comment [Automated message] TROPONIN I (test code = The system which 1646272) generated this result transmitted ref erence range: <=17. Th e reference range was not used to interpr et this result as normal/abnormal . County Attorney ID - DBThe [employer] STAT High Sensitivity Troponin-I results should be used in conjunctionwith other diagnostic information such as ECG, clinical observations and information, and patient symptoms to aid in the diagnosis of NH.POCT-GLUCOSE [id number] 16:47:52 Test Item Value Reference Range Interpretation Comments POC-GLUCOSE METER 269 mg/dL 70-110 H : Notified RN/MD: (JJ) (test code = TESTED AT [facility] 6720 1538) [place], [address]: County Attorney/Techni samira ID = [id number] for Regis bhatt (contract), Anirudh ert CMV PCR, [id number] 13:56:38 Test Item Value Reference Range Interpretation Comments CMV VIRAL LOAD - Negative or below See_Comment [Auto mated message] NEGATIVE (JJ) the linear range The sy stem which (test code = of the assay generated this 2558) (<300 IU/mL) result transmit mandeep reference range : <300 - >3,00 0,000 IU/mL. The refe rence range was not u sed to interpret th is result as normal/abnormal . Cytomegalovirus (CMV) infection can cause significant disease in immunosuppressed patients. However,it is common for CMV to manifest as a limited infection which is of no clinical significance in immunosuppressed patients or in healthy individuals.Viral load measurements are helpful to identify clinical CMV infection and to guide the pre-emptive management of antiviral therapy. For treatment of CMV infection due to reactivation in transplant recipients, a threshold between 4,000 and 5,000 copies/mLis suggested. For treatment of primary CMV infection, a lower threshold can be used.CMV infection may also be monitored using weekly serial measurements. Serial measurements of CMV DNA viral load can be evaluated by identifying a 10-fold change, as well as assessing the CMV DNA viral load and the clinical context for each patient.The plasma CMV DNA viral load was detected using quantitative polymerase chain reaction and fluorescent monitoring of a specific hybridized probe. Genetic variation and other factors can affect the accuracy of nucleic acid testing. Therefore, the results should be interpreted in light of clinical data. A negative result may not exclude the presence of CMV disease.This test was developed and its performance characteristics determined by the [facility] Pathol marcela Department, Section of Molecular Pathology. It has not been cleared or approved by the U.S. Foodand Drug Administration (FDA), since FDA approval is not required for clinical use of the test. Validation was done as required by The Clinical Laboratory Improvement Amendments of 1988.POCT-GLUCOSE METER 2020-12-17 13:03:02 Test Item Value Reference Range Interpretation Comments POC-GLUCOSE METER 182 mg/dL 70-110 H : TESTED A Areli [facility] 6720 (JJ) (test code = ADAMARIS [place], 1538) [address]: County Attorney/Techni samira ID = [id number] for Elizabet peña (contract)Arnaldo MR, ABDOMEN, [id number] 10:48:00Liver protocolUnlisted Reason for Exam - Click Yes and Enter Reason Below->No [facility] : 1945 Sex: FFINAL REPORT TECHNIQUE: MRI of the abdomen WITHOUT and WITH intravenous contrast. INDICATION: Jaundice. COMPARISON: MRCP 12/15/2020. FINDINGS: LOWER THORAX: Postsurgical changes from median sternotomy. Lower thorax is otherwise unremarkable.. LIVER: Multiple stable bandlike areas of increased T2 signal in the bilateral hepatic lobes which demonstrate corresponding delayed enhancement. There is also mild associated capsular retraction.BILIARY: Gallbladder is contracted.. No biliary ductal dilatation or filling defect. Common bile duct measures 0.5 cm in diameter.SPLEEN: Spleen measures 14.5 cm in length..PANCREAS: Diffuse atrophy of the pancreas. Pancreas otherwise demonstrates normal e nhancement. There is no pancreatic ductal dilation. No pancreatic mass. ADRENALS: No adrenal nodules.KIDNEYS/URETERS: No hydronephrosis or solid mass lesions. PERITONEUM/RETROPERITONEUM: No free fluid.LYMPH NODES: No lymphadenopathy.VESSELS: Unremarkable. GI TRACT: No distention or wall thickening. BONES AND SOFT TISSUES: Unremarkable. IMPRESSION:Bandlike areas of focal fibrosis in the bilateral hepatic lobes. No suspicious focal liver lesion. Splenomegaly. Diffuse atrophy of pancreas. No pancreaticductal dilation or pancreatic mass. Signed: Santino Nicole Verified Date/Time: 12/17/2020 10:48:05 Reading Location: [facility] Diagnostic Imaging Reading Room - [place] [address] Electronicallysigned by: SANTINO NICOLE MD on 12/17/2020 10:48 AMACETAMINOPHEN [id number] 09:37:44 Test Item Value Reference Range Interpretation Comments ACETAMINOPHEN LEVEL (BEAKER) (test < ug/mL 10.0-30.0 L code = 344) Therapeutic Range: 10.0-30.0 g/mLToxic Levels: >200.0 g/mLOperator ID - RITA PROTHROMBIN [id number] 09:31:00 Test Item Value Reference Range Interpretation Comments PROTIME (BEAKER) 13.5 seconds 11.9-14.2 (test code = 759) INR (BEAKER) (test 1.05 See_Comment [Automat ed message] code = 370) The system Foxfly generated this result transmitted ref erence range: <=5.90. The reference range was not used to int erpret this result as normal/abnormal . RECOMMENDED COUMADIN/WARFARIN INR THERAPY RANGESSTANDARD DOSE: 2.0 - 3.0 Includes: PROPHYLAXIS for venous thrombosis, systemic embolization; TREATMENT for venous thrombosis and/or pulmonary embolus.HIGH RISK: Target INR is 2.5-3.5 for patients with mechanical heart valves.POCT-GLUCOSE [id number] 08:02:29 Test Item Value Reference Range Interpretation Comments POC-GLUCOSE METER 350 mg/dL 70-110 H : TESTED A T [facility] 6720 (BEAKER) (test code = ADAMARIS Kay [facility], 1538) [address]: County Attorney/Techni samira ID = [id number] for Gerald Harris HEPATITIS B SURFACE [id number] 07:33:29 Test Item Value Reference Range Interpretation Comments HEPATITIS B SURFACE ANTIBODY < mIU/mL <8.0 (BEAKER) (test code = 647) County Attorney ID - ALEXI BOCANEGRAEPATITIS A ANTIBODY, [id number] 07:33:22 Test Item Value Reference Range Interpretation Comments HEPATITIS A IGG ANTIBODY (BEAKER) Reactive Nonreactive A (test code = 2797) County Attorney ID - PIAYA LHEPATITIS B CORE ANTIBODY, [id number] 07:27:05 Test Item Value Reference Range Interpretation Comments HEPATITIS B CORE TOTAL ANTIBODY Nonreactive Nonreactive (BEAKER) (test code = 497) County Attorney ID Mario TRUONG [id number] 07:06:13 Test Item Value Reference Range Interpretation Comments ALPHA-1 ANTITRYPSIN (BEAKER) 229.00 mg/dL 90.00-200.00 H (test code = 502) County Attorney ID Mario TRUONG LIMMUNOGLOBULIN G (IGG)2020-12-17 07:06:12 Test Item Value Reference Range Interpretation Comments IMMUNOGLOBULIN G (IGG) 2240 mg/dL See_Comment H [Aut omated message] (BEAKER) (test code = The sy stem which 427) generated this result transmit mandeep reference range : 540-1,822. The reference range was not used to interpret this result as normal/abnormal . County Attorney ID Mario TRUONG LCOMPREHENSIVE METABOLIC [id number] 07:04:11 Test Item Value Reference Range Interpretation Comments TOTAL PROTEIN 7.5 gm/dL 6.0-8.3 (BEAKER) (test code = 770) ALBUMIN (BEAKER) 3.3 g/dL 3.5-5.0 L (test code = 1145) ALKALINE PHOSPHATASE 1094 U/L 40-150 H (BEAKER) (test code = 346) BILIRUBIN TOTAL 15.3 mg/dL 0.2-1.2 H (BEAKER) (test code = 377) SODIUM (BEAKER) (test 136 meq/L 136-145 code = 381) POTASSIUM (BEAKER) 4.6 meq/L 3.5-5.1 (test code = 379) CHLORIDE (BEAKER) 102 meq/L 98-107 (test code = 382) CO2 (BEAKER) (test 26 meq/L 22-29 code = 355) BLOOD UREA NITROGEN 19 mg/dL 7-21 (BEAKER) (test code = 354) CREATININE (BEAKER) 1.00 mg/dL 0.57-1.25 (test code = 358) GLUCOSE RANDOM 390 mg/dL 70-105 H (BEAKER) (test code = 652) CALCIUM (BEAKER) 9.7 mg/dL 8.4-10.2 (test code = 697) AST (SGOT) (BEAKER) 442 U/L 5-34 H (test code = 353) ALT (SGPT) (BEAKER) 267 U/L 6-55 H (test code = 347) EGFR (BEAKER) (test 54 mL/min/1.73 ESTIMA MANDEEP GFR IS code = 1092) sq m NOT ACCURATE CREATININE CLEARANCE IN PREDICTING GLOMERULAR FILTRATION RATE . ESTIMATED GFR I S NOT APPLICABLE FOR DIALYSIS PATIEN TS. County Attorney ID - PRISCILLAAYA STANFORDpecimen [facility] ic[facility]icCBC (HEMOGRAM ONLY)2020-12-17 06:41:48 Test Item Value Reference Range Interpretation Comments WHITE BLOOD CELL COUNT (BEAKER) 6.0 K/ L 3.5-10.5 (test code = 775) RED BLOOD CELL COUNT (BEAKER) 3.78 M/ L 3.93-5.22 L (test code = 761) HEMOGLOBIN (BEAKER) (test code = 12.2 GM/DL 11.2-15.7 410) HEMATOCRIT (BEAKER) (test code = 38.5 % 34.1-44.9 411) MEAN CORPUSCULAR VOLUME (BEAKER) 101.9 fL 79.4-94.8 H (test code = 753) MEAN CORPUSCULAR HEMOGLOBIN 32.3 pg 25.6-32.2 H (BEAKER) (test code = 751) MEAN CORPUSCULAR HEMOGLOBIN CONC 31.7 GM/DL 32.2-35.5 L (BEAKER) (test code = 752) RED CELL DISTRIBUTION WIDTH 16.7 % 11.7-14.4 H (BEAKER) (test code = 412) PLATELET COUNT (BEAKER) (test 295 K/CU MM 150-450 code = 756) MEAN PLATELET VOLUME (BEAKER) 10.5 fL 9.4-12.3 (test code = 754) NUCLEATED RED BLOOD CELLS 0 /100 WBC 0-0 (BEAKER) (test code = 413) POCT-GLUCOSE [id number] 21:58:32 Test Item Value Reference Range Interpretation Comments POC-GLUCOSE METER 246 mg/dL 70-110 H : TESTED A T [facility] 6720 (BEAKER) (test code = ADAMARIS [place], 1538) [address]: County Attorney/Techni samira ID = [id number] for Shun zurita (contract)Varsha POCT-GLUCOSE [id number] 16:55:19 Test Item Value Reference Range Interpretation Comments POC-GLUCOSE METER 205 mg/dL 70-110 H : TESTED A T [facility] 6720 (BEAKER) (test code = [facility], 1538) [address]: County Attorney/Techni samira ID = [id number] for Germaine Ibarra POCT-GLUCOSE [id number] 13:34:33 Test Item Value Reference Range Interpretation Comments POC-GLUCOSE METER 124 mg/dL 70-110 H : TESTED A T [facility] 6720 (BEAKER) (test code = [facility], 1538) [address]: County Attorney/Techni samira ID = [id number] for Germaine Ibarra [id number] 11:00:43 Test Item Value Reference Range Interpretation Comments FERRITIN (BEAKER) (test code = 1113.03 ng/mL 5.00-275.00 H 361) County Attorney ID - VIRI CANO, TIBC, % SAT. (WITHOUT FERRITIN)2020-12-16 10:40:35 Test Item Value Reference Range Interpretation Comments IRON (BEAKER) (test code = 547) 186.0 ug/dL 40.0-160.0 H TOTAL IRON BINDING CAPACITY 213 ug/dL 250-450 L (BEAKER) (test code = 769) IRON % SATURATION (2) (BEAKER) 87 % 20-55 H (test code = 2590) County Attorney ID Mario MEREDITH FPOCT-GLUCOSE [id number] 07:46:31 Test Item Value Reference Range Interpretation Comments POC-GLUCOSE METER 342 mg/dL 70-110 H : TESTED A T [facility] 6720 (BEAKER) (test code = [facility], 1538) [address]: County Attorney/Techni samira ID = [id number] for Germaine Ibarra HEMOGLOBIN [id number] 07:32:36 Test Item Value Reference Range Interpretation Comments HEMOGLOBIN A1C (BEAKER) (test code = 6.9 % 4.3-6.1 H 368) MR, ABDOMEN, [id number] 07:17:00Unlisted Reason for Exam - Click Yes and Enter Reason Below->No [facility]LL[facility] : 1945 Sex: FFINAL REPORT TECHNIQUE: MRI of the abdomen and MRCP WITHOUT intravenous contrast. 3-D volume reconstructions were obtained to evaluate the biliary ductal system. INDICATION: Jaundice. COMPARISON: None. FINDINGS: ABSENCE OF INTRAVENOUS CONTRAST DECREASES SENSITIVITY FOR DETECTION OF FOCALLESIONS AND VASCULAR PATHOLOGY. LOWER THORAX: Unremarkable. LIVER: There are interstitial and bandlike areas of increased T2-weighted signal in the liver.BILIARY: Gallbladder is unremarkable. No biliary ductal dilatation or filling defect. The common bile duct measures 0.5 cm in diameter. SPLEEN: 13.1cm splenomegaly.PANCREAS: No focal masses or ductal dilatation. There is mild narrowing of the main pancreatic duct within the pancreatic body with a normal caliber main pancreatic duct in the tail. This is best seen on 3-D MRCP reconstructed images. ADRENALS: No adrenal nodules.KIDNEYS/URETERS: No hyd ronephrosis or solid mass lesions. PERITONEUM/RETROPERITONEUM: No free fluid.LYMPH NODES: No lymphadenopathy.VESSELS: Unremarkable. GI TRACT: No distention or wall thickening. BONES AND SOFT TISSUES: Prior median sternotomy. IMPRESSION: 1.Interstitial and bandlike areas of increased T2-weighted signalin the liver are nonspecific and could be due to fibrosis and/or inflammation. 2.There is a focal narrowing of the main pancreatic duct in the pancreatic body. This is most likely due to patient body habitus and compression from adjacent structures. However, consider a follow-up MRI of the abdomen with and without intravenous contrast with MRCP in one month to exclude other causes of ductal obstruction. 3.Mild splenomegaly Signed: Jeff Del Angelort Verified Date/Time: 12/16/2020 07:17:11 Reading Location: [facility] Diagnostic Imaging Reading Room - [place] [id number] HEPATITIS PANEL, [id number] 06:48:21 Test Item Value Reference Range Interpretation Comments HEPATITIS A IGM ANTIBODY (BEAKER) Nonreactive Nonreactive (test code = 498) HEPATITIS B CORE IGM ANTIBODY Nonreactive Nonreactive (BEAKER) (test code = 645) HEPATITIS C ANTIBODY (BEAKER) Nonreactive Nonreactive (test code = 367) HEPATITIS B SURFACE ANTIGEN (2) Nonreactive Nonreactive (BEAKER) (test code = 2585) County Attorney ID - PIAYA [id number] 06:26:49 Test Item Value Reference Range Interpretation Comments PHOSPHORUS (BEAKER) (test code = 3.5 mg/dL 2.3-4.7 604) County Attorney ID - PIAYA LPOCT-GLUCOSE [id number] 06:20:54 Test Item Value Reference Range Interpretation Comments POC-GLUCOSE METER 386 mg/dL 70-110 H : TESTED A T [facility] 6720 (BEAKER) (test code = [facility], 1538) [address]: County Attorney/Techni samira ID = [id number] for Dena Cortez BASIC METABOLIC [id number] 05:57:34 Test Item Value Reference Range Interpretation Comments SODIUM (BEAKER) 139 meq/L 136-145 (test code = 381) POTASSIUM (BEAKER) 4.2 meq/L 3.5-5.1 (test code = 379) CHLORIDE (BEAKER) 111 meq/L 98-107 H (test code = 382) CO2 (BEAKER) (test 20 meq/L 22-29 L code = 355) BLOOD UREA NITROGEN 28 mg/dL 7-21 H (BEAKER) (test code = 354) CREATININE (BEAKER) 0.94 mg/dL 0.57-1.25 (test code = 358) GLUCOSE RANDOM 407 mg/dL 70-105 HH (BEAKER) (test code = 652) CALCIUM (BEAKER) 8.9 mg/dL 8.4-10.2 (test code = 697) EGFR (BEAKER) (test 58 mL/min/1.73 ESTIMA MANDEEP GFR IS code = 1092) sq m NOT ACCURATE CREATININE CLEARANCE IN PREDICTING GLOMERULAR FILTRATION RATE . ESTIMATED GFR I S NOT APPLICABLE FOR DIALYSIS PATIEN TS. County Attorney ID - PISHAYY LSpecimen markedly ictericHEPATIC FUNCTION [id number] 05:52:04 Test Item Value Reference Range Interpretation Comments TOTAL PROTEIN (BEAKER) (test code 6.0 gm/dL 6.0-8.3 = 770) ALBUMIN (BEAKER) (test code = 2.7 g/dL 3.5-5.0 L 1145) BILIRUBIN TOTAL (BEAKER) (test 12.9 mg/dL 0.2-1.2 H code = 377) BILIRUBIN DIRECT (BEAKER) (test 9.0 mg/dL 0.1-0.5 H code = 706) ALKALINE PHOSPHATASE (BEAKER) 866 U/L 40-150 H (test code = 346) AST (SGOT) (BEAKER) (test code = 290 U/L 5-34 H 353) ALT (SGPT) (BEAKER) (test code = 182 U/L 6-55 H 347) County Attorney ID - ALEXI Albertimeedmar markedly ictericPOCT-GLUCOSE [id number] 21:50:48 Test Item Value Reference Range Interpretation Comments POC-GLUCOSE METER 328 mg/dL 70-110 H : TESTED A T [facility] 6720 (BEAKER) (test code = [facility], 1538) [address]: County Attorney/Techni samira ID = [id number] for FLAVIO BAZAN POCT-GLUCOSE [id number] 17:19:52 Test Item Value Reference Range Interpretation Comments POC-GLUCOSE METER 283 mg/dL 70-110 H : TESTED A T [facility] 6720 (BEAKER) (test code = [facility], 1538) [address]: County Attorney/Techni samira ID = [id number] for Raina jazmin (contract)Darren gail COMPREHENSIVE METABOLIC [id number] 14:43:46 Test Item Value Reference Range Interpretation Comments TOTAL PROTEIN 6.5 gm/dL 6.0-8.3 (BEAKER) (test code = 770) ALBUMIN (BEAKER) 2.8 g/dL 3.5-5.0 L (test code = 1145) ALKALINE PHOSPHATASE 934 U/L 40-150 H (BEAKER) (test code = 346) BILIRUBIN TOTAL 13.6 mg/dL 0.2-1.2 H (BEAKER) (test code = 377) SODIUM (BEAKER) (test 135 meq/L 136-145 L code = 381) POTASSIUM (BEAKER) 4.2 meq/L 3.5-5.1 (test code = 379) CHLORIDE (BEAKER) 108 meq/L 98-107 H (test code = 382) CO2 (BEAKER) (test 18 meq/L 22-29 L code = 355) BLOOD UREA NITROGEN 23 mg/dL 7-21 H (BEAKER) (test code = 354) CREATININE (BEAKER) 0.85 mg/dL 0.57-1.25 (test code = 358) GLUCOSE RANDOM 235 mg/dL 70-105 H (BEAKER) (test code = 652) CALCIUM (BEAKER) 8.7 mg/dL 8.4-10.2 (test code = 697) AST (SGOT) (BEAKER) 354 U/L 5-34 H (test code = 353) ALT (SGPT) (BEAKER) 205 U/L 6-55 H (test code = 347) EGFR (BEAKER) (test 65 mL/min/1.73 ESTIMA MANDEEP GFR IS code = 1092) sq m NOT ACCURATE CREATININE CLEARANCE IN PREDICTING GLOMERULAR FILTRATION RATE . ESTIMATED GFR I S NOT APPLICABLE FOR DIALYSIS PATIEN TS. County Attorney CHANTAL MEREDITH FSpecimen markedly ictericHEPATIC FUNCTION PANEL 2020-12-15 14:43:41 Test Item Value Reference Range Interpretation Comments TOTAL PROTEIN (BEAKER) (test code 6.5 gm/dL 6.0-8.3 = 770) ALBUMIN (BEAKER) (test code = 2.8 g/dL 3.5-5.0 L 1145) BILIRUBIN TOTAL (BEAKER) (test 13.6 mg/dL 0.2-1.2 H code = 377) BILIRUBIN DIRECT (BEAKER) (test 9.7 mg/dL 0.1-0.5 H code = 706) ALKALINE PHOSPHATASE (BEAKER) 934 U/L 40-150 H (test code = 346) AST (SGOT) (BEAKER) (test code = 354 U/L 5-34 H 353) ALT (SGPT) (BEAKER) (test code = 205 U/L 6-55 H 347) County Attorney CHANTAL MEREDITH FSpecimen markedly [id number] 14:43:35 Test Item Value Reference Range Interpretation Comments MAGNESIUM (BEAKER) (test code = 1.9 mg/dL 1.6-2.6 627) County Attorney ID - VIRI FPROTHROMBIN [id number] 14:20:35 Test Item Value Reference Range Interpretation Comments PROTIME (BEAKER) 14.3 seconds 11.9-14.2 H (test code = 759) INR (BEAKER) (test 1.12 See_Comment [Automat ed message] code = 370) The system Foxfly generated this result transmitted ref erence range: <=5.90. The reference range was not used to int erpret this result as normal/abnormal . RECOMMENDED COUMADIN/WARFARIN INR THERAPY RANGESSTANDARD DOSE: 2.0 - 3.0 Includes: PROPHYLAXIS for venous thrombosis, systemic embolization; TREATMENT for venous thrombosis and/or pulmonary embolus.HIGH RISK: Target INR is 2.5-3.5 for patients with mechanical heart valves.PROTHROMBIN [id number] 14:20:29 Test Item Value Reference Range Interpretation Comments PROTIME (BEAKER) 14.3 seconds 11.9-14.2 H (test code = 759) INR (BEAKER) (test 1.13 See_Comment [Automat ed message] code = 370) The system Foxfly generated this result transmitted ref erence range: <=5.90. The reference range was not used to int erpret this result as normal/abnormal . RECOMMENDED COUMADIN/WARFARIN INR THERAPY RANGESSTANDARD DOSE: 2.0 - 3.0 Includes: PROPHYLAXIS for venous thrombosis, systemic embolization; TREATMENT for venous thrombosis and/or pulmonary embolus.HIGH RISK: Target INR is 2.5-3.5 for patients with mechanical heart valves.CBC W/PLT COUNT & AUTO [id number] 14:13:09 Test Item Value Reference Range Interpretation Comments WHITE BLOOD CELL COUNT (BEAKER) 8.1 K/ L 3.5-10.5 (test code = 775) RED BLOOD CELL COUNT (BEAKER) 3.59 M/ L 3.93-5.22 L (test code = 761) HEMOGLOBIN (BEAKER) (test code = 11.5 GM/DL 11.2-15.7 410) HEMATOCRIT (BEAKER) (test code = 36.2 % 34.1-44.9 411) MEAN CORPUSCULAR VOLUME (BEAKER) 100.8 fL 79.4-94.8 H (test code = 753) MEAN CORPUSCULAR HEMOGLOBIN 32.0 pg 25.6-32.2 (BEAKER) (test code = 751) MEAN CORPUSCULAR HEMOGLOBIN CONC 31.8 GM/DL 32.2-35.5 L (BEAKER) (test code = 752) RED CELL DISTRIBUTION WIDTH 16.6 % 11.7-14.4 H (BEAKER) (test code = 412) PLATELET COUNT (BEAKER) (test 259 K/CU MM 150-450 code = 756) MEAN PLATELET VOLUME (BEAKER) 10.3 fL 9.4-12.3 (test code = 754) NUCLEATED RED BLOOD CELLS 0 /100 WBC 0-0 (BEAKER) (test code = 413) NEUTROPHILS RELATIVE PERCENT 61 % (BEAKER) (test code = 429) LYMPHOCYTES RELATIVE PERCENT 30 % (BEAKER) (test code = 430) MONOCYTES RELATIVE PERCENT 8 % (BEAKER) (test code = 431) EOSINOPHILS RELATIVE PERCENT 0 % (BEAKER) (test code = 432) BASOPHILS RELATIVE PERCENT 1 % (BEAKER) (test code = 437) NEUTROPHILS ABSOLUTE COUNT 4.90 K/ L 1.56-6.13 (BEAKER) (test code = 670) LYMPHOCYTES ABSOLUTE COUNT 2.40 K/ L 1.18-3.74 (BEAKER) (test code = 414) MONOCYTES ABSOLUTE COUNT (BEAKER) 0.64 K/ L 0.24-0.36 H (test code = 415) EOSINOPHILS ABSOLUTE COUNT 0.03 K/ L 0.04-0.36 L (BEAKER) (test code = 416) BASOPHILS ABSOLUTE COUNT (BEAKER) 0.04 K/ L 0.01-0.08 (test code = 417) IMMATURE GRANULOCYTES-RELATIVE 1 % 0-1 PERCENT (BEAKER) (test code = 2801) POCT-GLUCOSE [id number] 13:12:36 Test Item Value Reference Range Interpretation Comments POC-GLUCOSE METER 281 mg/dL 70-110 H : TESTED A T [facility] 6720 (BEAKER) (test code = [facility] [place], 1538) [address]: County Attorney/Techni samira ID = [id number] for RANJEET HUSEYIN ROJAS POCT-GLUCOSE [id number] 08:37:14 Test Item Value Reference Range Interpretation Comments POC-GLUCOSE METER 311 mg/dL 70-110 H : TESTED A T [facility] 6720 (BEAKER) (test code = [facility] [place], 1538) [address]: County Attorney/Techni samira ID = [id number] for Raina wu (contract)Darren
[2022-02-15] MEDS ORDERED: ONDANSETRON 4 MG/2 ML VIAL ONE ×2 (15:52→17:09)
[2022-02-15] MEDS ORDERED: NA CHLORIDE 0.9% 1,000 ML ONE (15:52)
[2022-02-15] MEDS ORDERED: MORPHINE 4 MG/ML SYR ONE ×2 (15:52→17:09)
[2022-02-15 16:30] LABS: Absolute Lymphocytes (CBC) 2.3 K/uL (0.7-4.9); Hematocrit 39.7 % (36.0-45.0); Lymphocytes % 36.2 % (15.3-44.8); MCV 96.1 fL (80-100); MPV 9.5 fL (7.6-11.3); RBC Red Blood Cell Count 4.13 M/uL (3.86-4.86)
[2022-02-15 16:43] LABS: Urine Blood Negative (Negative); Urine Glucose Negative (Negative); Urine Protein Negative (Negative); Urine pH 5.5 (5.0-7.0)
[2022-02-15 16:49] LABS: Bilirubin Total 1.7 mg/dL (0.2-1.0); Potassium 3.9 mmol/L (3.5-5.1); Protein, Total 7.3 g/dL (6.4-8.2); Troponin High Sensitivity 9.1 pg/mL (<58.9)
[2022-02-15 17:03] LABS: Urine Bacteria <20 /HPF (<20); Urine Mucus Slight /HPF (None Seen); Urine RBC <5 /HPF (None Seen)
--- NOTE | 2022-02-15 17:49 | RAD REPORT ---
EXAM DESCRIPTION: CTAbdomen Pelvis W Contrast - 02/15/2022 5:36 pm CLINICAL HISTORY: back pain COMPARISON: Abdomen Pelvis W Contrast dated 02/02/2022; Abdomen Pelvis W Contrast dated 02/24/2021 ; Abdomen Pelvis W Contrast dated 12/14/2020; Abdomen Pelvis W Contrast dated 11/29/2019; Abdomen Pelvis W Contrast dated 09/08/2016 TECHNIQUE: CT of the abdomen and pelvis was performed with IV contrast. All CT scans are performed using dose optimization technique as appropriate and may include automated exposure control or mA/KV adjustment according to patient size. FINDINGS: Lower chest: Patulous distal esophagus. Liver: Cirrhotic liver morphology. Biliary: No biliary ductal dilatation. Stomach: No significant focal abnormality. Duodenum: No significant focal abnormality. Pancreas: No significant abnormality. Spleen: No significant abnormality. Adrenal: No suspicious lesions. Kidney/ureter: Mild bilateral hydronephrosis. Renal vascular calcifications bilaterally. No renal latrice culi. Retroperitoneum: No retroperitoneal adenopathy. Vascular: No aneurysm. Atherosclerosis. Bowel: Rectal wall thickening persists. Sigmoid venous modestly improved.. Peritoneum: Small volume of pelvic free fluid. Bladder: Grossly unremarkable. Reproductive: No adnexal masses. Bones: No acute fracture. Sternotomy. Other: Surgical changes in the anterior abdominal wall. IMPRESSION: Mild improvement in sigmoid and rectal wall thickening. Nonspecific free fluid in the pe lvis. Mild bilateral hydronephrosis without obstructing stone or mass.
[2022-02-15] MEDS ORDERED: CYCLOBENZAPRINE 10 MG TAB ONE (18:03)
[2022-02-15] MEDS ORDERED: PROMETHAZINE INJ 25 MG/ML AMP ONE (18:03)
[2022-02-15] MEDS ORDERED: FENTANYL CITR 100 MCG/2 ML ONE (18:05)
[2022-02-15] MEDS ORDERED: dexAMETHasone 10 MG/ML VIAL ONE (18:05)
[2022-02-15] MEDS ORDERED: LABETALOL 20 MG/4ML SYRINGE IV ONE (18:25)
--- NOTE | 2022-02-15 20:25 | ER ---
Nurse's Notes [facility] Name: Caro Garner Age: 76 yrs Sex: Female : 1945 Arrival Date: 02/15/2022 Time: 15: Bed 2 Private MD: Diagnosis: Low back pain;Muscle spasm of back;Unspecified cirrhosis of liver Presentation: 02/15 15:24 Chief complaint: Patient states: Cel[place] lower Back pain, nausea since this morning. ld1 Coronavirus screen: At this time, the client does not indicate any symptoms associated with coronavirus-19. Ebola Screen: No symptoms or risks identified at this time. Initial Sepsis Screen: Does the patient meet any 2 criteria? No. Patient's initial sepsis screen is negative. Does the patient have a suspected source of infection? No. Patient's initial sepsis screen is negative. Risk Assessment: Do you want to hurt yourself or someone else? Patient reports no desire to harm self or others. Onset of symptoms was February 15, 2022. 15:24 Method Of Arrival: Wheelchair ld1 15:24 Acuity: YOUSIF 3 ld1 Triage Assessment: 15:24 General: Appears in no apparent distress. comfortable, Behavior is calm, cooperative, ld1 appropriate for age. Pain: Complains of pain in low back area Pain does not radiate. Pain currently is 10 out of 10 on a pain scale. Quality of pain is described as throbbing. EENT: No signs and/or symptoms were reported regarding the EENT system. Neuro: Level of Consciousness is awake, alert, obeys commands, Oriented to person, place, time, situation. Cardiovascular: Capillary refill < 3 seconds Patient's skin is warm and dry. Respiratory: Airway is patent Respiratory effort is even, unlabored. GI: Abdomen is flat, non-distended. : No signs and/or symptoms were reported regarding the genitourinary system. Derm: No signs and/or symptoms reported regarding the dermatologic system. Musculoskeletal: Reports pain in back. 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 - Social history:: Smoking status: Patient denies any tobacco usage or history of. Patient/guardian denies using alcohol. - Family history:: not pertinent. Screenin:46 Abuse screen: Denies threats or abuse. Denies injuries from another. Nutritional kc6 screening: No deficits noted. Tuberculosis screening: No symptoms or risk factors identified. Fall Risk No fall in past 12 months (0 pts). No secondary diagnosis (0 pts). No IV (0 pts). Ambulatory Aid- None/Bed Rest/Nurse Assist (0 pts). Gait- Normal/Bed Rest/Wheelchair (0 pts) Mental Status- Oriented to own ability (0 pts). Total H[place] Fall Scale indicates No Risk (0-24 pts). Assessment: 15:42 General: Appears in no apparent distress. uncomfortable, Behavior is calm, cooperative, kc6 appropriate for age. Pain: Complains of pain in left lower back and right lower back Pain does not radiate. Pain currently is 10 out of 10 on a pain scale. Quality of pain is described as stabbing, Pain began 3 hours ago. Is continuous, Alleviated by nothing. Aggravated by increased activity, repositioning, Noted to be grimacing, resistant to movement, Also complains of nausea. Neuro: [place] Agitation-Sedation Scale (RASS): 0 - Alert and Calm Level of Consciousness is awake, alert, obeys commands, Oriented to person, place, time, situation, Appropriate for age. Cardiovascular: Heart tones S1 S2 present Capillary refill < 3 seconds. Respiratory: Airway is patent Trachea midline Respiratory effort is even, unlabored, Respiratory pattern is regular, symmetrical, Breath sounds are clear bilaterally. GI: Abdomen is flat, non-distended, Bowel sounds present X 4 quads. Abd is soft and non tender X 4 quads. Reports nausea. : No signs and/or symptoms were reported regarding the genitourinary system. EENT: No signs and/or symptoms were reported regarding the EENT system. Derm: No signs and/or symptoms reported regarding the dermatologic system. Skin is intact, Skin is pink, warm \T\ dry. Musculoskeletal: No signs and/or symptoms reported regarding the musculoskeletal system. Circulation, motion, and sensation intact. Capillary refill < 3 seconds, Range of motion: intact in all extremities. 16:42 Reassessment: Patient appears in no apparent distress at this time. No changes from kc6 previously documented assessment. Patient and/or family updated on plan of care and expected duration. Pain level reassessed. Patient is alert, oriented x 3, equal unlabored respirations, skin warm/dry/pink. client stated her pain is decreased to 7/10. 17:42 Reassessment: Patient appears in no apparent distress at this time. No changes from kc6 previously documented assessment. Patient and/or family updated on plan of care and expected duration. Pain level reassessed. Patient is alert, oriented x 3, equal unlabored respirations, skin warm/dry/pink. 18:42 Reassessment: Patient appears in no apparent distress at this time. No changes from kc6 previously documented assessment. Patient and/or family updated on plan of care and expected duration. Pain level reassessed. Patient is alert, oriented x 3, equal unlabored respirations, skin warm/dry/pink. 20:19 Reassessment: Patient and/or family updated on plan of care and expected duration. Pain vc1 level reassessed. Patient is alert, oriented x 3, equal unlabored respirations, skin warm/dry/pink. Patient states symptoms have improved. Vital Signs: 15:24 BP 204 / 75; Pulse 67; Resp 18; Temp 98.4(TE); Pulse Ox 100% on R/A; Weight 62.6 kg; ld1 Height 5 ft. 4 in. (162.56 cm); Pain 10/10; 15:42 BP 208 / 91; Pulse 72; Resp 18 S; Temp 97.6(O); Pulse Ox 100% on R/A; Pain 10/10; kc6 16:42 BP 179 / 64; Pulse 71; Resp 18 S; Pulse Ox 97% on R/A; Pain 7/10; kc6 17:47 BP 213 / 93; Pulse 76; Resp 18; Pulse Ox 100% on R/A; Pain 7/10; kc6 18:47 BP 168 / 58; Pulse 67; Resp 16 S; Pulse Ox 96% on R/A; kc6 19:30 BP 162 / 79; Pulse 68; Resp 16; Pulse Ox 95% on R/A; vc1 20:42 BP 159 / 80; Pulse 58; Resp 17; Pulse Ox 96% on R/A; ll3 15:24 Body Mass Index 23.69 (62.60 kg, 162.56 cm) ld1 ED Course: 15:22 Patient arrived in ED. mr 15:24 Arm band placed on right wrist. ld1 15:26 Triage completed. ld1 15:26 Antonio Bacon MD is Attending Physician. rt 15:27 Awilda Ro, RN is Primary Nurse. kc6 16:09 CBC with Diff Sent. kc6 16:09 CMP Sent. kc6 16:09 Lipase Sent. kc6 16:10 Patient has correct armband on for positive identification. Bed in low position. Call kc6 light in reach. Side rails up X2. Adult w/ patient. no IV's or BP sleeve placed on left arm. Door closed. Noise minimized. Lights dimmed. 16:10 Troponin High Sensitivity Sent. kc6 16:10 No provider procedures requiring assistance completed. Inserted saline lock: 20 gauge kc6 in right forearm, using aseptic technique. Blood collected. 16:49 Urine Microscopic Only Sent. kc6 17:38 CT Abd/Pelvis - IV Contrast Only In Process Unspecified. EDMS 19:18 Attending Physician role handed off by Antonio Bacon MD meghana 19:18 John Yepez MD is Attending Physician. meghana 20:27 Augustus Abebe MD is Referral Physician. meghana 20:27 Jame Toro MD is Referral Physician. meghana 20:43 IV discontinued, intact, bleeding controlled, No redness/swelling at site. Pressure ll3 dressing applied. Administered Medications: 16:09 Drug: NS 0.9% 1000 ml Route: IV; Rate: 1 bolus; Site: right forearm; kc6 17:09 Follow up: Response: No adverse reaction; IV Status: Completed infusion; IV Intake: kc6 1000ml 16:09 Drug: Zofran (Ondansetron) 4 mg Route: IVP; Site: right forearm; kc6 17:09 Follow up: Response: No adverse reaction; Nausea unchanged kc6 16:10 Drug: morphine 4 mg Route: IVP; Infused Over: 4 mins; Site: right forearm; kc6 17:10 Follow up: Response: No adverse reaction; Pain is unchanged, physician notified; RASS: kc6 Alert and Calm (0) 17:17 Drug: morphine 4 mg Route: IVP; Infused Over: 4 mins; Site: right forearm; kc6 18:17 Follow up: Response: No adverse reaction; Pain is unchanged, physician notified; RASS: kc6 Alert and Calm (0) 17:17 Drug: Zofran (Ondansetron) 4 mg Route: IVP; Site: right forearm; kc6 18:17 Follow up: Response: No adverse reaction; Nausea unchanged kc6 18:21 Drug: Flexeril (cyclobenzaprine) 10 mg Route: PO; kc6 18:57 Follow up: Response: No adverse reaction kc6 18:21 Drug: Phenergan (promethazine) 12.5 mg Route: IVP; Site: right forearm; kc6 18:57 Follow up: Response: No adverse reaction; Nausea is decreased kc6 18:21 Drug: Decadron - Dexamethasone 6 mg Route: IVP; Site: right forearm; kc6 18:57 Follow up: Response: No adverse reaction kc6 18:22 Drug: fentaNYL (PF) 50 mcg Route: IVP; Site: right forearm; kc6 18:57 Follow up: Response: No adverse reaction; Pain is decreased; RASS: Alert and Calm (0) kc6 18:36 Drug: Labetalol 10 mg Route: IV; Rate: calculated rate; Site: right forearm; kc6 18:57 Follow up: Response: No adverse reaction; Blood pressure is lowered; IV Status: kc6 Completed infusion; IV Intake: 10ml Medication: 16:11 VIS not applicable for this client. kc6 Intake: 17:09 IV: 1000ml; Total: 1000ml. kc6 18:57 IV: 10ml; Total: 1010ml. kc6 Outcome: 20:24 Discharge ordered by . meghana 20:43 Discharged to home via wheelchair, with family. ll3 20:43 Condition: stable 20:43 Discharge instructions given to patient, family, Instructed on discharge instructions, follow up and referral plans. medication usage, Demonstrated understanding of instructions, follow-up care, medications, Prescriptions given X 2. 20:43 Patient left the ED. ll3 Signatures: Dispatcher [employer] EDNV John Yepez MD MD cha Rivera, Nola Lizama RN RN ld1 Estela Han RN RN ll3 Germaine Todd RN RN vc1 Awilda Ro RN RN kc6 Antonio Bacon MD MD rt Corrections: (The following items were deleted from the chart) 16:51 16:49 Reassessment: Patient appears in no apparent distress at this time. No changes kc6 from previously documented assessment. Patient and/or family updated on plan of care and expected duration. Pain level reassessed. Patient is alert, oriented x 3, equal unlabored respirations, skin warm/dry/pink. client stated her pain is decreased to 7/10 kc6
--- NOTE | 2022-02-15 20:25 | EDPHYS ---
Physician Documentation [facility] Name: Caro Garner Age: 76 yrs Sex: Female : 1945 Arrival Date: 02/15/2022 Time: 15: Bed 2 Private MD: John Rogers HPI: 02/15 16:07 This 76 yrs old Female presents to ER via Wheelchair with complaints of Back Pain, rt Nausea. 16:07 The patient presents with pain that is acute, with no known mechanism of injury. The rt symptoms are located in the low back. Onset: The symptoms/episode began/occurred 2 hour(s) ago. Associated signs and symptoms: Pertinent positives: nausea, Pertinent negatives: abdominal pain. Patient states that she was feeling well until about 2 hours prior to arrival when she had an acute onset of right lower back pain that radiated laterally to the back to then involve both sides. Patient states that the pain is sharp in nature. She has associated nausea but no other associated symptoms, this is worse with movement. Symptoms are moderate severity, no other aggravating alleviating factors. 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 - Social history:: Smoking status: Patient denies any tobacco usage or history of. Patient/guardian denies using alcohol. - Family history:: not pertinent. ROS: 16:07 Constitutional: Negative for fever, chills, and weight loss, Eyes: Negative for injury, rt pain, redness, and discharge, ENT: Negative for injury, pain, and discharge, Neck: Negative for injury, pain, and swelling, Cardiovascular: Negative for chest pain, palpitations, and edema, Respiratory: Negative for shortness of breath, cough, wheezing, and pleuritic chest pain, MS/Extremity: Negative for injury and deformity, Skin: Negative for injury, rash, and discoloration, Neuro: Negative for headache, weakness, numbness, tingling, and seizure, Psych: Negative for depression, anxiety, suicide ideation, homicidal ideation, and hallucinations. 16:07 Abdomen/GI: Positive for nausea, Negative for abdominal pain. 16:07 Back: Positive for pain at rest, Negative for injury or acute deformity. Exam: 16:07 Constitutional: This is a well developed, well nourished patient who is awake, alert, rt and in no acute distress. Head/Face: Normocephalic, atraumatic. Eyes: Pupils equal round and reactive to light, extra-ocular motions intact. Lids and lashes normal. Conjunctiva and sclera are non-icteric and not injected. Cornea within normal limits. Periorbital areas with no swelling, redness, or edema. ENT: Nares patent. No nasal discharge, no septal abnormalities noted. Tympanic membranes are normal and external auditory canals are clear. Oropharynx with no redness, swelling, or masses, exudates, or evidence of obstruction, uvula midline. Mucous membranes moist. Neck: Trachea midline, no thyromegaly or masses palpated, and no cervical lymphadenopathy. Supple, full range of motion without nuchal rigidity, or vertebral point tenderness. No Meningismus. Chest/axilla: Normal chest wall appearance and motion. Nontender with no deformity. No lesions are appreciated. Cardiovascular: Regular rate and rhythm with a normal S1 and S2. No gallops, murmurs, or rubs. Normal PMI, no JVD. No pulse deficits. Respiratory: Lungs have equal breath sounds bilaterally, clear to auscultation and percussion. No rales, rhonchi or wheezes noted. No increased work of breathing, no retractions or nasal flaring. Abdomen/GI: Soft, non-tender, with normal bowel sounds. No distension or tympany. No guarding or rebound. No evidence of tenderness throughout. Skin: Warm, dry with normal turgor. Normal color with no rashes, no lesions, and no evidence of cellulitis. MS/ Extremity: Pulses equal, no cyanosis. Neurovascular intact. Full, normal range of motion. Neuro: Awake and alert, GCS 15, oriented to person, place, time, and situation. Cranial nerves II-XII grossly intact. Motor strength 5/5 in all extremities. Sensory grossly intact. Cerebellar exam normal. Normal gait. Psych: Awake, alert, with orientation to person, place and time. Behavior, mood, and affect are within normal limits. 16:07 Back: Tenderness to the bilateral lower paraspinal regions, no midline tenderness, no step-offs. 16:49 ECG was reviewed by the Attending Physician. rt Vital Signs: 15:24 BP 204 / 75; Pulse 67; Resp 18; Temp 98.4(TE); Pulse Ox 100% on R/A; Weight 62.6 kg; ld1 Height 5 ft. 4 in. (162.56 cm); Pain 10/10; 15:42 BP 208 / 91; Pulse 72; Resp 18 S; Temp 97.6(O); Pulse Ox 100% on R/A; Pain 10/10; kc6 16:42 BP 179 / 64; Pulse 71; Resp 18 S; Pulse Ox 97% on R/A; Pain 7/10; kc6 17:47 BP 213 / 93; Pulse 76; Resp 18; Pulse Ox 100% on R/A; Pain 7/10; kc6 18:47 BP 168 / 58; Pulse 67; Resp 16 S; Pulse Ox 96% on R/A; kc6 19:30 BP 162 / 79; Pulse 68; Resp 16; Pulse Ox 95% on R/A; vc1 20:42 BP 159 / 80; Pulse 58; Resp 17; Pulse Ox 96% on R/A; ll3 15:24 Body Mass Index 23.69 (62.60 kg, 162.56 cm) ld1 MDM: 15:34 Patient medically screened. rt 20:24 Differential diagnosis: Cholelithiasis chronic back pain, Hydronephrosis Neoplasm meghana Osteoarthritis Osteomalacia ruptured disc, Scoliosis spinal injury, sprain, Ureterolithiasis. Data reviewed: vital signs, nurses notes, lab test result(s), EKG, radiologic studies, CT scan, plain films. Data interpreted: roll forger: rate is 68 beats/min, rhythm is regular, Pulse oximetry: on room air is 95 %. Counseling: I had a detailed discussion with the patient and/or guardian regarding: the historical points, exam findings, and any diagnostic results supporting the discharge/admit diagnosis, lab results, radiology results, the need for outpatient follow up, for definitive care, a family practitioner. 02/15 15:46 Order name: CBC with Diff; Complete Time: 17:04 rt 02/15 15:46 Order name: CMP; Complete Time: 17:04 rt 02/15 15:46 Order name: Lipase; Complete Time: 17:04 rt 02/15 15:46 Order name: Urine Microscopic Only; Complete Time: 17:04 rt 02/15 15:46 Order name: Troponin High Sensitivity; Complete Time: 17:04 rt 02/15 16:43 Order name: Urine Dipstick-Ancillary; Complete Time: 17:04 EDMS 02/15 15:46 Order name: CT Abd/Pelvis - IV Contrast Only; Complete Time: 17:52 rt 02/15 15:46 Order name: IV Saline Lock; Complete Time: 16:09 rt 02/15 15:46 Order name: Labs collected and sent; Complete Time: 16:09 rt 02/15 15:46 Order name: EKG; Complete Time: 15:46 rt 02/15 15:46 Order name: EKG - Nurse/Tech; Complete Time: 16:49 rt EC:49 Rate is 76 beats/min. Rhythm is regular, Sinus Rhythm with Occasional PVCs. QRS [place] is rt Normal. [place] interval is normal. QRS interval is normal. Administered Medications: 16:09 Drug: NS 0.9% 1000 ml Route: IV; Rate: 1 bolus; Site: right forearm; kc6 17:09 Follow up: Response: No adverse reaction; IV Status: Completed infusion; IV Intake: kc6 1000ml 16:09 Drug: Zofran (Ondansetron) 4 mg Route: IVP; Site: right forearm; kc6 17:09 Follow up: Response: No adverse reaction; Nausea unchanged kc6 16:10 Drug: morphine 4 mg Route: IVP; Infused Over: 4 mins; Site: right forearm; kc6 17:10 Follow up: Response: No adverse reaction; Pain is unchanged, physician notified; RASS: kc6 Alert and Calm (0) 17:17 Drug: morphine 4 mg Route: IVP; Infused Over: 4 mins; Site: right forearm; kc6 18:17 Follow up: Response: No adverse reaction; Pain is unchanged, physician notified; RASS: kc6 Alert and Calm (0) 17:17 Drug: Zofran (Ondansetron) 4 mg Route: IVP; Site: right forearm; kc6 18:17 Follow up: Response: No adverse reaction; Nausea unchanged kc6 18:21 Drug: Flexeril (cyclobenzaprine) 10 mg Route: PO; kc6 18:57 Follow up: Response: No adverse reaction kc6 18:21 Drug: Phenergan (promethazine) 12.5 mg Route: IVP; Site: right forearm; kc6 18:57 Follow up: Response: No adverse reaction; Nausea is decreased kc6 18:21 Drug: Decadron - Dexamethasone 6 mg Route: IVP; Site: right forearm; kc6 18:57 Follow up: Response: No adverse reaction [facility] 18:22 Drug: fentaNYL (PF) 50 mcg Route: IVP; Site: right forearm; kc6 18:57 Follow up: Response: No adverse reaction; Pain is decreased; RASS: Alert and Calm (0) [facility] 18:36 Drug: Labetalol 10 mg Route: IV; Rate: calculated rate; Site: right forearm; kc6 18:57 Follow up: Response: No adverse reaction; Blood pressure is lowered; IV Status: kc6 Completed infusion; IV Intake: 10ml Disposition Summary: 02/15/22 20:24 Discharge Ordered Location: Home meghana Problem: new meghana Symptoms: have improved meghana Condition: Stable meghana Diagnosis - Low back pain meghana - Muscle spasm of back meghana - Unspecified cirrhosis of liver meghana Followup: meghana - With: Private Physician - When: 2 - 3 days - Reason: Recheck today's complaints, Continuance of care, Re-evaluation by your physician Followup: meghana - With: Augustus Abebe MD - When: 2 - 3 days - Reason: Recheck today's complaints, Continuance of care, Re-evaluation by your physician Followup: meghana - With: Jame Toro MD - When: 5 - 6 days - Reason: Recheck today's complaints, Re-evaluation by your physician Discharge Instructions: - Discharge Summary Sheet meghana - Acute Back Pain, Adult meghana - Chronic Back Pain meghana - Cirrhosis meghana - Musculoskeletal Pain meghana - Chronic Back Pain, [id number] meghana Forms: - Medication Reconciliation Form meghana - Thank You Letter meghana - Antibiotic Education meghana - Prescription Opioid Use meghana Prescriptions: - Ultram 50 mg Oral Tablet - take 1 tablet by ORAL route every 6 hours As needed; 20 tablet; Refills: 0, meghana Product Selection Permitted - Cyclobenzaprine 5 mg Oral Tablet - take 1 tablet by ORAL route 3 times per day As needed; 15 tablet; Refills: 0, meghana Product Selection Permitted Signatures: Dispatcher [employer] John Napier MD MD cha Dibbern, Lauren, RN RN ld1 Awilda Ro RN RN kc6 Antonio Bacon MD MD rt
[2022-02-15 20:51] VITALS: TEMP 97.6
[2022-02-15 20:58] VITALS: BP 159/80; O2SAT 96
--- NOTE | 2022-02-16 11:35 | EKG ---
Test Date: 2022-02-15 Test Time: 16:46:25 [employer]: SRIKANTH MEASUREMENT RESULTS: Intervals: Rate: 76 KS: 154 QRSD: 90 QT: 386 QTc: 434 Blanca: P: 34 KS: 154 QRS: -23 T: 150 INTERPRETIVE STATEMENTS: Sinus rhythm with premature supraventricular complexes Left ventricular hypertrophy with repolarization abnormality Abnormal ECG Compared to ECG 12/14/2020 22:32:34 Early repolarization now present Left-axis deviation no longer present T-wave abnormality no longer present Electronically Signed On 02-16-22 11:34:27 GYN by Michael Gonzales
== END 2022-02-15 20:43 | disposition home or self-care (01) ==
LOC: ER 15:17
DX: M62.830 Muscle spasm of back (principal); K74.60 Unspecified cirrhosis of liver; Z88.1 Allergy status to other antibiotic agents; Z88.5 Allergy status to narcotic agent
CPT/HCPCS: 85025; 36415; 84484; 83690; 80053; 74177; Q9967; J2550; J3010; J1100; J7030; J2405 ×2; 81003; 81015; 93005

== ENCOUNTER 2023-02-07 10:17 | Emergency (ER) | payer OTHER ==
--- OUTSIDE RECORDS SUMMARY | 2023-02-07 10:33 | XMS REPORT | Continuity of Care Document ---
:1945 Author Organization [facility] t Address [address] [place] [address] [address] [place] [address] Care Team Providers Name Role Phone Mis KEYES MD, Enrique A Primary Care Physician [phone] BRANDON GEORGE Attending Clinician Unavailable RONIT WAN Attending Clinician Unavailable Ronit Bloom Attending Clinician MATTHEW Attending Clinician Unavailable Ezekiel Mittal MD Attending Clinician 2, [facility] Attending Clinician Unavailable Ewa Lawton Attending Clinician EWA CHAVEZ Attending Clinician Unavailable Lab, Ang - Db Attending Clinician Unavailable Doctor Unassigned, [place] Attending Clinician Unavailable EZEKIEL MITTAL Attending Clinician Unavailable Pob, [facility] Main Attending Clinician Unavailable MARY HAM Attending Clinician Unavailable MANUEL CARCAMO Attending Clinician Unavailable Augustus Abebe Attending Clinician Brigitte Cortez Attending Clinician BRIGITTE ELY Attending Clinician Unavailable GRACY WILSON Attending Clinician Unavailable Gracy Wilson MD Attending Clinician Mukesh Fountain MD Attending Clinician MUKESH FOUNTAIN Attending Clinician Unavailable Akash Martinez MD Attending Clinician AKASH MARTINEZ Attending Clinician Unavailable BRANDON TSANG DONALD Admitting Clinician Unavailable METCALF_PRISCILLA Admitting Clinician Unavailable GATITO PAN Admitting Clinician Unavailable Payers Payer Name Policy Type Policy Number Effective Date Expiration Date Davon SHAFER [id number] 2015 MEDICARE 00:00:00 UNITED MEDICARE HMO [id number] 2020 00:00:00 [place]ICAID OF [place] [id number] 2020 00:00:00 [facility] - [id number] [facility] - DUAL ELIGIBLE (MEDICARE REPLACEMENT/ADVANTAG E - HMO) [facility] - [id number] 2020 [facility] 00:[facility]00 [facility] (MEDICARE REPLACEMENT/ADVANTAG E - HMO) [facility] [id number] 2020 [facility] - 00:[place]:00 DUAL ELIGIBLE (MEDICARE REPLACEMENT/ADVANTAG E - HMO) [facility] [id number] (MEDICARE REPLACEMENT/ADVANTAG E - PPO) Problems Condition Condition Condition Status Onset Resolution Last Treating Co mments Source Name Details Category Date Date Treatment Clinician Date Type 1 Type 1 Disease Active 2022-03 [facility] diabetes diabetes 0-03 ity of mellitus mellitus 00:00: [place] with with 00 Medical hyperglyce hyperglyce Br anch lacy lacy Abdominal Abdominal Disease Active [facility] Hepatocell Hepatocell Disease Active [facility] ular ular 12-15 [facility] injury injury [facility] Diabetes Diabetes Problem Active [place] mellitus Mellitus 12-04 [facility] Hyperlipid Hyperlipid Problem Active M at[place] emia emia 12-04 da 00:[facility] h [facility] Presbyopia Presbyopia Problem Active M at[facility]or 9-10 da 00:00: [facility] [...] Diabetic Problem Active [place] retinopath Retinopath 12-04 da y y 00:00: [facility] screening Screening 00 al offered Offered [facility] Outre[facility] Chest pain Chest pain Disease Active 2017-03 [facility]-17 [facility] 00:00: Hospita 00 l Leucocytos Leucocytos Disease Active [facility] is is 10-03 00:00: Medical 00 Center Coronary Coronary Disease [facility] disease disease [facility]: Medical involving involving 00 [facility] [place] 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 [facility] disease disease 00:[facility]: Medical involving involving 00 [facility] [place] 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 Anemia Anemia Disease Active [facility]29 [facility] 00[facility] 00 Center CAD CAD Disease Active [facility] (coronary (coronary 09-28 [facility] artery artery 00:00: Medical disease), disease), 00 Cent [facility] [place] coronary coronary artery artery Diabetes Diabetes Disease Active [facility] mellitus mellitus 09-28 with with 00:00: Medical diabetic diabetic 00 Center retinopath retinopath y y Hyperchole Hyperchole Disease Active [facility] sterolemia sterolemia 05 Alexia kes 00:00: Medical 00 Center Colon Colon Disease Active [facility] cancer cancer 09-28 [facility] Left Left Disease Active [facility] breast breast 09-28 [facility] mass mass 00:[facility] 00 Center CAD CAD Disease Active [facility] (coronary (coronary 09-28 [facility] artery artery 00:00: Medical disease), disease), 00 Cent [place] coronary coronary artery artery Elevated Elevated Disease Active Unive rs blood blood 5-16 ity of pressure pressure 00:00: [place] (not (not 00 Medical hypertensi hypertensi Br [...] 8-18 it y of demia) demia) 00:00: [place] 00 Medical Branch Hypoglycem Hypoglycem Disease Active U nivers ia ia 5-13 ity of 00:00: [place] 00 Medical Branch Callus of Callus of [...] different from the original. 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 Nailbed Nailbed Disease Active Univers laceration laceration 06-02 it y of , finger, , finger, 00:00: Ingrid moreno initial initial 00 Medical encounter encounter Bran ch Pain in Pain in Disease Active Univers finger of finger of 06-02 [place]y of right hand right hand 00:00[place] Fracture Fracture Disease Active Unive rs of [place] 3-09 it y of of right of right [...] initial initial 00:00: [place] encounter encounter 00 Medi latrice Branch Pseudophak Pseudopha Problem Active 2013-032019-02-18 Memoria ia trinidad 04-12 23:41:25 l (disorder) (disorder) 00:00: He rmann Active 00 02/10/2014 Problem 02/18/2019 Data migrated from [employer] on 08/23/14. 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 Medical Group Nondiabeti Nondiabet Problem Active 2019-02-18 Leo c ic 23:41:25 l [facility] retinopath y y (disorder) (disorder) Active Problem 02/18/2019 hx of Medical Group Allergies, Adverse Reactions, Alerts Allergy Allergy Status Severity Reaction(s) Onset Inactive Treating Comm ents Source Name Type Date Date Clinician Levoflox Propensi Active Interacte [facility] to 9-24 [facility] with [facility] adverse 00:[facility]: neye Medical reaction 00 drops and Cente r s stopped heart LEVOFLOX Allergy Active High [facility] ACIN 9-24 [facility] Center Codeine Propensi Active 2017-03 Methodi ty to 2-17 st adverse 00:00: Hospita reaction 00 l s to drug Codeine Drug Active Hives [facility] Allergy 705 [facility] CODEINE Allergy Active Hives [facility] 7-05 00:00: 00 CODEINE DRUG Active Unknown-Cmnt Uni vers INGREDI 3- ity of 00:00: [place] 00 Medical Branch Codeine Propensi Active Unknown - Univ ers ty to See comments 06-01 ity of adverse 00:00: [place] reaction 00 Medical s Branch codeine< codeine< Active Memori a sup>1</s sup>1</s l up> up> Romeo Azopt Allergy Active Moderate Bradycardia Ma tagor to da substanc [facility] Simbrinz Allergy Active [place] to [facility] substanc [facility] Family History Family Member Diagnosis Comments Start Date Stop Date Source Maternal grandfather Prostate cancer [facility] Maternal grandmother Diabetes [facility] Natural mother Diabetes type II [facility] Natural mother Leukemia [facility] Natural brother Alcohol abuse [facility] Natural father Alcohol abuse [facility] Social History Social Habit Start Date Stop Date Quantity Comments Source Gender identity [facility] Sexual orientation [facility] History SDOH [facility] St[facility] Hospit al History SDOH [facility] Exposure to 2022-05-01 2022-05-11 Not sure University of SARS-CoV-2 (event) 00:00:00 14:45:00 [facility] Alcohol intake 2020-12-18 2020-12-18 [facility] 00:00:00 00:00:00 Medical Center History of Social 2018-03-12 2018-03-[address] function 00:00:00 00:00:00 Hospital History SDOH 2018-03-12 2018-03-12 1 [facility] Frequency 00:00:00 00:00:00 Hospita l Tobacco use and 2014-06-01 2014-06-01 Smokeless Universit y of exposure 00:00:00 00:00:00 tobacco non-user [facility] Sex Ass[birth year] [facility] 00:00:00 00:00:00 Medical [place] Smoking Status Start Date Stop Date Source Never smoked tobacco [facility] Medications Ordered Filled Start Stop Current Ordering Indication Dosage Frequency Signature Comments Components Source Medication Medication Date Date Medication? Clinician (SIG) Name Name brinzolamid 2022-03 Yes 1[drp] 1 Drop 2 Univers e 1 % 0-03 (two) ity of ophthalmic 10:37: times [place] suspension 28 daily. Medical drops Branch brinzolamid 2022-03 Yes 1[drp] 1 Drop 2 Univers e 1 % 0-03 (two) ity of ophthalmic 10:37: times [place] suspension 28 daily. Medical drops Branch brinzolamid 2022-03 Yes 1[drp] 1 Drop 2 Univers e 1 % 0-03 (two) ity of ophthalmic 10:37: times [place] suspension 28 daily. Medical drops Branch Brimonidine 2022-[address] Un ame[place] -Timolol 0-03 each eye. ity of 0.2-0.5 % 10:37: [place] [address] Medical drops Branch Brimonidine 2022-[address] Un ameena -Timolol 0-03 each eye. ity of 0.2-0.5 % 10:37: [place] [address] Medical drops Branch Brimonidine 2022-[address] in Un ameena -Timolol 0-03 each eye. ity of 0.2-0.5 % 10:37: [place] [address] Medical drops Branch aspirin 81 2022-03 Yes aspirin Univ ers mg EC 0-03 ity of tablet 10:37: [facility] aspirin 81 2022-03 Yes aspirin Univ ers mg EC 0-03 ity of tablet 10:37: [facility] aspirin 81 2022-03 Yes aspirin Univ ers mg EC 0-03 ity of tablet 10:37: [facility] Branch nitroglycer 2022-[address] 1 Uni vers in 0.4 mg 0-03 tablet ity of sublingual 10:36: [place] tablet 06 tongue. Medical Branch nitroglycer 2022-[address] 1 Uni vers in 0.4 mg 0-03 tablet ity of sublingual 10:36: [place] the [place] tablet 06 tongue. Medical Branch nitroglycer 2022-[address] 1 Uni vers in 0.4 mg 0-03 tablet ity of sublingual 10:36: [place] the [place] tablet 06 tongue. Medical Branch Insulin 2022-03 Yes [id number] 32U inject 32 Univers Glargine 0-03 9101 Units ity of (LANTUS 00:00: under the [place] SOLOSTAR 00 skin in Medical U-100 the Branch INSULIN) morning. 100 unit/mL (3 mL) injection insulin 2022-03 Yes [id number] 4U inject 4 Univers lispro 0-03 9101 Units ity of (HUMALOG 00:00: [place] KWIKPEN 00 skin as Medical INSULIN) needed for Branc h 100 unit/mL High blood pen sugar. Max injector daily dose of 50 PRN Insulin 2022-03 Yes [id number] Use as U nivers [place], 0-03 9101 directed ity of Disposable, 00:00: [place] (BD 00 Medical ULTRAFINE Branch III MINI PEN) 31 gauge x 3/16" Ndle Insulin 2022-03 Yes [id number] 32U inject 32 Univers Glargine 0-03 9101 Units ity of (LANTUS 00:00: under the [place] SOLOSTAR 00 skin in Medical U-100 the Branch INSULIN) morning. 100 unit/mL (3 mL) injection insulin 2022-03 Yes [id number] 4U inject 4 Univers lispro 0-03 9101 Units ity of (HUMALOG 00:00: [place] 00 skin as Medical INSULIN) needed for Branc h 100 unit/mL High blood pen sugar. Max injector daily dose of 50 PRN Insulin 2022-03 Yes [id number] Use as U nivers [place], 0-03 9101 directed ity of Disposable, 00:00: [place] (BD 00 Medical ULTRAFINE Branch III MINI PEN) 31 gauge x 3/16" Ndle Insulin 2022-03 Yes [id number] 32U inject 32 Univers Glargine 0-03 9101 Units ity of (LANTUS 00:00: under the [place] SOLOSTAR 00 skin in Medical U-100 the Branch INSULIN) morning. 100 unit/mL (3 mL) injection insulin 2022-03 Yes [id number] 4U inject 4 Univers lispro 0-03 9101 Units ity of (HUMALOG 00:00: [place] 00 skin as Medical INSULIN) needed for Branc h 100 unit/mL High blood pen sugar. Max injector daily dose of 50 PRN Insulin 2022-03 Yes [id number] Use as U nivers [place], 0-03 9101 directed ity of Disposable, 00:00: [place] (BD 00 Medical ULTRAFINE Branch III MINI PEN) 31 gauge x 3/16" Ndle Insulin Yes [id number] 30U inject 30 Univers Glargine 11-14 9101 Units ity of (LANTUS 00:00: under the [place] SOLOSTAR 00 skin in Medical U-100 the Branch INSULIN) morning. 100 unit/mL (3 mL) injection Insulin 2022- No [id number] 30U inject 30 Univers Glargine 11-14 9101 Units ity of (LANTUS 00:00: 00:[address] [facility] SOLOSTAR 00 :00 skin in Medical U-100 the Branch INSULIN) morning. 100 unit/mL (3 mL) injection Insulin 2022- No [id number] 30U inject 30 Univers Glargine 11-14 9101 Units ity of (LANTUS 00:00: 00:[address] [facility] SOLOSTAR 00 :00 skin in Medical U-100 the Branch INSULIN) morning. 100 unit/mL (3 mL) injection Brimonidine [address] Un [place] -Timolol 6-27 each eye. ity of 0.2-0.5 % 10:05: [place] ophthalmic 29 Medical drops Branch Brimonidine [address] Un [place] -Timolol 6-27 each eye. ity of 0.2-0.5 % 10:05: [place] ophthalmic 29 Medical drops Branch Brimonidine [address] Un [place] -Timolol 6-27 each eye. ity of 0.2-0.5 % 10:05: [place] ophthalmic 29 Medical drops Branch Brimonidine 2022-[address] in Un [place] -Timolol 6-27 each eye. ity of 0.2-0.5 % 10:05: [place] ophthalmic 29 Medical drops Branch Brimonidine 2022-[address] in Un [place] -Timolol 6-27 each eye. ity of 0.2-0.5 % 10:05: [place] ophthalmic 29 Medical drops Branch Brimonidine 2022-[address] in [place] -Timolol 6-27 each eye. ity of 0.2-0.5 % 10:05: [place] ophthalmic Medical drops Branch Brimonidine [address] Un [place] -Timolol 6-27 each eye. ity of 0.2-0.5 % 10:05: [place] ophthalmic Medical drops Branch Brimonidine [address] Un [place] -Timolol 6-27 each eye. ity of 0.2-0.5 % 10:05: [place] ophthalmic Medical drops Branch Brimonidine 2022-[address] in Un [place] -Timolol 6-27 each eye. ity of 0.2-0.5 % 10:05: [place] ophthalmic Medical drops Branch Brimonidine [address] Un [place] -Timolol 6-27 each eye. ity of 0.2-0.5 % 10:05: [place] [address] Medical drops Branch Brimonidine [address] Un ameena -Timolol 6-27 each eye. ity of 0.2-0.5 % 10:05: [place] [address] Medical drops Branch aspirin 81 0 Yes aspirin Univ ers mg EC 6-27 ity of tablet 10:04: [address] aspirin 81 2022-0 Yes aspirin Univ ers mg EC 6-27 ity of tablet 10:04: [address] aspirin 81 2022-0 Yes aspirin Univ ers mg EC 6-27 ity of tablet 10:04: [address] aspirin 81 2022-0 Yes aspirin Univ ers mg EC 6-27 ity of tablet 10:04: [address] aspirin 81 2022-0 Yes aspirin Univ ers mg EC 6-27 ity of tablet 10:04: [address] aspirin 81 2022-0 Yes aspirin Univ ers mg EC 6-27 ity of tablet 10:04: [address] aspirin 81 2022-0 Yes aspirin Univ ers mg EC 6-27 ity of tablet 10:04: [address] aspirin 81 2022-0 Yes aspirin Univ ers mg EC 6-27 ity of tablet 10:04: [address] aspirin 81 2022-0 Yes aspirin Univ ers mg EC 6-27 ity of tablet 10:04: [address] aspirin 81 2022-0 Yes aspirin Univ ers mg EC 6-27 ity of tablet 10:04: [place] [address] Medical Branch aspirin 81 3-0 Yes aspirin Univ ers mg EC 6-27 ity of tablet 10:04: [place] [address] Medical Branch nitroglycer 2023-[address] 1 Uni vers in 0.4 mg 6-27 tablet ity of sublingual 10:04: [place] the [place] tablet 15 tongue. Medical Branch nitroglycer 2023-[address] 1 Uni vers in 0.4 mg 6-27 tablet ity of sublingual 10:04: under the [place] tablet 15 tongue. Medical Branch nitroglycer 2023-[address] 1 Uni vers in 0.4 mg 6-27 tablet ity of sublingual 10:04: under the [place] tablet 15 tongue. Medical Branch nitroglycer 2023-[address] 1 Uni vers in 0.4 mg 6-27 tablet ity of sublingual 10:04: under the [place] tablet 15 tongue. Medical Branch nitroglycer 2023-[address] 1 Uni vers in 0.4 mg 6-27 tablet ity of sublingual 10:04: under the [place] tablet 15 tongue. Medical Branch nitroglycer 2023-[address] 1 Uni vers in 0.4 mg 6-27 tablet ity of sublingual 10:04: under the [place] tablet 15 tongue. Medical Branch nitroglycer 2023-[address] 1 Uni vers in 0.4 mg 6-27 tablet ity of sublingual 10:04: under the [place] tablet 15 tongue. Medical Branch nitroglycer 2023-[address] 1 Uni vers in 0.4 mg 6-27 tablet ity of sublingual 10:04: under the [place] tablet 15 tongue. Medical Branch nitroglycer 2023-[address] 1 Uni vers in 0.4 mg 6-27 tablet ity of sublingual 10:04: under the [place] tablet 15 tongue. Medical Branch nitroglycer 2023-[address] 1 Uni vers in 0.4 mg 6-27 tablet ity of sublingual 10:04: under the [place] tablet 15 tongue. Medical Branch nitroglycer 2023-[address] 1 Uni vers in 0.4 mg 6-27 tablet ity of sublingual 10:04: under the [place] tablet 15 tongue. Medical Branch anastrozole 2022- No Arimidex U nivers (ARIMIDEX 09-20- ity of ORAL) 10:04: 00:00 [place] 07 :00 Medical Branch insulin 2022- No 2U inject Univers aspart 09-20 2-16 Units ity of RAPID 100 10:04: 00:00 under the [place] unit/mL 07 :00 skin. Medical injection Branch anastrozole 2022- No Arimidex U nivers (ARIMIDEX 09-20 ity of ORAL) 10:04: 00:00 [place] 07 :00 Medical Branch insulin 2022- No 2U inject Univers aspart 09-20 2-16 Units ity of RAPID 100 10:04: 00:00 under the [place] unit/mL 07 :00 skin. Medical injection Branch insulin Yes [id number] PRN 5-10 Univers lispro 6-27 9101 units with ity of (HUMALOG 00:00: [place] KWIKPEN 00 SS. Max Medical INSULIN) daily dose Branc h 100 unit/mL of 50 PRN pen injector Insulin Yes [id number] 30U inject 30 Univers Glargine 6-27 9101 Units ity of (LANTUS 00:00: [facility] the Branch INSULIN) morning. 100 unit/mL (3 mL) injection insulin Yes [id number] PRN 5-10 Univers lispro 6-27 9101 units with ity of (HUMALOG 00:00: [place] KWIKPEN 00 SS. Max Medical INSULIN) daily dose Branc h 100 unit/mL of 50 PRN pen injector Insulin Yes [id number] 30U inject 30 Univers Glargine 6-27 9101 Units ity of (LANTUS 00:00: under the [place] SOLOSTAR 00 skin in Medical U-100 the Branch INSULIN) morning. 100 unit/mL (3 mL) injection insulin Yes [id number] PRN 5-10 Univers lispro 6-27 9101 units with ity of (HUMALOG 00:00: [place] KWIKPEN 00 SS. Max Medical INSULIN) daily dose Branc h 100 unit/mL of 50 PRN pen injector Insulin 0 Yes [id number] 30U inject 30 Univers Glargine 6-27 9101 Units ity of (LANTUS 00:00: under the [place] SOLOSTAR 00 skin in Medical U-100 the Branch INSULIN) morning. 100 unit/mL (3 mL) injection insulin Yes [id number] PRN 5-10 Univers lispro 6-27 9101 units with ity of (HUMALOG 00:00: [place] KWIKPEN 00 SS. Max Medical INSULIN) daily dose Branc h 100 unit/mL of 50 PRN pen injector Insulin Yes [id number] 30U inject 30 Univers Glargine 6-27 9101 Units ity of (LANTUS 00:00: under the [place] SOLOSTAR 00 skin in Medical U-100 the Branch INSULIN) morning. 100 unit/mL (3 mL) injection insulin Yes [id number] PRN 5-10 Univers lispro 6-27 9101 units with ity of (HUMALOG 00:00: [place] KWIKPEN 00 SS. Max Medical INSULIN) daily dose Branc h 100 unit/mL of 50 PRN pen injector Insulin Yes [id number] 30U inject 30 Univers Glargine 6-27 9101 Units ity of (LANTUS 00:00: under the [place] SOLOSTAR 00 skin in Medical U-100 the Branch INSULIN) morning. 100 unit/mL (3 mL) injection insulin Yes [id number] PRN 5-10 Univers lispro 6-27 9101 units with ity of (HUMALOG 00:00: [place] KWIKPEN 00 SS. Max Medical INSULIN) daily dose Branc h 100 unit/mL of 50 PRN pen injector Insulin Yes [id number] 30U inject 30 Univers Glargine 6-27 9101 Units ity of (LANTUS 00:00: under the [place] SOLOSTAR 00 skin in Medical U-100 the Branch INSULIN) morning. 100 unit/mL (3 mL) injection insulin Yes [id number] PRN 5-10 Univers lispro 6-27 9101 units with ity of (HUMALOG 00:00: [place] KWIKPEN 00 SS. Max Medical INSULIN) daily dose Branc h 100 unit/mL of 50 PRN pen injector Insulin Yes [id number] 30U inject 30 Univers Glargine 6-27 9101 Units ity of (LANTUS 00:00: under the [place] SOLOSTAR 00 skin in Medical U-100 the Branch INSULIN) morning. 100 unit/mL (3 mL) injection insulin Yes [id number] PRN 5-10 Univers lispro 6-27 9101 units with ity of (HUMALOG 00:00: [place] KWIKPEN 00 SS. Max Medical INSULIN) daily dose Branc h 100 unit/mL of 50 PRN pen injector Insulin Yes [id number] 30U inject 30 Univers Glargine 6-27 9101 Units ity of (LANTUS 00:00: under the [place] SOLOSTAR 00 skin in Medical U-[facility] the Branch INSULIN) morning. 100 unit/mL (3 mL) injection insulin Yes [id number] PRN 5-10 Univers lispro 6-27 9101 units with ity of (HUMALOG 00:00: [place] KWIKPEN 00 SS. Max Medical INSULIN) daily dose Branc h 100 unit/mL of 50 PRN pen injector insulin Yes [id number] PRN 5-10 Univers lispro 6-27 9101 units with ity of (HUMALOG 00:00: [place] KWIKPEN 00 SS. Max Medical INSULIN) daily dose Branc h 100 unit/mL of 50 PRN pen injector Insulin Yes [id number] 30U inject 30 Univers Glargine 6-27 9101 Units ity of (LANTUS 00:00: under the [place] SOLOSTAR 00 skin in Medical U-100 the Branch INSULIN) morning. 100 unit/mL (3 mL) injection insulin Yes [id number] PRN 5-10 Univers lispro 6-27 9101 units with ity of (HUMALOG 00:00: [place]PEN 00 SS. Max Medical INSULIN) daily dose Branc h 100 unit/mL of 50 PRN pen injector Insulin 2022-0 Yes [id number] 30U inject 30 Univers Glargine 6-27 9101 Units ity of (LANTUS 00:00: under the [place] SOLOSTAR 00 skin in Medical U-100 the Branch INSULIN) morning. 100 unit/mL (3 mL) injection insulin 2022- No [id number] PRN 5-10 Univers lispro 09-20 10- 9101 units with ity of (HUMALOG 00:00: 00:00 meals and [place] KWIKPEN 00 :00 SS. Max Medical INSULIN) daily dose Branc h 100 unit/mL of 50 PRN pen injector insulin 2022-0 2022- No [id number] PRN 5-10 Univers lispro 09-20 9101 units with ity of (HUMALOG 00:00: 00:00 meals and Al as KWIKPEN 00 :00 SS. Max Medical INSULIN) daily dose Branc h 100 unit/mL of 50 PRN pen injector Insulin 2022- No [id number] 30U inject 30 Univers Glargine 09-20 08- 9101 Units ity of (LANTUS 00:00: 00:00 under the [facility] 00 :00 skin in Medical U-100 the Branch INSULIN) morning. 100 unit/mL (3 mL) injection traZODone 2022- No 50mg Take 1 Unive rs 50 mg 09-01- tablet by ity of tablet 00:00: 04:59 mouth. [place] 00 :00 Medical Branch traZODone 2022-0 2022- No 50mg Take 1 Unive rs 50 mg 09-01- tablet by ity of tablet 00:00: 04:59 mouth. [place] 00 :00 Medical Branch traZODone 2022-0 2022- No 50mg Take 1 Unive rs 50 mg 09-01- tablet by ity of tablet 00:00: 04:59 mouth. [place] 00 :00 Medical Branch traZODone 2022-0 2022- No 50mg Take 1 Unive rs 50 mg 09-01- tablet by ity of tablet 00:00: 04:59 mouth. [place] 00 :00 Medical Branch traZODone 2023-0 2023- No 50mg Take 1 Unive rs 50 mg 09-01 tablet by ity of tablet 00:00: 04:59 mouth. [place] 00 :00 Medical Branch traZODone 2023-0 2023- No 50mg Take 1 Unive rs 50 mg 09-01 tablet by ity of tablet 00:00: 04:59 mouth. [place] 00 :00 Medical Branch traZODone 3-0 2023- No 50mg Take 1 Unive rs 50 mg 09-01 tablet by ity of tablet 00:00: 04:59 mouth. [place] 00 :00 Medical Branch Insulin 2022-0 Yes [id number] 40U inject 40 Univers Glargine 08-15 9101 Units ity of (LANTUS 00:00: under the [place] SOLOSTOH 00 skin in Medical U-100 the Branch INSULIN) morning. 100 unit/mL (3 mL) injection Insulin 2022-0 2022- No [id number] 40U inject 40 Univers Glargine 08-15 9101 Units ity of (LANTUS 00:00: 00:[address] [facility] Medical U-100 the Branch INSULIN) morning. 100 unit/mL (3 mL) injection Insulin 2022-0 2022- No [id number] 40U inject 40 Univers Glargine 08-15 9101 Units ity of (LANTUS 00:00: 00:[address] [facility] SOL[facility]AR 00 :00 skin in Medical U-100 the Branch INSULIN) morning. 100 unit/mL (3 mL) injection ondansetron 3-0 Yes Univer s 4 mg tablet 4-25 ity of 00:00: [place] 00 Medical Branch ondansetron 3-0 Yes Univer s 4 mg tablet 4-25 ity of 00:00: Medical Branch ondansetron 2023-0 Yes Univer s 4 mg tablet 4-25 ity of 00:00: Medical Branch ondansetron 2023-0 Yes Univer s 4 mg tablet 4-25 ity of 00:00: Medical Branch ondansetron 3-0 Yes Univer s 4 mg tablet 4-25 ity of 00:00: [place] 00 Medical Branch ondansetron 2023-0 Yes Univer s 4 mg tablet 4-25 ity of 00:00: [place] 00 Medical Branch ondansetron 2023-0 Yes Univer s 4 mg tablet 4-25 ity of 00:00: [place] 00 Medical Branch ondansetron 2023-0 Yes Univer s 4 mg tablet 4-25 ity of 00:00: [place] Medical Branch ondansetron 2023-0 Yes Univer s 4 mg tablet 4-25 ity of 00:00: [place] 00 Medical Branch ondansetron 2023-0 Yes Univer s 4 mg tablet 4-25 ity of 00:00: [place] [address] Medical Branch ondansetron 2023-0 Yes Univer s 4 mg tablet 4-25 ity of 00:00: [place] Medical Branch ondansetron 2023-0 Yes Univer s 4 mg tablet 4-25 ity of 00:00: [place] [address] Medical Branch ondansetron 2023-0 Yes Univer s 4 mg tablet 4-25 ity of 00:00: [place] 00 Medical Branch ondansetron 2023-0 Yes Univer s 4 mg tablet 4-25 ity of 00:00: [place] [address] Medical Branch pantoprazol 2023-0 2024- No 40mg Take 1 Uni vers e 40 mg EC 4-25 04-25 tablet by ity of tablet 00:00: 04:59 mouth. [place] 00 :00 Medical Branch pantoprazol 2023-0 2024- No 40mg Take 1 Uni vers e 40 mg EC 4-25 04-25 tablet by ity of tablet 00:00: 04:59 mouth. [place] 00 :00 Medical Branch pantoprazol 2023-0 2024- No 40mg Take 1 Uni vers e 40 mg EC 4-25 04-25 tablet by ity of tablet 00:00: 04:59 mouth. [place] 00 :00 Medical Branch pantoprazol 2023-0 2024- No 40mg Take 1 Uni vers e 40 mg EC 4-25 04-25 tablet by ity of tablet 00:00: 04:59 mouth. [place] 00 :00 Medical Branch pantoprazol 2023-0 2024- No 40mg Take 1 Uni vers e 40 mg EC 4-25 04-25 tablet by ity of tablet 00:00: 04:59 mouth. [place] 00 :00 Medical Branch pantoprazol 2022-0 2024- No 40mg Take 1 Uni vers e 40 mg EC 4-25 04-25 tablet by ity of tablet 00:00: 04:59 mouth. [place] 00 :00 Medical Branch pantoprazol 3-0 2024- No 40mg Take 1 Uni vers e 40 mg EC 4-25 04-25 tablet by ity of tablet 00:00: 04:59 mouth. [place] 00 :00 Medical Branch pantoprazol 2022-0 2024- No 40mg Take 1 Uni vers e 40 mg EC 4-25 04-25 tablet by ity of tablet 00:00: 04:59 mouth. [place] 00 :00 Medical Branch pantoprazol 2022-0 2024- No 40mg Take 1 Uni vers e 40 mg EC 4-25 04-25 tablet by ity of tablet 00:00: 04:59 mouth. [place] 00 :00 Medical Branch pantoprazol 2022-0 2024- No 40mg Take 1 Uni vers e 40 mg EC 4-25 04-25 tablet by ity of tablet 00:00: 04:59 mouth. [place] 00 :00 Medical Branch pantoprazol 2022-0 2024- No 40mg Take 1 Uni vers e 40 mg EC 4-25 04-25 tablet by ity of tablet 00:00: 04:59 mouth. [place] 00 :00 Medical Branch pantoprazol 3-0 2024- No 40mg Take 1 Uni vers e 40 mg EC 4-25 04-25 tablet by ity of tablet 00:00: 04:59 mouth. [place] 00 :00 Medical Branch pantoprazol 2022-0 2024- No 40mg Take 1 Uni vers e 40 mg EC 4-25 04-25 tablet by ity of tablet 00:00: 04:59 mouth. [place] 00 :00 Medical Branch pantoprazol 2022-0 2024- No 40mg Take 1 Uni vers e 40 mg EC 4-25 04-25 tablet by ity of tablet 00:00: 04:59 mouth. [place] 00 :00 Medical Branch blood sugar Yes Use as Univ ers diagnostic 4-14 directed ity o f (ONETOUCH 00:[place]: [place] TEST[place] 00 blood Medical strip sugars 4 Branch times daily with onetouch ultra 2 glucometer . DX: E10.65 Lancets Yes Use as Univers (ONETOUCH 4-14 directed ity of ULTRASO[place] 00:[place]: [place] LANCETS[place] 00 blood Medical Misc sugars 4 Branch times daily with onetouch ultra 2 glucometer DX: E10.65 blood sugar Yes Use as Univ ers diagnostic 4-14 directed ity o f (ONETOUCH 00:00: [place] TEST[place] 00 blood Medical strip sugars 4 Branch times daily with onetouch ultra 2 glucometer . DX: E10.65 Lancets Yes Use as Univers (ONETOUCH 4-14 directed ity of ULTRASOFT 00:00: [place] LANCETS[place] 00 blood Medical Misc sugars 4 Branch times daily with onetouch ultra 2 glucometer DX: E10.65 blood sugar Yes Use as Univ ers diagnostic 4-14 directed ity o f (ONETOUCH 00:00: [place] TEST[place] 00 blood Medical strip sugars 4 Branch times daily with onetouch ultra 2 glucometer . DX: E10.65 Lancets Yes Use as Univers (ONETOUCH 4-14 directed ity of ULTRASOFT 00:00: [place] LANCETS[place] 00 blood Medical Misc sugars 4 Branch times daily with onetouch ultra 2 glucometer DX: E10.65 blood sugar Yes Use as Univ ers diagnostic 4-14 directed ity o f (ONETOUCH 00:00: [place]TRA TEST[place] 00 blood Medical strip sugars 4 Branch times daily with onetouch ultra 2 glucometer . DX: E10.65 Lancets Yes Use as Univers (ONETOUCH 4-14 directed ity of ULTRASOFT 00:00: [place] LANCETS[place] 00 blood Medical Misc sugars 4 Branch times daily with onetouch ultra 2 glucometer DX: E10.65 blood sugar Yes Use as Univ ers diagnostic 4-14 directed ity o f (ONETOUCH 00:00: [place] ULTRA TEST[place] 00 blood Medical strip sugars 4 Branch times daily with onetouch ultra 2 glucometer . DX: E10.65 Lancets Yes Use as Univers (ONETOUCH 4-14 directed ity of ULTRASOFT 00:00: [place] LANCETS[place] 00 blood Medical Misc sugars 4 Branch times daily with onetouch ultra 2 glucometer DX: E10.65 blood sugar Yes Use as Univ ers diagnostic 4-14 directed ity o f (ONETOUCH 00:00: [place] ULTRA TEST[place] 00 blood Medical strip sugars 4 Branch times daily with onetouch ultra 2 glucometer . DX: E10.65 Lancets Yes Use as Univers (ONETOUCH 4-14 directed ity of ULTRASOFT 00:00: [place] LANCETS[place] 00 blood Medical Misc sugars 4 Branch times daily with onetouch ultra 2 glucometer DX: E10.65 blood sugar Yes Use as Univ ers diagnostic 4-14 directed ity o f (ONETOUCH 00:00: [place] ULTRA TEST[place] 00 blood Medical strip sugars 4 Branch times daily with onetouch ultra 2 glucometer . DX: E10.65 Lancets Yes Use as Univers (ONETOUCH 4-14 directed ity of ULTRASOFT 00:00: [place] LANCETS[place] 00 blood Medical Misc sugars 4 Branch times daily with onetouch ultra 2 glucometer DX: E10.65 blood sugar Yes Use as Univ ers diagnostic 4-14 directed ity o f (ONETOUCH 00:00: [place] ULTRA TEST[place] 00 blood Medical strip sugars 4 Branch times daily with onetouch ultra 2 glucometer . DX: E10.65 Lancets Yes Use as Univers (ONETOUCH 4-14 directed ity of ULTRASOFT 00:00: [place] LANCETS[place] 00 blood Medical Misc sugars 4 Branch times daily with onetouch ultra 2 glucometer DX: E10.65 blood sugar Yes Use as Univ ers diagnostic 4-14 directed ity o f (ONETOUCH 00:00: [place]TRA TEST[place] 00 blood Medical strip sugars 4 Branch times daily with onetouch ultra 2 glucometer . DX: E10.65 Lancets Yes Use as Univers (ONETOUCH 4-14 directed ity of ULTRASOFT 00:00: [place] LANCETS[place] 00 blood Medical Misc sugars 4 Branch times daily with onetouch ultra 2 glucometer DX: E10.65 blood sugar Yes Use as Univ ers diagnostic 4-14 directed ity o f (ONETOUCH 00:00: [place]TRA TEST[place] 00 blood Medical strip sugars 4 Branch times daily with onetouch ultra 2 glucometer . DX: E10.65 Lancets Yes Use as Univers (ONETOUCH 4-14 directed ity of ULTRASOFT 00:00: [place] LANCETS[place] 00 blood Medical Misc sugars 4 Branch times daily with onetouch ultra 2 glucometer DX: E10.65 blood sugar Yes Use as Univ ers diagnostic 4-14 directed ity o f (ONETOUCH 00:00: [place]TRA TEST[place] 00 blood Medical strip sugars 4 Branch times daily with onetouch ultra 2 glucometer . DX: E10.65 Lancets Yes Use as Univers (ONETOUCH 4-14 directed ity of ULTRASOFT 00:00: [place] LANCETS[place] 00 blood Medical Misc sugars 4 Branch times daily with onetouch ultra 2 glucometer DX: E10.65 blood sugar Yes Use as Univ ers diagnostic 4-14 directed ity o f (ONETOUCH 00:00: [place] ULTRA TEST[place] 00 blood Medical strip sugars 4 Branch times daily with onetouch ultra 2 glucometer . DX: E10.65 Lancets Yes Use as Univers (ONETOUCH 4-14 directed ity of ULTRASOFT 00:00: [place] LANCETS[place] 00 blood Medical Misc sugars 4 Branch times daily with onetouch ultra 2 glucometer DX: E10.65 blood sugar Yes Use as Univ ers diagnostic 4-14 directed ity o f (ONETOUCH 00:00: [place]TRA TEST[place] 00 blood Medical strip sugars 4 Branch times daily with onetouch ultra 2 glucometer . DX: E10.65 Lancets Yes Use as Univers (ONETOUCH 4-14 directed ity of ULTRASOFT 00:00: [place] LANCETS[place] 00 blood Medical Misc sugars 4 Branch times daily with onetouch ultra 2 glucometer DX: E10.65 blood sugar Yes Use as Univ ers diagnostic 4-14 directed ity o f (ONETOUCH 00:00: [place]TRA TEST[place] 00 blood Medical strip sugars 4 Branch times daily with onetouch ultra 2 glucometer . DX: E10.65 Lancets Yes Use as Univers (ONETOUCH 4-14 directed ity of ULTRASOFT 00:00: [place] LANCETS[place] 00 blood Medical Misc sugars 4 Branch times daily with onetouch ultra 2 glucometer DX: E10.65 blood sugar Yes Use as Univ ers diagnostic 4-14 directed ity o f (ONETOUCH 00:00: [place] ULTRA TEST[place] 00 blood Medical strip sugars 4 Branch times daily with onetouch ultra 2 glucometer . DX: E10.65 Lancets Yes Use as Univers (ONETOUCH 4-14 directed ity of ULTRASOFT 00:00: [place] LANCETS[place] 00 blood Medical Misc sugars 4 Branch times daily with onetouch ultra 2 glucometer DX: E10.65 blood sugar Yes Use as Univ ers diagnostic 4-14 directed ity o f (ONETOUCH 00:00: [place]TRA TEST[place] 00 blood Medical strip sugars 4 Branch times daily with onetouch ultra 2 glucometer . DX: E10.65 Lancets Yes Use as Univers (ONETOUCH 4-14 directed ity of ULTRASOFT 00:00: [place] LANCETS[place] 00 blood Medical Misc sugars 4 Branch times daily with onetouch ultra 2 glucometer DX: E10.65 blood sugar Yes Use as Univ ers diagnostic 4-14 directed ity o f (ONETOUCH 00:00: [place]TRA TEST[place] 00 blood Medical strip sugars 4 Branch times daily with onetouch ultra 2 glucometer . DX: E10.65 Lancets Yes Use as Univers (ONETOUCH 4-14 directed ity of ULTRASOFT 00:00: [place] LANCETS[place] 00 blood Medical Misc sugars 4 Branch times daily with onetouch ultra 2 glucometer DX: E10.65 blood sugar Yes Use as Univ ers diagnostic 4-14 directed ity o f (ONETOUCH 00:00: [place]TRA TEST[place] 00 blood Medical strip sugars 4 Branch times daily with onetouch ultra 2 glucometer . DX: E10.65 Lancets Yes Use as Univers (ONETOUCH 4-14 directed ity of ULTRASOFT 00:00: [place] LANCETS[place] 00 blood Medical Misc sugars 4 Branch times daily with onetouch ultra 2 glucometer DX: E10. blood sugar Yes Use as Univ ers diagnostic 4-14 directed ity o f (ONETOUCH 00:00: [place]TRA TEST[place] 00 blood Medical strip sugars 4 Branch times daily with onetouch ultra 2 glucometer . DX: E10.65 Lancets Yes Use as Univers (ONETOUCH 4-14 directed ity of ULTRASOFT 00:00: [place] LANCETS[place] 00 blood Medical Misc sugars 4 Branch times daily with onetouch ultra 2 glucometer DX: E10. blood sugar Yes Use as Univ ers diagnostic 4-14 directed ity o f (ONETOUCH 00:00: [place] ULTRA TEST[place] 00 blood Medical strip sugars 4 Branch times daily with onetouch ultra 2 glucometer . DX: E10. Lancets Yes Use as Univers (ONETOUCH 4-14 directed ity of ULTRASOFT 00:00: [place] LANCETS[place] 00 blood Medical Misc sugars 4 Branch times daily with onetouch ultra 2 glucometer DX: E10. blood sugar Yes Use as Univ ers diagnostic 4-14 directed ity o f (ONETOUCH 00:00: [place]TRA TEST[place] 00 blood Medical strip sugars 4 Branch times daily with onetouch ultra 2 glucometer . DX: E10.65 Lancets Yes Use as Univers (ONETOUCH 4-14 directed ity of ULTRASOFT 00:00: [place] LANCETS[place] 00 blood Medical Misc sugars 4 Branch times daily with onetouch ultra 2 glucometer DX: E10.65 blood sugar Yes Use as Univ ers diagnostic 4-14 directed ity o f (ONETOUCH 00:00: [place]TRA TEST[place] 00 blood Medical strip sugars 4 Branch times daily with onetouch ultra 2 glucometer . DX: E10.65 Lancets Yes Use as Univers (ONETOUCH 4-14 directed ity of ULTRASOFT 00:00: [place] LANCETS[place] 00 blood Medical Misc sugars 4 Branch times daily with [employer] ultra 2 glucometer DX: E10.65 amoxicillin 2022-0 3- No [id number] 500mg Take 1 Univers -pot 3-05 27-09 tablet by ity of clavulanate 00:00: 05:59 mouth in [place] 500 mg 00 :00 the Medical (AUGMENTIN) morning Branc h 500-125 mg and 1 tablet tablet in the evening. Do all this for 5 days. amoxicillin 2022-0 2022- No [id number] 500mg Take 1 Univers -pot 3-03 -09 tablet by ity of clavulanate 00:00: 05:59 mouth in [place] 500 mg 00 :00 the Medical (AUGMENTIN) morning Branc h 500-125 mg and 1 tablet tablet in the evening. Do all this for 5 days. Insulin 0 Yes [id number] Use as U nivers [place], 2-15 9101 directed ity of Disposable, 00:00: [place] (BD 00 Medical ULTRAFINE Branch III MINI PEN) 31 gauge x 3/16" Ndle Blood-Gluco 0 Yes [id number] Use as Univers se Meter 2-15 9101 directed ity of (ACCU-CHEK 00:00: [place] GUIDE 00 Medical GLUCOSE Branch METER) Misc blood sugar 0 Yes [id number] Use as Univers diagnostic 2-15 9101 directed ity o f (ACCU-CHEK 00:00: [place] GUIDE TEST 00 Medical STRIPS) Branch strip Insulin 2022-0 Yes [id number] Use as U nivers [place], 2-15 9101 directed ity of Disposable, 00:00: [place] (BD 00 Medical ULTRAFINE Branch III MINI PEN) 31 gauge x 3/16" Ndle Blood-Gluco 2022-0 Yes [id number] Use as Univers se Meter 2-15 9101 directed ity of (ACCU-CHEK 00:00: [place] GUIDE 00 Medical GLUCOSE Branch METER) Misc blood sugar 0 Yes [id number] Use as Univers diagnostic 2-15 9101 directed ity o f (ACCU-CHEK 00:00: [place] GUIDE TEST 00 Medical STRIPS) Branch strip Insulin 2022-0 Yes [id number] Use as U nivers [place], 2-15 9101 directed ity of Disposable, 00:00: [place] (BD 00 Medical ULTRAFINE Branch III MINI PEN) 31 gauge x 3/16" Ndle Blood-Gluco 2022-0 Yes [id number] Use as Univers se Meter 2-15 9101 directed ity of (ACCU-CHEK 00:00: [place] GUIDE 00 Medical GLUCOSE Branch METER) Misc blood sugar 2022-0 Yes [id number] Use as Univers diagnostic 2-15 9101 directed ity o f (ACCU-CHEK 00:00: [place] GUIDE TEST 00 Medical STRIPS) Branch strip Insulin 2022-0 Yes [id number] Use as U nivers [place], 2-15 9101 directed ity of Disposable, 00:00: [place] (BD 00 Medical ULTRAFINE Branch III MINI PEN) 31 gauge x 3/16" Ndle Blood-Gluco 2022-0 Yes [id number] Use as Univers se Meter 2-15 9101 directed ity of (ACCU-CHEK 00:00: [place] GUIDE 00 Medical GLUCOSE Branch METER) Misc blood sugar 2022-0 Yes [id number] Use as Univers diagnostic 2-15 9101 directed ity o f (ACCU-CHEK 00:00: [place] GUIDE TEST 00 Medical STRIPS) Branch strip Insulin 2022-0 Yes [id number] Use as U nivers [place], 2-15 9101 directed ity of Disposable, 00:00: [place] (BD 00 Medical ULTRAFINE Branch III MINI PEN) 31 gauge x 3/16" Ndle Blood-Gluco 2022-0 Yes [id number] Use as Univers se Meter 2-15 9101 directed ity of (ACCU-CHEK 00:00: [place] GUIDE 00 Medical GLUCOSE Branch METER) Misc blood sugar 2022-0 Yes [id number] Use as Univers diagnostic 2-15 9101 directed ity o f (ACCU-CHEK 00:00: [place] GUIDE TEST 00 Medical STRIPS) Branch strip Insulin 2022-0 Yes [id number] Use as U nivers [place], 2-15 9101 directed ity of Disposable, 00:00: [place] (BD 00 Medical ULTRAFINE Branch III MINI PEN) 31 gauge x 3/16" Ndle Blood-Gluco 3-0 Yes [id number] Use as Univers se Meter 2-15 9101 directed ity of (ACCU-CHEK 00:00: [place] GUIDE 00 Medical GLUCOSE Branch METER) Misc blood sugar 2022-0 Yes [id number] Use as Univers diagnostic 2-15 9101 directed ity o f (ACCU-CHEK 00:00: [place] GUIDE TEST 00 Medical STRIPS) Branch strip Insulin 2022-0 Yes [id number] Use as U nivers [place], 2-15 9101 directed ity of Disposable, 00:00: [place] (BD 00 Medical ULTRAFINE Branch III MINI PEN) 31 gauge x 3/16" Ndle Blood-Gluco 2022-0 Yes [id number] Use as Univers se Meter 2-15 9101 directed ity of (ACCU-CHEK 00:00: [place] GUIDE 00 Medical GLUCOSE Branch METER) Misc blood sugar 2022-0 Yes [id number] Use as Univers diagnostic 2-15 9101 directed ity o f (ACCU-CHEK 00:00: [place] GUIDE TEST 00 Medical STRIPS) Branch strip Insulin 2022-0 Yes [id number] Use as U nivers [place], 2-15 9101 directed ity of Disposable, 00:00: [place] (BD 00 Medical ULTRAFINE Branch III MINI PEN) 31 gauge x 3/16" Ndle Blood-Gluco 2022-0 Yes [id number] Use as Univers se Meter 2-15 9101 directed ity of (ACCU-CHEK 00:00: [place] GUIDE 00 Medical GLUCOSE Branch METER) Misc blood sugar 2022-0 Yes [id number] Use as Univers diagnostic 2-15 9101 directed ity o f (ACCU-CHEK 00:00: [place] GUIDE TEST 00 Medical STRIPS) Branch strip Blood-Gluco 3-0 Yes [id number] Use as Univers se Meter 2-15 9101 directed ity of (ACCU-CHEK 00:00: [place] GUIDE 00 Medical GLUCOSE Branch METER) Misc blood sugar 2022-0 Yes [id number] Use as Univers diagnostic 2-15 9101 directed ity o f (ACCU-CHEK 00:00: [place] GUIDE TEST 00 Medical STRIPS) Branch strip Blood-Gluco 3-0 Yes [id number] Use as Univers se Meter 2-15 9101 directed ity of (ACCU-CHEK 00:00: [place] GUIDE 00 Medical GLUCOSE Branch METER) Misc blood sugar 2022-0 Yes [id number] Use as Univers diagnostic 2-15 9101 directed ity o f (ACCU-CHEK 00:00: [place] GUIDE TEST 00 Medical STRIPS) Branch strip Blood-Gluco 0 Yes [id number] Use as Univers se Meter 2-15 01 directed ity of (ACCU-CHEK 00:00: [place] GUIDE 00 Medical GLUCOSE Branch METER) Misc blood sugar 0 Yes [id number] Use as Univers diagnostic 2-15 01 directed ity o f (ACCU-CHEK 00:00: [place] GUIDE TEST 00 Medical STRIPS) Branch strip Insulin Yes [id number] 40U inject 40 Univers Glargine 2-15 9101 Units ity of (LANTUS 00:00: under the [place] SOLOSTAR 00 skin in Medical U-100 the Branch INSULIN) morning. 100 unit/mL (3 mL) injection insulin Yes [id number] 5-10 units Univers lispro 2-15 9101 with meals ity of (HUMALOG 00:00: and SS. [place] KWIKPEN 00 Max daily Medical INSULIN) dose of 50 Branc h 100 unit/mL pen injector Insulin Yes [id number] Use as U nivers [place], 2-15 9101 directed ity of Disposable, 00:00: [place] (BD 00 Medical ULTRAFINE Branch III MINI PEN) 31 gauge x 3/16" Ndle Blood-Gluco Yes [id number] Use as Univers se Meter 2-15 9101 directed ity of (ACCU-CHEK 00:00: [place] GUIDE 00 Medical GLUCOSE Branch METER) Misc blood sugar 0 Yes [id number] Use as Univers diagnostic 2-15 9101 directed ity o f (ACCU-CHEK 00:00: [place] GUIDE TEST 00 Medical STRIPS) Branch strip Insulin Yes [id number] 40U inject 40 Univers Glargine 2-15 9101 Units ity of (LANTUS 00:00: under the [place] SOLOST[facility] 00 skin in Medical U-100 the Branch INSULIN) morning. 100 unit/mL (3 mL) injection insulin 2022-0 Yes [id number] 5-10 units Univers lispro 2-15 9101 with meals ity of (HUMALOG 00:00: and SS. [place]IKP[place] 00 Max daily Medical INSULIN) dose of 50 Branc h 100 unit/mL pen injector Insulin 2022-0 Yes [id number] Use as U nivers [place], 2-15 9101 directed ity of Disposable, 00:00: [place] (BD 00 Medical ULTRAFINE Branch III MINI PEN) 31 gauge x 3/16" Ndle Blood-Gluco 2022-0 Yes [id number] Use as Univers se Meter 2-15 9101 directed ity of (ACCU-CHEK 00:00: [place] GUIDE 00 Medical GLUCOSE Branch METER) [facility] blood sugar 2022-0 Yes [id number] Use as Univers diagnostic 2-15 9101 directed ity o f (ACCU-CHEK 00:00: [place] GUIDE TEST 00 Medical STRIPS) Branch strip Insulin 0 Yes [id number] 40U inject 40 Univers Glargine 2-15 9101 Units ity of (LANTUS 00:00: under the [place] SOL[place] 00 skin in Medical U-100 the Branch INSULIN) morning. 100 unit/mL (3 mL) injection insulin 2022-0 Yes [id number] 5-10 units Univers lispro 2-15 9101 with meals ity of (HUMALOG 00:00: and SS. [place] 00 Max daily Medical INSULIN) dose of 50 Branc h 100 unit/mL pen injector Insulin 2022-0 Yes [id number] Use as U nivers [place], 2-15 9101 directed ity of Disposable, 00:00: [place] (BD 00 Medical ULTRAFINE Branch III MINI PEN) 31 gauge x 3/16" Ndle Blood-Gluco 2022-0 Yes [id number] Use as Univers se Meter 2-15 9101 directed ity of (ACCU-CHEK 00:00: [place] GUIDE 00 Medical GLUCOSE Branch METER) [facility] blood sugar 2022-0 Yes [id number] Use as Univers diagnostic 2-15 9101 directed ity o f (ACCU-CHEK 00:00: [place] GUIDE TEST 00 Medical STRIPS) Branch strip Insulin 2022-0 Yes [id number] 40U inject 40 Univers Glargine 2-15 9101 Units ity of (LANTUS 00:00: under the [place] SOLOSTAR 00 skin in Medical U-100 the Branch INSULIN) morning. 100 unit/mL (3 mL) injection insulin 2022-0 Yes [id number] 5-10 units Univers lispro 2-15 9101 with meals ity of (HUMALOG 00:00: and SS. [place]WIKP[place] 00 Max daily Medical INSULIN) dose of 50 Branc h 100 unit/mL pen injector Insulin 2022-0 Yes [id number] Use as U nivers [place], 2-15 9101 directed ity of Disposable, 00:00: [place] (BD 00 Medical ULTRAFINE Branch III MINI PEN) 31 gauge x 3/16" Ndle Blood-Gluco 2022-0 Yes [id number] Use as Univers se Meter 2-15 9101 directed ity of (ACCU-CHEK 00:00: [place] GUIDE 00 Medical GLUCOSE Branch METER) Misc blood sugar 2022-0 Yes [id number] Use as Univers diagnostic 2-15 9101 directed ity o f (ACCU-CHEK 00:00: [place] GUIDE TEST 00 Medical STRIPS) Branch strip Insulin 2022-0 Yes [id number] 40U inject 40 Univers Glargine 2-15 9101 Units ity of (LANTUS 00:00: under the [place] SOLOSTOH 00 skin in Medical U-100 the Branch INSULIN) morning. 100 unit/mL (3 mL) injection insulin 2022-0 Yes [id number] 5-10 units Univers lispro 2-15 01 with meals ity of (HUMALOG 00:00: and SS. [place] KWIKPEN 00 Max daily Medical INSULIN) dose of 50 Branc h 100 unit/mL pen injector Insulin 0 Yes [id number] Use as U nivers [place], 2-15 9101 directed ity of Disposable, 00:00: [place] (BD 00 Medical ULTRAFINE Branch III MINI PEN) 31 gauge x 3/16" Ndle Blood-Gluco 2022-0 Yes [id number] Use as Univers se Meter 2-15 9101 directed ity of (ACCU-CHEK 00:00: [place] GUIDE 00 Medical GLUCOSE Branch METER) Misc blood sugar 2022-0 Yes [id number] Use as Univers diagnostic 2-15 9101 directed ity o f (ACCU-CHEK 00:00: [place] GUIDE TEST 00 Medical STRIPS) Branch strip Insulin 2022-0 Yes [id number] 40U inject 40 Univers Glargine 2-15 9101 Units ity of (LANTUS 00:00: under the [place] SOLOSTAR 00 skin in Medical U-100 the Branch INSULIN) morning. 100 unit/mL (3 mL) injection insulin 2022-0 Yes [id number] 5-10 units Univers lispro 2-15 9101 with meals ity of (HUMALOG 00:00: and SS. [place] KWIKPEN 00 Max daily Medical INSULIN) dose of 50 Branc h 100 unit/mL pen injector Insulin 2022-0 Yes [id number] Use as U nivers [place], 2-15 9101 directed ity of Disposable, 00:00: [place] (BD 00 Medical ULTRAFINE Branch III MINI PEN) 31 gauge x 3/16" Ndle Blood-Gluco 2022-0 Yes [id number] Use as Univers se Meter 2-15 9101 directed ity of (ACCU-CHEK 00:00: [place] GUIDE 00 Medical GLUCOSE Branch METER) Misc blood sugar 2022-0 Yes [id number] Use as Univers diagnostic 2-15 9101 directed ity o f (ACCU-CHEK 00:00: [place] GUIDE TEST 00 Medical STRIPS) Branch strip Insulin 2022-0 Yes [id number] 40U inject 40 Univers Glargine 2-15 9101 Units ity of (LANTUS 00:00: under the [facility] 00 skin in Medical U-100 the Branch INSULIN) morning. 100 unit/mL (3 mL) injection insulin 2022-0 Yes [id number] 5-10 units Univers lispro 2-15 9100 with meals ity of (HUMALOG 00:00: and SS. [place] KWIKPEN 00 Max daily Medical INSULIN) dose of 50 Branc h 100 unit/mL pen injector Insulin 2022-0 Yes [id number] Use as U nivers [place], 2-15 9101 directed ity of Disposable, 00:00: [place] (BD 00 Medical ULTRAFINE Branch III MINI PEN) 31 gauge x 3/16" Ndle Blood-Gluco 2022-0 Yes [id number] Use as Univers se Meter 2-15 9101 directed ity of (ACCU-CHEK 00:00: [place] GUIDE 00 Medical GLUCOSE Branch METER) Misc blood sugar 2022-0 Yes [id number] Use as [facility] diagnostic 2-15 9101 directed ity o f (ACCU-CHEK 00:00: [place] GUIDE TEST 00 Medical STRIPS) Branch strip Insulin 2022-0 Yes [id number] 40U inject 40 [facility] Glargine 2-15 9101 Units ity of (LANTUS 00:00: under the [place] SOLOSTAR 00 skin in Medical U-100 the Branch INSULIN) morning. 100 unit/mL (3 mL) injection insulin 2022-0 Yes [id number] 5-10 units [facility] lispro 2-15 9101 with meals ity of (HUMALOG 00:00: and SS. [place] KWIKPEN 00 Max daily Medical INSULIN) dose of 50 Branc h 100 unit/mL pen injector Insulin 2022-0 Yes [id number] Use as [facility] nivers [place], 2-15 9101 directed ity of Disposable, 00:00: [place] (BD 00 Medical ULTRAFINE Branch III MINI PEN) 31 gauge x 3/16" Ndle Blood-Gluco 0 Yes [id number] Use as [facility] se Meter 2-15 9101 directed ity of (ACCU-CHEK 00:00: [place] GUIDE 00 Medical GLUCOSE Branch METER) Misc blood sugar 0 Yes [id number] Use as [facility] diagnostic 2-15 9101 directed ity o f (ACCU-CHEK 00:00: [place] GUIDE TEST 00 Medical STRIPS) Branch strip Insulin 0 Yes [id number] 40U inject 40 [facility] Glargine 2-15 9101 Units ity of (LANTUS 00:00: under the [place] SOLOSTAR 00 skin in Medical U-100 the Branch INSULIN) morning. 100 unit/mL (3 mL) injection insulin 2022-0 Yes [id number] 5-10 units [facility] lispro 2-15 9101 with meals ity of (HUMALOG 00:00: and SS. [place] KWIKPEN 00 Max daily Medical INSULIN) dose of 50 Branc h 100 unit/mL pen injector Insulin 2022-0 Yes [id number] Use as U nivers [place], 2-15 9101 directed ity of Disposable, 00:00: [place] (BD 00 Medical ULTRAFINE Branch III MINI PEN) 31 gauge x 3/16" Ndle Blood-Gluco 2022-0 Yes [id number] Use as [facility] se Meter 2-15 9101 directed ity of (ACCU-CHEK 00:00: [place] GUIDE 00 Medical GLUCOSE Branch METER) Misc blood sugar 2022-0 Yes [id number] Use as [facility] diagnostic 2-15 9101 directed ity o f (ACCU-CHEK 00:00: [place] GUIDE TEST 00 Medical STRIPS) Branch strip Insulin 2022-0 Yes [id number] 40U inject 40 [facility] Glargine 2-15 9101 Units ity of (LANTUS 00:00: under the [place] SOLOSTAR 00 skin in Medical U-100 the Branch INSULIN) morning. 100 unit/mL (3 mL) injection insulin 2022-0 Yes [id number] 5-10 units [facility] lispro 2-15 9101 with meals ity of (HUMALOG 00:00: and SS. [place] KWIKPEN 00 Max daily Medical INSULIN) dose of 50 Branc h 100 unit/mL pen injector Insulin 2022-0 Yes [id number] Use as [facility] nivers [place], 2-15 9101 directed ity of Disposable, 00:00: [place] (BD 00 Medical ULTRAFINE Branch III MINI PEN) 31 gauge x 3/16" Ndle Blood-Gluco 2022-0 Yes [id number] Use as [facility] se Meter 2-15 9101 directed ity of (ACCU-CHEK 00:00: [place] GUIDE 00 Medical GLUCOSE Branch METER) Misc blood sugar 2022-0 Yes [id number] Use as [facility] diagnostic 2-15 9101 directed ity o f (ACCU-CHEK 00:00: [place] GUIDE TEST 00 Medical STRIPS) Branch strip Insulin 2022-0 Yes [id number] 40U inject 40 [facility] Glargine 2-15 9101 Units ity of (LANTUS 00:00: under the [place] SOLOSTAR 00 skin in Medical U-100 the Branch INSULIN) morning. 100 unit/mL (3 mL) injection insulin 2022-0 Yes [id number] 5-10 units [facility] lispro 2-15 9101 with meals ity of (HUMALOG 00:00: and SS. [place] KWIKPEN 00 Max daily Medical INSULIN) dose of 50 Branc h 100 unit/mL pen injector Insulin 2022-0 Yes [id number] Use as [facility] nivers [place], 2-15 9101 directed ity of Disposable, 00:00: [place] (BD 00 Medical ULTRAFINE Branch III MINI PEN) 31 gauge x 3/16" Ndle Blood-Gluco 2022-0 Yes [id number] Use as [facility] se Meter 2-15 9101 directed ity of (ACCU-CHEK 00:00: [place] GUIDE 00 Medical GLUCOSE Branch METER) [facility] blood sugar 2022-0 Yes [id number] Use as [facility] diagnostic 2-15 9101 directed ity o f (ACCU-CHEK 00:00: [place] GUIDE TEST 00 Medical STRIPS) Branch strip Insulin 2022-0 Yes [id number] 40U inject 40 [facility] Glargine 2-15 9101 Units ity of (LANTUS 00:00: under the [place] SOLOSTAR 00 skin in Medical U-100 the Branch INSULIN) morning. 100 unit/mL (3 mL) injection insulin 2022-0 Yes [id number] 5-10 units [facility] lispro 2-15 9101 with meals ity of (HUMALOG 00:00: and SS. [place] KWIKPEN 00 Max daily Medical INSULIN) dose of 50 Branc h 100 unit/mL pen injector Insulin 2022-0 Yes [id number] Use as U nivers [place], 2-15 9101 directed ity of Disposable, 00:00: [place] (BD 00 Medical ULTRAFINE Branch III MINI PEN) 31 gauge x 3/16" Ndle Blood-Gluco 2022-0 Yes [id number] Use as [facility] se Meter 2-15 9101 directed ity of (ACCU-CHEK 00:00: [place] GUIDE 00 Medical GLUCOSE Branch METER) [facility] [place] [facility] blood sugar 2022-0 Yes [id number] Use as [facility] diagnostic 2-15 9101 directed ity o f (ACCU-CHEK 00:00: [place] GUIDE TEST 00 Medical STRIPS) Branch strip Insulin 2022-0 Yes [id number] 40U inject 40 [facility] Glargine 2-15 9101 Units ity of (LANTUS 00:00: under the [place] SOLOSTAR 00 skin in Medical U-100 the Branch INSULIN) morning. 100 unit/mL (3 mL) injection insulin 2022-0 Yes [id number] 5-10 units [facility] lispro 2-15 9101 with meals ity of (HUMALOG 00:00: and SS. [place] KWIKPEN 00 Max daily Medical INSULIN) dose of 50 Branc h 100 unit/mL pen injector Insulin 2022-0 Yes [id number] Use as U nivers [place], 2-15 9101 directed ity of Disposable, 00:00: [place] (BD 00 Medical ULTRAFINE Branch III MINI PEN) 31 gauge x 3/16" Ndle Blood-Gluco 2022-0 Yes [id number] Use as [facility] se Meter 2-15 9101 directed ity of (ACCU-CHEK 00:00: [place] GUIDE 00 Medical GLUCOSE Branch METER) Misc blood sugar 2022-0 Yes [id number] Use as [facility] diagnostic 2-15 9101 directed ity o f (ACCU-CHEK 00:00: [place] GUIDE TEST 00 Medical STRIPS) Branch strip insulin 2022-0 Yes [id number] 5-10 units [facility] lispro 2-15 9101 with meals ity of (HUMALOG 00:00: and SS. [place] KWIKPEN 00 Max daily Medical INSULIN) dose of 50 Branc h 100 unit/mL pen injector Insulin 2022-0 Yes [id number] Use as U nivers [place], 2-15 9101 directed ity of Disposable, 00:00: [place] (BD 00 Medical ULTRAFINE Branch III MINI PEN) 31 gauge x 3/16" Ndle Blood-Gluco 2022-0 Yes [id number] Use as [facility] se Meter 2-15 9101 directed ity of (ACCU-CHEK 00:00: [place] GUIDE 00 Medical GLUCOSE Branch METER) Misc blood sugar 2022-0 Yes [id number] Use as [facility] diagnostic 2-15 9101 directed ity o f (ACCU-CHEK 00:00: [place] GUIDE TEST 00 Medical STRIPS) Branch strip insulin 2022-0 Yes [id number] 5-10 units [facility] lispro 2-15 9101 with meals ity of (HUMALOG 00:00: and SS. [place] KWIKPEN 00 Max daily Medical INSULIN) dose of 50 Branc h 100 unit/mL pen injector Insulin 2022-0 Yes [id number] Use as U nivers [place], 2-15 9101 directed ity of Disposable, 00:00: [place] (BD 00 Medical ULTRAFINE Branch III MINI PEN) 31 gauge x 3/16" Ndle Blood-Gluco 2022-0 Yes [id number] Use as [facility] se Meter 2-15 9101 directed ity of (ACCU-CHEK 00:00: [place] GUIDE 00 Medical GLUCOSE Branch METER) Misc blood sugar 2022-0 Yes [id number] Use as [facility] diagnostic 2-15 9101 directed ity o f (ACCU-CHEK 00:00: [place] GUIDE TEST 00 Medical STRIPS) Branch strip Insulin 2022-0 Yes [id number] Use as U nivers [place], 2-15 9101 directed ity of Disposable, 00:00: [place] (BD 00 Medical ULTRAFINE Branch III MINI PEN) 31 gauge x 3/16" Ndle Blood-Gluco 2022-0 Yes [id number] Use as [facility] se Meter 2-15 9101 directed ity of (ACCU-CHEK 00:00: [place] GUIDE 00 Medical GLUCOSE Branch METER) Misc blood sugar 2022-0 Yes [id number] Use as [facility] diagnostic 2-15 9101 directed ity o f (ACCU-CHEK 00:00: [place] GUIDE TEST 00 Medical STRIPS) Branch strip Insulin 2022-0 Yes [id number] Use as U nivers [place], 2-15 9101 directed ity of Disposable, 00:00: [place] (BD 00 Medical ULTRAFINE Branch III MINI PEN) 31 gauge x 3/16" Ndle Blood-Gluco 2022-0 Yes [id number] Use as [facility] se Meter 2-15 9101 directed ity of (ACCU-CHEK 00:00: [place] GUIDE 00 Medical GLUCOSE Branch METER) Misc blood sugar 2022-0 Yes [id number] Use as [facility] diagnostic 2-15 9101 directed ity o f (ACCU-CHEK 00:00: [place] GUIDE TEST 00 Medical STRIPS) Branch strip Insulin 2022-0 Yes [id number] Use as U nivers [place], 2-15 9101 directed ity of Disposable, 00:00: [place] (BD 00 Medical ULTRAFINE Branch III MINI PEN) 31 gauge x 3/16" Ndle Blood-Gluco 2022-0 Yes [id number] Use as [facility] se Meter 2-15 9101 directed ity of (ACCU-CHEK 00:00: [place] GUIDE 00 Medical GLUCOSE Branch METER) Misc blood sugar 2022-0 Yes [id number] Use as [facility] diagnostic 2-15 9101 directed ity o f (ACCU-CHEK 00:00: [place] GUIDE TEST 00 Medical STRIPS) Branch strip Insulin 2022-0 3- No [id number] Use as [facility] [place], 2-15 - 9101 directed ity of Disposable, 00:00: 00:00 [place] (BD 00 :00 Medical ULTRAFINE Branch III MINI PEN) 31 gauge x 3/16" Ndle Insulin 2022- No [id number] Use as [facility] [place], 05-11 9101 directed ity of Disposable, 00:00: 00:00 [place] (BD 00 :00 Medical ULTRAFINE Branch III MINI PEN) 31 gauge x 3/16" Ndle insulin 2022- No [id number] 5-10 units [facility] lispro 05-11 9101 with meals ity of (HUMALOG 00:00: 00:00 and SS. [place] KWIKPEN 00 :00 Max daily Medical INSULIN) dose of 50 Branc h 100 unit/mL pen injector insulin 2022- No [id number] 5-10 units [facility] lispro 05-11 9101 with meals ity of (HUMALOG 00:00: 00:00 and SS. [place] KWIKPEN 00 :00 Max daily Medical INSULIN) dose of 50 Branc h 100 unit/mL pen injector Insulin 2022- No [id number] 40U inject 40 [facility] Glargine 05-11 9101 Units ity of (LANTUS 00:00: 00:00 under the [place] SOLOSTAR 00 :00 skin in Medical U-100 the Branch INSULIN) morning. 100 unit/mL (3 mL) injection aspirin 81 0 Yes aspirin Univ ers mg EC 2-13 ity of tablet 15:52: [address] aspirin 81 0 Yes aspirin Univ ers mg EC 2-13 ity of tablet 15:52: [address] aspirin 81 2022-0 Yes aspirin Univ ers mg EC 2-13 ity of tablet 15:52: [address] aspirin 81 2022-0 Yes aspirin Univ ers mg EC 2-13 ity of tablet 15:52: [address] aspirin 81 2022-0 Yes aspirin Univ ers mg EC 2-13 ity of tablet 15:52: [address] aspirin 81 2022-0 Yes aspirin Univ ers mg EC 2-13 ity of tablet 15:52: [address] aspirin 81 2022-0 Yes aspirin Univ ers mg EC 2-13 ity of tablet 15:52: [address] aspirin 81 2022-0 Yes aspirin Univ ers mg EC 2-13 ity of tablet 15:52: [address] aspirin 81 0 Yes aspirin Univ ers mg EC 2-13 ity of tablet 15:52: [address] Branch aspirin 81 0 Yes aspirin Univ ers mg EC 2-13 ity of tablet 15:52: [address] Branch aspirin 81 0 Yes aspirin Univ ers mg EC 2-13 ity of tablet 15:52: [address] Branch aspirin 81 0 Yes aspirin Univ ers mg EC 2-13 ity of tablet 15:52: [address] Branch aspirin 81 0 Yes aspirin Univ ers mg EC 2-13 ity of tablet 15:52: [address] Branch aspirin 81 0 Yes aspirin Univ ers mg EC 2-13 ity of tablet 15:52: [address] Branch aspirin 81 0 Yes aspirin Univ ers mg EC 2-13 ity of tablet 15:52: [address] Branch aspirin 81 0 Yes aspirin Univ ers mg EC 2-13 ity of tablet 15:52: [address] aspirin 81 0 Yes aspirin Univ ers mg EC 2-13 ity of tablet 15:52: [address] aspirin 81 0 2022- No 81mg Take 81 mg Univers mg EC 2-13 05-09 by mouth. ity of tablet 15:52: 00:00 [place] 19 :00 Medical Branch aspirin 81 0 2022- No 81mg Take 81 mg Univers mg EC 2-13 05-09 by mouth. ity of tablet 15:52: 00:00 [place] 19 :00 Medical Branch cephALEXin 2021-03- No [id number] 500mg Take 1 Univers (KEFLEX) 2-18 03- capsule by ity of 500 mg 00:00: 00:00 mouth in [place] capsule 00 :00 the Medical morning Branch and 1 capsule in the evening. Do all this for 7 days. Nitrofurant 2021-03- No [id number] 100mg Take 1 [facility] oin&Nit. 2-15 - capsule by ity of Macrocryst 00:00: 00:00 mouth in [place] (MACROBID) 00 :00 the Medical 100 mg morning Branch capsule and 1 capsule in the evening. Do all this for 5 days. Nitrofurant 2021-03- No [id number] 100mg Take 1 Univers oin&Nit. 2-15 12-21 capsule by ity of Macrocryst 00:00: 05:59 mouth in [place] (MACROBID) 00 :00 the Medical 100 mg morning Branch capsule and 1 capsule in the evening. Do all this for 5 days. Nitrofurant 2021-03- No [id number] 100mg Take 1 Univers oin&Nit. 2-15 12-21 capsule by ity of Macrocryst 00:00: 05:59 mouth in [place] (MACROBID) 00 :00 the Medical 100 mg morning Branch capsule and 1 capsule in the evening. Do all this for 5 days. brinzolamid 2021-03 Yes 1[drp] 1 Drop 2 Univers e 1 % 1-07 (two) ity of ophthalmic 14:59: times [place] suspension 32 daily. Medical drops Branch brinzolamid 2021-03 Yes 1[drp] 1 Drop 2 Univers e 1 % 1-07 (two) ity of ophthalmic 14:59: times [place] suspension 32 daily. Medical drops Branch brinzolamid 2021-03 Yes 1[drp] 1 Drop 2 Univers e 1 % 1-07 (two) ity of ophthalmic 14:59: times [place] suspension 32 daily. Medical drops Branch brinzolamid 2021-03 Yes 1[drp] 1 Drop 2 Univers e 1 % 1-07 (two) ity of ophthalmic 14:59: times [place] suspension 32 daily. Medical drops Branch brinzolamid 2021-03 Yes 1[drp] 1 Drop 2 Univers e 1 % 1-07 (two) ity of ophthalmic 14:59: times [place] suspension 32 daily. Medical drops Branch brinzolamid 2021-03 Yes 1[drp] 1 Drop 2 Univers e 1 % 1-07 (two) ity of ophthalmic 14:59: times [place] suspension 32 daily. Medical drops Branch brinzolamid 2021-03 Yes 1[drp] 1 Drop 2 Univers e 1 % 1-07 (two) ity of ophthalmic 14:59: times [place] suspension 32 daily. Medical drops Branch brinzolamid 2021-03 Yes 1[drp] 1 Drop 2 Univers e 1 % 1-07 (two) ity of ophthalmic 14:59: times [place] suspension 32 daily. Medical drops Branch Brimonidine 2021-[address] in [place] -Timolol 1-07 each eye. ity of 0.2-0.5 % 14:59: [place] ophthalmic 32 Medical drops Branch brinzolamid 2021-03 Yes 1[drp] 1 Drop 2 Univers e 1 % 1-07 (two) ity of ophthalmic 14:59: times [place] suspension 32 daily. Medical drops Branch Brimonidine 2021-[address] in [place] -Timolol 1-07 each eye. ity of 0.2-0.5 % 14:59: [place] ophthalmic 32 Medical drops Branch brinzolamid 2021-03 Yes 1[drp] 1 Drop 2 Univers e 1 % 1-07 (two) ity of ophthalmic 14:59: times [place] suspension 32 daily. Medical drops Branch Brimonidine 2021-[address] in [place] -Timolol 1-07 each eye. ity of 0.2-0.5 % 14:59: [place] ophthalmic Medical drops Branch brinzolamid 2021-03 Yes 1[drp] 1 Drop 2 Univers e 1 % 1-07 (two) ity of ophthalmic 14:59: times [place] suspension 32 daily. Medical drops Branch Brimonidine 2021-[address] in [place] -Timolol 1-07 each eye. ity of 0.2-0.5 % 14:59: [place] ophthalmic Medical drops Branch brinzolamid 2021-03 Yes 1[drp] 1 Drop 2 Univers e 1 % 1-07 (two) ity of ophthalmic 14:59: times [place] suspension 32 daily. Medical drops Branch Brimonidine 2021-[address] in [place] -Timolol 1-07 each eye. ity of 0.2-0.5 % 14:59: [place] ophthalmic Medical drops Branch brinzolamid 2021-03 Yes 1[drp] 1 Drop 2 Univers e 1 % 1-07 (two) ity of ophthalmic 14:59: times [place] suspension 32 daily. Medical drops Branch Brimonidine 2021-[address] in [place] -Timolol 1-07 each eye. ity of 0.2-0.5 % 14:59: [place] ophthalmic Medical drops Branch brinzolamid 2021-03 Yes 1[drp] 1 Drop 2 Univers e 1 % 1-07 (two) ity of ophthalmic 14:59: times [place] suspension 32 daily. Medical drops Branch Brimonidine 2021-[address] in [place] -Timolol 1-07 each eye. ity of 0.2-0.5 % 14:59: [place] ophthalmic 32 Medical drops Branch brinzolamid 2021-03 Yes 1[drp] 1 Drop 2 Univers e 1 % 1-07 (two) ity of ophthalmic 14:59: times [place] suspension 32 daily. Medical drops Branch Brimonidine 2021-[address] in [place] -Timolol 1-07 each eye. ity of 0.2-0.5 % 14:59: [place] ophthalmic 32 Medical drops Branch brinzolamid 2021-03 Yes 1[drp] 1 Drop 2 Univers e 1 % 1-07 (two) ity of ophthalmic 14:59: times [place] suspension 32 daily. Medical drops Branch Brimonidine 2021-[address] in [place] -Timolol 1-07 each eye. ity of 0.2-0.5 % 14:59: [place] ophthalmic Medical drops Branch brinzolamid 2021-03 Yes 1[drp] 1 Drop 2 Univers e 1 % 1-07 (two) ity of ophthalmic 14:59: times [place] suspension 32 daily. Medical drops Branch Brimonidine 2021-[address] in [place] -Timolol 1-07 each eye. ity of 0.2-0.5 % 14:59: [place] ophthalmic 32 Medical drops Branch brinzolamid 2021-03 Yes 1[drp] 1 Drop 2 Univers e 1 % 1-07 (two) ity of ophthalmic 14:59: times [place] suspension 32 daily. Medical drops Branch Brimonidine 2021-[address] in [place] -Timolol 1-07 each eye. ity of 0.2-0.5 % 14:59: [place] ophthalmic 32 Medical drops Branch brinzolamid 2021-03 Yes 1[drp] 1 Drop 2 Univers e 1 % 1-07 (two) ity of ophthalmic 14:59: times [place] suspension 32 daily. Medical drops Branch Brimonidine 2021-[address] in [place] -Timolol 1-07 each eye. ity of 0.2-0.5 % 14:59: [place] ophthalmic 32 Medical drops Branch brinzolamid 2021-03 Yes 1[drp] 1 Drop 2 Univers e 1 % 1-07 (two) ity of ophthalmic 14:59: times [place] suspension 32 daily. Medical drops Branch Brimonidine 2021-[address] in [place] -Timolol 1-07 each eye. ity of 0.2-0.5 % 14:59: [place] ophthalmic 32 Medical drops Branch brinzolamid 2021-03 Yes 1[drp] 1 Drop 2 Univers e 1 % 1-07 (two) ity of ophthalmic 14:59: times [place] suspension 32 daily. Medical drops Branch Brimonidine 2021-[address] in [place] -Timolol 1-07 each eye. ity of 0.2-0.5 % 14:59: [place] ophthalmic Medical drops Branch brinzolamid 2021-03 Yes 1[drp] 1 Drop 2 Univers e 1 % 1-07 (two) ity of ophthalmic 14:59: times [place] suspension 32 daily. Medical drops Branch Brimonidine 2021-[address] in [place] -Timolol 1-07 each eye. ity of 0.2-0.5 % 14:59: [place] ophthalmic Medical drops Branch brinzolamid 2021-03 Yes 1[drp] 1 Drop 2 Univers e 1 % 1-07 (two) ity of ophthalmic 14:59: times [place] suspension 32 daily. Medical drops Branch Brimonidine 2021-[address] in [place] -Timolol 1-07 each eye. ity of 0.2-0.5 % 14:59: [place] ophthalmic Medical drops Branch brinzolamid 2021-03 Yes 1[drp] 1 Drop 2 Univers e 1 % 1-07 (two) ity of ophthalmic 14:59: times [place] suspension 32 daily. Medical drops Branch Brimonidine 2021-[address] in [place] -Timolol 1-07 each eye. ity of 0.2-0.5 % 14:59: [place] ophthalmic Medical drops Branch brinzolamid 2021-03 Yes 1[drp] 1 Drop 2 Univers e 1 % 1-07 (two) ity of ophthalmic 14:59: times [place] suspension 32 daily. Medical drops Branch Brimonidine 2021-[address] in [place] -Timolol 1-07 each eye. ity of 0.2-0.5 % 14:59: [place] ophthalmic 32 Medical drops Branch brinzolamid 2021-03 Yes 1[drp] 1 Drop 2 Univers e 1 % 1-07 (two) ity of ophthalmic 14:59: times [place] suspension 32 daily. Medical drops Branch Brimonidine 2021-[address] in [place] -Timolol 1-07 each eye. ity of 0.2-0.5 % 14:59: [place] ophthalmic 32 Medical drops Branch brinzolamid 2021-03 Yes 1[drp] 1 Drop 2 Univers e 1 % 1-07 (two) ity of ophthalmic 14:59: times [place] suspension 32 daily. Medical drops Branch Brimonidine 2021-[address] in [place] -Timolol 1-07 each eye. ity of 0.2-0.5 % 14:59: [place] ophthalmic 32 Medical drops Branch brinzolamid 2021-03 Yes 1[drp] 1 Drop 2 Univers e 1 % 1-07 (two) ity of ophthalmic 14:59: times [place] suspension 32 daily. Medical drops Branch Brimonidine 2021-[address] in [place] -Timolol 1-07 each eye. ity of 0.2-0.5 % 14:59: [place] ophthalmic 32 Medical drops Branch brinzolamid 2021-03 Yes 1[drp] 1 Drop 2 Univers e 1 % 1-07 (two) ity of ophthalmic 14:59: times [place] suspension 32 daily. Medical drops Branch Brimonidine 2021-[address] in [place] -Timolol 1-07 each eye. ity of 0.2-0.5 % 14:59: [place] ophthalmic 32 Medical drops Branch brinzolamid 2021-03 Yes 1[drp] 1 Drop 2 Univers e 1 % 1-07 (two) ity of ophthalmic 14:59: times [place] suspension 32 daily. Medical drops Branch Brimonidine 2021-[address] in [place] -Timolol 1-07 each eye. ity of 0.2-0.5 % 14:59: [place] ophthalmic 32 Medical drops Branch brinzolamid 2021-03 Yes 1[drp] 1 Drop 2 Univers e 1 % 1-07 (two) ity of ophthalmic 14:59: times [place] suspension 32 daily. Medical drops Branch Brimonidine 2021-[address] in [place] -Timolol 1-07 each eye. ity of 0.2-0.5 % 14:59: [place] ophthalmic 32 Medical drops Branch brinzolamid 2021-03 Yes 1[drp] 1 Drop 2 Univers e 1 % 1-07 (two) ity of ophthalmic 14:59: times [place] suspension 32 daily. Medical drops Branch Brimonidine 2021-[address] in [place] -Timolol 1-07 each eye. ity of 0.2-0.5 % 14:59: [place] ophthalmic 32 Medical drops Branch brinzolamid 2021-03 Yes 1[drp] 1 Drop 2 Univers e 1 % 1-07 (two) ity of ophthalmic 14:59: times [place] suspension 32 daily. Medical drops Branch Brimonidine 2021-[address] in [place] -Timolol 1-07 each eye. ity of 0.2-0.5 % 14:59: [place] ophthalmic Medical drops Branch brinzolamid 2021-03 Yes 1[drp] 1 Drop 2 Univers e 1 % 1-07 (two) ity of ophthalmic 14:59: times [place] suspension 32 daily. Medical drops Branch Brimonidine 2021-[address] in [place] -Timolol 1-07 each eye. ity of 0.2-0.5 % 14:59: [place] ophthalmic 32 Medical drops Branch brinzolamid 2021-03 Yes 1[drp] 1 Drop 2 Univers e 1 % 1-07 (two) ity of ophthalmic 14:59: times [place] suspension 32 daily. Medical drops Branch Brimonidine 2021-[address] in [place] -Timolol 1-07 each eye. ity of 0.2-0.5 % 14:59: [place] ophthalmic 32 Medical drops Branch brinzolamid 2021-03 Yes 1[drp] 1 Drop 2 Univers e 1 % 1-07 (two) ity of ophthalmic 14:59: times [place] suspension 32 daily. Medical drops Branch Brimonidine 2021-[address] in [place] -Timolol 1-07 each eye. ity of 0.2-0.5 % 14:59: [place] ophthalmic Medical drops Branch brinzolamid 2021-03 Yes 1[drp] 1 Drop 2 Univers e 1 % 1-07 (two) ity of ophthalmic 14:59: times [place] suspension 32 daily. Medical drops Branch Brimonidine 2021-[address] in [place] -Timolol 1-07 each eye. ity of 0.2-0.5 % 14:59: [place] ophthalmic 32 Medical drops Branch brinzolamid 2021-03 Yes 1[drp] 1 Drop 2 Univers e 1 % 1-07 (two) ity of ophthalmic 14:59: times [place] suspension 32 daily. Medical drops Branch Brimonidine 2021-[address] in [place] -Timolol 1-07 each eye. ity of 0.2-0.5 % 14:59: [place] ophthalmic Medical drops Branch brinzolamid 2021-03 Yes 1[drp] 1 Drop 2 Univers e 1 % 1-07 (two) ity of ophthalmic 14:59: times [place] suspension 32 daily. Medical drops Branch Brimonidine 2021-[address] in [place] -Timolol 1-07 each eye. ity of 0.2-0.5 % 14:59: [place] ophthalmic Medical drops Branch brinzolamid 2021-03 Yes 1[drp] 1 Drop 2 Univers e 1 % 1-07 (two) ity of ophthalmic 14:59: times [place] suspension 32 daily. Medical drops Branch Brimonidine 2021-[address] in [place] -Timolol 1-07 each eye. ity of 0.2-0.5 % 14:59: [place] ophthalmic 32 Medical drops Branch brinzolamid 2021-03 Yes 1[drp] 1 Drop 2 Univers e 1 % 1-07 (two) ity of ophthalmic 14:59: times [place] suspension 32 daily. Medical drops Branch brinzolamid 2021-03 Yes 1[drp] 1 Drop 2 Univers e 1 % 1-07 (two) ity of ophthalmic 14:59: times [place] suspension 32 daily. Medical drops Branch brinzolamid 2021-03 Yes 1[drp] 1 Drop 2 Univers e 1 % 1-07 (two) ity of ophthalmic 14:59: times [place] suspension 32 daily. Medical drops Branch brinzolamid 2021-03 Yes 1[drp] 1 Drop 2 Univers e 1 % 1-07 (two) ity of ophthalmic 14:59: times [place] suspension 32 daily. Medical drops Branch Insulin Yes [id number] 16 units Univers Detemir 12-22 9101 twice ity of (LEVEMIR 00:00: daily. Max Al as FLEXTOUCH 00 daily dose Medi latrice U-100 of 40 Branch INSULN) 100 units unit/mL (3 mL) injection Insulin Yes [id number] 16 units [facility] Detemir 12-22 9101 twice ity of (LEVEMIR 00:00: daily. Max Al as FLEXTOUCH 00 daily dose Medi latrice U-100 of 40 Branch INSULN) 100 units unit/mL (3 mL) injection Insulin Yes [id number] 16 units [facility] Detemir 12-22 9101 twice ity of (LEVEMIR 00:00: daily. Max [place] as FLEXTOUCH 00 daily dose Medi latrice U-100 of 40 Branch INSULN) 100 units unit/mL (3 mL) injection Insulin Yes [id number] 16 units [facility] Detemir 12-22 9101 twice ity of (LEVEMIR 00:00: daily. Max [place] as FLEXTOUCH 00 daily dose Medi latrice U-100 of 40 Branch INSULN) 100 units unit/mL (3 mL) injection Insulin Yes [id number] 16 units [facility] Detemir 12-22 9101 twice ity of (LEVEMIR 00:00: daily. Max Al as FLEXTOUCH 00 daily dose Medi latrice U-100 of 40 Branch INSULN) 100 units unit/mL (3 mL) injection Insulin Yes [id number] 16 units [facility] 12-22 9101 twice ity of (LEVEMIR 00:00: daily. [place] FLEXTOUCH 00 daily dose Medi latrice U-100 of 40 Branch INSULN) 100 units unit/mL (3 mL) injection Insulin Yes [id number] 16 units [facility] 12-22 9101 twice ity of (LEVEMIR 00:00: daily. [place] FLEXTOUCH 00 daily dose Medi latrice U-100 of 40 Branch INSULN) 100 units unit/mL (3 mL) injection Insulin Yes [id number] 16 units [facility] 9 9101 twice ity of (LEVEMIR 00:00: daily. [place] FLEXTOUCH 00 daily dose Medi latrice U-100 of 40 Branch INSULN) 100 units unit/mL (3 mL) injection Insulin Yes [id number] 16 units [facility] 9 9101 twice ity of (LEVEMIR 00:00: daily. [place] FLEXTOUCH 00 daily dose Medi latrice U-100 of 40 Branch INSULN) 100 units unit/mL (3 mL) injection Insulin Yes [id number] 16 units [facility] 9 9101 twice ity of (LEVEMIR 00:00: daily. [place] FLEXTOUCH 00 daily dose Medi latrice U-100 of 40 Branch INSULN) 100 units unit/mL (3 mL) injection Insulin Yes [id number] 16 units [facility] 9 9101 twice ity of (LEVEMIR 00:00: daily. [place] FLEXTOUCH 00 daily dose Medi latrice U-100 of 40 Branch INSULN) 100 units unit/mL (3 mL) injection Insulin Yes [id number] 16 units [facility] 9 9101 twice ity of (LEVEMIR 00:00: daily. [place] FLEXTOUCH 00 daily dose Medi latrice U-100 of 40 Branch INSULN) 100 units unit/mL (3 mL) injection Insulin Yes [id number] 16 units [facility] 9 9101 twice ity of (LEVEMIR 00:00: daily. [place] FLEXTOUCH 00 daily dose Medi latrice U-100 of 40 Branch INSULN) 100 units unit/mL (3 mL) injection Insulin Yes [id number] 16 units [facility] 9 9101 twice ity of (LEVEMIR 00:00: daily. [place] FLEXTOUCH 00 daily dose Medi latrice U-100 of 40 Branch INSULN) 100 units unit/mL (3 mL) injection Insulin Yes [id number] 16 units [facility] 9 9101 twice ity of (LEVEMIR 00:00: daily. [place] FLEXTOUCH 00 daily dose Medi latrice U-100 of 40 Branch INSULN) 100 units unit/mL (3 mL) injection Insulin 0 Yes [id number] 16 units [facility] 9 9101 twice ity of (LEVEMIR 00:00: daily. [place] FLEXTOUCH 00 daily dose Medi latrice U-100 of 40 Branch INSULN) 100 units unit/mL (3 mL) injection Insulin Yes [id number] 16 units [facility] 9 9101 twice ity of (LEVEMIR 00:00: daily. Max [place] FLEXTOUCH 00 daily dose Medi latrice U-100 of 40 Branch INSULN) 100 units unit/mL (3 mL) injection Insulin Yes [id number] 16 units [facility] 9 9101 twice ity of (LEVEMIR 00:00: daily. Max [place] FLEXTOUCH 00 daily dose Medi latrice U-100 of 40 Branch INSULN) 100 units unit/mL (3 mL) injection Insulin Yes [id number] 16 units [facility] 9 9101 twice ity of (LEVEMIR 00:00: daily. Max [place] as FLEXTOUCH 00 daily dose Medi latrice U-100 of 40 Branch INSULN) 100 units unit/mL (3 mL) injection Insulin Yes [id number] 16 units [facility] 9 9101 twice ity of (LEVEMIR 00:00: daily. Max [place] FLEXTOUCH 00 daily dose Medi latrice U-100 of 40 Branch INSULN) 100 units unit/mL (3 mL) injection Insulin Yes [id number] 16 units [facility] 9 9101 twice ity of (LEVEMIR 00:00: daily. Max [place] FLEXTOUCH 00 daily dose Medi latrice U-100 of 40 Branch INSULN) 100 units unit/mL (3 mL) injection Insulin Yes [id number] 16 units [facility] 9 9101 twice ity of (LEVEMIR 00:00: daily. Max [place] FLEXTOUCH 00 daily dose Medi latrice U-100 of 40 Branch INSULN) 100 units unit/mL (3 mL) injection Insulin 2022- No [id number] 16 units [facility] 915 9101 twice ity of (LEVEMIR 00:00: 00:00 daily. [place] FLEXTOUCH 00 :00 daily dose Medi latrice U-100 of 40 Branch INSULN) 100 units unit/mL (3 mL) injection Insulin 2022- No [id number] 16 units [facility] 928 05-11 9101 twice ity of (LEVEMIR 00:00: 00:00 daily. [place] FLEXTOUCH 00 :00 daily dose Medi latrice U-100 of 40 Branch INSULN) 100 units unit/mL (3 mL) injection Insulin Yes [id number] 16 units [facility] 916 9101 twice ity of (LEVEMIR 00:00: daily. Max [place] FLEXTOUCH 00 daily dose Medi latrice U-100 of 40 Branch INSULN) 100 units unit/mL (3 mL) injection insulin Yes [id number] 5-10 units [facility] lispro 9-16 9101 with meals ity of (HUMALOG 00:00: and SS. [place] KWIKPEN 00 Max daily Medical INSULIN) dose of 50 Branc h 100 unit/mL pen injector Insulin Yes [id number] 16 units [facility] 916 9101 twice ity of (LEVEMIR 00:00: daily. Max [place] FLEXTOUCH 00 daily dose Medi latrice U-100 of 40 Branch INSULN) 100 units unit/mL (3 mL) injection insulin Yes [id number] 5-10 units [facility] lispro 9-16 9101 with meals ity of (HUMALOG 00:00: and SS. [place] KWIKPEN 00 Max daily Medical INSULIN) dose of 50 Branc h 100 unit/mL pen injector insulin Yes [id number] 5-10 units [facility] lispro 9-16 9101 with meals ity of (HUMALOG 00:00: and SS. [place] KWIKPEN 00 Max daily Medical INSULIN) dose of 50 Branc h 100 unit/mL pen injector insulin Yes [id number] 5-10 units [facility] lispro 9-16 9101 with meals ity of (HUMALOG 00:00: and SS. [place] KWIKPEN 00 Max daily Medical INSULIN) dose of 50 Branc h 100 unit/mL pen injector insulin 2021-0 Yes [id number] 5-10 units [facility] lispro 9-16 9101 with meals ity of (HUMALOG 00:00: and SS. [place] KWIKPEN 00 Max daily Medical INSULIN) dose of 50 Branc h 100 unit/mL pen injector insulin 2021-0 Yes [id number] 5-10 units [facility] lispro 9-16 9101 with meals ity of (HUMALOG 00:00: and SS. [place] KWIKPEN 00 Max daily Medical INSULIN) dose of 50 Branc h 100 unit/mL pen injector insulin 2021-0 Yes [id number] 5-10 units [facility] lispro 9-16 9101 with meals ity of (HUMALOG 00:00: and SS. [place] KWIKPEN 00 Max daily Medical INSULIN) dose of 50 Branc h 100 unit/mL pen injector insulin 2021-0 Yes [id number] 5-10 units [facility] lispro 9-16 9101 with meals ity of (HUMALOG 00:00: and SS. [place] KWIKPEN 00 Max daily Medical INSULIN) dose of 50 Branc h 100 unit/mL pen injector insulin 2021-0 Yes [id number] 5-10 units [facility] lispro 9-16 9101 with meals ity of (HUMALOG 00:00: and SS. [place] KWIKPEN 00 Max daily Medical INSULIN) dose of 50 Branc h 100 unit/mL pen injector insulin 2021-0 Yes [id number] 5-10 units [facility] lispro 9-16 9101 with meals ity of (HUMALOG 00:00: and SS. [place] KWIKPEN 00 Max daily Medical INSULIN) dose of 50 Branc h 100 unit/mL pen injector insulin 2021-0 Yes [id number] 5-10 units [facility] lispro 9-16 9101 with meals ity of (HUMALOG 00:00: and SS. [place] KWIKPEN 00 Max daily Medical INSULIN) dose of 50 Branc h 100 unit/mL pen injector insulin 2021-0 Yes [id number] 5-10 units [facility] lispro 9-16 9101 with meals ity of (HUMALOG 00:00: and SS. [place] KWIKPEN 00 Max daily Medical INSULIN) dose of 50 Branc h 100 unit/mL pen injector insulin Yes [id number] 5-10 units [facility] lispro 9-16 9101 with meals ity of (HUMALOG 00:00: and SS. [place] KWIKPEN 00 Max daily Medical INSULIN) dose of 50 Branc h 100 unit/mL pen injector insulin Yes [id number] 5-10 units [facility] lispro 9-16 9101 with meals ity of (HUMALOG 00:00: and SS. [place] KWIKPEN 00 Max daily Medical INSULIN) dose of 50 Branc h 100 unit/mL pen injector insulin Yes [id number] 5-10 units [facility] lispro 9-16 9101 with meals ity of (HUMALOG 00:00: and SS. [place] KWIKPEN 00 Max daily Medical INSULIN) dose of 50 Branc h 100 unit/mL pen injector insulin Yes [id number] 5-10 units [facility] lispro 9-16 9101 with meals ity of (HUMALOG 00:00: and SS. [place] KWIKPEN 00 Max daily Medical INSULIN) dose of 50 Branc h 100 unit/mL pen injector insulin Yes [id number] 5-10 units [facility] lispro 9-16 9101 with meals ity of (HUMALOG 00:00: and SS. [place] KWIKPEN 00 Max daily Medical INSULIN) dose of 50 Branc h 100 unit/mL pen injector insulin Yes [id number] 5-10 units [facility] lispro 9-16 9101 with meals ity of (HUMALOG 00:00: and SS. [place] KWIKPEN 00 Max daily Medical INSULIN) dose of 50 Branc h 100 unit/mL pen injector insulin Yes [id number] 5-10 units [facility] lispro 9-16 9101 with meals ity of (HUMALOG 00:00: and SS. [place] KWIKPEN 00 Max daily Medical INSULIN) dose of 50 Branc h 100 unit/mL pen injector insulin Yes [id number] 5-10 units [facility] lispro 9-16 9101 with meals ity of (HUMALOG 00:00: and SS. [place] KWIKPEN 00 Max daily Medical INSULIN) dose of 50 Branc h 100 unit/mL pen injector insulin Yes [id number] 5-10 units [facility] lispro 9-16 9101 with meals ity of (HUMALOG 00:00: and SS. [place] KWIKPEN 00 Max daily Medical INSULIN) dose of 50 Branc h 100 unit/mL pen injector insulin Yes [id number] 5-10 units [facility] lispro 16 9100 with meals ity of (HUMALOG 00:00: and SS. [place] KWIKPEN 00 Max daily Medical INSULIN) dose of 50 Branc h 100 unit/mL pen injector insulin Yes [id number] 5-10 units [facility] lispro 12-10 91 with meals ity of (HUMALOG 00:00: and SS. [place] KWIKPEN 00 Max daily Medical INSULIN) dose of 50 Branc h 100 unit/mL pen injector insulin Yes [id number] 5-10 units [facility] lispro 12-10 with meals ity of (HUMALOG 00:00: and SS. [place] KWIKPEN 00 Max daily Medical INSULIN) dose of 50 Branc h 100 unit/mL pen injector insulin Yes [id number] 5-10 units [facility] lispro 12-10 with meals ity of (HUMALOG 00:00: and SS. [place] KWIKPEN 00 Max daily Medical INSULIN) dose of 50 Branc h 100 unit/mL pen injector insulin 2022- No [id number] 5-10 units [facility] lispro 12-10 91 with meals ity of (HUMALOG 00:00: 00:00 and SS. [place] KWIKPEN 00 :00 Max daily Medical INSULIN) dose of 50 Branc h 100 unit/mL pen injector insulin 2022- No [id number] 5-10 units [facility] lispro 12-10 91 with meals ity of (HUMALOG 00:00: 00:00 and SS. [place] KWIKPEN 00 :00 Max daily Medical INSULIN) dose of 50 Branc h 100 unit/mL pen injector Insulin 2021- No [id number] 16 units [facility] 12-10 9101 twice ity of (LEVEMIR 00:00: 00:00 daily. Max [place] FLEXTOUCH 00 :00 daily dose Medi latrice U-100 of 40 Branch INSULN) 100 units unit/mL (3 mL) injection anastrozole 2-0 Yes 1mg Take 1 mg U nivers 1 mg tablet 8-30 by mouth ity of 00:00: [place] [facility] anastrozole 2-0 Yes 1mg Take 1 mg U nivers 1 mg tablet 8-30 by mouth ity of 00:00: [place] [facility] Branch anastrozole 2-0 Yes 1mg Take 1 mg U nivers 1 mg tablet 8-30 by mouth ity of 00:: [place] [facility] Branch anastrozole 2-0 Yes 1mg Take 1 mg U nivers 1 mg tablet 8-30 by mouth ity of 00:00: [place] [facility] Branch anastrozole 2-0 Yes 1mg Take 1 mg U nivers 1 mg tablet 8-30 by mouth ity of 00:: [place] [facility] anastrozole 2-0 Yes 1mg Take 1 mg U nivers 1 mg tablet 8-30 by mouth ity of 00:: [place] [facility] Branch anastrozole 2-0 Yes 1mg Take 1 mg U nivers 1 mg tablet 8-30 by mouth ity of 00:: [place] [facility] Branch anastrozole 2-0 Yes 1mg Take 1 mg U nivers 1 mg tablet 8-30 by mouth ity of 00:: [place] [facility] anastrozole 2-0 Yes 1mg Take 1 mg U nivers 1 mg tablet 8-30 by mouth ity of 00:: [place] [facility] Branch anastrozole 2-0 Yes 1mg Take 1 mg U nivers 1 mg tablet 8-30 by mouth ity of 00:: [place] [facility] Branch anastrozole 2-0 Yes 1mg Take 1 mg U nivers 1 mg tablet 8-30 by mouth ity of 00:: [place] [facility] Branch anastrozole 2-0 Yes 1mg Take 1 mg U nivers 1 mg tablet 8-30 by mouth ity of 00:: [place] [facility] Branch anastrozole 2-0 Yes 1mg Take 1 mg U nivers 1 mg tablet 8-30 by mouth ity of 00:00: [place] [facility] Branch anastrozole 2-0 Yes 1mg Take 1 mg U nivers 1 mg tablet 8-30 by mouth ity of 00:00: [place] [facility] anastrozole 2-0 Yes 1mg Take 1 mg U nivers 1 mg tablet 8-30 by mouth ity of 00:00: Medical Branch anastrozole 2-0 Yes 1mg Take 1 mg U nivers 1 mg tablet 8-30 by mouth ity of 00:00: Medical Branch anastrozole 2022-0 Yes 1mg Take 1 mg U nivers 1 mg tablet 8-30 by mouth ity of 00:00: Medical Branch anastrozole 2022-0 2023- No 1mg Take 1 mg Univers 1 mg tablet 11-23 by mouth ity of 00:00: 00:00 [place] 00 : Medical Branch anastrozole 2022-0 2023- No 1mg Take 1 mg Univers 1 mg tablet 11-23 by mouth ity of 00:00: 00:00 [place] 00 :00 Medical Branch blood sugar 2-0 Yes [id number] Use as Univers diagnostic 5-16 9101 directed ity o f (ACCU-CHEK 00:00: as to [place] GUIDE TEST 00 check Medical STRIPS) blood Branch strip sugars 6 times daily for E10.65 blood sugar 2021-0 Yes [id number] Use as Univers diagnostic 5-16 9101 directed ity o f (ACCU-CHEK 00:00: as to [place] GUIDE TEST 00 check Medical STRIPS) blood Branch strip sugars 6 times daily for E10.65 blood sugar 2022-0 Yes [id number] Use as Univers diagnostic 5-16 9101 directed ity o f (ACCU-CHEK 00:00: as to [place] GUIDE TEST 00 check Medical STRIPS) blood Branch strip sugars 6 times daily for E10.65 blood sugar 2022-0 Yes [id number] Use as Univers diagnostic 5-16 9101 directed ity o f (ACCU-CHEK 00:00: as to [place] GUIDE TEST 00 check Medical STRIPS) blood Branch strip sugars 6 times daily for E10.65 blood sugar 2022-0 Yes [id number] Use as Univers diagnostic 5-16 9101 directed ity o f (ACCU-CHEK 00:00: as to [place] GUIDE TEST 00 check Medical STRIPS) blood Branch strip sugars 6 times daily for E10.65 blood sugar 2022-0 Yes [id number] Use as Univers diagnostic 5-16 9101 directed ity o f (ACCU-CHEK 00:00: as to [place] GUIDE TEST 00 check Medical STRIPS) blood Branch strip sugars 6 times daily for E10.65 blood sugar 2021-0 Yes [id number] Use as [facility] diagnostic 5-16 9101 directed ity o f (ACCU-CHEK 00:00: as to [place] GUIDE TEST 00 check Medical STRIPS) blood Branch strip sugars 6 times daily for E10.65 blood sugar 2-0 Yes [id number] Use as Univers diagnostic -16 9101 directed ity o f (ACCU-CHEK 00:00: as to [place] GUIDE TEST 00 check Medical STRIPS) blood Branch strip sugars 6 times daily for E10.65 blood sugar 2021-0 Yes [id number] Use as [facility] diagnostic 16 9101 directed ity o f (ACCU-CHEK 00:00: as to [place] GUIDE TEST 00 check Medical STRIPS) blood Branch strip sugars 6 times daily for E10.65 blood sugar 2021-0 Yes [id number] Use as Univers diagnostic 08-09 9101 directed ity o f (ACCU-CHEK 00:00: as to [place] GUIDE TEST 00 check Medical STRIPS) blood Branch strip sugars 6 times daily for E10.65 blood sugar 2021-0 Yes [id number] Use as Univers diagnostic 08-09 9101 directed ity o f (ACCU-CHEK 00:00: as to [place] GUIDE TEST 00 check Medical STRIPS) blood Branch strip sugars 6 times daily for E10.65 blood sugar 2-0 Yes [id number] Use as Univers diagnostic 08-09 9101 directed ity o f (ACCU-CHEK 00:00: as to [place] GUIDE TEST 00 check Medical STRIPS) blood Branch strip sugars 6 times daily for E10.65 blood sugar 2-0 Yes [id number] Use as Univers diagnostic 08-09 9101 directed ity o f (ACCU-CHEK 00:00: as to [place] GUIDE TEST 00 check Medical STRIPS) blood Branch strip sugars 6 times daily for E10.65 blood sugar 2021-0 Yes [id number] Use as Univers diagnostic 5-16 9101 directed ity o f (ACCU-CHEK 00:00: as to [place] GUIDE TEST 00 check Medical STRIPS) blood Branch strip sugars 6 times daily for E10.65 blood sugar 2022-0 Yes [id number] Use as Univers diagnostic -16 9101 directed ity o f (ACCU-CHEK 00:00: as to [place] GUIDE TEST 00 check Medical STRIPS) blood Branch strip sugars 6 times daily for E10.65 blood sugar 2022-0 Yes [id number] Use as Univers diagnostic 5-16 9101 directed ity o f (ACCU-CHEK 00:00: as to [place] GUIDE TEST 00 check Medical STRIPS) blood Branch strip sugars 6 times daily for E10.65 blood sugar 2022-0 Yes [id number] Use as Univers diagnostic 5-16 9101 directed ity o f (ACCU-CHEK 00:00: as to [place] GUIDE TEST 00 check Medical STRIPS) blood Branch strip sugars 6 times daily for E10.65 blood sugar 2022-0 Yes [id number] Use as Univers diagnostic 5-16 9101 directed ity o f (ACCU-CHEK 00:00: as to [place] GUIDE TEST 00 check Medical STRIPS) blood Branch strip sugars 6 times daily for E10.65 blood sugar 2022-0 Yes [id number] Use as Univers diagnostic 08-09 9101 directed ity o f (ACCU-CHEK 00:00: as to [place] GUIDE TEST 00 check Medical STRIPS) blood Branch strip sugars 6 times daily for E10.65 blood sugar 2-0 Yes [id number] Use as Univers diagnostic 08-09 9101 directed ity o f (ACCU-CHEK 00:00: as to [place] GUIDE TEST 00 check Medical STRIPS) blood Branch strip sugars 6 times daily for E10.65 blood sugar 2022-0 Yes [id number] Use as Univers diagnostic -16 9101 directed ity o f (ACCU-CHEK 00:00: as to [place] GUIDE TEST 00 check Medical STRIPS) blood Branch strip sugars 6 times daily for E10.65 blood sugar 2022-0 Yes [id number] Use as Univers diagnostic 5- 9101 directed ity o f (ACCU-CHEK 00:00: as to [place] GUIDE TEST 00 check Medical STRIPS) blood Branch strip sugars 6 times daily for E10.65 blood sugar 2022-0 Yes [id number] Use as Univers diagnostic 5-16 9101 directed ity o f (ACCU-CHEK 00:00: as to [place] GUIDE TEST 00 check Medical STRIPS) blood Branch strip sugars 6 times daily for E10.65 blood sugar 2022-0 Yes [id number] Use as [facility] diagnostic 5-16 9101 directed ity o f (ACCU-CHEK 00:00: as to [place] GUIDE TEST 00 check Medical STRIPS) blood Branch strip sugars 6 times daily for E10.65 blood sugar Yes [id number] Use as [facility] diagnostic 08-09 9101 directed ity o f (ACCU-CHEK 00:00: as to [place] GUIDE TEST 00 check Medical STRIPS) blood Branch strip sugars 6 times daily for E10.65 blood sugar 2022- No [id number] Use as Univers diagnostic 08-09 9101 directed ity of (ACCU-CHEK 00:00: 00:00 as to [place] GUIDE TEST 00 :00 check Medical STRIPS) blood Branch strip sugars 6 times daily for E10.65 blood sugar 2022- No [id number] Use as Univers diagnostic 08-09 9101 directed ity of (ACCU-CHEK 00:00: 00:00 as to [place] GUIDE TEST 00 :00 check Medical STRIPS) blood Branch strip sugars 6 times daily for E10.65 Insulin 2021- No 18U inject 18 Univ ers Detemir 05-10-14 Units ity of (LEVEMIR 14:59: 00:00 under the Al as FLEXTOUCH) 40 :00 skin 2 Medical 100 unit/mL (two) Branch (3 mL) InPn times daily. Insulin 2021- No 18U inject 18 Univ ers Detemir -10 05-14 Units ity of (LEVEMIR 14:59: 00:00 under the Al as FLEXTOUCH) 40 :00 skin 2 Medical 100 unit/mL (two) Branch (3 mL) InPn times daily. insulin 2021- No inject Univers aspart 05-10-14 under the ity of (NOVOLOG 14:56: 00:00 skin 3 [place] FLEXPEN) 36 :00 (three) Medical 100 unit/mL times Branch injection daily before meals. insulin 2021- No inject Univers aspart 05-10-14 under the ity of (NOVOLOG 14:56: 00:00 skin 3 [place] FLEXPEN) 36 :00 (three) Medical 100 unit/mL times Branch injection daily before meals. insulin 2021- No [id number] 5-10 units Univers lispro 05-10 9101 with meals ity of (HUMALOG 00:00: 00:00 and SS. [place] KWIKPEN 00 :00 Max daily Medical INSULIN) dose of 50 Branc h 100 unit/mL pen injector Insulin 2021- No [id number] 14 units [facility] 05-10 9101 twice ity of (LEVEMIR 00:00: 00:00 daily. [place] FLEXTOUCH 00 :00 daily dose Medi latrice U-100 of 35 Branch INSULN) 100 units unit/mL (3 mL) injection insulin 2021- No [id number] 5-10 units [facility] lispro 05-10 9101 with meals ity of (HUMALOG 00:00: 00:00 and SS. [place] KWIKPEN 00 :00 Max daily Medical INSULIN) dose of 50 Branc h 100 unit/mL pen injector Insulin 2021- No [id number] 14 units [facility] 05-10 9101 twice [...] 50mg Take 1 Uni vers mg tablet 03-2911 tablet by ity of 00:00: 05:59 mouth [place] 00 :00 every 6 Medical (six) Branch hours for 7 days. Indication s: acute pain aspirin 81 0 Yes 162mg Take [address] [facility] 9-28 mg by [facility] 15:38: mouth . [address] aspirin 81 2020-0 Yes 162mg Take [address] MG EC 9-28 mg by [facility] tablet 15:38: mouth . [address] aspirin 81 2020-0 Yes 162mg Take [address] MG EC 9-28 mg by [facility] tablet 15:38: mouth . [address] aspirin 81 2020-0 Yes 162mg Take [address] MG EC 9-28 mg by [facility] tablet 15:38: mouth . [address] ferrous Yes 650mg Take 650 [facility] QD Take [address] [facility] 9- by mouth [facility] (PROTONIX) 15:38: daily Once M edical 40 MG 54 a day Center tablet before a meal . simvastatin Yes 40mg QD Take [address] [facility] (ZOCOR) 40 - by mouth [facility] MG tablet 15:38: nightly. [facility] [address] [place] anastrozole Yes 1mg QD Take [address] (ARIMIDEX) 12-21 by [facility] 1 mg tablet 15:38: daily. [place] [address] Center latanoprost Yes 1[drp] QD Place [address] (XALATAN) - drop into [facility] 0.005 % 15:38: both eyes Medic al ophthalmic 54 nightly. Cente r solution brimonidine Yes 1[drp] Q.[id number] Place [address] [facility] -timolol 12-21 [id number] drop into [facility] (COMBIGAN) 15:38: 3D the right Me dical 0.2-0.5 % 54 eye 3 Center ophthalmic (three) solution times daily . brinzolamid Yes 1[drp] Q.5D Place [address] [facility] (AZOPT) 1 - drop into [place] es % 15:38: both eyes Medical ophthalmic 54 2 (two) Center suspension times daily. insulin Yes 2U Inject [facility] aspart 12-21 2-16 [facility] (NOVOLOG) 15:38: subcutaneo Me dical 100 unit/mL 54 usly 3 Center injection (three) times daily as needed for High Blood Sugar before meals . ferrous Yes 650mg Take 650 [facility] [...] QD Take [address] [facility] 9- by mouth [facility] (PROTONIX) 15:38: daily Once M edical 40 MG 54 a day Center tablet before a meal . simvastatin Yes 40mg QD Take [address] [facility] (ZOCOR) 40 - by mouth [facility] MG tablet 15:38: nightly. [facility] 54 Center anastrozole Yes 1mg QD Take [address] (ARIMIDEX) - by mouth [facility] 1 mg tablet 15:38: daily. [facility] 54 Center latanoprost Yes 1[drp] QD Place [address] (XALATAN) - drop into [facility] 0.005 % 15:38: both eyes Medic al ophthalmic 54 nightly. Cente r solution brimonidine Yes 1[drp] Q.[id number] Place [address] [facility] -timolol - [id number] drop into [facility] (COMBIGAN) 15:38: 3D the right Me dical 0.2-0.5 % 54 eye 3 Center ophthalmic (three) solution times daily . brinzolamid Yes 1[drp] Q.5D Place [address] [facility] (AZOPT) 1 - drop into [place] es % 15:38: both eyes Medical ophthalmic 54 2 (two) Center suspension times daily. insulin Yes 2U Inject [facility] aspart - 2-16 [facility] (NOVOLOG) 15:38: subcutaneo Me dical 100 unit/mL 54 usly 3 Center injection (three) times daily as needed for High Blood Sugar before meals . ferrous Yes 650mg Take 650 [facility] [...] QD Take [address] [facility] e - by mouth [facility] (PROTONIX) 15:38: daily Once M edical 40 MG 54 a day Center tablet before a meal . simvastatin Yes 40mg QD Take [address] [address] (ZOCOR) 40 12-21 by mouth [facility] MG tablet 15:38: nightly. [facility] 54 Center anastrozole Yes 1mg QD Take [address] (ARIMIDEX) 12-21 by [facility] 1 mg tablet 15:38: daily. [facility] 54 Center latanoprost Yes 1[drp] QD Place [address] (XALATAN) 12-21 drop into [facility] 0.005 % 15:38: both eyes Medic al ophthalmic 54 nightly. Cente r solution brimonidine Yes 1[drp] Q.[id number] Place [address] [facility] -timolol - [id number] drop into [facility] (COMBIGAN) 15:38: 3D the right Me dical 0.2-0.5 % 54 eye 3 Center ophthalmic (three) solution times daily . brinzolamid Yes 1[drp] Q.5D Place [address] [facility] (AZOPT) 1 - drop into [place] es % 15:38: both eyes Medical ophthalmic 54 2 (two) Center suspension times daily. insulin Yes 2U Inject [facility] aspart 12-21 2-16 [facility] (NOVOLOG) 15:38: subcutaneo Me dical 100 unit/mL 54 usly 3 Center injection (three) times daily as needed for High Blood Sugar before meals . ferrous Yes 650mg Take 650 [facility] [...] QD Take [address] [facility] e - by mouth [facility] (PROTONIX) 15:38: daily Once M edical 40 MG 54 a day Center tablet before a meal . simvastatin Yes 40mg QD Take [address] [address] (ZOCOR) 40 12-21 by mouth [facility] MG tablet 15:38: nightly. [facility] 54 Center anastrozole Yes 1mg QD Take [address] (ARIMIDEX) 12-21 by [facility] 1 mg tablet 15:38: daily. [place] [address] Center latanoprost Yes 1[drp] QD Place [address] (XALATAN) 12-21 drop into [facility] 0.005 % 15:38: both eyes Medic al ophthalmic 54 nightly. Cente r solution brimonidine Yes 1[drp] Q.[id number] Place [address] [facility] -timolol 12-21 [id number] drop into [facility] (COMBIGAN) 15:38: 3D the [...] Yes 400mg [address] [facility] (NEURONTIN) 9-17 every [facility] 100 MG 00:00: night as Medical capsule 00 needed . Center gabapentin Yes 400mg [address] [facility] (NEURONTIN) 9-17 every [facility] 100 MG 00:00: night as Medical capsule 00 needed . Center gabapentin 0 Yes 400mg [address] [facility] (NEURONTIN) 9-17 every [facility] 100 MG 00:00: night as Medical capsule 00 needed . Center gabapentin Yes 400mg [address] [facility] (NEURONTIN) 9-17 every [facility] 100 MG 00:00: night as Medical capsule 00 needed . [place] [facility] 0.01 % Drop 9-15 [facility] 00:[facility]: Medical solution 00 [facility] [address] [facility] 0.01 % Drop 9-15 [facility] 00:00: Medical solution 00 [facility] [address] [facility] 0[facility]01 % Drop 9-15 [facility] 00:00: Medical solution 00 [facility] [address] [facility] 0.01 % Drop 9-15 [facility] 00:[facility]: Medical solution 00 [place] HumaLOG Yes INJECT [address] [facility] KwikPen 9-08 UNITS [facility] Insulin 100 00:00: UNDER THE M edical unit/mL 00 SKIN THREE Center InPn TIMES DAILY USE SLIDING SCALE DIRECTED BY PHYSCIAN MAX OF 30 UNITS A DAY HumaLOG Yes INJECT [address] [facility] KwikPen 9-08 UNITS [facility] Insulin 100 00:00: UNDER THE M edical unit/mL 00 SKIN THREE Center InPn TIMES DAILY USE SLIDING SCALE DIRECTED BY PHYSCIAN MAX OF 30 UNITS A DAY HumaLOG Yes INJECT [address] [facility] KwikPen 9-08 UNITS [facility] Insulin 100 00:00: UNDER THE M edical unit/mL 00 SKIN THREE Center InPn TIMES DAILY USE SLIDING SCALE DIRECTED BY PHYSCIAN MAX OF 30 UNITS A DAY HumaLOG Yes INJECT [address] [facility] KwikPen 9-08 UNITS [facility] Insulin 100 00:00: UNDER THE M edical unit/mL 00 SKIN THREE Center InPn TIMES DAILY USE SLIDING SCALE DIRECTED BY CHANTE MAX OF 30 UNITS A DAY tamsulosin 2017-03 Yes .4mg QD Take 0.4 Met hodi (FLOMAX) 2-[address] 0.4 mg 00:27: mouth [facility] capsule 43 daily. l insulin 2017-03 Yes 30U QD Inject 30 Metho di GLARGINE 2-[address] (LANTUS) 00:27: under the Hosp rhoda 100 unit/mL 43 skin daily l injection before (vial) breakfast. brinzolamid 2017-03 Yes 1[drp] [id number] Administer [facility] (AZOPT) 1 2-18 [id number] % 00:27: 3D [...] before (vial) breakfast. brinzolamid 2017-03 Yes 1[drp] [id number] [facility] (AZOPT) 1 2-18 [id number] % 00:27: 3D [...] before (vial) breakfast. brinzolamid 2017-03 Yes 1[drp] [id number] Administer [facility] (AZOPT) 1 2-18 [id number] % 00:27: 3D [...] daily. [facility]ospita enteric 43 l coated tablet blood sugar 2016-03- No Test as Un [...] usly every Ce nter injection morning. insulin 2015-0 Yes 10U QD Inject 10 [facility] (LEVEMIR) 00:00: subcutaneo Me dical 100 unit/mL 00 usly Center injection nightly. insulin 0 Yes 10U QD Inject 10 [facility] (LEVEMIR) 00:00: subcutaneo Me dical 100 unit/mL 00 usly every Ce nter injection morning. insulin 0 Yes 10U QD Inject 10 [facility] (LEVEMIR) 00:00: subcutaneo Me dical 100 unit/mL 00 usly Center injection nightly. insulin 2016-0 Yes 10U QD Inject 10 [facility] (LEVEMIR) 00:00: subcutaneo Me dical 100 unit/mL 00 usly every Ce nter injection morning. insulin 2015-0 Yes 10U QD Inject 10 [facility] (LEVEMIR) 00:00: subcutaneo Me dical 100 unit/mL 00 usly Center injection nightly. insulin 2016-0 Yes 10U QD Inject 10 [facility] (LEVEMIR) 00:00: subcutaneo Me dical 100 unit/mL 00 usly every Ce nter injection morning. insulin 2016-0 Yes 10U QD Inject 10 [facility] detemir [facility] (LEVEMIR) 00:00: subcutaneo Me dical 100 unit/mL 00 usly Center injection nightly. brinzolamid 2016-0 Yes 1[drp] 1 Drop 2 [...] 0.2-0.5 % 07 Medical Drop Branch brinzolamid 2015-0 Yes 1[drp] 1 Drop 2 Univers e [...] 07 daily. Medical suspension Branch drops Brimonidine 2015-[address] in [place] -Timolol 5-16 each eye. ity of (COMBIGAN) 14:44: [place] 0.2-0.5 % 07 Medical Drop Branch brinzolamid 2015-0 Yes 1[drp] 1 Drop 2 Univers e (AZOPT) 1 5-16 (two) ity of % 14:44: times [place] [facility] 07 daily. Medical suspension Branch drops Brimonidine 2015-[address] in [place] -Timolol 5-16 each eye. ity of (COMBIGAN) 14:44: [place] 0.2-0.5 % 07 Medical Drop Branch brinzolamid 2015-0 Yes 1[drp] 1 Drop 2 Univers e (AZOPT) 1 5-16 (two) ity of % 14:44: times [place] [facility] 07 daily. Medical suspension Branch drops Brimonidine 2015-[address] in [place] -Timolol 5-16 each eye. ity of (COMBIGAN) 14:44: [place] 0.2-0.5 % 07 Medical Drop Branch brinzolamid 2015-0 Yes 1[drp] 1 Drop 2 Univers e (AZOPT) 1 5-16 (two) ity of % 14:44: times [place] [facility] 07 daily. Medical suspension Branch drops Brimonidine 2015-[address] in [place] -Timolol 5-16 each eye. ity of (COMBIGAN) 14:44: [place] 0.2-0.5 % 07 Medical Drop Branch brinzolamid 2015-0 Yes 1[drp] 1 Drop 2 Univers e (AZOPT) 1 5-16 (two) ity of % 14:44: times [place] [facility] 07 daily. Medical suspension Branch drops Brimonidine 2015-[address] in [place] -Timolol 5-16 each eye. ity of (COMBIGAN) 14:44: [place] 0.2-0.5 % 07 Medical Drop Branch simvastatin 2014-0 Yes [id number] 40mg Take 1 Tab Univers (ZOCOR) 40 8-18 by mouth ity o f mg tablet 00:00: at [place] 00 bedtime. Medical Branch simvastatin Yes [id number] 40mg Take 1 Tab Univers (ZOCOR) 40 8-18 by mouth ity o f mg tablet 00:00: at [place] 00 bedtime. Medical Branch simvastatin 2021- No [id number] 40mg Take 1 Tab Univers (ZOCOR) 40 8-18 09-16 by mouth ity of mg tablet 00:00: 00:00 at [place] 00 :00 bedtime. Medical Branch simvastatin 2021- No [id number] 40mg Take 1 Tab Univers (ZOCOR) 40 8-18 09-16 by mouth ity of mg tablet 00:00: 00:00 at [place] 00 :00 bedtime. Medical Branch Lancing Yes [id number] Check 6 Uni vers Device with 5-12 times per ity of Lancets 00:00: day [place] (ACCU-CHEK 00 Medical FASTCLIX) Branch Kit Lancing Yes [id number] Check 6 Uni vers Device with 5-12 times per ity of Lancets 00:00: day [place] (ACCU-CHEK 00 Medical FASTCLIX) Branch Kit Lancing Yes [id number] Check 6 Uni vers Device with 5-12 times per ity of Lancets 00:00: day [place] (ACCU-CHEK 00 Medical FASTCLIX) Branch Kit Lancing Yes [id number] Check 6 Uni vers Device with 5-12 times per ity of Lancets 00:00: [place] (ACCU-CHEK 00 Medical FASTCLIX) Branch Kit Lancing Yes [id number] Check 6 Uni vers Device with 5-12 times per ity of Lancets 00:00: day [place] (ACCU-CHEK 00 Medical FASTCLIX) Branch Kit Lancing Yes [id number] Check 6 Uni vers Device with 5-12 times per ity of Lancets 00:00: day [place] (ACCU-CHEK 00 Medical FASTCLIX) Branch Kit Lancing Yes [id number] Check 6 Uni vers Device with 5-12 times per ity of Lancets 00:00: day [place] (ACCU-CHEK 00 Medical FASTCLIX) Branch Kit Lancing Yes [id number] Check 6 Uni vers Device with 5-12 times per ity of Lancets 00:00: day [place] (ACCU-CHEK 00 Medical FASTCLIX) Branch Kit Lancing Yes [id number] Check 6 Uni vers Device with 5-12 times per ity of Lancets 00:00: day [place] (ACCU-CHEK 00 Medical FASTCLIX) Branch Kit [place]ancing Yes [id number] Check 6 Uni vers Device with 5-12 times per ity of Lancets 00:00: [place] (ACCU-CHEK 00 Medical FASTCLIX) Branch Kit Lancing Yes [id number] Check 6 Uni vers Device with 5-12 times per ity of Lancets 00:00: [place] (ACCU-CHEK 00 Medical FASTCLIX) Branch Kit Lancing Yes [id number] Check 6 Uni vers Device with 5-12 times per ity of Lancets 00:00: [place] (ACCU-CHEK 00 Medical FASTCLIX) Branch Kit Lancing Yes [id number] Check 6 Uni vers Device with 5-12 times per ity of Lancets 00:00: [place] (ACCU-CHEK 00 Medical FASTCLIX) Branch Kit Lancing Yes [id number] Check 6 Uni vers Device with 5-12 times per ity of Lancets 00:00: [place] (ACCU-CHEK 00 Medical FASTCLIX) Branch Kit Lancing Yes [id number] Check 6 Uni vers Device with 5-12 times per ity of Lancets 00:00: [place] (ACCU-CHEK 00 Medical FASTCLIX) Branch Kit Lancing Yes [id number] Check 6 Uni vers Device with 5-12 times per ity of Lancets 00:00: [place] (ACCU-CHEK 00 Medical FASTCLIX) Branch Kit Lancing Yes [id number] Check 6 Uni vers Device with 5-12 times per ity of Lancets 00:00: [place] (ACCU-CHEK 00 Medical FASTCLIX) Branch Kit Lancing Yes [id number] Check 6 Uni vers Device with 5-12 times per ity of Lancets 00:00: [place] (ACCU-CHEK 00 Medical FASTCLIX) Branch Kit Lancing Yes [id number] Check 6 Uni vers Device with 5-12 times per ity of Lancets 00:00: day [place] (ACCU-CHEK 00 Medical FASTCLIX) Branch Kit [place]ancing 0 Yes [id number] Check 6 Uni vers Device with 5-12 times per ity of Lancets 00:00: day [place] (ACCU-CHEK 00 Medical FASTCLIX) Branch Kit [place]ancing 0 Yes [id number] Check 6 Uni vers Device with 5-12 times per ity of Lancets 00:00: [place] (ACCU-CHEK 00 Medical FASTCLIX) Branch Kit Lancing 0 Yes [id number] Check 6 Uni vers Device with 5-12 times per ity of Lancets 00:00: [place] (ACCU-CHEK 00 Medical FASTCLIX) Branch Kit Lancing 0 Yes [id number] Check 6 Uni vers Device with 5-12 times per ity of Lancets 00:00: [place] (ACCU-CHEK 00 Medical FASTCLIX) Branch Kit Lancing 0 Yes [id number] Check 6 Uni vers Device with 5-12 times per ity of Lancets 00:00: [place] (ACCU-CHEK 00 Medical FASTCLIX) Branch Kit Lancing 0 Yes [id number] Check 6 Uni vers Device with 5-12 times per ity of Lancets 00:00: [place] (ACCU-CHEK 00 Medical FASTCLIX) Branch Kit Lancing 0 Yes [id number] Check 6 Uni vers Device with 5-12 times per ity of Lancets 00:00: [place] (ACCU-CHEK 00 Medical FASTCLIX) Branch Kit Lancing 0 Yes [id number] Check 6 Uni vers Device with 5-12 times per ity of Lancets 00:00: [place] (ACCU-CHEK 00 Medical FASTCLIX) Branch Kit Lancing 0 Yes [id number] Check 6 Uni vers Device with 5-12 times per ity of Lancets 00:00: [place] (ACCU-CHEK 00 Medical FASTCLIX) Branch Kit Lancing 0 Yes [id number] Check 6 Uni vers Device with 5-12 times per ity of Lancets 00:00: [place] (ACCU-CHEK 00 Medical FASTCLIX) Branch Kit Lancing 0 Yes [id number] Check 6 Uni vers Device with 5-12 times per ity of Lancets 00:00: day [place] (ACCU-CHEK 00 Medical FASTCLIX) Branch Kit Lancing 0 Yes [id number] Check 6 Uni vers Device with 5-12 times per ity of Lancets 00:00: [place] (ACCU-CHEK 00 Medical FASTCLIX) Branch Kit Lancing 0 Yes [id number] Check 6 Uni vers Device with 5-12 times per ity of Lancets 00:00: [place] (ACCU-CHEK 00 Medical FASTCLIX) Branch Kit Lancing 0 Yes [id number] Check 6 Uni vers Device with 5-12 times per ity of Lancets 00:00: [place] (ACCU-CHEK 00 Medical FASTCLIX) Branch Kit Lancing 0 Yes [id number] Check 6 Uni vers Device with 5-12 times per ity of Lancets 00:00: [place] (ACCU-CHEK 00 Medical FASTCLIX) Branch Kit Lancing 0 Yes [id number] Check 6 Uni vers Device with 5-12 times per ity of Lancets 00:00: [place] (ACCU-CHEK 00 Medical FASTCLIX) Branch Kit Lancing 0 Yes [id number] Check 6 Uni vers Device with 5-12 times per ity of Lancets 00:00: [place] (ACCU-CHEK 00 Medical FASTCLIX) Branch Kit Lancing 0 Yes [id number] Check 6 Uni vers Device with 5-12 times per ity of Lancets 00:00: [place] (ACCU-CHEK 00 Medical FASTCLIX) Branch Kit Lancing 0 Yes [id number] Check 6 Uni vers Device with 5-12 times per ity of Lancets 00:00: [place] (ACCU-CHEK 00 Medical FASTCLIX) Branch Kit Lancing 0 Yes [id number] Check 6 Uni vers Device with 5-12 times per ity of Lancets 00:00: [place] (ACCU-CHEK 00 Medical FASTCLIX) Branch Kit Lancing 0 Yes [id number] Check 6 Uni vers Device with 5-12 times per ity of Lancets 00:00: [place] (ACCU-CHEK 00 Medical FASTCLIX) Branch Kit Lancing 0 Yes [id number] Check 6 Uni vers Device with 5-12 times per ity of Lancets 00:00: day [place] (ACCU-CHEK 00 Medical FASTCLIX) Branch Kit Lancing Yes [id number] Check 6 Uni vers Device with 5-12 times per ity of Lancets 00:00: [place] (ACCU-CHEK 00 Medical FASTCLIX) Branch Kit Lancing Yes [id number] Check 6 Uni vers Device with 5-12 times per ity of Lancets 00:00: [place] (ACCU-CHEK 00 Medical FASTCLIX) Branch Kit Lancing Yes [id number] Check 6 Uni vers Device with 5-12 times per ity of Lancets 00:00: [place] (ACCU-CHEK 00 Medical FASTCLIX) Branch Kit Lancing Yes [id number] Check 6 Uni vers Device with 5-12 times per ity of Lancets 00:00: [place] (ACCU-CHEK 00 Medical FASTCLIX) Branch Kit Lancing Yes [id number] Check 6 Uni vers Device with 5-12 times per ity of Lancets 00:00: [place] (ACCU-CHEK 00 Medical FASTCLIX) Branch Kit Lancing Yes [id number] Check 6 Uni vers Device with 5-12 times per ity of Lancets 00:00: [place] (ACCU-CHEK 00 Medical FASTCLIX) Branch Kit Lancing Yes [id number] Check 6 Uni vers Device with 5-12 times per ity of Lancets 00:00: [place] (ACCU-CHEK 00 Medical FASTCLIX) Branch Kit Lancing Yes [id number] Check 6 Uni vers Device with 5-12 times per ity of Lancets 00:00: [place] (ACCU-CHEK 00 Medical FASTCLIX) Branch Kit Lancing Yes [id number] Check 6 Uni vers Device with 5-12 times per ity of Lancets 00:00: [place] (ACCU-CHEK 00 Medical FASTCLIX) Branch Kit Lancing Yes [id number] Check 6 Uni vers Device with 5-12 times per ity of Lancets 00:00: [place] (ACCU-CHEK 00 Medical FASTCLIX) Branch Kit Lancing Yes [id number] Check 6 Uni vers Device with 5-12 times per ity of Lancets 00:00: day [place] (ACCU-CHEK 00 Medical FASTCLIX) Branch Kit Lancing 0 Yes [id number] Check 6 Uni vers Device with 5-12 times per ity of Lancets 00:00: day [place] (ACCU-CHEK 00 Medical FASTCLIX) Branch Kit Lancing Yes [id number] Check 6 Uni vers Device with 5-12 times per ity of Lancets 00:00: day [place] (ACCU-CHEK 00 Medical FASTCLIX) Branch Kit Lancing Yes [id number] Check 6 Uni vers Device with 5-12 times per ity of Lancets 00:00: day [place] (ACCU-CHEK 00 Medical FASTCLIX) Branch Kit Lancing Yes [id number] Check 6 Uni vers Device with 5-12 times per ity of Lancets 00:00: day [place] (ACCU-CHEK 00 Medical FASTCLIX) Branch Kit latanoprost [...] 00:00: [place] ophthalmic Medical drops Branch latanoprost 2015-0 Yes Univer s (XALATAN) 3-20 ity of [...] tablet hours as Branch needed (pain). HYDROcodone 2022- No 1{tbl} Take 1 Tab Univers -acetaminop 3-09 06-27 by mouth ity of hen (NORCO 00:00: 00:00 every 4 Al as 5) 5-325 mg 00 :00 (four) Medica l tablet hours as Branch needed (pain). HYDROcodone 2022- No 1{tbl} Take 1 Tab Univers -acetaminop 3-09 06-27 by mouth ity of hen (NORCO 00:00: 00:00 every 4 Al as 5) 5-325 mg 00 :00 (four) Medica l tablet hours as Branch needed (pain). Humalog Humalog No Humalog [place] [facility] KwikPen KwikPen KwikPen da (U-100) (U-100) (U-100) [facility] Insulin 100 Insulin 100 Insulin al unit/mL unit/mL 100 Health subcutaneou subcutaneou unit/mL Outreac s INJECT s INJECT subcutaneo h 5-10 UNITS 5-10 UNITS us INJECT Program WITH MEALS WITH MEALS 5-10 UNITS AND SLIDING AND SLIDING WITH MEALS SCALE MAX SCALE MAX AND DAILY DOSE DAILY DOSE SLIDING OF 50 OF 50 SCALE MAX DAILY DOSE OF 50 ibuprofen ibuprofen No ibuprofen [place] 800 mg 800 mg 800 mg da tablet TAKE tablet TAKE tablet [facility] 1 TABLET BY 1 TABLET BY TAKE 1 al MOUTH EVERY MOUTH EVERY TABLET BY Health 6-8 HOURS 6-8 HOURS MOUTH Outr eac NEEDED NEEDED EVERY 6-8 h FOR PAIN FOR PAIN HOURS Pro gram NEEDED FOR PAIN Lantus Lantus No Lantus [place] Solostar Solostar Solostar da U-100 U-100 U-100 [facility] Insulin 100 Insulin 100 Insulin al unit/mL (3 unit/mL (3 100 Hea lth mL) mL) unit/mL (3 Outreac subcutaneou subcutaneou mL) h s pen s pen subcutaneo Program INJECT 40 INJECT 40 us pen UNITS UNDER UNITS UNDER INJECT 40 THE SKIN THE SKIN UNITS EVERY EVERY UNDER THE MORNING MORNING SKIN EVERY MORNING latanoprost latanoprost No latanopros [place] 0.005 % eye 0.005 % eye t 0.005 % da drops drops eye drops [facility] INSTILL 1 INSTILL 1 INSTILL 1 al DROP IN DROP IN DROP IN Health BOTH EYES BOTH EYES BOTH EYES Outreac DAILY AT DAILY AT DAILY AT h BEDTIME BEDTIME BEDTIME Progra m Levemir Levemir No Levemir [place] FlexTouch [...] solution subcutaneo Outreac us h solution Program anastrozole anastrozole No anastrozol [place] 1 mg tablet 1 mg tablet e 1 mg da TAKE 1 TAKE 1 tablet [facility] TABLET BY TABLET BY TAKE 1 al MOUTH DAILY MOUTH DAILY TABLET BY Health MOUTH Outreac DAILY h Program ondansetron ondansetron No ondansetro [place] HCl 4 mg HCl 4 mg n HCl 4 mg d a tablet tablet tablet [facility] Outre[facility] Program OneTouch OneTouch No OneTouch [place] Ultra Test Ultra Test Ultra Test da strips USE strips USE strips USE [facility] TO CHECK TO CHECK TO CHECK al BLOOD SUGAR BLOOD SUGAR BLOOD Health FOUR TIMES FOUR TIMES SUGAR FOUR Outreac DAILY DAILY TIMES h DAILY Program OneTouch OneTouch No OneTouch [place] Ultra2 Ultra2 Ultra2 da Meter USE Meter USE Meter USE [facility] DIRECTED DIRECTED a l DIRECTED Health Outreac h Program pantoprazol pantoprazol No pantoprazo [place] e 40 mg e 40 mg le 40 mg da tablet,ely tablet,ely tablet,del [facility] yed release yed release ayed a l release Health Outreac h Program insulin insulin No insulin [place] [...] 2 % da ointment ointment topical [facility] endoscopy APPLY SMALL APPLY SMALL ointment al AMOUNT [...] pack (EUA) pack (EUA) a dose O [facility] TK 2 TK 2 pack (EUA) h [...] 2 % da ointment ointment topical [facility] endoscopy APPLY SMALL APPLY SMALL ointment al AMOUNT [...] 2 % da ointment ointment topical [facility] endoscopy APPLY SMALL APPLY SMALL ointment al AMOUNT [...] tablet [facility] Outreac [facility] Program anastrozole anastrozole No anastrozol [place] 1 mg tablet 1 mg tablet e 1 mg da TAKE 1 TAKE 1 tablet [facility] TABLET BY TABLET BY TAKE 1 al MOUTH DAILY MOUTH DAILY TABLET BY Health MOUTH Outreac DAILY h Program BD BD No BD [place] Ultra-Fine Ultra-Fine Ultra-Fine da Mini Pen Mini Pen Mini Pen Epi scop Needle 31 Needle 31 Needle 31 al gauge x gauge x gauge x Health 316" USE 316" USE 316" USE Outreac DIRECTED DIRECTED h DIRECTED Program cyclobenzap cyclobenzap No cyclobenza [place] rine 5 mg rine 5 mg kelli 5 mg da tablet TAKE tablet TAKE tablet [facility] 1 TABLET BY 1 TABLET BY TAKE 1 al MOUTH THREE MOUTH THREE TABLET BY Health TIMES DAILY TIMES DAILY MOUTH Outreac NEEDED NEEDED THREE h FOR MUSCLE FOR MUSCLE TIMES Pr ogram SPASMS SPASMS DAILY NEEDED FOR MUSCLE SPASMS Humalog Humalog No Humalog [place] KwikPen KwikPen KwikPen da (U-100) (U-100) (U-100) [facility] Insulin 100 Insulin 100 Insulin al unit/mL unit/mL 100 Health subcutaneou subcutaneou unit/mL Outreac s INJECT s INJECT subcutaneo h 5-10 UNITS 5-10 UNITS us INJECT Program WITH MEALS WITH MEALS 5-10 UNITS AND SLIDING AND SLIDING WITH MEALS SCALE MAX SCALE MAX AND DAILY DOSE DAILY DOSE SLIDING OF 50 OF 50 SCALE MAX DAILY DOSE OF 50 ibuprofen ibuprofen No ibuprofen [place] 800 mg 800 mg 800 mg da tablet TAKE tablet TAKE tablet [facility] 1 TABLET BY 1 TABLET BY TAKE 1 al MOUTH EVERY MOUTH EVERY TABLET BY Health 6 TO 8 6 TO 8 MOUTH Outreac HOURS HOURS EVERY 6 TO h NEEDED FOR NEEDED FOR 8 HOURS Program PAIN PAIN NEEDED FOR PAIN Lantus Lantus No Lantus [place] Solostar Solostar Solostar da U-100 U-100 U-100 [facility] Insulin 100 Insulin 100 Insulin al unit/mL (3 unit/mL (3 100 Hea lth mL) mL) unit/mL (3 Outreac subcutaneou subcutaneou mL) h s pen s pen subcutaneo Program INJECT 40 INJECT 40 us pen UNITS UNDER UNITS UNDER INJECT 40 THE SKIN IN THE SKIN IN UNITS THE MORNING THE MORNING UNDER THE SKIN IN THE MORNING latanoprost latanoprost No latanopros [place] 0.005 % eye 0.005 % eye t 0.005 % da drops drops eye drops [facility] INSTILL 1 INSTILL 1 INSTILL 1 al DROP IN DROP IN DROP IN Health BOTH EYES BOTH EYES BOTH EYES Outreac EVERY DAY EVERY DAY EVERY DAY h AT BEDTIME AT BEDTIME AT BEDTIME Program Levemir Levemir No Levemir [place] FlexTouch [...] 2 % da ointment ointment topical [facility] endoscopy APPLY SMALL APPLY SMALL ointment al AMOUNT [...] BY Program MOUTH EVERY MOUTH EVERY MOUTH MORNING AND MORNING AND EVERY EVERY EVERY MORNING EVENING EVENING AND EVERY EVENING ondansetron ondansetron No ondansetro [place] HCl 4 mg HCl 4 mg n HCl 4 mg d a tablet tablet tablet [facility]re[facility] Program OneTouch OneTouch No OneTouch [place] Ultra Test Ultra Test Ultra Test da strips USE strips USE strips USE [facility] DIRECTED DIRECTED a l DIRECTED Health Outreac h Program OneTouch OneTouch No OneTouch [place] Ultra2 Ultra2 Ultra2 da Meter USE Meter USE Meter USE [facility] DIRECTED DIRECTED a l DIRECTED Health Outreac h Program oxybutynin oxybutynin No oxybutynin [place] chloride ER chloride ER chloride da 5 mg 5 mg ER 5 mg [facility] tablet,exte tablet,exte tablet,ext al nded nded ended Health release 24 release 24 release 24 Outreac hr hr hr h Program simvastatin simvastatin No simvastati [place] 40 mg 40 mg n 40 mg da tablet tablet tablet [facility] Outreac h Program tramadol 50 tramadol 50 No tramadol [place] mg tablet mg tablet 50 mg da TAKE 1 TAKE 1 tablet [facility] TABLET BY TABLET BY TAKE 1 al MOUTH EVERY MOUTH EVERY TABLET BY Health 6 HOURS 6 HOURS MOUTH Ou treac NEEDED NEEDED EVERY 6 h HOURS Program NEEDED Accu-Chek Accu-Chek No Accu-Chek [place] Guide test Guide test Guide test da strips USE strips USE strips USE [facility] DIRECTED DIRECTED a l SIX TIMES SIX TIMES DIRECTED H ealth EVERY DAY EVERY DAY SIX TIMES Outreac EVERY DAY h Program Adult Adult No Adult [place] Aspirin 81 Aspirin 81 Aspirin 81 da mg tablet mg tablet mg tablet [facility] Take by Take by Take by al oral route. oral route. oral H ealth route. Outreac h Program anastrozole anastrozole No anastrozol [place] 1 mg tablet 1 mg tablet e 1 mg da TAKE 1 TAKE 1 tablet [facility] TABLET BY TABLET BY TAKE 1 al MOUTH DAILY MOUTH DAILY TABLET BY Health MOUTH Outreac DAILY h Program BD BD No BD [place] Ultra-Fine Ultra-Fine Ultra-Fine da Mini Pen Mini Pen Mini Pen Epi scop Needle 31 Needle 31 Needle 31 al gauge x gauge x gauge x Health 3" USE 06/09" USE 06/09" USE Outreac DIRECTED DIRECTED h DIRECTED Program Combigan Combigan No Combigan [place] 0.2 %-0.5 % 0.2 %-0.5 % 0.2 %-0.5 da eye drops eye drops % eye Ep[facility] endoscopy INSTILL 1 INSTILL 1 drops al DROP INTO DROP INTO INSTILL 1 Health AFFECTED AFFECTED DROP INTO Ou treac EYE(S) BY EYE(S) BY AFFECTED h OPHTHALMIC OPHTHALMIC EYE(S) BY Program ROUTE TID ROUTE TID OPHTHALMIC ROUTE TID Vital Signs Vital Name Observation Time Observation Value Comments Source WEIGHT 2020-12-21 05:01:00 64.501 kg WEIGHT 2020-12-18 05:19:00 64.683 kg WEIGHT 2020-12-15 08:00:00 62.914 kg HEIGHT 2020-12-15 05:04:00 160 cm WEIGHT 2020-12-15 05:04:00 65.318 kg Systolic blood 2022-12-27 15:03:00 118 mm[Hg] [facility] Diastolic blood 2022-12-27 15:03:00 67 mm[Hg] Unive [facility] Heart rate 2022-12-27 15:03:00 66 /min [facility] Body height 2022-12-27 15:03:00 162.6 cm [facility] Body weight 2022-12-27 15:03:00 65.772 kg [facility] [place] [facility] BMI 2022-12-27 15:03:00 24.89 kg/m2 [facility] [place] [facility] Oxygen saturation in 2022-12-27 15:03:00 100 /min [facility] Arterial blood by [facility] Pulse oximetry Branch BMI (Body Mass 2022-12-06 00:00:00 25 kg/m2 [facility] [facility]) [facility] Body Weight 2022-12-06 00:00:00 155 [lb_av] [place] [facility] Height 2022-12-06 00:00:00 66 [in_i] [place] [facility] Systolic blood 2022-09-20 14:45:00 134 mm[Hg] Univer sity of pressure [facility] Diastolic blood 2022-09-20 14:45:00 79 mm[Hg] Unive rsity of pressure [facility] Body height 2022-09-20 14:45:00 162.6 cm [facility] [place] [facility] Body weight 2022-09-20 14:45:00 65.273 kg [facility] [place] [facility] BMI 2022-09-20 14:45:00 24.70 kg/m2 [facility] [place] [facility] [place] Height 2022-05-24 00:00:00 66 [in_i] [place] [facility] Systolic blood 2022-05-11 21:14:00 177 mm[Hg] Univer sity of pressure [facility] Diastolic blood 2022-05-11 21:14:00 127 mm[Hg] Unive rsity of [facility] Heart rate 2022-05-11 21:01:00 46 /min [facility] [place] [facility] [place] Body weight 2022-05-11 21:01:00 64.275 kg [facility] [place] [facility] BMI 2022-05-11 21:01:00 24.32 kg/m2 [facility] Oxygen saturation in 2022-05-11 21:01:00 97 /min [facility] Arterial blood by [facility] Pulse oximetry Branch Systolic blood 2022-05-09 21:49:00 115 mm[Hg] Univer sity of pressure [facility] Diastolic blood 2022-05-09 21:49:00 64 mm[Hg] Unive rsity of pressure [facility] Heart rate 2022-05-09 21:49:00 65 /min [facility] Body temperature 2022-05-09 21:49:00 36.44 Macarena Univ ersity of [facility] Respiratory rate 2022-05-09 21:49:00 18 /min Univ ersity of [facility] Body height 2022-05-09 21:49:00 162.6 cm Universi ty of [facility] Body weight 2022-05-09 21:49:00 56.246 kg Universi ty of [facility] BMI 2022-05-09 21:49:00 21.28 kg/m2 [facility] Height 2022-02-01 00:00:00 66 [in_i] [place] [facility] Systolic blood 2022-01-31 20:58:00 110 mm[Hg] Univer sity of pressure [facility] Diastolic blood 2022-01-31 20:58:00 62 mm[Hg] Unive rsity of pressure [facility] Heart rate 2022-01-31 20:58:00 80 /min Universi ty of [facility] Body temperature 2022-01-31 20:58:00 36.22 Macarena [facility] Respiratory rate 2022-01-31 20:58:00 16 /min [facility] Body height 2022-01-31 20:58:00 162.6 cm Universi ty of [facility] Body weight 2022-01-31 20:58:00 63.594 kg Universi ty of [facility] BMI 2022-01-31 20:58:00 24.07 kg/m2 Universi ty of [facility] Oxygen saturation in 2022-01-31 20:58:00 98 /min [facility] Arterial blood by [facility] Pulse oximetry [facility] 2021-12-21 00:00:00 66 [in_i] [place] [facility] Systolic blood 2021-12-10 20:33:00 127 mm[Hg] Univer sity of [facility] Diastolic blood 2021-12-10 20:33:00 79 mm[Hg] Unive rsity of pressure [facility] Heart rate 2021-12-10 20:33:00 77 /min Universi ty [facility] Body weight 2021-12-10 20:33:00 64.093 kg Universi ty [facility] BMI 2021-12-10 20:33:00 24.25 [facility] saturation in 2021-12-10 20:33:00 99 /min [facility] Arterial blood by [facility] Pulse oximetry Branch Height 2021-11-02 00:00:00 66 [in_i] [place] [facility] BMI (Body Mass 2021-11-02 00:00:00 25 kg/m2 [facility] [employer] Index) [facility] Body Weight 2021-11-02 00:00:00 155 [lb_av] [place] [facility] Systolic blood 2021-01-27 19:42:00 86 mm[Hg] Univer sity of pressure [facility] Diastolic blood 2021-01-27 19:42:00 52 mm[Hg] Unive rsity of pressure [facility] Heart rate 2021-01-27 19:42:00 90 /min Universi ty [facility] Body height 2021-01-27 19:42:00 167.6 cm Universi [facility] Body weight 2021-01-27 19:42:00 65.318 kg [facility] BMI 2021-01-27 19:42:00 23.24 kg/m2 [facility] WEIGHT 2020-12-21 05:01:00 64.501 kg WEIGHT 2020-12-18 05:19:00 64.683 kg WEIGHT 2020-12-15 08:00:00 62.914 kg HEIGHT 2020-12-15 05:04:00 160 cm WEIGHT 2020-12-15 05:04:00 65.318 kg Height 2019-05-21 00:00:00 66 [in_i] [place] [facility] BMI (Body Mass 2019-05-21 00:00:00 25.8 kg/m2 [facility] [employer] Index) [facility] Body Weight 2019-05-21 00:00:00 160 [lb_av] [facility] Height 2019-02-26 00:00:00 66 [in_i] [place] [facility] BMI (Body Mass 2019-02-26 00:00:00 25.8 kg/m2 [facility] [employer] Index) [facility] Body Weight 2019-02-26 00:00:00 160 [lb_av] [place] [facility] Height 2018-12-04 00:00:00 66 [in_i] [place] [facility] BMI (Body Mass 2018-12-04 00:00:00 25.8 kg/m2 [facility] [employer] Index) [facility] Body Weight 2018-12-04 00:00:00 160 [lb_av] [place] [facility] Procedures Procedure Date / Time Performing Clinician Source Performed POCT HEMOGLOBIN A1C TEST 2022-12-27 15:06:00 Ronit Wan [facility] POCT HEMOGLOBIN A1C TEST 2022-09-20 16:22:00 Ronit Wan Uni [facility] DIABETES TESTING REPORTS 2022-09-20 05:01:00 Doctor Unassigned, No [facility] DME/SUPPLY JUSTIFICATION 2022-07-21 05:01:00 Doctor Unassigned, No [facility] POCT HEMOGLOBIN A1C TEST 2022-05-11 21:16:00 Ezekiel Mittal Uni [facility] DIABETES TESTING REPORTS 2022-05-11 06:01:00 Doctor Unassigned, No [facility] POCT URINALYSIS AUTO 2022-05-09 21:55:00 Ewa Chavez [facility] EXTERNAL PROVIDER 2022-04-05 06:01:00 Doctor Unassigned, No [facility] EXTERNAL PROVIDER 2022-02-25 06:01:00 Doctor Unassigned, No [facility] RECORDS Name [facility] POCT URINALYSIS AUTO 2022-01-31 21:54:00 Ewa Chavez [facility] CONSENT/REFUSAL FOR 2022-01-31 20:42:11 Doctor Unassigned, No [facility] DIAGNOSIS AND TREATMENT Name [facility] ASSIGNMENT OF BENEFITS 2022-01-31 20:41:55 Doctor Unassigned, No [facility] REFERRAL- 2022-01-20 05:01:00 Doctor Unassigned, No [facility] REQUEST/RESPONSE [facility] POCT HEMOGLOBIN A1C TEST 2021-12-10 20:44:00 Brigitte Ely [facility] DIABETES TESTING REPORTS 2021-12-10 05:01:00 Doctor Unassigned, No [facility] Partial Resection of [facility] [facility] Hyste[facility] Bilateral Extraction of [place] [facility] Appendectomy [facility] Cabg Vein Two [facility] Plan of Care Planned Activity Planned Date Details Comments Source Future Scheduled 2028-09-12 DTAP/TDAP/TD VACCINES [facility] 00:[facility]00 (2 - Td or Tdap) [code Medic al Center = DTAP/TDAP/TD VACCINES (2 - Td or Tdap)] Future Scheduled 2028-09-12 DTAP/TDAP/TD VACCINES [facility] Test 00:00:00 (2 - Td or Tdap) [code Medic al Center = DTAP/TDAP/TD VACCINES (2 - Td or Tdap)] Future Scheduled 2028-09-12 DTAP/TDAP/TD VACCINES [facility] Test 00:00:00 (2 - Td or Tdap) [code Medic al Center = DTAP/TDAP/TD VACCINES (2 - Td or Tdap)] Future Scheduled 2028-09-12 DTAP/TDAP/TD VACCINES [facility] Test 00:00:00 (2 - Td or Tdap) [code Medic al Center = DTAP/TDAP/TD VACCINES (2 - Td or Tdap)] Future Scheduled 2023-01-15 [facility] 01:51:53 [code = COVID-19 VACCINE (#1)] Future Scheduled 2023-01-15 SHINGLES VACCINES (1 [facility] Test 01:51:53 of 2) [code = SHINGLES VACCINES (1 of 2)] Future Scheduled 2023-01-15 RSV VACCINES > 60 YR [facility] Test 01:51:53 (1 - 1-dose 60+ series) [code = RSV VACCINES > 60 YR (1 - 1-dose 60+ series)] Future Scheduled 2023-01-15 65+ PNEUMOCOCCAL [facility] Test 01:51:53 VACCINE (1 - PCV) [code = 65+ PNEUMOCOCCAL VACCINE (1 - PCV)] Future Scheduled 2023-01-15 INFLUENZA VACCINE (#1) [facility] Test 01:51:53 [code = INFLUENZA VACCINE (#1)] Future Scheduled 2022-11-25 Influenza Vaccine (#1[facility] 00:00[facility]00 [code = Influenza Medical Ce nter Vaccine (#1)] Future Scheduled 2022-11-25 Influenza Vaccine (#1) [facility] 00:00:00 [code = Influenza Medical Ce nter Vaccine (#1)] Future Scheduled 2022-11-25 Influenza Vaccine (#1) [facility] 00:00:00 [code = Influenza Medical Ce nter Vaccine (#1)] Future Scheduled 2022-03-[address] [facility] Test 00:00:00 (12+) [code = Medical Center DEPRESSION SCREENING (12+)] Future Scheduled 2022-03-27 FALLS RISK SCREENING [facility] Test 00:00:00 [code = FALLS RISK Medical C enter SCREENING] Future Scheduled 2022-03-[address] [facility] Test 00:00:00 (12+) [code = Medical Center DEPRESSION SCREENING (12+)] Future Scheduled 2022-03-27 FALLS RISK SCREENING [facility] Test 00:00:00 [code = FALLS RISK Medical C enter SCREENING] Future Scheduled 2022-03-[address] [facility] Test 00:00:00 (12+) [code = Medical Center DEPRESSION SCREENING (12+)] Future Scheduled 2022-03-27 FALLS RISK SCREENING [facility] Test 00:00:00 [code = FALLS RISK Medical C enter SCREENING] Future Scheduled 2022-01-30 HEPATITIS B VACCINES [facility] Test 08:59:00 (1 of 3 - 3-dose series) [code = HEPATITIS B VACCINES (1 of 3 - 3-dose series)] Future Scheduled 2022-01-30 COVID-19 VACCINE (#[facility] Test 08:59:00 [code = COVID-19 VACCINE (#1)] Future Scheduled 2022-01-30 BREAST CANCER [facility] Test 08:59:00 SCREENING [code = BREAST CANCER SCREENING] Future Scheduled 2022-01-30 COLONOSCOPY SCREENING [facility] Test 08:59:00 [code = COLONOSCOPY SCREENING] Future Scheduled 2022-01-30 SHINGLES VACCINES (1 [facility] Test 08:59:00 of 2) [code = SHINGLES VACCINES (1 of 2)] Future Scheduled 2022-01-30 65+ [facility]CCAL [facility] 08:59:00 VACCINE (1 - PCV) [code = 65+ PNEUMOCOCCAL VACCINE (1 - PCV)] Future Scheduled 2022-01-30 INFLUENZA VACCINE [facility] Test 08:59:00 [code = INFLUENZA VACCINE] Future Scheduled 2021-11-26 HEPATITIS B VACCINES [facility] Test 03:36:33 (1 of 3 - 3-dose series) [code = HEPATITIS B VACCINES (1 of 3 - 3-dose series)] Future Scheduled 2021-11-26 COVID-19 VACCINE (#1) [facility] Test 03:36:33 [code = COVID-19 VACCINE (#1)] Future Scheduled 2021-11-26 BREAST CANCER [facility] Test 03:36:33 SCREENING [code = BREAST CANCER SCREENING] Future Scheduled 2021-11-26 COLONOSCOPY SCREENING [facility] Test 03:36:33 [code = COLONOSCOPY SCREENING] Future Scheduled 2021-11-26 SHINGLES VACCINES (1 [facility] Test 03:36:33 of 2) [code = SHINGLES VACCINES (1 of 2)] Future Scheduled 2021-11-26 65+ PNEUMOCOCCAL [facility] Test 03:36:33 VACCINE (1 - PCV) [...] 00:00:00 measurement Medical Center (procedure) [code = 87877088] Future Scheduled 2021-06-[address] [facility] measurement Medical Center (procedure) [code = 65076140] Future Scheduled 2021-06-[address] [facility] 00:00:00 measurement Medical Center (procedure) [code = 88889268] Future Scheduled 2021-06-[address] [facility] Test 00:00:00 measurement Medical Center (procedure) [code = 21166415] Future Scheduled 2021-03-[address] [facility] Test 00:00:00 (12+) [code = Medical Center DEPRESSION SCREENING (12+)] Future Scheduled 2021-03-27 FALLS RISK SCREENING [facility] Test 00:00:00 [code = FALLS RISK Medical C enter SCREENING] Future Scheduled 2020-04-08 SHINGLES VACCINES ([address] [facility] Test 00:00:00 of 3) [code = SHINGLES Medic al Center VACCINES (2 of 3)] Future Scheduled 2020-04-08 SHINGLES VACCINES ([address] [facility] Test 00:00:00 of 3) [code = SHINGLES Medic al Center VACCINES (2 of 3)] Future Scheduled 2020-04-08 SHINGLES VACCINES ([address] [facility] Test 00:00:00 of 3) [code = SHINGLES Medic al Center VACCINES (2 of 3)] Future Scheduled 2020-04-08 SHINGLES VACCINES ([address] [facility] Test 00:00:00 of 3) [code = SHINGLES Medic al Center VACCINES (2 of 3)] Future Scheduled 2018-12-15 PNEUMOCOCCAL 65+ Y[address] [facility] Test 00:00:00 (2 - PCV) [code = Medical Ce nter PNEUMOCOCCAL 65+ YRS (2 - PCV)] Future Scheduled 2018-12-15 PNEUMOCOCCAL 65+ YRS [facility] Test 00:00:00 (2 - PCV) [code = Medical Ce nter PNEUMOCOCCAL 65+ YRS (2 - PCV)] Future Scheduled 2018-12-15 PNEUMOCOCCAL 65+ YRS [facility] Test 00:00:00 (2 - PCV) [code = Medical Ce nter PNEUMOCOCCAL 65+ YRS (2 - PCV)] Future Scheduled 2016-03-[address] [facility] 00:00:00 WELLNESS (YEAR 2 or Medical Center FIRST YEAR if no IPPE) [code = MEDICARE ANNUAL WELLNESS (YEAR 2 or FIRST YEAR if no IPPE)] Future Scheduled 2016-03-[address] [facility] 00:00:00 WELLNESS (YEAR 2 or Medical Center FIRST YEAR if no IPPE) [code = MEDICARE ANNUAL WELLNESS (YEAR 2 or FIRST YEAR if no IPPE)] Future Scheduled 2016-03-[address] [facility] 00:00:00 WELLNESS (YEAR 2 or Medical Center FIRST YEAR if no IPPE) [code = MEDICARE ANNUAL WELLNESS (YEAR 2 or FIRST YEAR if no IPPE)] Future Scheduled 2016-03-[address] [facility] 00:00:00 WELLNESS (YEAR 2 or Medical Center FIRST YEAR if no IPPE) [code = MEDICARE ANNUAL WELLNESS (YEAR 2 or FIRST YEAR if no IPPE)] Future Scheduled [address] [facility] Test 00:00:00 Counseling and Medical Cente r Screening (12+) [code = Tobacco Cessation Counseling and Screening (12+)] Future Scheduled [address] [facility] Test 00:00:00 Counseling and Medical Cente r Screening (12+) [code = Tobacco Cessation Counseling and Screening (12+)] Future Scheduled [address] [facility] Test 00:00:00 Counseling and Medical Cente r Screening (12+) [code = Tobacco Cessation Counseling and Screening (12+)] Future Scheduled [address] [facility] Test 00:00:00 Counseling and Medical Cente r Screening (12+) [code = Tobacco Cessation Counseling and Screening (12+)] Future Scheduled [address] EX[address] [facility] Test 00:00:00 [code = DIABETIC EYE Medical Center EXAM] Future Scheduled [address] [facility] 00:[facility]00 examination Medical Center (regime/therapy) [code = 114944336] Future Scheduled 1956 Urine screening [facility] Test 00:00:00 protein (procedure) Medical Center [code = 496285206] Future Scheduled [address]YE EXAM [facility] 00:00:00 [code = DIABETIC EYE Medical Center EXAM] Future Scheduled [address] [facility] 00:00:00 examination Medical Center (regime/therapy) [code = 603868222] Future Scheduled 1956 Urine screening for [facility] Test 00:00:00 protein (procedure) Medical Center [code = 376335919] Future Scheduled [address]AB[address] EYE EXAM [facility] 00:00:00 [code = DIABETIC EYE Medical Center EXAM] Future Scheduled [address] [facility] 00:00:00 examination Medical Center (regime/therapy) [code = 083651419] Future Scheduled 1956 Urine screening for [facility] 00:00:00 protein (procedure) Medical Center [code = 269288686] Future Scheduled [address] DIAB[address] EYE EXAM [facility] 00:00:00 [code = DIABETIC EYE Medical Center EXAM] Future Scheduled [address] [facility] 00:00:00 examination Medical Center (regime/therapy) [code = 127413741] Future Scheduled 1956 Urine screening for [facility] Test 00:00:00 protein (procedure) Medical Center [code = 213164381] Future Scheduled 1947-03-28 COVID-19 VACCINE (#1[facility] 00:00:00 [code = COVID-[address] VACCINE (#1)] Future Scheduled 1947-03-28 COVID-19 VACCINE (#1) [facility] 00:00:00 [code = COVID-[address] VACCINE (#1)] Future Scheduled 1947-03-28 COVID-19 VACCINE (#1) [facility] 00:00:00 [code = COVID-[address] VACCINE (#1)] Future Scheduled 1947-03-28 COVID-19 VACCINE (#1) [facility] 00:00:00 [code = COVID-[address] VACCINE (#1)] Future Scheduled 1946 DXA SCAN [code = DXA [facility] Test 00:00:00 SCAN] [facility] Future Scheduled 1946 DXA SCAN [code = DXA [facility] Test 00:00:00 SCAN] [facility] Future Scheduled 1946 DXA SCAN [code = DXA [facility] 00:00:00 SCAN] [facility] Future Scheduled [address] [facility] 00:00:00 (combo) [code = CT Medical C enter Colonography (combo)] Future Scheduled [address] [facility] Test 00:00:00 malignant neoplasm of Medica l Center colon (procedure) [code = 386318253] Future Scheduled [address] [facility] [facility] Test 00:00:00 malignant neoplasm of Medica l Center colon (procedure) [code = 044558344] Future Scheduled 1946 DXA SCAN [code = DXA [facility] Test 00:00:00 SCAN] [facility] Future Scheduled [address] [facility] [facility] Test 00:00:00 malignant neoplasm of Medica l Center colon (procedure) [code = 683018065] Future Scheduled [address] [facility] Test 00:00:00 malignant neoplasm of Medica l Center colon (procedure) [code = 308933815] Future Scheduled 1946 Sigmoidoscopy [code [facility] 00:[facility] Sigmoidoscopy] Medical Cente r Encounters Start End Encounter Admission Attending Care Care Encounter Source Date/Time Date/Time Type Type Clinicians Facility Department ID 2022-01-13 Outpatient [facility] [id number] [place] 15:38:57 [id number] Health 2020-12-15 Inpatient ER TSANG [facility] [id number] [facility] 04:20:00 BRANDON 2023-01-05 2023-01-05 Telephone DEXTER Wan [id number] [facility] 00:00:00 00:00:00 Ronit HEALTH 350.1.13.10 it y of [place] 4.2.7.2.686 Al as GEMA?BLEA [id number] [address] OFFICE [facility] 2022-12-27 2022-12-27 [facility] [id number] Univers 10:00:00 10:51:55 Visit Ronit HEALTH 350.1.13.10 it y of [place] 4.2.7.2.686 Al as GEMA?BLEA [phone] [address] 2022-12-27 2022-12-27 Outpatient R [facility] [id number] Univers 10:00:00 10:51:55 [facility]22-[facility] 2022-12-06 Outpatient [facility] [place] 00:00:00 00:00:00 SCILLA [id number] [facility] 2022-12-06 2022-12-06 Lynda [facility] - [id number] [place] 00:00:00 00:00:00 Thiago Dennis MD: [address], [place], [place] [facility] [address] [facility] , Ph. h (979) Program 2022-11-29 2022-11-29 Outpatient [facility] [id number] [place] 00:00:00 00:00:00 SCILLA [id number] [facility] 2022-11-14 2022-11-14 RefEzekiel Xavier [facility] [id number] Univers 00:00:00 00:00:00 HEALTH 350.1.13.10 it y of [place] 4.2.7.2.686 Al as GEMA?BLEA [phone] [address] 2022-10-19 2022-10-19 Telephone [facility] [id number] Univers 00:00:00 00:00:00 Ronit MULTISPEC 350.1.13.10 [place] [id number] [facility] [address] [facility] 2022-10-03 2022-10-03 Rough Patcher 2, Adc Lab [facility] [id number] Univers 10:00:00 10:15:00 Visit Ewa Chavez 350.1.13. 10 [facility] [place] [id number] [facility] [address] [facility] 2022-10-03 2022-10-03 Outpatient R KATHY [facility] [id number] Univers 10:00:00 10:00:00 EWA anne o f [facility] 2022-09-29 2022-09-29 Telephone Savage [facility] [id number] Univers 00:00:00 00:00:00 Ronit MULTISPEC 350.1.13.10 [place] [id number] [address] DIABETES CLINIC 2022-09-22 2022-09-22 Telephone Kathy [facility] [id number] Univers 00:00:00 00:00:00 Ewa GONSALES 350.1.13.10 [facility] [place] [id number] Wy dical NAL [address] [facility] 2022-09-20 2022-09-20 Rough Patcher Lab, Ang - Db [facility] [id number] Univers 10:45:00 11:00:00 Visit Ronit Wan 350.1.13.10 ity of [place] 4.2.7.2.686 Al as GEMA?BLEA [id number] [facility] BU[facility] 2022-09-20 2022-09-20 Outpatient R SAVAGE [facility] [id number] Univers 09:30:00 10:18:59 RONIT ity of [facility] 2022-09-20 2022-09-20 Office Savage [facility] [id number] Univers 09:30:00 10:18:59 Visit [facility] 350.1.13.10 it y of [place] 4.2.7.2.686 Al as GEMA?BLEA [id number] [address] OFFICE [facility] 2022-09-20 2022-09-20 Orders Doctor BRADFORD [id number] [id number] Univers 00:00:00 00:00:00 Only Unassigned, MAIRA 350.1.13.10 ity of [place] [facility] 4.2.7.2.686 Al as [id number] [address] 2022-09-19 2022-09-19 Outpatient R EZEKIEL MITTAL [facility] [id number] Univers 15:30:00 15:30:[address] [facility] 2022-08-15 2022-08-15 Telephone Kyrie [facility] [id number] Univers 00:00:00 00:00:00 HEALTH 350.1.13.10 it y of [place] 4.2.7.2.686 Al as GEMA?BLEA [id number] [address] OFFICE [facility] 2022-08-09 2022-08-09 Refill Kyrie [facility] 1.2.840.114 [id number] Univers 00:00:00 00:00:00 HEALTH 350.1.13.10 it y of [place] 4.2.7.2.686 Al as GEMA?BLEA [id number] [address] OFFICE [facility] 2022-08-02 2022-08-02 Outpatient R KATHY [facility] [id number] Univers 09:30:00 09:30:00 EWA landin f [facility] 2022-07-26 2022-07-26 Telephone Ezekiel Mittal [facility] [id number] Univers 00:00:00 00:00:00 HEALTH 350.1.13.10 it y of [place] 4.2.7.2.686 Al as GEMA?BLEA [id number] Wy andres BRENNAN [address] [facility] OFFICE [facility] 2022-07-25 2022-07-25 Telephone KyrieEzekiel [facility] [id number] Univers 00:00:00 00:00:00 HEALTH 350.1.13.10 it y of [place] 4.2.7.2.686 Al as GEMA?BLEA [id number] [facility] [address] MEDICAL OFFICE [facility] 2022-07-21 2022-07-21 Orders Doctor BRADFORD [id number] [id number] Univers 00:00:00 00:00:00 Only Unassigned, MAIRA 350.1.13.10 ity of [place] [facility] 4.2.7.2.686 Al as [id number] [address] 2022-07-18 2022-07-18 Refill Kyrie [facility] 1.2.840.114 [id number] Univers 00:00:00 00:00:00 HEALTH 350.1.13.10 it y of [place] 4.2.7.2.686 Al as GEMA?BLEA [id number] Wy andres BRENNAN [address] [facility] OFFICE [facility] 2022-07-15 2022-07-15 Telephone Kyrie [facility] [id number] Univers 00:00:00 00:00:00 HEALTH 350.1.13.10 it y of [place] 4.2.7.2.686 Al as GEMA?BLEA [id number] Wy andres BRENNAN [address] MEDICAL OFFICE [facility] 2022-07-08 2022-07-08 Telephone Kyrie [facility] [id number] Univers 00:00:00 00:00:00 HEALTH 350.1.13.10 it y of [place] 4.2.7.2.686 Al as GEMA?BLEA [id number] [facility] [address] MEDICAL OFFICE [facility] 2022-05-27 2022-05-27 Telephone Kathy [facility] 1.2.840.114 [id number] Univers 00:00:00 00:00:00 Ewa [place] 350.1.13.10 ity [facility] [place] [id number] Wy dical NAL [address] [facility] 2022-05-24 2022-05-24 Rough Patcher Christiano [facility] Main [facility] [id number] [id number] Univers 13:30:00 13:45:00 Visit [facility].13. [facility] [place] [id number] Wy dical NAL [address] [facility] 2022-05-24 2022-05-24 Outpatient R CHAVEZ [facility] [id number] Univers 13:30:00 13:30:00 EWA landin aura [facility] 2022-05-24 2022-05-24 Outpatient [facility] 106 [id number] [place] 00:00:00 00:00:00 [facility]LL[facility] 10673 [facility] 2022-05-24 2022-05-24 Outpatient [facility] 106 [id number] [place] 00:00:00 00:00:00 SCILLA 54379 [facility] 2022-05-24 2022-05-24 Lynda [facility] [place] - [id number] [place] 00:00:00 00:00:00 Thiago Dennis MD: [address], [facility] [place] l [place], [place] [facility] [address] Outre ac , Ph. h (979) Program 2022-05-23 2022-05-23 Outpatient [facility] 106 [id number] [place] 00:00:00 00:00:00 SCILLA 35154 [facility] 2022-05-17 2022-05-17 Telephone Ezekiel Mittal [facility] 1.2.924.340 [id number] Univers 00:00:00 00:00:00 HEALTH 350.1.13.10 it y of [place] 4.2.7.2.686 Al as GEMA?BLEA [phone] Wy dicluma [facility] [address] MEDICAL OFFICE BUILDING 2022-05-11 2022-05-11 Outpatient R EZEKIEL MITTAL [facility] [id number] Univers 15:00:00 16:08:44 KYRIEEZEKIEL Momin ity of [facility] 2022-05-11 2022-05-11 Office Kyire [facility] 1.2.840.114 [id number] Univers 15:00:00 16:08:44 Visit [facility] 350.1.13.10 it y of [place] 4.2.7.2.686 Al as GEMA?BLEA [phone] Wy dicluma [address] OFFICE [facility] 2022-05-11 2022-05-11 Orders Doctor BRADFORD 1.2.840.114 [id number] Univers 00:00:00 00:00:00 Only Unassigned, MAIRA 350.1.13.10 ity of [place] [facility] 4.2.7.2.686 Al as [phone] [address] 2022-05-09 2022-05-09 [facility] [id number] Univers 15:30:00 16:12:01 EWA ity o f [facility] 2022-05-09 2022-05-09 Office [facility] 1.2.840.114 [id number] Univers 15:30:00 16:12:01 Visit Ewasharon WHITAKERROGELIO 350.1.13.10 it[place] [phone] Wy dical [address] 2022-04-14 2022-04-14 Outpatient R DONA [facility] [id number] Univers 13:45:00 13:45:[address] [facility] 2022-04-13 2022-04-13 [facility] 1.2.882.216 [id number] Univers 00:00:00 00:00:00 Augustus A HEALTH 350.1.13.10 ity of [place] 4.2.7.2.686 Al as GEMA?BLEA [phone] Wy dicluma JEAN [address] MEDICAL OFFICE BUILDING 2022-04-12 2022-04-12 Outpatient R KATHY [facility] [id number] Univers 12:53:04 23:59:00 EWA ity o f [facility] 2022-04-12 2022-04-12 [facility] [place], [facility] 1.2.840.114 [id number] Univers 12:53:04 23:59:00 Encounter Ewa SHERMANROGELIO 350.1.13.10 [place] [phone] [facility] [address] 2022-04-12 2022-04-12 Case Chavez, [facility] 1.2.840.114 [id number] Univers 00:00:00 00:00:00 Management Ewasharon GONSALES 350.1.13.10 it[place] [phone] Wy dical NAL [address] [facility] 2022-04-05 2022-04-05 Orders Doctor BRADFORD 1.2.840.114 [id number] Univers 00:00:00 00:00:00 Only Unassigned, MAIRA 350.1.13.10 ity of [place] [facility] 4.2.7.2.686 Al as [phone] [facility] [address] 2022-03-14 2022-03-14 [facility] [place], [facility] 1.2.840.114 [id number] Univers 00:00:00 00:00:00 Management Ewa ILDA 350.1.13.10 it[place] [id number] Wy dical NAL 204 [facility] 2022-03-10 2022-03-10 Telephone [place], [facility] 1.2.840.114 [id number] Univers 00:00:00 00:00:00 Ewasharon GONSALES 350.1.13.10 [place] [id number] Wy dical NAL 204 [facility] 2022-03-07 2022-03-07 Rough Patcher 2, Adc Lab [facility] 1.2.840.114 [id number] Univers 09:45:00 10:00:00 Visit Ewa [place] 350.1.13. 10 [facility] 4.[place].7.[place] [id number] [facility] 353 [facility] 2022-03-07 2022-03-07 Outpatient R KATHY [facility] [id number] [id number] Univers 09:45:00 09:45:00 EWA anne o f [facility] 2022-02-25 2022-02-25 Orders Doctor BRADFORD 1.2.840.114 [id number] Univers 00:00:00 00:00:00 Only Unassigned, MAIRA 350.1.13.10 ity of [place] [facility] 4.2.7.2.686 Al as [phone] [address] 2022-02-10 2022-02-10 [facility] 1.2.840.114 [id number] Univers 00:00:00 00:00:00 Ewa GONSALES 350.1.13.10 it[place] [id number] [facility] 204 [facility] 2022-02-07 2022-02-07 Outpatient [facility] 106 [place] 00:00:00 00:00:00 SCILLA 34691 [facility] 2022-02-04 2022-02-04 Telephone [facility] 1.2.840.114 [id number] Univers 00:00:00 00:00:00 Ewa GONSALES 350.1.13.10 it[place] [phone] [facility] 188 [facility] 2022-02-01 2022-02-01 Outpatient [facility] 106 [place] 00:00:00 00:00:00 SCILLA 42681 [facility] 2022-02-01 2022-02-01 Lynda [place] - [id number] [place] 00:00:00 00:00:00 Thiago Dennis MD: [address] F, [facility] RANDY a l [place], [place] [facility] [address] [facility] , Ph. h (979) Program 2022-01-31 2022-01-31 Outpatient R KATHY [facility] [id number] Univers 14:45:00 16:03:48 EWA huertay o f [facility] 2022-01-31 2022-01-31 [facility] 1.2.840.114 [id number] Univers 14:45:00 16:03:48 Visit Ewa GONSALES 350.1.13.10 it[place] [id number] Wy dical [facility] [address] [facility] 2022-01-31 2022-01-31 Orders Doctor BRADFORD 1.2.840.114 [id number] Univers 00:00:00 00:00:00 Only Unassigned, MAIRA 350.1.13.10 ity of [place] [facility] 4.2.7.2.686 Al as [phone] [address] 2022-01-20 2022-01-20 Orders Doctor BRADFORD 1.2.840.114 [id number] Univers 00:00:00 00:00:00 Only Unassigned, MAIRA 350.1.13.10 ity of [place] [facility]PITAL 4.2.7.2.686 Al as [id number] [address] 2022-01-11 2022-01-11 Lizz Ely NJADELE 1.2.118.288 [id number] Univers 00:00:00 00:00:00 Brigitte HEALTH 350.1.13.10 it y of [place] 4.2.7.2.686 Al as GEMA?BLEA [phone] Wy dical [facility] [address] MEDICAL OFFICE BUILDING 2021-12-22 2021-12-22 Refill Omari [facility] 1.2.840.114 [id number] Univers 00:00:00 00:00:00 [facility] 350.1.13.10 [facility] 4.2.7.2.686 Al as GEMA?BLEA [phone] [address] MEDICAL OFFICE [facility] 2021-12-21 2021-12-21 Outpatient [facility] 106 [id number] [place] 00:00:00 00:00:00 SCILLA 47182 [facility] 2021-12-21 2021-12-21 Lynda [facility] - [id number] [place] 00:00:00 00:00:00 Thiago Dennis MD: [address] F, [facility] [place], [place] [facility] [address] [facility] , Ph. h (979) Program 2021-12-10 2021-12-10 Outpatient R [facility] [id number] Univers 15:30:00 16:14:[address] [facility] 2021-12-10 2021-12-10 Office [facility] 1.2.840.114 [id number] Univers 15:30:00 16:14:47 Visit [facility] 350.1.13.10 it y of [place] 4.2.7.2.686 Al as GEMA?BLEA [id number] [address] MEDICAL OFFICE [facility] 2021-12-10 2021-12-10 Orders Doctor BRADFORD 1.2.840.114 [id number] Univers 00:00:00 00:00:00 Only Unassigned, MAIRA 350.1.13.10 ity of [place] [facility] 4.2.7.2.686 Al as [phone] [address] 2021-11-02 2021-11-02 Outpatient [facility] 106 [id number] [place] 00:00:00 00:00:00 [facility] 2021-11-02 2021-11-02 Lynda [facility] - [id number] [place] 00:00:00 00:00:00 Thiago Dennis MD: [address], [facility] a l [place], [place] [facility] [address] [facility] , Ph. h (979) Program 2021-11-01 2021-11-01 Outpatient [facility] 106 [id number] [place] 00:00:00 00:00:00 SCILLA 76780 [facility] 2021-10-25 2021-10-25 Outpatient [facility] 106 [id number] [place] 00:00:00 00:00:00 SCILLA 85527 [facility] 2021-08-09 2021-08-09 [facility] [id number] [facility] 15:00:00 15:41:11 [facility] 2021-08-09 2021-08-09 Office [facility] 1.2.840.114 [id number] Univers 15:00:00 15:30:00 Visit [facility] 350.1.13.10 it [facility] 4.2.7.2.686 Al as GEMA?BLEA [phone] [address] OFFICE [facility] 2021-08-09 2021-08-09 Outpatient [facility] [id number] Univers 15:00:00 15:00:00 [facility] 2021-08-06 2021-08-06 [facility], Ang - Db [facility] 1.2.840.1 14 [id number] Univers 09:30:00 09:45:00 Visit Mukesh Fountain [facility] 350.1.13.10 ity of [place] 4.2.7.2.686 Al as GEMA?BLEA [phone] [address] MEDICAL OFFICE [facility] 2021-08-06 2021-08-06 [facility] [id number] Univers 09:30:00 09:30:00 [facility] 2021-08-04 2021-08-04 Outpatient R [facility] [id number] Univers 15:00:00 15:00:00 ity of [facility] 2021-08-04 2021-08-04 Outpatient R [facility] [id number] Univers 15:00:00 15:00:[address] [facility] 2021-08-02 2021-08-02 Outpatient R [facility] [id number] Univers 11:00:00 11:00:[address] [facility] 2021-07-19 2021-07-19 Telephone [facility] 1.2.840.114 [id number] Univers 00:00:00 00:00:00 Gracy HEALTH 350.1.13.10 it y of [place] 4.2.7.2.686 Al as GEMA?BLEA [id number] [address] 2021-07-14 2021-07-14 Tele[address] [facility] 1.2.840.114 9 [id number] Univers 00:00:00 00:00:00 Gracy [place] 350.1.13.10 i ty [facility] [place].2.[place] [id number] [address] 2021-07-06 2021-07-06 Telephone [facility] 1.2.840.114 [id number] Univers 00:00:00 00:00:00 Gracy HEALTH 350.1.13.10 it y of [place] 4.2.7.2.686 Al as GEAM?BLEA [phone] [address] OFFICE [facility] 2021-07-01 2021-07-01 Telephone [facility] 1.2.840.114 [id number] Univers 00:00:00 00:00:00 Gracy HEALTH 350.1.13.10 it y of [place] 4.2.7.2.686 Al as GEMA?BLEA [id number] [address] OFFICE [facility] 2021-06-23 2021-06-23 Telephone [facility] 1.2.840.114 [id number] Univers 00:00:00 00:00:00 Gracy HEALTH 350.1.13.10 it y of [place] 4.2.7.2.686 Al as GEMA?BLEA [id number] [address] MEDICAL OFFICE [facility] 2021-06-22 2021-06-22 Telephone [facility] 1.2.840.114 [id number] Univers 00:00:00 00:00:00 Gracy HEALTH 350.1.13.10 it y of [place] 4.2.7.2.686 Al as GEMA?BLEA [id number] [address] MEDICAL OFFICE [facility] 2021-06-21 2021-06-21 Telephone [facility] 1.2.840.114 [id number] Univers 00:00:00 00:00:00 Gracy HEALTH 350.1.13.10 it y of [place] 4.2.7.2.686 Al as GEMA?BLEA [phone] [address] MEDICAL OFFICE [facility] 2021-06-18 2021-06-18 Telephone [facility] 1.2.840.114 [id number] Univers 00:00:00 00:00:00 Rgacy HEALTH 350.1.13.10 it y of [place] 4.2.7.2.686 Al as GEMA?BLEA [phone] [address] OFFICE [facility] 2021-06-17 2021-06-17 Telephone [facility] 1.2.840.114 [id number] Univers 00:00:00 00:00:00 Gracy HEALTH 350.1.13.10 it y of [place] 4.2.7.2.686 Al as GEMA?BLEA [id number] [address] MEDICAL OFFICE [facility] 2021-05-24 2021-05-24 Orders Doctor BRADFORD 1.2.840.114 [id number] Univers 00:00:00 00:00:00 Only Unassigned, MAIRA 350.1.13.10 ity of [place] [facility] 4.2.7.2.686 Al as [phone] [address] 2021-05-10 2021-05-10 [facility] [id number] Univers 14:00:00 15:03:24 GRACY [facility] 2021-01-27 2021-01-27 Hospital [facility] 1.2.840.114 [id number] Univers 14:42:52 23:59:00 Encounter [facility] 350.1.13.10 ity of [place] 4.2.7.2.686 Al as GEMA?BLEA [phone] [facility] 809 [facility] OFFICE [facility] 2021-01-27 2021-01-27 [facility] [id number] Univers 14:42:52 23:59:00 [facility] 2021-01-27 2021-01-27 Office [facility] 1.2.847.955 [id number] Univers 14:15:00 15:11:57 Visit [facility] 350.1.13.10 it y of [place] 4.2.7.2.686 Al as GEMA?BLEA [id number] [facility] 198 [facility] OFFICE [facility] 2021-01-27 2021-01-27 [facility]patient [facility] [id number] Univers 14:15:00 15:11:57 [facility] 2021-01-27 2021-01-27 Orders Doctor FEDLER 1.2.840.114 [id number] Univers 00:00:00 00:00:00 Only Unassigned, MAIRA 350.1.13.10 ity of [place] [facility] 4.2.7.2.686 Al as [phone] [address] 2019-05-21 2019-05-21 Outpatient [facility]ADILLA [facility] 106 [id number] [place] 04:04:00 04:04:00 SCILLA 18437 [facility] 2019-05-21 2019-05-21 Lynda [place] - [id number] [place] 00:00:00 00:00:00 Thiago Dennis MD: [address]andra F, [place], [place] [facility] [address] Outre ac , Ph. h (979) Program 2019-02-26 2019-02-26 Lynda [place] - [id number] [place] 00:00:00 00:00:00 Thiago Dennis MD: [address], [place], [place] [facility] [address] Outre ac , Ph. h (979) Program 2019-02-15 2019-02-17 Phone nullFlavo MG [id number] Memoria 17:26:54 05:59:59 Message r Ophthalmolo 08 cassidy Chavarria Noemi 2019-02-15 2019-02-16 Outpatient [facility] [id number] 11:26:54 23:59:59 08 2019-02-12 2019-02-14 Phone nullFlavo MG [id number] Memoria 14:07:39 05:59:59 Message r Ophthalmolo 07 cassidy Chavarria Noemi 2019-02-12 2019-02-13 Outpatient [facility] MG [id number] 08:07:39 23:59:59 07 2018-12-04 2018-12-04 Lynda PADILLA [facility] [id number] [place] 00:00:00 00:00:00 Thiago Dennis MD: [address], [place], [place] [facility] [address] Outre ac , Ph. h (979) Program 2018-09-17 2018-09-19 Phone nullFlavo MG [id number] Memoria 15:00:33 04:59:59 Message r Ophthalmolo 06 cassidy Chavarria Noemi 2018-09-17 2018-09-18 Outpatient [facility] [id number] 10:00:33 23:59:59 06 2018-08-07 2018-08-08 Between nullFlavo [facility] Family 4023 [id number] Memoria 15:46:21 15:46:21 Visit r Medicine 08 cassidy Walters 2018-08-07 2018-08-08 Outpatient [facility] MG [id number] 10:46:21 10:46:21 08 2018-07-02 2018-07-04 Phone nullFlavo [facility] [id number] [id number] Memoria 15:09:00 04:59:59 Message r Medicine 00 cassidy Walters 2018-07-02 2018-07-03 Outpatient [facility] [id number] 10:09:00 23:59:59 00 2018-04-18 2018-04-20 Phone nullFlavo MG [id number] Memoria 15:04:00 05:59:59 Message r Ophthalmolo 05 l andreas Franklin nn 2018-04-18 2018-04-19 Outpatient [facility] [id number] 09:04:00 23:59:59 05 2018-04-18 2018-04-19 Outpatient [facility] [id number] 09:04:00 23:59:59 05 2018-04-16 2018-04-18 Phone nullFlavo MG [id number] Memoria 16:07:00 05:59:59 Message r Ophthalmolo 04 l andreas [place] nn 2018-04-16 2018-04-17 Outpatient [facility] [id number] 10:07:00 23:59:59 04 2018-04-16 2018-04-17 Outpatient [facility] [id number] 10:07:00 23:59:59 04 2018-01-01 2018-01-03 Phone nullFlavo MG [id number] Memoria 18:25:00 04:59:59 Message r Ophthalmolo 03 cassidy Franklin nn 2018-01-01 2018-01-02 Outpatient [facility] [id number] 13:25:00 23:59:59 03 2017-06-07 2017-06-09 Phone nullFlavo [facility] [id number] Memoria 17:48:00 04:59:59 Message r Internal 02 l Leonard Walters [place] 2017-06-07 2017-06-09 Phone nullFlavo [facility] [id number] Memoria 15:56:00 04:59:59 Message r Internal 01 l Leonard Walters [place] 2017-06-07 2017-06-08 Outpatient [facility] MG [id number] 12:48:00 23:59:59 02 2017-06-07 2017-06-08 Outpatient [facility] [id number] 10:56:00 23:59:59 2016-12-06 2016-12-06 Outpatient MHIE MHIE [id number] Memoria 10:00:00 10:00:00 07 cassidy Walters 2016-06-07 2016-06-07 Outpatient MHIE MHIE [id number] Memoria 10:45:00 10:45:00 06 cassidy Walters 2016-03-08 2016-03-08 Outpatient MHIE MHIE [id number] Memoria 13:30:00 13:30:00 05 cassidy Walters 2016-02-16 2016-02-16 Outpatient MHIE MHIE [id number] Memoria 13:45:00 13:45:00 04 cassidy Walters 2016-02-11 2016-02-11 Outpatient MHIE MHIE [id number] Memoria 10:45:00 10:45:00 03 cassidy Walters 2015-08-07 2015-08-07 Outpatient MHIE MHIE [id number] Memoria 11:45:00 11:45:00 02 cassidy Walters 2015-02-02 2015-02-02 Outpatient MHIE MHIE [id number] Memoria 13:00:00 13:00:00 01 cassidy Walters 2015-01-29 2015-01-29 Outpatient MHIE MHIE [id number] Memoria 13:30:00 13:30:00 00 cassidy Walters Results Test Description Test Time Test Comments Results Result Comments Source POCT HEMOGLOBIN A1C TEST 2022-12-27 15:06:00 Test Item Value Reference Range Interpretation Comme nts POCT HBA1C (test code = 4548-4) 7.2 % 4-6 A Lab Interpretation (test code = 68680-2) Abnormal [facility] HEMOGLOBIN A1C [id number] 15:06:00 Test Item Value Reference Range Interpretation Comments POCT HBA1C (test code = 4548-4) 7.2 % 4-6 A Lab Interpretation (test code = Abnormal 04067-7) [facility] HEMOGLOBIN A1C [id number] 16:23:00 Test Item Value Reference Range Interpretation Comments POCT HBA1C (test code = 4548-4) 6.8 % 4-6 A Lab Interpretation (test code = Abnormal 59330-7) [facility] HEMOGLOBIN A1C [id number] 16:23:00 Test Item Value Reference Range Interpretation Comments POCT HBA1C (test code = 4548-4) 6.8 % 4-6 A Lab Interpretation (test code = Abnormal 49326-3) [facility] HEMOGLOBIN A1C [id number] 21:16:00 Test Item Value Reference Range Interpretation Comments POCT HBA1C (test code = 4548-4) 6.12 % 4-6 A Lab Interpretation (test code = Abnormal 73089-0) [facility] HEMOGLOBIN A1C [id number] 21:16:00 Test Item Value Reference Range Interpretation Comments POCT HBA1C (test code = 4548-4) 6.12 % 4-6 A Lab Interpretation (test code = Abnormal 37450-3) [facility] URINALYSIS, [id number] 21:56:00 Test Item Value Reference Range Interpretation Comments POCT U SP GRAV (test code = 1.025 mg/dl 1.005-1.025 3255) POCT PH U (test code = 3254) 6.5 mg/dl 5-8 POCT U LEUK EST (test code = negative Negative - Negative 3263) POCT U NIT (test code = 3262) negative Negative - Negative POCT U PROT (test code = negative Negative - Negative 3259) POCT U GLU (test code = 3256) 100 Negative - Negative POCT U KETONE (test code = negative Negative - Negative 3258) POCT U UROBILI (test code = 2.0 mg/dl 0.2-1 A 3260) POCT U BILI (test code = negative Negative - Negative 3261) POCT U BLD (test code = 3257) negative Negative - Negative POCT U COLOR (test code = yellow 3266) POCT U APPEAR (test code = clear 3267) Lab Interpretation (test code Abnormal = 69554-3) [facility] URINALYSIS, [id number] 21:56:00 Test Item Value Reference Range Interpretation Comments POCT U SP GRAV (test code = 1.025 mg/dl 1.005-1.025 3255) POCT PH U (test code = 3254) 6.5 mg/dl 5-8 POCT U LEUK EST (test code = negative Negative - Negative 3263) POCT U NIT (test code = 3262) negative Negative - Negative POCT U PROT (test code = negative Negative - Negative 3259) POCT U GLU (test code = 3256) 100 Negative - Negative POCT U KETONE (test code = negative Negative - Negative 3258) POCT U UROBILI (test code = 2.0 mg/dl 0.2-1 A 3260) POCT U BILI (test code = negative Negative - Negative 3261) POCT U BLD (test code = 3257) negative Negative - Negative POCT U COLOR (test code = yellow 3266) POCT U APPEAR (test code = clear 3267) Lab Interpretation (test code Abnormal = 43633-5) [facility] URINALYSIS, [id number] 21:55:00 Test Item Value Reference Range Interpretation [...] 3267) Lab Interpretation (test code Abnormal = 75717-0) [facility] URINALYSIS, [id number] 21:55:00 Test Item Value Reference Range Interpretation [...] 3267) Lab Interpretation (test code Abnormal = 59280-8) [facility] URINALYSIS, [id number] 21:55:00 Test Item Value Reference Range Interpretation [...] 3267) Lab Interpretation (test code Abnormal = 84266-9) [facility] HEMOGLOBIN A1C [id number] 20:46:00 Test Item Value Reference Range Interpretation Comments POCT HBA1C (test code = 4548-4) 6.3 % 4-6 A Lab Interpretation (test code = Abnormal 57901-8) [facility] HEMOGLOBIN A1C [id number] 20:46:00 Test Item Value Reference Range Interpretation Comments POCT HBA1C (test code = 4548-4) 6.3 % 4-6 A Lab Interpretation (test code = Abnormal 50923-7) [facility] TITER 2020-12-25 11:17:50 Test Item Value Reference Range Interpretation Comments SCAN RESULT (test code = 8629485) POCT-GLUCOSE [id number] 12:34:10 Test Item Value Reference Range Interpretation Comments POC-GLUCOSE METER 180 mg/dL 70-110 H : Notified RN/MD: (JJ) (test code = TESTED AT [facility] 6720 1538) [facility], [id number]: Dragline Mechanic/Techni samira ID = [id number] for Regis bhatt (contract), Anirudh ert TISSUE [id number] 11:56:17Surgical Pathology Report Case: [id number] Authorizing Provider: Ilana Urbina MD Collected: 12/18/2020 11:59 AM Ordering Location: [address] Received: 12/18/2020 01:39 PM Service Pathologist: Freddie Wilson MD Specimen: Biopsy, Liver A. LIVER, BIOPSY:- CHOLESTATIC HEPATITIS WITH BALLOONING DEGENERATION, MODERATE- MIXED PORTAL INFLAMMATION AND INTERFACE HEPATITIS, MODERATE - MILDPORTAL FIBROSIS- SEE MICROSCOPIC DESCRIPTION Signing Pathologist Direct Phone Line: [phone] ronically signed by Freddie Wilson MD on 12/21/2020 at 11:56 AMPreliminary result electronically signed by Andrew Son MD for Kamryn Currie MD on 12/19/2020 at 10:18 [id number] LFTsLiverA. Received in formalin labeled with the patient's name, medical record number and "liver biopsy" are 3 brown-potter, mottled soft tissue cores ranging 1.2-1.4 cm which are submitted in toto in A1.JONATHON Orozco, PA (ASCP)cmThe liver biopsy is remarkable for acute cholestasis with canalicular cholestasis, few cholestatic rosettes, and ballooning degeneration. In the portal tracts, bile ducts have moderate to severe mixed portal inflammation (lymphocytes, plasma cells and eosinophils) in cluding clusters of plasma cells that are present at interface. There are frequent acidophil bodies as well. The bile ducts have mildly irregular contours without lymphocytic injury or loss. There is mild ductular reaction with neutrophilic inflammation. The trichrome and reticulin stains show mild portal fibrosis, mainly due to expansion by portal inflammation. The PASD stain is negative for cypjp-8-jivvahvurwk globules and shows several macrophages around central veins and in portal tracts. The iron stain is negative for hepatocellular iron.Overall, the cholesteric hepatitis with ballooning degene ration and acidophilus bodies can be seen in drug-induced liver injury (DILI). Clinical history of using trimethoprim & sulfamethoxazole as well as arnica herbal supplements and macrolide antibiotic are noted, and the above-mentioned features have been reported in DILI by these drugs, in particular arnica herbal supplement and trimethoprim & sulfamethoxazole. In addition, there is significantportal inflammation and interface hepatitis with frequent plasma [...] evaluated Immunohistochemistry technical testing was performed at [facility], Pathology Laboratory where it was developed and its performance characteristics were determined. It has not been cleared or approved by the U.S. Food and Drug Administration. The FDA has determ ined that such clearance or approval is not necessary. The test is used for clinical purposes. It should not be regarded as investigational or for research. This laboratory is certified under the Clinical Laboratory Improvement Amendments of 1988 (CLIA-88) as qualified to perform high complexity clinical laboratory testing.[facility], Department of Pathology, [address] [place], [place] [address], [facility], [facility] of [facility]ology, [address] [place] [address], [facility], Department of Pathology, [address] [place] [address], ang, TRANSCATHETER BIOPSY 2020-12-21 09:23:00Reason for exam:->Worsening LFTs; please assess pressures [facility] 1945 Sex: FFINAL REPORT Transjugular liver biopsy. History: Elevated liver enzymes. Modality: Fluoroscopy. Sedation: Versed 1 mg and fentanyl 50 mcg was given intravenously for conscious sedation. Vital signs were monitored throughout the procedure by a nurse, and remained stable. Physician intra- service time was 40 min. Guard Range: Javier Estrada MD. Laborer Tanbark: Marcella Arango M.D. Approach: Right internal jugular vein Estimated blood loss: < 5 cc. Specimen: 4 19-gauge core specimens placed within formalin and sent [...] needle into the right atrium. A 4 Polish micropuncture sheath was placed. A 0.035 inch J-wire was placed through the micropuncture sheath and the sheath was exchanged for a 9 Polish sheath. A 5 Polish angled tip catheter was used to select the right hepatic vein. Venogram was performed. Pressures were obtained throughthe catheter with measurements as follows: wedged hepatic - 7 mmHg, and right atrium - 3. A long metal reinforced 7 Polish sheath was placed through the 9 Polish sheath into the right hepatic vein. A long 19-gauge core biopsy needle was then placed through [...] MDReport Verified Date/Time: 12/21/2020 09:23:10 Reading Location: [facility] P048 Angio BodyReading Room HSV 1/2 PCR, [id number] 09:14:00 Test Item Value Reference Range Interpretation Comments HSV BY PCR (JJ) (test code = 334) See scanned reportPOCT-GLUCOSE [id number] 08:01:14 Test Item Value Reference Range Interpretation Comments POC-GLUCOSE METER 197 mg/dL 70-110 H : Notified RN/MD: (JJ) (test code = TESTED AT [facility] 6720 1538) [facility], [address]: Dragline Mechanic/Techni samira ID = [id number] for Regis bhatt (contract), Anirudh nicko COMPREHENSIVE METABOLIC [id number] 06:04:45 Test Item Value Reference Range Interpretation [...] 358) GLUCOSE RANDOM 202 mg/dL 70-105 H (AKER) (test code = 652) CALCIUM (BEAKER) 9.4 [...] S NOT APPLICABLE FOR DIALYSIS PATIEN TS. Dragline Mechanic ID - SAHRA MSpecimen moderately ictericPOCT-GLUCOSE [id number] 20:05:11 Test Item Value Reference Range Interpretation Comments POC-GLUCOSE METER 219 mg/dL 70-110 H : TESTED A T [facility] 6720 ([facility]) (test code = [facility], [facility]) [address]: Dragline Mechanic/Techni samira ID = [id number] for PRISCILLA BEAUCHAMP, ADA POCT-GLUCOSE [id number] 18:19:43 Test Item Value Reference Range Interpretation Comments POC-GLUCOSE METER 99 mg/dL 70-110 : TESTED A T [facility] 6720 ([facility]) (test code = [facility], [facility]8) [address]: Dragline Mechanic/Techni samira ID = [id number] for Gerald Thakkar POCT-GLUCOSE [id number] 15:35:42 Test Item Value Reference Range Interpretation Comments POC-GLUCOSE METER 77 mg/dL 70-110 : TESTED A T [facility] 6720 (BEAKER) (test code = [facility], 1538) [address]: Dragline Mechanic/Techni samira ID = [id number] for Binta alberto (contract)Doreen POCT-GLUCOSE [id number] 11:37:19 Test Item Value Reference Range Interpretation Comments POC-GLUCOSE METER 312 mg/dL 70-110 H : TESTED A T [facility] 6720 (BEAKER) (test code = [facility], 1538) [address]: Dragline Mechanic/Techni samira ID = [id number] for Gerald Harris POCT-GLUCOSE [id number] 07:50:36 Test Item Value Reference Range Interpretation Comments POC-GLUCOSE METER 314 mg/dL 70-110 H : [facility] (test code = [facility], 153) [address]: Dragline Mechanic/Techni samira ID = [id number] for Gerald Harris POCT-GLUCOSE [id number] 21:41:49 Test Item Value Reference Range Interpretation Comments POC-GLUCOSE METER 210 mg/dL 70-110 H : [facility]) (test code = [facility], 1538) [address]: Dragline Mechanic/Techni samira ID = [id number] for EARNEST WAGNER POCT-GLUCOSE [id number] 17:45:51 Test Item Value Reference Range Interpretation Comments POC-GLUCOSE METER 171 mg/dL 70-110 H : Notified RN/MD: ([facility]) (test code = TESTED AT [place] [address] 1538) [facility], [address]: Dragline Mechanic/Techni samira ID = [id number] for Toro rris (contract), Robby jose POCT-GLUCOSE [id number] 12:18:34 Test Item Value Reference Range Interpretation Comments POC-GLUCOSE METER 165 mg/dL 70-110 H : Notified RN/MD: ([facility]) (test code = TESTED AT [place] [id number] 1538) [facility], [address]: Dragline Mechanic/Techni samira ID = [id number] for Toro rris (contract), Robby jose POCT-GLUCOSE [id number] 09:05:33 Test Item Value Reference Range Interpretation Comments POC-GLUCOSE METER 332 mg/dL 70-110 H : [facility]) (test code = [facility], 153) [address]: Dragline Mechanic/Techni samira ID = [id number] for Toro rris (contract), Robby jose COMPREHENSIVE METABOLIC [id number] 03:29:53 Test Item Value Reference Range Interpretation Comments TOTAL PROTEIN 6.0 gm/dL 6.0-8.3 Specimen sligh tly ([facility]) (test code = hemoly zed 770) ALBUMIN ([facility]) 2.5 g/dL 3.5-5.0 L Specimen sl ightly [...] S NOT APPLICABLE FOR DIALYSIS PATIEN TS. Dragline Mechanic ID - SAHRA MSpecimen moderately ictericLACTIC ACID, [id number] 03:03:46 Test Item Value Reference Range Interpretation Comments LACTATE BLOOD VENOUS 1.30 mmol/L 0.50-2.20 Specime n slightly (2) (BEAKER) (test hemolyzed code = 2871) Dragline Mechanic ID - SAHRA MSpecimen moderately ictericCBC (HEMOGRAM [...] code = 756) MEAN PLATELET VOLUME (BEAKER) 10.8 fL 9.4-12.3 (test code = 754) NUCLEATED RED BLOOD CELLS 0 /100 WBC 0-0 (AKER) (test code = 413) POCT-GLUCOSE [id number] 00:58:11 Test Item Value Reference Range Interpretation Comments POC-GLUCOSE METER 233 mg/dL 70-110 H : TESTED A T [facility] 6720 ([facility]) (test code = [facility], 1537) [address]: Dragline Mechanic/Techni samira ID = [id number] for Elizabet purcell (contract)Gio POCT-GLUCOSE [id number] 21:59:17 Test Item Value Reference Range Interpretation Comments POC-GLUCOSE METER 246 mg/dL 70-110 H : [facility]) (test code = [facility], 153) [address]: Dragline Mechanic/Techni samira ID = [id number] for Chester tenorio (contract)Shonna iecassidy POCT-GLUCOSE [id number] 16:56:53 Test Item Value Reference Range Interpretation Comments POC-GLUCOSE METER 201 mg/dL 70-110 H : Notified RN/MD: ([facility]) (test code = TESTED AT [facility] 6720 1537) [facility], [address]: Dragline Mechanic/Techni samira ID = [id number] for Cortez mendez (contract)Robby POCT-GLUCOSE [id number] 13:33:21 Test Item Value Reference Range Interpretation Comments POC-GLUCOSE METER 231 mg/dL 70-110 H : TESTED A T [facility] 6720 (BEAKER) (test code = ADAMARIS Kay [facility], 1538) [address]: Dragline Mechanic/Techni samira ID = [id number] for Elizabet peña (contract)Arnaldo LASHA TITER AND [id number] 09:28:41 Test Item Value Reference Range Interpretation Comments LASHA TITER (BEAKER) (test code = >=:2560 1541) LASHA PATTERN (BEAKER) (test code = Homogeneous 1781) ANTI-NUCLEAR ANTIBODY (LASHA)2020-12-18 09:28:35 Test Item Value Reference Range Interpretation Comments ANTI-NUCLEAR ANTIBODY (LASHA) (BEAKER) Positive Negative A (test code = 418) Test performed by IFA method.POCT-GLUCOSE [id number] 06:21:43 Test Item Value Reference Range Interpretation Comments POC-GLUCOSE METER > mg/dL 70-110 HH : Notified RN/MD: TESTED (BEAKER) (test code = AT [facility] 6720 [facility] 1538) [facility], [address]: Dragline Mechanic/Techni samira ID = [id number] for PINK SHARON, ADA COMPREHENSIVE METABOLIC [id number] 06:01:07 Test Item Value Reference Range Interpretation [...] S NOT APPLICABLE FOR DIALYSIS PATIEN TS. Dragline Mechanic ID - JRLSpecimen moderately ictericCBC (HEMOGRAM ONLY)2020-12-18 [...] 0-0 (BEAKER) (test code = 413) POCT-GLUCOSE [id number] 20:20:07 Test Item Value Reference Range Interpretation Comments POC-GLUCOSE METER 161 mg/dL 70-110 H : TESTED A T [facility] 6720 (JJ) (test code = ADAMARIS Kay [facility], 1538) [address]: Dragline Mechanic/Techni samira ID = [id number] for PRISCILLA BEAUCHAMP, WARREN HIGH SENSITIVITY TROPONIN [id number] 18:31:16 Test Item Value Reference Range Interpretation Comments HIGH SENSITIVITY 6 pg/ml See_Comment [Automated message] TROPONIN I (test code = The system which [id number]) generated this result transmitted ref erence range: <=17. Th e reference range was not used to interpr et this result as normal/abnormal . Dragline Mechanic ID - DBThe FISH BAIT PICKER STAT High Sensitivity Troponin-I results should be used in conjunctionwith other diagnostic information such as ECG, clinical observations and information, and patient symptoms to aid in the diagnosis of UT.POCT-GLUCOSE [id number] 16:47:52 Test Item Value Reference Range Interpretation Comments POC-GLUCOSE METER 269 mg/dL 70-110 H : Notified RN/MD: (JJ) (test code = TESTED AT [facility] 6720 1538) [facility], [address]: Dragline Mechanic/Techni samira ID = [id number] for Regis bhatt (contract)Anirudh nicko CMV PCR, [id number] 13:56:38 Test Item Value Reference Range Interpretation [...] and its performance characteristics determined by the [facility] Pathol ogy Department, Section of Molecular Pathology. It has not been cleared or approved by the U.S. Foodand Drug Administration (FDA), since FDA approval is not required for clinical use of the test. Validation was done as required by The Clinical Laboratory Improvement Amendments of 1988.POCT-GLUCOSE METER 2020-12-17 13:03:02 Test Item Value Reference Range Interpretation Comments POC-GLUCOSE METER 182 mg/dL 70-110 H : TESTED A T [facility] 6720 ([employer]) (test code = ADAMARIS Kay [facility], 1538) [address]: Dragline Mechanic/Techni samira ID = [id number] for Elizabet peña (contract)Arnaldo MR, ABDOMEN, [id number] 10:48:00Liver protocolUnlisted Reason for Exam - Click Yes and Enter Reason Below->No [facility] : 1945 Sex: FFINALREPORT TECHNIQUE: MRI of the abdomen WITHOUT and [...] duct measures 0.5 cm in diameter.SPLEEN: Spleen alohtywm39.5 cm in length..PANCREAS: Diffuse atrophy of the pancreas. Pancreas otherwise demonstrates normal enhancement. There is no pancreatic ductal dilation. No pancreatic mass. ADRENALS: No adrenal nodules.KIDNEYS/URETERS: No hydronephrosis or solid mass lesions. PERITONEUM/RETROPERITONEUM: No free fluid.LYMPH NODES: No lymphadenopathy.VESSELS: Unremarkable. GI TRACT: No distention or wall thickening. BONES AND SOFT TISSUES: Unremarkable. IMPRESSION:Bandlike areas of focal fibrosis in the bilateral hepatic lobes. No suspicious focal liver lesion. Splenomegaly. Diffuse atrophy of pancreas. No pancreatic ductal dilation or pancreatic mass. Signed: Santino Nicoleepcitizens memorial healthcare Verified Date/Time: 12/17/2020 10:48:05 Reading Location: [facility] Diagnostic Imaging Reading Room - [place] [address] ACETAMINOPHEN [id number] 09:37:44 Test Item Value Reference Range Interpretation Comments ACETAMINOPHEN LEVEL (BEAKER) (test < ug/mL 10.0-30.0 L code = 344) Therapeutic Range: 10.0-30.0 g/mLToxic Levels: >200.0 g/mLOperator ID - RITA PROTHROMBIN [id number] 09:31:00 Test Item Value Reference Range Interpretation Comments PROTIME (BEAKER) 13.5 seconds 11.9-14.2 (test code = 759) INR (BEAKER) (test 1.05 See_Comment [Automat ed message] code = 370) The system [employer] generated this result transmitted ref erence range: <=5.90. The reference range was not used to int erpret this result as normal/abnormal . RECOMMENDED COUMADIN/WARFARIN INR THERAPY RANGESSTANDARD DOSE: 2.0 - 3.0 Includes: PROPHYLAXIS for venous thrombosis, systemic embolization; TREATMENT for venous thrombosis and/or pulmonary embolus.HIGH RISK: Target INR is 2.5-3.5 for patients with mechanical heart valves.POCT-GLUCOSE [id number] 08:02:29 Test Item Value Reference Range Interpretation Comments POC-GLUCOSE METER 350 mg/dL 70-110 H : [facility] (Otus LabsAKER) (test code = [place]AMARIS [place], 1538) [address]: Dragline Mechanic/Techni samira ID = [id number] for Gerald Harris HEPATITIS B SURFACE [id number] 07:33:29 Test Item Value Reference Range Interpretation Comments HEPATITIS B SURFACE ANTIBODY < mIU/mL <8.0 (Otus LabsAKER) (test code = 647) Dragline Mechanic ID Mario ALEXI LHEPATITIS A ANTIBODY, [id number] 07:33:22 Test Item Value Reference Range Interpretation Comments HEPATITIS A IGG ANTIBODY ([employer]) Reactive Nonreactive A (test code = 2797) Dragline Mechanic ID Mario ALEXI SAHRAEPATITIS B CORE ANTIBODY, [id number] 07:27:05 Test Item Value Reference Range Interpretation Comments HEPATITIS B CORE TOTAL ANTIBODY Nonreactive Nonreactive ([employer]) (test code = 497) Dragline Mechanic ID Mario TRUONG [id number] 07:06:13 Test Item Value Reference Range Interpretation Comments ALPHA-1 ANTITRYPSIN (Otus LabsAKER) 229.00 mg/dL 90.00-200.00 H (test code = 502) Dragline Mechanic ID Mario TRUONG LIMMUNOGLOBULIN G (IGG)2020-12-17 07:06:12 Test Item Value Reference Range Interpretation Comments IMMUNOGLOBULIN G (IGG) 2240 mg/dL See_Comment H [Aut omated message] ([employer]) (test code = The sy stem which 427) generated this result transmit mandeep reference range : 540-1,822. The reference range was not used to interpret this result as normal/abnormal . Dragline Mechanic ID Mario TRUONG LCOMPREHENSIVE METABOLIC [id number] 07:04:11 Test Item Value Reference Range Interpretation Comments TOTAL PROTEIN 7.5 gm/dL 6.0-8.3 ([employer]) (test code = 770) ALBUMIN (Otus LabsAKER) 3.3 g/dL 3.5-5.0 L (test code = [...] S NOT APPLICABLE FOR DIALYSIS PATIEN TS. Dragline Mechanic ID - PIAYA LSpecimen markedly ictericCBC (HEMOGRAM ONLY)2020-12-17 06:41:48 Test Item Value [...] 0-0 (BEAKER) (test code = 413) POCT-GLUCOSE [id number] 21:58:32 Test Item Value Reference Range Interpretation Comments POC-GLUCOSE METER 246 mg/dL 70-110 H : TESTED A T [facility] 6720 (AKER) (test code = [facility], 1538) [address]: Dragline Mechanic/Techni samira ID = [id number] for Shun zurita (contract)Varsha sharath POCT-GLUCOSE [id number] 16:55:19 Test Item Value Reference Range Interpretation Comments POC-GLUCOSE METER 205 mg/dL 70-110 H : TESTED A T [facility] 6720 ([facility]) (test code = [facility], 1538) [address]: Dragline Mechanic/Techni samira ID = [id number] for Germaine Ibarra POCT-GLUCOSE [id number] 13:34:33 Test Item Value Reference Range Interpretation Comments POC-GLUCOSE METER 124 mg/dL 70-110 H : TESTED A T [facility] 6720 (AKER) (test code = [facility], 1538) [address]: Dragline Mechanic/Techni samira ID = [id number] for Germaine Ibarra [id number] 11:00:43 Test Item Value Reference Range Interpretation Comments FERRITIN (BEAKER) (test code = 1113.03 ng/mL 5.00-275.00 H 361) Dragline Mechanic ID - VIRI CANO, TIBC, % SAT. (WITHOUT FERRITIN)2020-12-16 10:40:35 Test Item Value Reference Range Interpretation Comments IRON (BEAKER) (test code = 547) 186.0 ug/dL 40.0-160.0 H TOTAL IRON BINDING CAPACITY 213 ug/dL 250-450 L (BEAKER) (test code = 769) IRON % SATURATION (2) (BEAKER) 87 % 20-55 H (test code = 2590) Dragline Mechanic ID - VIRI FPOCT-GLUCOSE [id number] 07:46:31 Test Item Value Reference Range Interpretation Comments POC-GLUCOSE METER 342 mg/dL 70-110 H : TESTED A T [facility] 6720 (BEAKER) (test code = ADAMARIS Eliza [place], 1538) [address]: Dragline Mechanic/Techni samira ID = [id number] for Germaine Ibarra HEMOGLOBIN [id number] 07:32:36 Test Item Value Reference Range Interpretation Comments HEMOGLOBIN A1C (BEELIEZER) (test code = 6.9 % 4.3-6.1 H 368) MR, ABDOMEN, [id number] 07:17:00Unlisted Reason for Exam - Click Yes and Enter Reason Below->No [facility] : 1945 Sex: FFINAL REPORT [...] of ductal obstruction. 3.Mild splenomegaly Signed: Jeff Galaviz MDRalyciaort Verified Date/Time: 12/16/2020 07:17:11 Reading Location: [facility] Diagnostic Imaging Reading Room - [place] [address] HEPATITIS PANEL, [id number] 06:48:21 Test Item Value Reference Range Interpretation Comments HEPATITIS A IGM ANTIBODY (BEAKER) Nonreactive Nonreactive (test code = 498) HEPATITIS B CORE IGM ANTIBODY Nonreactive Nonreactive (BEAKER) (test code = 645) HEPATITIS C ANTIBODY (BEAKER) Nonreactive Nonreactive (test code = 367) HEPATITIS B SURFACE ANTIGEN (2) Nonreactive Nonreactive (BEAKER) (test code = 2585) Dragline Mechanic ID - PIAYA [id number] 06:26:49 Test Item Value Reference Range Interpretation Comments PHOSPHORUS (BEAKER) (test code = 3.5 mg/dL 2.3-4.7 604) Dragline Mechanic ID - PIAYA LPOCT-GLUCOSE [id number] 06:20:54 Test Item Value Reference Range Interpretation Comments POC-GLUCOSE METER 386 mg/dL 70-110 H : TESTED A T [facility] 6720 (BEAKER) (test code = [place], 1538) [address]: Dragline Mechanic/Techni samira ID = [id number] for Luma selvinDena BASIC METABOLIC [id number] 05:57:34 Test Item Value Reference Range Interpretation [...] S NOT APPLICABLE FOR DIALYSIS PATIEN TS. Dragline Mechanic ID - PIAYA LSpecimen markedly ictericHEPATIC FUNCTION [id number] 05:52:04 Test Item Value Reference Range Interpretation [...] code = 182 U/L 6-55 H 347) Dragline Mechanic ID - PIAYA LSpecimen markedly ictericPOCT-GLUCOSE [id number] 21:50:48 Test Item Value Reference Range Interpretation Comments POC-GLUCOSE METER 328 mg/dL 70-110 H : TESTED A T [facility] 6720 (BEAKER) (test code = ADAMARIS [place], 1538) [address]: Dragline Mechanic/Techni samira ID = [id number] for FLAVIO BAZAN POCT-GLUCOSE [id number] 17:19:52 Test Item Value Reference Range Interpretation Comments POC-GLUCOSE METER 283 mg/dL 70-110 H : TESTED A T [facility] 6720 (BEAKER) (test code = [facility], 1538) [address]: Dragline Mechanic/Techni samira ID = [id number] for Raina wu (contract)Darren COMPREHENSIVE METABOLIC [id number] 14:43:46 Test Item Value Reference Range Interpretation [...] S NOT APPLICABLE FOR DIALYSIS PATIEN TS. Dragline Mechanic ID - [place] FSpecimen markedly ictericHEPATIC FUNCTION PANEL 2020-12-15 14:43:41 [...] code = 205 U/L 6-55 H 347) Dragline Mechanic ID Mario ENGpecimen markedly [id number] 14:43:35 Test Item Value Reference Range Interpretation Comments MAGNESIUM (BEAKER) (test code = 1.9 mg/dL 1.6-2.6 627) Dragline Mechanic ID Mario MEREDITH FPROTHROMBIN [id number] 14:20:35 Test Item Value Reference Range Interpretation Comments PROTIME (BEAKER) 14.3 seconds 11.9-14.2 H (test code = 759) INR (BEAKER) (test 1.12 See_Comment [Automat ed message] code = 370) The system [employer] generated this result transmitted ref erence range: <=5.90. The reference range was not used to int erpret this result as normal/abnormal . RECOMMENDED COUMADIN/WARFARIN INR THERAPY RANGESSTANDARD DOSE: 2.0 - 3.0 Includes: PROPHYLAXIS for venous thrombosis, systemic embolization; TREATMENT for venous thrombosis and/or pulmonary embolus.HIGH RISK: Target INR is 2.5-3.5 for patients with mechanical heart valves.PROTHROMBIN TIME/[id number] 14:20:29 Test Item Value Reference Range Interpretation Comments PROTIME (BEAKER) 14.3 seconds 11.9-14.2 H (test code = 759) INR (BEAKER) (test 1.13 See_Comment [Automat ed message] code = 370) The system [employer] generated this result transmitted ref erence range: <=5.90. The reference range was not used to int erpret this result as normal/abnormal . RECOMMENDED COUMADIN/WARFARIN INR THERAPY RANGESSTANDARD DOSE: 2.0 - 3.0 Includes: PROPHYLAXIS for venous thrombosis, systemic embolization; TREATMENT for venous thrombosis and/or pulmonary embolus.HIGH RISK: Target INR is 2.5-3.5 for patients with mechanical heart valves.CBC W/PLT COUNT & AUTO [id number] 14:13:09 Test Item Value Reference Range Interpretation [...] PERCENT (BEAKER) (test code = 2801) POCT-GLUCOSE [id number] 13:12:36 Test Item Value Reference Range Interpretation Comments POC-GLUCOSE METER 281 mg/dL 70-110 H : TESTED A T [facility] 6720 (BEAKER) (test code = [facility], 153) [address]: Dragline Mechanic/Techni samira ID = [id number] for HUSEYIN WIGGINS POCT-GLUCOSE [id number] 08:37:14 Test Item Value Reference Range Interpretation Comments POC-GLUCOSE METER 311 mg/dL 70-110 H : TESTED A T [facility] 6720 (BEAKER) (test code = [facility], 153) [address]: Dragline Mechanic/Techni samira ID = [id number] for Raina wu (contract)Darren
[2023-02-07] MEDS ORDERED: ONDANSETRON 4 MG/2 ML VIAL ONE (10:47)
[2023-02-07 11:05] LABS: Absolute Lymphocytes (CBC) 1.3 K/uL (0.7-4.9); Hematocrit 39.9 % (36.0-45.0); Lymphocytes % 17.4 % (15.3-44.8); MCV 92.6 fL (80-100); MPV 8.7 fL (7.6-11.3); Platelets 139 thou/uL (152-406); RBC Red Blood Cell Count 4.31 M/uL (3.86-4.86)
[2023-02-07 11:17] LABS: Potassium 3.9 mEq/L (3.5-5.1)
--- NOTE | 2023-02-07 11:33 | ER ---
Nurse's Notes [facility] Name: Caro Garner Age: 77 yrs Sex: Female : 1945 Arrival Date: 02/07/2023 Time: 10:17 Bed 5 Private MD: Diagnosis: SARS-associated coronavirus as the cause of diseases classified elsewhere Presentation: 02/07 10:25 Chief complaint: Patient states: fever, body aches, "covid symptoms", cough for 3 days. ko1 Has been exposed to Covid. Coronavirus screen: congestion, cough unrelated to allergies, fatigue, fever, muscle pain, Client presents with at least one sign or symptom that may indicate coronavirus-19. Standard/surgical mask placed on the client. Ebola Screen: No symptoms or risks identified at this time. Initial Sepsis Screen: Does the patient meet any 2 criteria? No. Patient's initial sepsis screen is negative. Does the patient have a suspected source of infection? No. Patient's initial sepsis screen is negative. Risk Assessment: Do you want to hurt yourself or someone else? Patient reports no desire to harm self or others. Onset of symptoms was February 04, 2023. 10:25 Method Of Arrival: Ambulatory ko1 10:25 Acuity: YOUSIF 3 ko1 Triage Assessment: 10:41 General: Appears ill, Behavior is cooperative, appropriate for age. Pain: Complains of ko1 pain in generalized. Historical: - Allergies: 10:41 Codeine; ko1 10:41 Levaquin; ko1 - PMHx: 10:41 Cancer; Diabetes - IDDM; Myocardial infarction; retinopathy; ko1 - PSHx: 10:41 Appendectomy; colon cancer; Double Bypass; Lumpectomy of breast; Total abdominal ko1 hysterectomy; - Immunization history:: Adult Immunizations up to date. - Social history:: Smoking status: Patient denies any tobacco usage or history of. Screenin:30 [facility] ED Fall Risk Assessment (Adult) History of falling in the last 3 months, ko1 including since admission No falls in past 3 months (0 pts) Confusion or Disorientation No (0 pts) Intoxicated or Sedated No (0 pts) Impaired Gait No (0 pts) Mobility Assist Device Used No (0 pt) Altered Elimination No (0 pt) Score/Fall Risk Level 0 - 2 = Low Risk Oriented to surroundings, Maintained a safe environment, Educated pt \\T\\ family on fall prevention, incl call for assistance when getting out of bed, Assessed \\T\\ reinforced patient's understanding of fall precautions, Provided non-skid footwear, Hourly rounding (assess needs \\T\\ fall precautionary measures) done, Used ambulatory aids as needed (educated on \\T\\ assisted with), Used gait belt as appropriate. Abuse screen: Denies threats or abuse. Denies injuries from another. Nutritional screening: No deficits noted. Tuberculosis screening: No symptoms or risk factors identified. Assessment: 10:30 Reassessment: see triage jah. ko1 11:43 Reassessment: attempted to call patients daughter to come garbage pick up man patient for ap3 discharge. patient's daughter did not answer. Vital Signs: 10:30 BP 188 / 89; Pulse 102; Resp 18; Pulse Ox 99% ; ko1 10:45 BP 162 / 70; Pulse 98; Resp 17; Temp 99.5(O); Pulse Ox 97% on R/A; ko1 ED Course: 10:19 Patient arrived in ED. rg4 10:21 Danielle Walsh, APRIL is PHCP. kb 10:21 Serafin Ceja MD is Attending Physician. kb 10:27 Анна Matute, MARGOT is Primary Nurse. ko1 10:30 Patient has correct armband on for positive identification. Bed in low position. Call ko1 light in reach. Side rails up X2. Provided Education on: NA. Client placed on continuous cardiac and pulse oximetry monitoring. NIBP monitoring applied. cafeteria monitor on. Door closed. Noise minimized. Lights dimmed. Warm blanket given. 10:36 Flu Sent. ds4 10:36 SARS-COV-2 RT PCR Sent. ds4 10:41 Triage completed. ko1 10:41 Arm band placed on right wrist. Patient placed in an exam room, on a stretcher, on ko1 pulse oximetry, Patient notified of wait time. 10:52 SARS-COV-2 RT PCR Sent. ds4 10:53 Basic Metabolic Panel Sent. mb9 10:53 CBC with Diff Sent. mb9 10:54 Inserted saline lock: 22 gauge in right forearm, using aseptic technique. Blood mb9 collected. 11:45 IV discontinued, intact, bleeding controlled, No redness/swelling at site. Pressure ap3 dressing applied. 11:46 No provider procedures requiring assistance completed. ko1 Administered Medications: 10:53 Drug: NS 0.9% IV 1000 ml IV at 1000 ml once Route: IV; Rate: 1000 ml; Site: right mb9 forearm; 11:45 Follow up: IV Status: Completed infusion; IV Intake: 1000ml ap3 10:54 Drug: Ondansetron IVP 4 mg IVP once; over 2 minutes Route: IVP; Site: right forearm; mb9 11:45 Follow up: Response: No adverse reaction ap3 Medication: 10:30 VIS not applicable for this client. ko1 Intake: 11:45 IV: 1000ml; Total: 1000ml. ap3 Outcome: 11:33 Discharge ordered by MD. denise 11:45 Discharged to home ap3 11:45 Condition: good 11:45 Discharge instructions given to patient, 11:45 Instructed on discharge instructions, follow up and referral plans. medication usage, Demonstrated understanding of instructions, follow-up care, medications, Prescriptions given X 2, 12:10 Patient left the ED. ko1 Signatures: Danielle Walsh, LATEX FOAM WORKER-C LATEX FOAM WORKER-Ckb Garth Rodriguez ds4 Mela Matta4 Nadine Gray RN RN ap3 Анна Matute RN RN ko1 Shanda Hernandez, RN RN mb9 Corrections: (The following items were deleted from the chart) 12:10 11:45 Instructed on discharge instructions, follow up and referral plans. medication ko1 usage, Demonstrated understanding of instructions, follow-up care, medications, Prescriptions given X 1, ap3
--- NOTE | 2023-02-07 11:34 | EDPHYS ---
Physician Documentation [facility] Name: Caro Garner Age: 77 yrs Sex: Female : 1945 Arrival Date: 02/07/2023 Time: 10:17 Bed 5 Private MD: ED Physician Serafin Ceja HPI: 02/07 10:31 This 77 yrs old Female presents to ER via Unassigned with complaints of Covid Symptoms. kb 10:31 Patient is a 77-year-old female who presents for cough, congestion, nausea, vomiting, kb body aches, malaise, fatigue, chills, fever that started 3 days ago. States her daughter was recently visiting and tested positive for COVID on Monday. Patient states she took Zofran ODT this morning and still is not able to tolerate anything by mouth except for water.. Historical: - Allergies: 10:41 Codeine; ko1 10:41 Levaquin; ko1 - PMHx: 10:41 Cancer; Diabetes - IDDM; Myocardial infarction; retinopathy; ko1 - PSHx: 10:41 Appendectomy; colon cancer; Double Bypass; Lumpectomy of breast; Total abdominal ko1 hysterectomy; - Immunization history:: Adult Immunizations up to date. - Social history:: Smoking status: Patient denies any tobacco usage or history of. ROS: 10:28 Cardiovascular: Negative for chest pain, palpitations, and edema, kb 10:28 Constitutional: Positive for body aches, chills, fatigue, fever, malaise, 10:28 ENT: Positive for rhinorrhea, sinus congestion, 10:28 Respiratory: Positive for cough, 10:28 Abdomen/GI: Positive for nausea and vomiting, Negative for abdominal pain, 10:28 Neuro: Positive for headache, 10:28 All other systems are negative, Exam: 10:30 Constitutional: This is a well developed, well nourished patient who is awake, alert, kb and in no acute distress. Head/Face: Normocephalic, atraumatic. ENT: Moist Mucous membranes Cardiovascular: Regular rate Respiratory: Respirations even and unlabored. No increased work of breathing. Talking in full sentences Abdomen/GI: Soft, non-tender. No distention Skin: Warm, dry with normal turgor. Normal color. MS/ Extremity: Pulses equal, no cyanosis. Neurovascular intact. Full, normal range of motion. Neuro: Awake and alert, GCS 15, oriented to person, place, time, and situation. Moves all extremities. Normal gait. Vital Signs: 10:30 BP 188 / 89; Pulse 102; Resp 18; Pulse Ox 99% ; ko1 10:45 BP 162 / 70; Pulse 98; Resp 17; Temp 99.5(O); Pulse Ox 97% on R/A; ko1 MDM: 10:21 Patient medically screened. kb 10:40 Differential Diagnosis: Viral Syndrome Other flu, covid, uri, pneumonia, dehydration, kb electrolyte imbalance. Data reviewed: vital signs, nurses notes. 11:32 Counseling: I had a detailed discussion with the patient and/or guardian regarding the kb historical points, exam findings, and any diagnostic results supporting the discharge/admit diagnosis, lab results, the need for outpatient follow up, a family practitioner, to return to the emergency department if symptoms worsen or persist or if there are any questions or concerns that arise at home. 02/07 10:25 Order name: CBC with Diff; Complete Time: 11:09 kb 02/07 10:25 Order name: Basic Metabolic Panel; Complete Time: 11:25 kb 02/07 10:29 Order name: Flu; Complete Time: 11:32 ds4 02/07 10:30 Order name: SARS-COV-2 RT PCR; Complete Time: 11:25 ds4 02/07 11:09 Order name: EKG; Complete Time: 11:10 kb 02/07 10:25 Order name: IV Start; Complete Time: 10:53 kb 02/07 10:52 Order name: Labs - recollect needed: recollect flu swab, use foam tip.; Complete Time: bd 11:35 02/07 11:09 Order name: EKG - Nurse/Tech; Complete Time: 11:28 kb Administered Medications: 10:53 Drug: NS 0.9% IV 1000 ml IV at 1000 ml once Route: IV; Rate: 1000 ml; Site: right mb9 forearm; 11:45 Follow up: IV Status: Completed infusion; IV Intake: 1000ml ap3 10:54 Drug: Ondansetron IVP 4 mg IVP once; over 2 minutes Route: IVP; Site: right forearm; mb9 11:45 Follow up: Response: No adverse reaction ap3 Disposition: 14:01 I reviewed the patient's care provided by the Advanced Practice Provider and agree with radha the diagnosis and treatment plan. Disposition Summary: 02/07/23 11:33 Discharge Ordered Notes: Location: Home kb Condition: Stable kb Diagnosis - SARS-associated coronavirus as the cause of diseases classified elsewhere kb Followup: kb - With: Emergency Department - When: As needed - Reason: Worsening of condition Followup: kb - With: Private Physician - When: 2 - 3 days - Reason: Recheck today's complaints, Continuance of care, Re-evaluation by your physician Discharge Instructions: - Discharge Summary Sheet kb - COVID-19 kb - Viral Illness, Adult kb Forms: - Medication Reconciliation Form kb - Thank You Letter kb - Antibiotic Education kb - Prescription Opioid Use kb - Patient Portal Instructions kb - Leadership Thank You Letter kb Prescriptions: - Paxlovid 300 mg (150 mg x 2)-100 mg Oral Tablet, Dose Pack - take 1 dose pack ORAL route as directed on dose pack take TWO 150 mg tablets of kb nirmatrelvir with ONE 100 mg tablet of ritonavir twice daily for 5 days; 1 Pack; Refills: 0, Product Selection Permitted - Zofran 4 mg Oral tablet - take 1 tablet ORAL route every 6 hours As needed; 12 tablet; Refills: 0, kb Product Selection Permitted Signatures: Dispatcher [employer] Danielle Nelson, APRIL CONNELL-Jennifer Stafford Jose, MD MD [id number] Анна Matute RN RN ko1 Shanda Hernandez RN RN mb9 Nadine Gray RN ap3
[2023-02-07 12:30] VITALS: BP 162/70; TEMP 99.5; O2SAT 97
--- NOTE | 2023-02-08 17:24 | EKG ---
Test Date: 2023-02-07 Test Time: 11:15:21 Yard Foreman: VIVIANE MEASUREMENT RESULTS: Intervals: Rate: 107 FL: 164 QRSD: 96 QT: 306 QTc: 408 [place]: P: 70 FL: 164 QRS: -35 T: 150 INTERPRETIVE STATEMENTS: Sinus tachycardia Left axis deviation Left ventricular hypertrophy with repolarization abnormality Abnormal ECG Compared to ECG 02/15/2022 16:46:25 Left-axis deviation now present Sinus rhythm no longer present Atrial premature complex(es) no longer present Electronically Signed On 02-08-23 17:20:35 DAY HABILITATION SUPERVISOR by Hugo Bro
== END 2023-02-07 12:10 | disposition home or self-care (01) ==
LOC: ER 10:17
DX: U07.1 COVID-19 (principal); Z88.1 Allergy status to other antibiotic agents; Z88.5 Allergy status to narcotic agent
CPT/HCPCS: 96361; 93005; 85025; 80048; 36415; 87635; 87804 ×2; 96374; 99285; J2405

== ENCOUNTER 2023-07-20 23:16 | Observation (INO) | payer OTHER ==
[2023-07-21 00:26] LABS: Absolute Eosinophils 0.1 K/uL (0-0.5); Absolute Lymphocytes (CBC) 2.8 K/uL (0.7-4.9); Absolute Monocytes 0.7 K/uL (0.1-1.3); Absolute Neutrophil 4.5 K/uL (1.8-8.0); Basophils % 0.5 % (0-1.3); Eosinophils % 1.5 % (0-4.4); Hematocrit 42.9 % (36.0-45.0); Hemoglobin 14.3 g/dL (12.0-15.0); Lymphocytes % 34.8 % (15.3-44.8); MCH 31.3 pg (27.0-35.0); MCHC 33.2 g/dL (32.0-36.0); MPV 9.1 fL (7.6-11.3); Monocytes % 8.2 % (3.3-12.3); Nucleated RBC Absolute Count 0.1 (0-0); Nucleated Red Blood Cells % 0.8 % (0-0); Platelets 186 thou/uL (152-406); RBC Red Blood Cell Count 4.56 M/uL (3.86-4.86)
[2023-07-21] MEDS ORDERED: ONDANSETRON 4 MG/2 ML VIAL ONE (00:32)
[2023-07-21] MEDS ORDERED: ASPIRIN 81 MG CHEWABLE TABLET ONE (00:32)
[2023-07-21] MEDS ORDERED: METOPROLOL TAR 50 MG TAB ONE (00:32)
[2023-07-21 00:33] LABS: PT Prothrombin Time 10.6 SECONDS (9.5-12.5); Protime INR 0.96
[2023-07-21] MEDS ORDERED: METOPROLOL TARTRATE 5 MG/5 ML INJ IV ONE (00:33)
[2023-07-21] MEDS ORDERED: FENTANYL CITR 100 MCG/2 ML ONE (00:33)
[2023-07-21] MEDS ORDERED: NA CHLORIDE 0.9% 1,000 ML ONE (00:33)
[2023-07-21] MEDS ORDERED: FAMOTIDINE 20 MG/2 ML VIAL IV ONE (00:33)
[2023-07-21 00:47] LABS: Albumin 3.7 g/dL (3.4-5.0); Albumin/Globulin Ratio 0.9 (1.1-1.8); Anion Gap 10.6 mEq/L (5.0-15.0); Bilirubin Direct 0.2 mg/dL (0-0.2); Bilirubin Indirect, Calculated 0.4 mg/dL (0.2-0.8); Bilirubin Total 0.6 mg/dL (0.2-1.0); Globulin 3.9 g/dL (2.3-3.5); Magnesium 2.1 mg/dL (1.6-2.4); Potassium 4.6 mEq/L (3.5-5.1); Protein, Total 7.6 g/dL (6.4-8.2); Troponin High Sensitivity 7.2 pg/mL (<58.9)
[2023-07-21] MEDS ORDERED: PIPERACIL/TAZO 3.375 GM VIAL IV ONE (01:53)
[2023-07-21] MEDS ORDERED: NA CHLORIDE 0.9% 100 ML ONE (01:53)
--- NOTE | 2023-07-21 02:30 | ER ---
Nurse's Notes [facility] Name: Caro Garner Age: 77 yrs Sex: Female : 1945 Arrival Date: 07/20/2023 Time: 23:16 Bed 3 Private MD: Diagnosis: Chest pain, unspecified;Essential (primary) hypertension;Epigastric abdominal tenderness;Other cholelithiasis without obstruction Presentation: 07/19 23:36 Chief complaint: Patient states: back and shoulder pain X2 days with acid reflux and lg3 epigastric pain. Coronavirus screen: Client denies travel out of the [place] in the last 14 days. At this time, the client does not indicate any symptoms associated with coronavirus-19. Ebola Screen: No symptoms or risks identified at this time. Initial Sepsis Screen: Does the patient meet any 2 criteria? No. Patient's initial sepsis screen is negative. Does the patient have a suspected source of infection? No. Patient's initial sepsis screen is negative. Risk Assessment: Do you want to hurt yourself or someone else? Patient reports no desire to harm self or others. Onset of symptoms was July 18, 2023. 23:36 Method Of Arrival: Wheelchair lg3 23:36 Acuity: YOUSIF 3 lg3 Triage Assessment: 23:38 General: Appears in no apparent distress. uncomfortable, Behavior is calm, cooperative. lg3 Pain: Complains of pain in left scapular area, right scapular area and thoracic area Pain radiates to diaphragm and xiphoid area. EENT: No deficits noted. No signs and/or symptoms were reported regarding the EENT system. Neuro: No deficits noted. [place] Agitation-Sedation Scale (RASS): 0 - Alert and Calm Level of Consciousness is awake, alert, obeys commands, Oriented to person, place, time, situation. Cardiovascular: No deficits noted. Heart tones S1 S2 present Capillary refill < 3 seconds Clubbing of nail beds is absent JVD is absent Patient's skin is warm and dry. Respiratory: No deficits noted. Airway is patent Respiratory effort is even, unlabored, Respiratory pattern is regular, symmetrical, Breath sounds are clear bilaterally. GI: Abdomen is round non-distended, Reports upper abdominal pain, epigastric pain, indigestion. : No deficits noted. No signs and/or symptoms were reported regarding the genitourinary system. Derm: No deficits noted. No signs and/or symptoms reported regarding the dermatologic system. Skin is intact, is healthy with good turgor, Skin is dry, Skin is normal, Skin temperature is warm. Musculoskeletal: No deficits noted. Circulation, motion, and sensation intact. Range of motion: intact in all extremities. Historical: - Allergies: 23:38 Codeine; lg3 23:38 Levaquin; lg3 - Home Meds: 23:38 Humalog Sub-Q 4 units [Active]; Lantus U-100 Insulin 100 unit/mL Sub-Q solution 32 lg3 units [Active]; Lumigan ophthalmic (eye) [Active]; pantoprazole oral [Active]; aspirin 81 mg Oral capsule [Active]; Arimidex Oral [Active]; - PMHx: 23:38 Cancer; Diabetes - IDDM; Myocardial infarction; retinopathy; lg3 - PSHx: 23:38 Appendectomy; colon cancer; Double Bypass; Lumpectomy of breast; Total abdominal lg3 hysterectomy; - Immunization history:: Adult Immunizations up to date, Client reports receiving the 2nd dose of the Covid vaccine, Flu vaccine is not up to date. - Infectious Disease History:: Denies. - Social history:: Smoking status: Patient denies any tobacco usage or history of. Patient/guardian denies using alcohol, street drugs. - Family history:: not pertinent. Screenin/26 00:21 [facility] ED Fall Risk Assessment (Adult) History of falling in the last 3 months, rv including since admission No falls in past 3 months (0 pts) Score/Fall Risk Level 0 - 2 = Low Risk Oriented to surroundings, Maintained a safe environment, Educated pt \T\ family on fall prevention, incl call for assistance when getting out of bed, Assessed \T\ reinforced patient's understanding of fall precautions. Abuse screen: Denies threats or abuse. Denies injuries from another. Nutritional screening: No deficits noted. Tuberculosis screening: No symptoms or risk factors identified. Assessment: 00:42 General: Appears comfortable, Behavior is calm, cooperative. Pain: Complains of pain in rv chest and back and right scapular area. Neuro: Level of Consciousness is awake, alert, obeys commands, Oriented to person, place, time, situation. Cardiovascular: Capillary refill < 3 seconds Patient's skin is warm and dry. Rhythm is regular. Respiratory: Airway is patent Respiratory effort is even, unlabored, Breath sounds are clear bilaterally. GI: No signs and/or symptoms were reported involving the gastrointestinal system. : No signs and/or symptoms were reported regarding the genitourinary system. 01:54 Reassessment: Patient and/or family updated on plan of care and expected duration. Pain tm6 level reassessed. Patient is alert, oriented x 3, equal unlabored respirations, skin warm/dry/pink. Vital Signs: 07/19 23:36 BP 184 / 91; Pulse 105; Resp 17 S; Temp 97.9(TE); Pulse Ox 99% on R/A; Weight 68.04 kg lg3 (R); Height 5 ft. 4 in. (R); 07/20 00:22 Pulse 97; Resp 14; Pulse Ox 100% ; rv 00:42 BP 187 / 100; Pulse 81; Resp 18; Pulse Ox 100% on R/A; rv 01:54 BP 178 / 81; Pulse 85; Resp 12; Pulse Ox 97% on R/A; tm6 05:25 BP 142 / 81; Pulse 65; Resp 15; Temp 98; Pulse Ox 99% on R/A; rv 07/19 23:36 Body Mass Index 25.75 (68.04 kg, 162.56 cm) lg3 Florence Coma Score: 00:22 Eye Response: spontaneous(4). Motor Response: obeys commands(6). Verbal Response: rv oriented(5). Total: 15. 05:25 Eye Response: spontaneous(4). Motor Response: obeys commands(6). Verbal Response: rv oriented(5). Total: 15. ED Course: 07/19 23:19 Patient arrived in ED. jj6 23:38 Triage completed. lg3 23:38 Arm band placed on right wrist. lg3 23:51 John Yepez MD is Attending Physician. [facility] 07/20 00:05 XRAY Chest (1 view) In Process Unspecified. EDMS 00:15 Ne Chow, MARGOT is Primary Nurse. tm6 00:16 Missed attempt(s): 22 gauge in right forearm. vk 00:16 Initial lab(s) drawn, by me, sent to lab. EKG done, by ED staff. vk 00:21 Patient has correct armband on for positive identification. Client placed on continuous rv cardiac and pulse oximetry monitoring. NIBP monitoring applied. ekg monitor tech on. 00:21 Basic Metabolic Panel Sent. rv 00:21 CBC with Diff Sent. rv 00:21 LFT's Sent. rv 00:21 Magnesium Sent. rv 00:21 NT PRO-BNP Sent. rv 00:21 PT-INR Sent. rv 00:21 Troponin HS Sent. rv 00:21 Inserted saline lock: 20 gauge in right forearm, using aseptic technique. rv 00:21 No provider procedures requiring assistance completed. rv 00:41 Lipase Sent. rv 01:36 CT Aorta for Dissection In Process Unspecified. EDMS 02:08 US Abdomen Limited In Process Unspecified. EDMS 02:25 Roshan Medina is Hospitalizing Provider. meghana 03:30 Urinalysis w/ reflexes Sent. pf1 03:31 Urine collected: clean catch specimen, clear. pf1 05:27 Patient admitted, IV remains in place. rv Administered Medications: 00:40 Drug: Metoprolol IVP 5 mg IVP once; Hold for SBP <100 or HR <60. Route: IVP; Site: rv right forearm; 05:25 Follow up: Response: No adverse reaction rv 00:40 Drug: Metoprolol PO 50 mg PO once Route: PO; rv 05:24 Follow up: Response: No adverse reaction rv 00:41 Drug: NS 0.9% IV 1000 ml IV at 125 ml/hr continuous Route: IV; Rate: 125 ml/hr; Site: rv right forearm; 00:41 Drug: Famotidine IVP 20 mg IVP once; dilute with 10 mL 0.9% NaCl; give over 2 minutes rv Route: IVP; Site: right forearm; 05:25 Follow up: Response: No adverse reaction rv 00:41 Drug: fentaNYL (PF) IVP 25 mcg IVP once Route: IVP; Site: right forearm; rv 05:25 Follow up: Response: No adverse reaction rv 00:41 Drug: Ondansetron IVP 4 mg IVP once; over 2 minutes Route: IVP; Site: right forearm; rv 05:25 Follow up: Response: No adverse reaction rv 00:41 Drug: Aspirin PO Chewable Tablet 162 mg PO once Route: PO; rv 05:25 Follow up: Response: No adverse reaction rv 02:01 Drug: Piperacillin-Tazobactam IVPB 3.375 grams IVPB once over 60 mins; (mix in NS 100 tm6 mL) Route: IVPB; Infused Over: 60 mins; Site: right wrist; 05:24 Follow up: Response: No adverse reaction; IV Status: Completed infusion; IV Intake: rv 100ml Medication: 00:21 VIS not applicable for this client. rv Intake: 05:24 IV: 100ml; Total: 100ml. rv Outcome: 02:29 Decision to Hospitalize by Provider. meghana 05:26 Admitted to Med/surg accompanied by tech, via wheelchair, room 404, with chart, Report rv called to REPORT FAXED AND RECEIVED. 05:26 Condition: good 05:26 Instructed on the need for admit, 05:27 Patient left the ED. rv Signatures: Dispatcher [employer] EDJohn Bradley MD MD cha Vicente, Ronaldo RN RN Anat Jeronimo RN RN lg3 Whit Plasencia6 Parris Rowley RN RN pf1 Ne Chow RN RN tm6 Quynh Colon Corrections: (The following items were deleted from the chart) 00:48 00:47 BP 120 / 79; Pulse 75bpm; Pulse Ox 100% RA; tm6 tm6
--- NOTE | 2023-07-21 02:30 | EDPHYS ---
Physician Documentation [facility] Name: Caro Garner Age: 77 yrs Sex: Female : 1945 Arrival Date: 07/20/2023 Time: 23:16 Bed 3 Private MD: DONA Physician John Yepez HPI: 07/20 01:14 This 77 yrs old Female presents to ER via Wheelchair with complaints of Neck meghana and Upper Back Pain, Epigastric Pain. 01:14 The patient or guardian complains of pain. The symptoms are located on the base of the meghana skull and right scapular area. 01:19 Onset: The symptoms/episode began/occurred 1 day(s) ago. Context: The problem was meghana sustained at home, The neck injury/problem resulted from from unknown cause. The patient or guardian reports chest pain that is located primarily in the anterior chest wall, bilaterally, left lateral posterior chest and right lateral posterior chest. The patient presents with pain that is acute. Associated signs and symptoms: Pertinent positives: weakness. Historical: - Allergies: 07/19 23:38 Codeine; lg3 23:38 Levaquin; lg3 - Home Meds: 23:38 Humalog Sub-Q 4 units [Active]; Lantus U-100 Insulin 100 unit/mL Sub-Q solution 32 lg3 units [Active]; Lumigan ophthalmic (eye) [Active]; pantoprazole oral [Active]; aspirin 81 mg Oral capsule [Active]; Arimidex Oral [Active]; - PMHx: 23:38 Cancer; Diabetes - IDDM; Myocardial infarction; retinopathy; lg3 - PSHx: 23:38 Appendectomy; colon cancer; Double Bypass; Lumpectomy of breast; Total abdominal lg3 hysterectomy; - Immunization history:: Adult Immunizations up to date, Client reports receiving the 2nd dose of the Covid vaccine, Flu vaccine is not up to date. - Infectious Disease History:: Denies. - Social history:: Smoking status: Patient denies any tobacco usage or history of. Patient/guardian denies using alcohol, street drugs. - Family history:: not pertinent. ROS: 07/20 01:19 Constitutional: Negative for fever, chills, and weight loss, Eyes: Negative for injury, meghana pain, redness, and discharge, ENT: Negative for injury, pain, and discharge, Neck: Negative for injury, pain, and swelling, Respiratory: Negative for shortness of breath, cough, wheezing, and pleuritic chest pain, Abdomen/GI: Negative for abdominal pain, nausea, vomiting, diarrhea, and constipation, : Negative for injury, bleeding, discharge, and swelling, MS/Extremity: Negative for injury and deformity, Skin: Negative for injury, rash, and discoloration, Neuro: Negative for headache, weakness, numbness, tingling, and seizure, Psych: Negative for depression, anxiety, suicide ideation, homicidal ideation, and hallucinations, Allergy/Immunology: Negative for hives, rash, and allergies, Endocrine: Negative for neck swelling, polydipsia, polyuria, polyphagia, and marked weight changes, Hematologic/Lymphatic: Negative for swollen nodes, abnormal bleeding, and unusual bruising, Cardiovascular: Positive for chest pain, Back: Positive for pain at rest, of the right scapular area and thoracic area, Exam: 01:19 Constitutional: This is a well developed, well nourished patient who is awake, alert, meghana and in no acute distress. Head/Face: Normocephalic, atraumatic. Eyes: Pupils equal round and reactive to light, extra-ocular motions intact. Lids and lashes normal. Conjunctiva and sclera are non-icteric and not injected. Cornea within normal limits. Periorbital areas with no swelling, redness, or edema. ENT: Nares patent. No nasal discharge, no septal abnormalities noted. Tympanic membranes are normal and external auditory canals are clear. Oropharynx with no redness, swelling, or masses, exudates, or evidence of obstruction, uvula midline. Mucous membranes moist. Neck: Trachea midline, no thyromegaly or masses palpated, and no cervical lymphadenopathy. Supple, full range of motion without nuchal rigidity, or vertebral point tenderness. No Meningismus. Chest/axilla: Normal chest wall appearance and motion. Nontender with no deformity. No lesions are appreciated. Cardiovascular: Regular rate and rhythm with a normal S1 and S2. No gallops, murmurs, or rubs. Normal PMI, no JVD. No pulse deficits. Respiratory: Lungs have equal breath sounds bilaterally, clear to auscultation and percussion. No rales, rhonchi or wheezes noted. No increased work of breathing, no retractions or nasal flaring. Abdomen/GI: Soft, non-tender, with normal bowel sounds. No distension or tympany. No guarding or rebound. No evidence of tenderness throughout. Back: No spinal tenderness. No costovertebral tenderness. Full range of motion. Female : Normal external genitalia. Skin: Warm, dry with normal turgor. Normal color with no rashes, no lesions, and no evidence of cellulitis. MS/ Extremity: Pulses equal, no cyanosis. Neurovascular intact. Full, normal range of motion. Neuro: Awake and alert, GCS 15, oriented to person, place, time, and situation. Cranial nerves II-XII grossly intact. Motor strength 5/5 in all extremities. Sensory grossly intact. Cerebellar exam normal. Normal gait. Psych: Awake, alert, with orientation to person, place and time. Behavior, mood, and affect are within normal limits. 01:19 ECG was reviewed by the Attending Physician. Vital Signs: 07/19 23:36 BP 184 / 91; Pulse 105; Resp 17 S; Temp 97.9(TE); Pulse Ox 99% on R/A; Weight 68.04 kg lg3 (R); Height 5 ft. 4 in. (R); 07/20 00:22 Pulse 97; Resp 14; Pulse Ox 100% ; rv 00:42 BP 187 / 100; Pulse 81; Resp 18; Pulse Ox 100% on R/A; rv 01:54 BP 178 / 81; Pulse 85; Resp 12; Pulse Ox 97% on R/A; tm6 05:25 BP 142 / 81; Pulse 65; Resp 15; Temp 98; Pulse Ox 99% on R/A; rv 07/19 23:36 Body Mass Index 25.75 (68.04 kg, 162.56 cm) lg3 [place] Coma Score: 00:22 Eye Response: spontaneous(4). Motor Response: obeys commands(6). Verbal Response: rv oriented(5). Total: 15. 05:25 Eye Response: spontaneous(4). Motor Response: obeys commands(6). Verbal Response: rv oriented(5). Total: 15. MDM: 07/19 23:51 Patient medically screened. [facility] 07/20 01:22 Differential diagnosis: Cervical Raiculopathy abnormal EKG, acute myocardial meghana infarction, chest wall pain, arthritis, Cholelithiasis chronic back pain, esophagitis, gastritis, pancreatitis, peptic ulcer disease, pneumonia, pulmonary embolus, stable angina, Fatigue Fracture Joint Injury ruptured disc, sprain, thoracic aortic disection, unstable angina, vertebral fracture. HEART Score: History: Moderately Suspicious (1), ECG: Non specific repolarization disturbance / LBTB / PM (1), Age: > or = 65 years (2), Risk Factors: > or = 3 Risk factors for atherosclerotic disease (2), [Hypercholesterolemia] [Hypertension] [DM] [+ Family HX] Troponin: < or = 1 x Normal Limit (0). The patient was given aspirin in the Emergency Department. BHAVYA Risk Score: 1 - patient's age is greater or equal to 65 years, 1 - Three or more CAD risk factors, 1- Known CAD, 1 - ASA use in past 7 days, TOTAL SCORE = 4. Data reviewed: vital signs, nurses notes, lab test result(s), EKG, radiologic studies, plain films. Consideration of Admission/Observation Patient was admitted/placed on observation. Escalation of care including admission/observation considered. I considered the following discharge prescriptions or medication management in the emergency department Medications were administered in the Emergency Department. See MAR. Independent interpretation of the following test(s) in the Emergency Department EKG: See my EKG interpretation above. Test considered but Not performed: Ultrasound no 2 d echo. Historians other than the Patient: pt well informed. Care significantly affected by the following chronic conditions: Diabetes, Hypertension, Chronic Kidney Disease. Counseling: I had a detailed discussion with the patient and/or guardian regarding the historical points, exam findings, and any diagnostic results supporting the discharge/admit diagnosis, the presence of at least one elevated blood pressure reading (>120/80) during this emergency department visit, lab results, the need for further work-up and treatment in the hospital. 07/19 23:54 Order name: Basic Metabolic Panel; Complete Time: [facility] 07/19 23:54 Order name: CBC with Diff; Complete Time: 00:07/19 23:54 Order name: LFT's; Complete Time: 07/19 23:54 Order name: Magnesium; Complete Time: 07/19 23:54 Order name: NT PRO-BNP; Complete Time: meghana 07/19 23:54 Order name: PT-INR; Complete Time: 01:26 [facility] 07/19 23:54 Order name: Troponin HS; Complete Time: :26 [facility] 07/19 23:54 Order name: Lipase; Complete Time: : [facility] 07/19 23:54 Order name: Urinalysis w/ reflexes [facility] 07/19 23:54 Order name: XRAY Chest (1 view) [facility] 07/20 00:32 Order name: CT Aorta for Dissection [facility] 07/20 01:27 Order name: US Abdomen Limited [facility] 07/19 23:54 Order name: EKG; Complete Time: 23:55 [facility] 07/19 23:54 Order name: Cardiac monitoring; Complete Time: 00:21 [facility] 07/19 23:54 Order name: EKG - Nurse/Tech; Complete Time: 00:16 [facility] 07/19 23:54 Order name: IV Saline Lock; Complete Time: 00:21 [facility] 07/19 23:54 Order name: Labs collected and sent; Complete Time: 00:16 [facility] 07/19 23:54 Order name: O2 Per Protocol; Complete Time: 00:16 [facility] 07/19 23:54 Order name: O2 Sat Monitoring; Complete Time: 00:16 [facility] EC:19 Rate is 103 beats/min. Rhythm is regular. QRS [place] is Normal. PA interval is normal. [facility] QRS interval is normal. QT interval is normal. No Q waves. T waves are Inverted in leads I, aVL, V2. No ST changes noted. Clinical impression: NSR w/ Non-specific ST/T Changes. Interpreted by me. Reviewed by me. Administered Medications: 00:40 Drug: Metoprolol IVP 5 mg IVP once; Hold for SBP <100 or HR <60. Route: IVP; Site: rv right forearm; 05:25 Follow up: Response: No adverse reaction rv 00:40 Drug: Metoprolol PO 50 mg PO once Route: PO; rv 05:24 Follow up: Response: No adverse reaction rv 00:41 Drug: NS 0.9% IV 1000 ml IV at 125 ml/hr continuous Route: IV; Rate: 125 ml/hr; Site: rv right forearm; 00:41 Drug: Famotidine IVP 20 mg IVP once; dilute with 10 mL 0.9% NaCl; give over 2 minutes rv Route: IVP; Site: right forearm; 05:25 Follow up: Response: No adverse reaction rv 00:41 Drug: fentaNYL (PF) IVP 25 mcg IVP once Route: IVP; Site: right forearm; rv 05:25 Follow up: Response: No adverse reaction rv 00:41 Drug: Ondansetron IVP 4 mg IVP once; over 2 minutes Route: IVP; Site: right forearm; rv 05:25 Follow up: Response: No adverse reaction rv 00:41 Drug: Aspirin PO Chewable Tablet 162 mg PO once Route: PO; rv 05:25 Follow up: Response: No adverse reaction rv 02:01 Drug: Piperacillin-Tazobactam IVPB 3.375 grams IVPB once over 60 mins; (mix in NS 100 tm6 mL) Route: IVPB; Infused Over: 60 mins; Site: right wrist; 05:24 Follow up: Response: No adverse reaction; IV Status: Completed infusion; IV Intake: rv 100ml Disposition Summary: 07/21/23 02:29 Hospitalization Ordered Notes: Hospitalization Status: Observation meghana Provider: Roshan Medina cha Location: Telemetry/MedSurg (observation) meghana Condition: Stable meghana Problem: new meghana Symptoms: have improved meghana Bed/Room Type: Standard meghana Room Assignment: 404(07/21/23 04:31) rv1 Diagnosis - Chest pain, unspecified meghana - Essential (primary) hypertension meghana - Epigastric abdominal tenderness meghana - Other cholelithiasis without obstruction meghana Forms: - Medication Reconciliation Form meghana - SBAR form meghana - Leadership Thank You Letter meghana Signatures: Dispatcher [employer] EDJohn Bradley MD MD cha Vicente, Ronaldo RN RN rv AbleAnat RN RN lg3 Mary Jo Blair rv1 Ne Chow RN RN tm6 Corrections: (The following items were deleted from the chart) 07/19 23:55 23:55 BASIC METABOLIC PANEL+C.LAB.BRZ ordered. EDMS EDMS 23:55 23:55 CBC+H.LAB.BRZ ordered. EDMS EDMS 23:55 23:55 HEPATIC FUNCTION+C.LAB.BRZ ordered. EDMS EDMS 23:55 23:55 MAGNESIUM+C.LAB.BRZ ordered. EDMS EDMS 23:55 23:55 PROBNP+C.LAB.BRZ ordered. EDMS EDMS 23:55 23:55 PROTIME (+INR)+COAG.LAB.BRZ ordered. EDMS EDMS 23:55 Troponin High Sensitivity+C.LAB.BRZ ordered. EDMS EDMS 23:55 LIPASE+C.LAB.BRZ ordered. EDMS EDMS 23:55 Urinalysis+U.LAB.BRZ ordered. EDMS EDMS 07/20 04:31 02:29 meghana rv1
[2023-07-21 03:41] LABS: Specific Gravity 1.029 (1.005-1.030); Urine Bilirubin NEGATIVE (Negative); Urine Blood Negative (Negative); Urine Clarity Clear (Clear); Urine Color Colorless (Yellow); Urine Glucose 3+ (Negative); Urine Ketones NEGATIVE (Negative); Urine Microscopic Reflex YN NO UMIC; Urine Nitrite NEGATIVE (Negative); Urine Protein NEGATIVE (Negative); Urine Urobilinogen Normal (Normal)
[2023-07-21] MEDS ORDERED: MORPHINE 4 MG/ML SYR IV PRN (03:56)
--- NOTE | 2023-07-21 04:31 | P.HP ---
Certification for Inpatient Patient admitted to: Observation With expected LOS: <2 Midnights Practitioner: I am a practitioner with admitting privileges, knowledge of patient current condition, hospital course, and medical plan of care. Services: Services provided to patient in accordance with Admission requirements found in Title 42 Section 412.3 of the Code of Federal Regulations Patient History Date of Service: 07/21/23 Reason for admission: Back pain History of Present Illness: 77-year-old woman with a history of coronary artery disease, history of double cardiac bypass presented to the emergency department with a complaint of sudden onset back pain similar to symptoms she had when she got CABG several years ago. Patient also reports that epigastric pain and heartburn. She denied any shortness of breath or diaphoresis or palpitation. She denied any lightheadedness. Initial troponin in the ED is negative. CT abdomen pelvis unremarkable except small gallstone. Right upper quadrant sonogram done, official report is pending. Blood work showed elevated LFTs patient is hospitalized for further management. Allergies codeine Allergy (Intermediate, Verified 08/21/15 00:05) Hives/Rash Home Medications: Anastrozole [Arimidex*] 1 mg PO DAILY 10/26/17 Simvastatin 40 mg PO BEDTIME 10/26/17 Brimonidine Tartrate/Timolol [Combigan 0.2%-0.5% Eye Drops] 1 drop EACH EYE BID 05/22/18 Brinzolamide [Azopt] 1 drop EACH EYE BID 05/22/18 Oxybutynin Chloride [Oxybutynin Chloride ER] 2.5 mg PO DAILY 05/22/18 Tamsulosin [Flomax*] 0.4 mg PO BEDTIME 05/22/18 Gabapentin 200 mg PO DAILY 02/13/19 Aspirin Chewable [Aspirin Chewable*] 162 mg PO DAILY 02/14/19 Cholecalciferol (Vitamin D3) [Vitamin D3] 5,000 unit PO DAILY 02/14/19 Chromium Nahomy/Manganese/Zinc [Slackline Operator-Man-Zin Tablet] 1 each PO DAILY 02/14/19 Insulin Detemir [Levemir] 20 unit SQ BEDTIME 02/14/19 Lactobacillus Combination No.8 [Adult Probiotic] 1 each PO DAILY 02/14/19 Latanoprost/Pf [Latanoprost 0.005% Eye Drop] 1 gtt OP BEDTIME 02/14/19 Phytosterol/Vit D3/Fish Oil [Cholesterol Relief Softgel] 1 tab PO DAILY 02/14/19 Pumpkin Seed Extract/Soy Germ [Azo Bladder Control Capsule] 1 tab PO DAILY 02/14/19 Ubidecarenone [Coenzyme Q10*] 1 tab PO DAILY 02/14/19 Zolpidem Tartrate [Ambien*] 10 mg PO BEDTIME PRN 02/14/19 l [place]ass[place]/B Bifidum/B Longum [Kro Probiotic Colon Suppt Cap] 1 each PO DAILY 02/14/19 Magnesium Oxide 400 mg PO BID #60 tablet 02/16/19 Smz./Tmp. [Bactrim Ds 800 MG/160 MG*] 1 tab PO DAILY #3 tab 02/16/19 - Past Medical/Surgical History Diabetic: Yes -: CAD -: IDDM -: HI -: Chronic Constipation -: Diabetic retinopathy -: Hyperlipidemia -: Left breast mass, post biopsy indicating infiltrating ductal carcinoma -: Anemia -: Sciatica -: Chronic constipation -: Hysterectomy -: Appendectomy -: L Mastectomy -: Cardiac Bypass -: Balloon Stents Psychosocial/ Personal History: She is and . She has 4 children. She does not work. - Family History Mother -: Heart disease, Diabetes, Cancer Notes: Chronic lymphatic leukemia Father -: Heart disease, Hypertension - Social History Alcohol use: No CD- Drugs: No Caffeine use: Yes Review of Systems Other: Except as documented, all other systems reviewed and negative. Physical Examination - Physical Exam General: Alert, In no apparent distress, Oriented x3 HEENT: Mucous membr. moist/pink, Sclerae nonicteric Neck: Supple, JVD not distended Respiratory: Clear to auscultation bilaterally, Normal air movement Cardiovascular: No edema, Regular rate/rhythm, Normal S1 S2 Capillary refill: <2 Seconds Gastrointestinal: Normal bowel sounds, Soft and benign, Non-distended, No tenderness Musculoskeletal: No swelling Integumentary: No rashes, No cyanosis Neurological: Normal speech, Normal strength at 5/5 x4 extr, Cranial nerves 3-12 intact Lymphatics: No axilla or inguinal lymphadenopathy - Studies Laboratory Data (last 24 hrs) 07/21/23 07/21/23 07/21/23 00:13 00:13 00:13 WBC 8.20 Hgb 14.3 Hct 42.9 Plt Count 186 PT 10.6 INR 0.96 Sodium 141 Potassium 4.6 BUN 18 Creatinine 0.98 Glucose 241 H Magnesium 2.1 Total Bilirubin 0.6 AST 82 H ALT 78 H Alkaline Phosphatase 161 H Lipase 37 Assessment and Plan - Problems (Diagnosis) (1) Back pain Current Visit: Yes Status: Acute (2) Epigastric pain Current Visit: Yes Status: Acute (3) Elevated liver enzymes Current Visit: Yes Status: Acute (4) Chest pain Onset Date: 09/25/15 Current Visit: No Status: Acute Qualifiers: Chest pain type: unspecified Qualified Code(s): R07.9 - Chest pain, unspecified (5) Coronary artery disease Current Visit: No Status: Chronic Qualifiers: Coronary Disease-Associated Artery/Lesion type: [place] artery [place] vs. transplanted heart: stebbins heart Associated angina: without angina Qualified Code(s): I25.10 - Atherosclerotic heart disease of [place]eb[place] coronary artery w ithout angina pectoris (6) Diabetes mellitus Onset Date: 09/25/15 Current Visit: No Status: Chronic Qualifiers: Diabetes mellitus type: type 2 Diabetes mellitus fpc insulin use: without fpc use Diabetes mellitus complication status: without complication Qualified Code(s): E11.9 - Type 2 diabetes mellitus without complications - Plan Chest pain/back pain Coronary artery disease Patient reports similar symptoms that led to CABG several years ago. Place patient under observation Trend troponin Patient stated she was supposed to have a follow-up stress test tomorrow. Cardiology consult. Continue aspirin. Elevated liver enzymes Associated epigastric pain. Liver/gallbladder ultrasound final result is pending. Obtain MRCP to rule out acute cholecystitis. Monitor LFTs. Diabetes mellitus type 2 Resume home insulin regimen Insulin sliding scale for glucose management. DVT prophylaxis: Lovenox Advanced directive: Full code - Advance Directives Does patient have a Living Will: No Does patient have a Durable POA for Healthcare: No
[2023-07-21 05:37] LABS: Troponin High Sensitivity 14.7 pg/mL (<58.9)
[2023-07-21 06:05] VITALS: O2SAT 99
[2023-07-21 06:35] VITALS: BMI 25.7
--- NOTE | 2023-07-21 07:21 | P.PN ---
Date of Service: 07/21/23 Subjective: reports back/chest/shoulder pain similar to when she had to get CABG several years ago. +heartburn chest/back pain and heartburn resolved overnight denies ever having abdominal / RUQ pain. Nontender on exam ROS: 10 point ROS as noted above, otherwise negative Physical Exam: GEN: Alert, oriented, NAD HEENT: Normal conjunctiva, sclera anicteric CV: Regular rate and rhythm, no edema Pulm: Nonlabored respirations on room air, clear bilaterally ABD: Soft, nontender, nondistended Neuro: Normal speech, normal affect vitals reviewed Problem List: Chest pain/back pain hx CAD s/p CABG (2015) Cholelithiasis Elevated LFTs Epigastric pain / heartburn IDDM2 Chest pain/back pain hx CAD s/p CABG (2015) Reports sudden onset upper back/shoulder/chest pain similar to symptoms she had when she got CABG several years ago. +heartburn. Denies shortness of breath / diaphoresis / palpitations CT dissection (07/20): Atherosclerotic calcifications in thoracic/abdominal aorta without dilatation/dissection. No PE. Cholelithiasis, mild fatty infiltration of liver, superior endplace compression deformity at T4, T6, T8, T11. CXR (07/19): no acute findings. minimal linear scarring/atelectasis in left midlung trend troponins, monitor on telemetry Cardiology consulted Echo ordered to eval EF / stenosis had appointment to establish with chemical laboratory scientist this week. Reports being told to get stress test with Dr. Gonzales in past but never followed up. back/chest pain resolved when heartburn resolved overnight Cholelithiasis Elevated LFTs Epigastric pain / heartburn CT noted cholelithiasis, mild fatty infiltration of liver Abdominal u/s (07/20): cholelithiasis without evidence of acute cholecystitis. MRCP (07/20): cholelithiasis Dr. Cadena, General surgery consulted AST 82 / ALT 78 / ALP 161 / T. bili wnl trend LFTs IDDM2 accu-checks, SSI confirm home meds VTE: Lovenox Code: Full Dispo: ~1-2 days Pending improvement of LFTs / Surgical recs / cardiac recs
[2023-07-21] MEDS ORDERED: PNEUMOCOCCAL VACCINE 0.5 ML IMVAC ONE (08:00)
[2023-07-21] MEDS ORDERED: ASPIRIN EC 81 MG TAB PO SCH (09:00)
[2023-07-21] MEDS ORDERED: ENOXAPARIN 40 MG/0.4 ML SQ SCH (09:00)
--- NOTE | 2023-07-21 10:28 | RAD REPORT ---
EXAM DESCRIPTION: MRI - Cholangiogram - 07/21/2023 10:18 am CLINICAL HISTORY: Cholelithiasis r/o cholecystitis COMPARISON: Abdomen Exam Limited dated 07/21/2023; Angio Aorta For Dissection dated 07/21/2023 FINDINGS: Three-dimensional MRCP was performed using maximum intensity projection reconstruction on the same work station. No intrahepatic biliary tree dilatation is seen. The common bile duct is normal caliber without evide nce of retained stone, stricture or mass. The pancreatic duct is not pathologically dilated. Cholelithiasis. Limited T2 sequences through the abdomen demonstrates no bulky adenopathy, significant free fluid or abscess. IMPRESSION: Cholelithiasis. No common bile duct stone or pathologic biliary dilatation seen.
[2023-07-21 13:04] LABS: Albumin 3.4 g/dL (3.4-5.0); Bilirubin Total 0.9 mg/dL (0.2-1.0); Globulin 3.3 g/dL (2.3-3.5); Protein, Total 6.7 g/dL (6.4-8.2)
[2023-07-21 13:24] VITALS: BP 164/90; TEMP 97.6
--- NOTE | 2023-07-21 14:17 | ECHO ---
HEIGHT: 5 ft 4 in WEIGHT: 150 lb 0 oz DATE OF STUDY: REFER DR: Roshan Medina MD 2-DIMENSIONAL: YES M.MODE: YES DOPPLER: YES COLOR FLOW: YES TDS: YES PORTABLE: YES DEFINITY: BUBBLE STUDY: DIAGNOSIS: CHEST PAIN CARDIAC HISTORY: CATHERIZATION: SURGERY: PROSTHETIC VALVE: PACEMAKER: MEASUREMENTS (cm) DIASTOLIC (NORMALS) SYSTOLIC (NORMALS) IVSd 0.7 (0.6-1.2) LA Diam 2.9 (1.9-4.0) LVEF 68% LVIDd 3.3 (3.5-5.7) LVIDs 2.1 (2.0-3.5) %FS 37% LVPWd 1.0 (0.6-1.2) Ao Diam 3.0 (2.0-3.7) 2 DIMENSIONAL ASSESSMENT: RIGHT ATRIUM: NORMAL LEFT ATRIUM: NORMAL RIGHT VENTRICLE: NORMAL LEFT VENTRICLE: NORMAL TRICUSPID VALVE: NORMAL MITRAL VALVE: SEVERE MITRAL ANNULAR CALCIFICATION PULMONIC VALVE: NORMAL AORTIC VALVE: NORMAL PERICARDIAL EFFUSION: NONE AORTIC ROOT: NORMAL LEFT VENTRICULAR WALL MOTION: NORMAL DOPPLER/COLOR FLOW: GRADE I DIASTOLIC DYSFUCNTION COMMENTS: 1. NORMAL LEFT VENTRICULAR SYSTOLIC FUNCTION, EJECTION FRACTION 55-60%, NORMAL WALL MOTION 2. GRADE I DIASTIOLIC DYSFUCNTION TECHNOLOGIST: WILL MCINTOSH
[2023-07-21] MEDS ORDERED: MORPHINE 2 MG/ML SYR IV PRN (14:48)
--- NOTE | 2023-07-21 16:18 | RAD REPORT ---
EXAM DESCRIPTION: Angio Aorta For Dissection 07/21/2023 2:11 AM CDT CLINICAL HISTORY: 77 years, Female, Dissection;Pain COMPARISON: None TECHNIQUE: Multiple transaxial tomograms of the thoracic and abdominal aorta were performed utilizin g 3 mm slight thickness at 3 mm interval reconstruction, from the lung apices to the ischial tuberosi ties, before and after the administration of large bolus of IV contrast for complete opacification of the thoracic, abdominal aorta and iliac arteries. 2-D and 3-D multiplanar reformats, volume rendering technique and maximum intensity projection images were generated and reviewed. An individualized dose optimization technique, Automated Exposure Control, was utilized for the perfo rmed procedure. FINDINGS: Thoracic aorta/great vessels: Atherosclerotic calcifications in the aortic arch without aneurysmal dilatation or evidence of diss ection. The great vessels demonstrate normal branching pattern with no evidence for significant steno sis and/or proximal occlusion Aorta/iliac arteries: Atherosclerotic calcifications in the abdominal aorta without aneurysmal dilatation or evidence of di ssection. Atherosclerotic calcifications in bilateral common iliac arteries without significant steno sis and/or occlusion.. The origin-proximal aspect of the celiac trunk, superior mesenteric artery demonstrate minimal periph eral atheromatous plaque with no definitive evidence for significant stenosis. There are single bilateral renal arteries with the presence of minimal peripheral atheromatous plaque at the origin/proximal aspect with no evidence for significant stenosis. Chest: Lower neck/chest wall: Visualized thyroid gland and soft tissues are normal. No adenopathy. Lungs and airways: The lung parenchyma demonstrate to be clear. Minimal compressive atelectatic baeza es. No evidence of airspace or interstitial process. No significant pulmonary nodules and/or masses i dentified. No focal areas of consolidation. Airways: The trachea mainstem bronchus demonstrate to be unremarkable. Pleural: There are no pleural effusion. No evidence for pneumothorax. Hemidiaphragms are normally pos itioned. Mediastinum and lymph nodes: No significant mediastinal and/or hilar lymphadenopathy. The axillary re gions demonstrate to be clear. Heart: Normal heart size. No pericardial effusion. There are coronary artery calcifications. Sternoto my wires and pericardiac clips correspond to previous CABG Pulmonary arteries: The central pulmonary arteries demonstrate to be within normal limits. No evidenc e for significant central filling defect to suggest pulmonary embolus. Osseous structures and chest wall: There are not superior endplate compression deformity at T4, T6, T 8 and T11. No evidence for retropulsed fragment Abdomen and pelvis: Liver: The liver demonstrated presence of decreased attenuation corresponding to mild fatty infiltrat ion. Gallbladder: The gallbladder demonstrates presence of layering high density structures corresponding to cholelithiasis. No significant inflammatory changes and/or biliary duct dilatation. Adrenal glands: The adrenal glands demonstrate to be normal. Pancreas: The pancreas demonstrate to be normal. Spleen: The spleen demonstrate to be within normal limits. Kidneys: The kidneys demonstrate normal uptake of contrast media. There is vascular desiccation of th e renal arteries. There is no evidence for nephrolithiasis and/or hydronephrosis. GI: Grossly the unopacified stomach, small bowel and large bowel demonstrate to be within normal limi ts. No evidence for bowel dilatation and/or free air. The appendix was not visualized. The left-sided colon demonstrate to be decompressed with no gross abnormalities. : The urinary bladder demonstrate to be unremarkable. Genitalia: The uterus is absent. There are no adnexal masses. Retroperitoneum: There is no retroperitoneal lymphadenopathy. There is no evidence for ascites and/or abnormal fluid collections. Bones: The bones demonstrate to be demineralized with minimal degenerative changes L4-S1. Soft tissues: There is injection granuloma within the left lower anterior abdominal wall. IMPRESSION: Atherosclerotic calcifications in the thoracic and abdominal aorta without aneurysmal di latation or evidence of dissection. No evidence for significant central pulmonary embolus. Superior endplate compression deformity at T4, T6, T8 and T11. Cholelithiasis. Mild fatty infiltration of the liver. Status post hysterectomy. Electronically signed by: Trevor Melgar MD 07/21/2023 02:15 AM CDT Due to temporary technical issues with the PACS/Fluency reporting system, reports are being signed by the in house radiologists without review as a courtesy to insure prompt reporting. The interpreting radiologist is fully responsible for the content of the report
--- NOTE | 2023-07-21 16:34 | RAD REPORT ---
EXAM DESCRIPTION: Abdomen Exam Limited RadLex: US ABDOMEN LIMITED CLINICAL HISTORY: 77 years Female; ABD PAIN TECHNIQUE: Limited abdominal ultrasound was performed. COMPARISON: None. FINDINGS: Few tiny gallstones. No pericholecystic fluid. Negative sonographic Cook sign. Gallbladder wall measures 2 mm. Common bile duct measures 4 mm. IMPRESSION: Cholelithiasis without sonographic evidence of acute cholecystitis. Electronically signed by: Feroz Garcia MD 07/21/2023 02:49 AM CDT Due to temporary technical issues with the PACS/Fluency reporting system, reports are being signed by the in house radiologists without review as a courtesy to insure prompt reporting. The interpreting radiologist is fully responsible for the content of the report
--- NOTE | 2023-07-21 16:41 | P.CNS ---
Date of Consult: 07/21/23 Chief Complaint: Back pain History of Present Illness: Patient with PMH of CAD s/p CABG x 2 presented with back pain and she is concerned as it was the same symptoms that she had before she had her bypass surgery, report some CAMEJO, no palpitations, no syncope. Allergies codeine Allergy (Intermediate, Verified 08/21/15 00:05) Hives/Rash Home Medications: Brimonidine Tartrate/Timolol [Combigan 0.2%-0.5% Eye Drops] 1 drop EACH EYE BID 05/22/18 Aspirin Chewable [Aspirin Chewable*] 162 mg PO BEDTIME 02/14/19 Latanoprost/Pf [Latanoprost 0.005% Eye Drop] 1 gtt OP BEDTIME 02/14/19 Anastrozole 1 mg PO BEDTIME 07/21/23 Insulin Glargine,Hum.rec.anlog [Lantus] 32 units SQ DAILY 07/21/23 Insulin Lispro [Humalog Kwikpen U-100] 4 units SQ SEECOM 07/21/23 Pantoprazole [Protonix Tab*] 40 mg PO DAILY 30 Days #30 tab 07/21/23 Pilocarpine HCl 15 ml OP TID 07/21/23 Sennosides 8.6 mg PO BEDTIME PRN 07/21/23 - Past Medical/Surgical History Diabetic: Yes -: CAD -: IDDM -: UT -: Chronic Constipation -: Diabetic retinopathy -: Hyperlipidemia -: Left breast mass, post biopsy indicating infiltrating ductal carcinoma -: Anemia -: Sciatica -: Chronic constipation -: Hysterectomy -: Appendectomy -: L Mastectomy -: Cardiac Bypass -: Balloon Stents Psychosocial/ Personal History: She is and . She has 4 children. She does not work. - Family History Mother Medical History: Heart disease, Diabetes, Cancer Notes: Chronic lymphatic leukemia Father Medical History: Heart disease, Hypertension - Social History Smoking Status: Unknown if ever smoked Alcohol use: No CD- Drugs: No Caffeine use: Yes Place of Residence: Home Review of Systems 10-point ROS is otherwise unremarkable Physical Examination Temp Pulse Resp BP Pulse Ox 97.6 F 75 15 164/90 H 96 07/21/23 16:00 07/21/23 16:00 07/21/23 16:00 07/21/23 16:00 07/21/23 16:00 General: Alert, Oriented x3 HEENT: Atraumatic Neck: Supple Respiratory: Clear to auscultation bilaterally Cardiovascular: No edema, Normal S1 S2 Gastrointestinal: Normal bowel sounds Laboratory Data (last 24 hrs) 07/21/23 07/21/23 07/21/23 00:13 00:13 00:13 WBC 8.20 Hgb 14.3 Hct 42.9 Plt Count 186 PT 10.6 INR 0.96 Sodium 141 Potassium 4.6 BUN 18 Creatinine 0.98 Glucose 241 H Magnesium 2.1 Total Bilirubin 0.6 AST 82 H ALT 78 H Alkaline Phosphatase 161 H Lipase 37 - Problems (1) CAD (coronary artery disease) of artery bypass graft Current Visit: Yes Status: Acute Plan: Patient presenting with back pain which is the same pain she had before having her bypass surgery. enzymes negative. Echo normal will schedule patient for outpatient stress test. (2) Dyslipidemia Current Visit: No Status: Chronic Plan: Continue to monitor. (3) Hypertension Current Visit: No Status: Chronic Plan: BP was high but repeat one before discharge is better. advised to keep BP log at home and present to clinic for better adjustment. Qualifiers: Hypertension type: essential hypertension
--- NOTE | 2023-07-21 16:55 | RAD REPORT ---
EXAM DESCRIPTION: Single view AP chest radiograph(s) CLINICAL HISTORY: CHEST PAIN. COMPARISON: None. TECHNIQUE: Single view AP chest radiograph(s). FINDINGS: Minimal linear scarring or atelectasis in the left midlung. No pulmonary infiltrate or e kimberly identified. No pleural effusion. No pneumothorax. Nonenlarged cardiomediastinal silhouette. Medi an sternotomy wires. IMPRESSION: No acute cardiopulmonary abnormality identified by radiograph. Electronically signed by: Susan Mclaughlin MD 07/21/2023 12:20 AM CDT Due to temporary technical issues with the PACS/Fluency reporting system, reports are being signed by the in house radiologists without review as a courtesy to insure prompt reporting. The interpreting radiologist is fully responsible for the content of the report
--- NOTE | 2023-07-21 18:53 | CON ---
Date of Consultation: 07/21/2023 Diagnoses: Epigastric pain, heartburn. History Of Present Illness: This is the case who comes to us with what she claims is heartburn. She came to the ER, did not improve, so she was admitted to the hospital. She has extensive medical his tory including coronary artery disease with double cardiac bypass. With that she has history of CABG , but then she has been doing okay. This heartburn has been becoming more pronounced. She states sh leandra has history of LFTs elevated, but this is a chronic situation for her and the GI doctor has been wo rking on that. She was admitted for observation. Since she was found a gallstone in the gallbladder , they asked me to review the patient, to check from the surgical standpoint her options. Allergies: NONE. Medications: Include Arimidex, Combigan, Azopt, oxybutynin, latanoprost, Levemir, Ambien. Surgical History: Includes cardiac bypass x2, stents, left mastectomy, appendectomy, hysterectomy. Medical Problems: Include anemia, sciatica, chronic constipation, diabetic retinopathy, IA, insulin- dependent diabetes, coronary artery disease. Family History: Include leukemia, hypertension. Social History: She does not smoke, does not drink alcohol. Review of Systems: At this moment, she has no pain. No nausea, no vomiting. No fever. No shortness of breath. No chica st pain. Review of Systems: Ten points otherwise unremarkable. Physical Examination: General: The patient is awake, alert, in no distress. HEENT: Pupils are equal and reactive. Anicteric. Neck: Supple. Chest: Clear. Abdomen: Soft and depressible. No guarding or rebound. No peritoneal signs. No epigastric tendern ess. No Cook sign. Laboratory Data: WBC count of 8.2, hemoglobin of 14.3. Chloride is 110, glucose 241. Total bilirub in of 0.6, direct bilirubin is 0.2, indirect bilirubin is 0.4, AST 82, ALT 78, alkaline phosphate 171 , lipase 37. Ultrasound of the gallbladder interpreted by radiologist as gallstone. No pericholecys tic fluid or gallbladder wall thickening. Assessment: This is the case of a female with cholelithiasis. At this moment, she is asymptomatic. No epigastric pain. No Cook sign. No abdominal pain. No nausea, no vomiting. No fever. She li kes to go home. From the surgical standpoint, I have no issues with that except she has to come back to my office for followup and she should follow up with her liver doctor too. We explained to her t he importance of low fat diet and how to identify symptoms in the future, maybe her gallbladder. She understood. JAMARI/ALF Voice ID: [id number] Report ID: [id number]
--- NOTE | 2023-07-22 07:03 | P.DS ---
Admission Date: 07/21/23 Discharge Date: 07/21/23 Disposition: ROUTINE DISCHARGE Discharge Condition: GOOD Reason for Admission: Back pain Consultations: Cardiology - Dr. Mckeon General surgery - Dr. Cadena Brief History of Present Illness: 77yo F, PMH: history of coronary artery disease, history of double cardiac bypass Patient presented to the emergency department with a complaint of sudden onset b ack pain similar to symptoms she had when she got CABG several years ago. Patient also reports that epigastric pain and heartburn. She denied any shortness of breath or diaphoresis or palpitation. She denied any lightheadedness. Initial troponin in the ED is negative. CT abdomen pelvis unremarkable except small gallstone. Right upper quadrant sonogram done, official report is pending. Blood work showed elevated LFTs patient is hospitalized for further management. Hospital Course: Problem List: Chest pain/back pain hx CAD s/p CABG (2015) Cholelithiasis Elevated LFTs Epigastric pain / heartburn [id number] Physician Discharge instructions: Patient presented with back/chest pain, heartburn. Troponins were negative. CXR was without any acute findings. CT noted atherosclerotic calcifications in thoracic/abdominal aorta without dilatation/dissection. No PE. Cholelithiasis, mild fatty infiltration of liver. Abdominal ultrasound / MRCP noted cholelithiasis with few tiny gallstones without evidence of cholecystitis. Dr. Cadena, general surgery, was consulted and recommended follow up as outpatient. no acute process with gallbladder at this time. Discussed with patient to follow up with cardiology in near future for outpatient stress test. Patient was feeling better, pain resolved, heartburn resolved, tolerated food, and was deemed stable for discharge. Recommend following up with GI for upper endoscopy (EGD) to further evaluate her indigestion if persists. Medications: continue home meds as prescribed. recommend scheduled pantoprazole as opposed to as needed that she has been taking pantoprazole 40mg daily prescription sent. Follow up: PCP 3-5 days Cardiology 1-2 weeks GI in near future Physical Exam: GEN: Alert, oriented, NAD HEENT: Normal conjunctiva, sclera anicteric CV: Regular rate and rhythm, no edema Pulm: Nonlabored respirations on room air, clear bilaterally ABD: Soft, nontender, nondistended Neuro: Normal speech, normal affect Vital Signs/Physical Exam: Temp Pulse Resp BP Pulse Ox 97.6 F 75 15 164/90 H 96 04/26/24 16:00 07/21/23 16:00 07/21/23 16:00 07/21/23 16:00 07/21/23 16:00 Laboratory Data at Discharge: WBC 8.20 thou/uL (4.3-10.9) 07/21/23 00:13 Hgb 14.3 g/dL (12.0-15.0) 07/21/23 00:13 Hct 42.9 % (36.0-45.0) 07/21/23 00:13 Plt Count 186 thou/uL (152-406) 07/21/23 00:13 PT 10.6 SECONDS (9.5-12.5) 07/21/23 00:13 INR 0.96 07/21/23 00:13 Sodium 141 mEq/L (136-145) 07/21/23 12:33 Potassium 4.0 mEq/L (3.5-5.1) D 07/21/23 12:33 BUN 15 mg/dL (7-18) 07/21/23 12:33 Creatinine 0.97 mg/dL (0.55-1.02) 07/21/23 12:33 Glucose 108 mg/dL (74-106) H 07/21/23 12:33 Magnesium 2.1 mg/dL (1.6-2.4) 07/21/23 00:13 Total Bilirubin 0.9 mg/dL (0.2-1.0) 07/21/23 12:33 AST 51 U/L (15-37) H 07/21/23 12:33 ALT 65 U/L (13-56) H 07/21/23 12:33 Alkaline Phosphatase 133 U/L (45-117) H 07/21/23 12:33 Triglycerides 88 mg/dL (<150) 07/21/23 04:41 Cholesterol 193 mg/dL (<200) 07/21/23 04:41 HDL Cholesterol 67 mg/dL (40-60) H 07/21/23 04:41 Cholesterol/HDL Ratio 2.88 07/21/23 04:41 Lipase 37 U/L (13-75) 07/21/23 00:13 Home Medications: Brimonidine Tartrate/Timolol [Combigan 0.2%-0.5% Eye Drops] 1 drop EACH EYE BID 05/22/18 Aspirin Chewable [Aspirin Chewable*] 162 mg PO BEDTIME 02/14/19 Latanoprost/Pf [Latanoprost 0.005% Eye Drop] 1 gtt OP BEDTIME 02/14/19 Anastrozole 1 mg PO BEDTIME 07/21/23 Insulin Glargine,Hum.rec.anlog [Lantus] 32 units SQ DAILY 07/21/23 Insulin Lispro [Humalog Kwikpen U-100] 4 units SQ SEECOM 07/21/23 Pantoprazole [Protonix Tab*] 40 mg PO DAILY 30 Days #30 tab 07/21/23 Pilocarpine HCl 15 ml OP TID 07/21/23 Sennosides 8.6 mg PO BEDTIME PRN 07/21/23 New Medications: Pantoprazole [Protonix Tab*] 40 mg PO DAILY 30 Days #30 tab Physician Discharge Instructions: Physician Discharge instructions: Patient presented with back/chest pain, heartburn. Troponins were negative. CXR was without any acute findings. CT noted atherosclerotic calcifications in thoracic/abdominal aorta without dilatation/dissection. No PE. Cholelithiasis, mild fatty infiltration of liver. Abdominal ultrasound / MRCP noted cholelithiasis with few tiny gallstones without evidence of cholecystitis. Dr. Cadena, general surgery, was consulted and recommended follow up as outpatient. no acute process with gallbladder at this time. Discussed with patient to follow up with cardiology in near future for outpatient stress test. Patient was feeling better, pain resolved, heartburn resolved, tolerated food, and was deemed stable for discharge. Recommend following up with GI for upper endoscopy (EGD) to further evaluate her indigestion if persists. Medications: continue home meds as prescribed. recommend scheduled pantoprazole as opposed to as needed that she has been taking pantoprazole 40mg daily prescription sent. Follow up: PCP 3-5 days Cardiology 1-2 weeks GI Followup: Telol Mckeon MD [ACTIVE - CAN ADMIT] - (follow up in 1-2 weeks) Augustus Abebe MD [Primary Care Provider] - (follow up in 3-5 days. ) Time spent managing pt's care (in minutes): 45
--- NOTE | 2023-07-24 13:07 | EKG ---
Test Date: 2023-07-20 Test Time: 23:43:00 Product Tester [employer]: JENNIFER MEASUREMENT RESULTS: Intervals: Rate: 101 [place]: 150 QRSD: 86 QT: 326 QTc: 422 Margie: P: 51 [place]: 150 QRS: -40 T: 116 INTERPRETIVE STATEMENTS: Sinus tachycardia Left axis deviation Left ventricular hypertrophy with repolarization abnormality Abnormal ECG Compared to ECG 02/07/2023 11:15:21 No significant changes Electronically Signed On 07-24-23 12:58:38 CDT by Hugo Bro
== END 2023-07-21 16:57 | disposition home or self-care (01) ==
LOC: ER 23:16 → ERHOLD 07-21 03:50 → 4TH 07-21 05:03
PROVIDERS: ADMIT Internal Medicine; ATTEND Hospitalist
DX: M54.9 Dorsalgia, unspecified (principal); R10.13 Epigastric pain; R12 Heartburn; R07.9 Chest pain, unspecified; I25.10 Atherosclerotic heart disease of native coronary artery without angina pectoris; I25.2 Old myocardial infarction; I10 Essential (primary) hypertension; K80.20 Calculus of gallbladder without cholecystitis without obstruction; E11.9 Type 2 diabetes mellitus without complications; R79.89 Other specified abnormal findings of blood chemistry; E78.5 Hyperlipidemia, unspecified; D64.9 Anemia, unspecified; M54.30 Sciatica, unspecified side; K59.00 Constipation, unspecified; E11.319 Type 2 diabetes mellitus with unspecified diabetic retinopathy without macular edema; Z95.1 Presence of aortocoronary bypass graft; Z79.4 Long term (current) use of insulin; Z95.5 Presence of coronary angioplasty implant and graft; Z23 Encounter for immunization; Z88.5 Allergy status to narcotic agent
CPT/HCPCS: 93005; 93306; 85025; 80048; 36415; 83735; 85610; 80061; 82947; 80076; 81003; 84484 ×4; 83690; 80053; 83880; 71275; 74175; 71045; 74181; 76705; 94760; Q9967; J2543; J3010; J2405; J7030; G0378 ×2